=== PATIENT | female | born 1965 | race African-American/Black ===

== ENCOUNTER → 2017-09-29 | Outpatient (CLI) | payer MEDICARE, OTHER ==
[2017-09-29 14:35] LABS: ADD MAN DIFF? NO
[2017-09-29 14:38] LABS: BASO % 0 % (0-3); EOS # 0.1 x10^3/uL (0.0-0.7); EOS % 1 % (0-3); HEMATOCRIT 39.7 % (36.0-47.0); HEMOGLOBIN 13.1 g/dL (12.0-15.5); LYMPH % 30 % (24-48); MEAN CORPUSCULAR HEMOGLOBIN 30 pg (25-35); MEAN CORPUSCULAR HGB CONC 33 g/dL (31-37); MEAN CORPUSCULAR VOLUME 90 fL (79-100); MONO # 0.9 x10^3/uL (0.0-1.1); MONO % 8 % (0-9); NEUT # 6.1 x10^3uL (1.8-7.7); NEUT % 60 % (31-73); PLATELET COUNT 298 x10^3/uL (140-400); RED BLOOD COUNT 4.42 x10^6/uL (3.50-5.40); RED CELL DISTRIBUTION WIDTH 13.9 % (11.5-14.5); WHITE BLOOD COUNT 10.1 x10^3/uL (4.0-11.0)
[2017-09-29 14:56] LABS: ALBUMIN 3.2 g/dL (3.4-5.0); ALBUMIN/GLOBULIN RATIO 0.8 (1.0-1.7); ALK PHOS 70 U/L (46-116); ALT (SGPT) 23 U/L (14-59); ANION GAP 6 (6-14); AST (SGOT) 17 U/L (15-37); BLOOD UREA NITROGEN 24 mg/dL (7-20); BUN/CREATININE RATIO 34 (6-20); CARBON DIOXIDE 33 mmol/L (21-32); CHLORIDE 107 mmol/L (98-107); CREATININE 0.7 mg/dL (0.6-1.0); GFR 105.5; GLUCOSE 89 mg/dL (70-99); POTASSIUM 4.1 mmol/L (3.5-5.1); SODIUM 146 mmol/L (136-145); TOTAL BILIRUBIN 0.3 mg/dL (0.2-1.0); TOTAL PROTEIN 7.2 g/dL (6.4-8.2)
[2017-09-29 15:10] LABS: VAL ACID 117 mcg/mL (50-100)
[2017-09-29 16:48] LABS: BILIRUBIN,URINE NEGATIVE (NEG); CLARITY,URINE CLEAR; COLOR,URINE YELLOW; GLUCOSE,URINE NEGATIVE (NEG); NITRITE,URINE NEGATIVE (NEG); PH,URINE 6.5; PROTEIN,URINE NEGATIVE (NEG-TRACE)
[2017-09-29 16:59] LABS: BACTERIA,URINE FEW /HPF (0-FEW); RBC,URINE 0 /HPF (0-2); SQUAMOUS EPITHELIAL CELL,UR FEW /LPF; WBC,URINE >40 /HPF (0-4)
== END | disposition home or self-care (01) ==
LOC: LAB 14:00
DX: G40.909 Epilepsy, unspecified, not intractable, without status epilepticus (principal)
CPT/HCPCS: 36415; 80053; 80164; 81001; 85025; 87086

== ENCOUNTER → 2017-10-01 | Outpatient (CLI) | payer MEDICARE, OTHER ==
[2017-10-05 16:15] LABS: LAMOTRIGINE LEVEL 16.8 ug/mL (2.0-20.0)
== END | disposition home or self-care (01) ==
LOC: LAB 13:16
DX: G40.909 Epilepsy, unspecified, not intractable, without status epilepticus (principal)
CPT/HCPCS: 36415; 80175

== ENCOUNTER → 2017-10-04 | Outpatient (CLI) | payer MEDICARE, OTHER | END | disposition home or self-care (01) | LOC: RT 10:03 | DX: G40.909 Epilepsy, unspecified, not intractable, without status epilepticus (principal) | CPT/HCPCS: 95816 ==

== ENCOUNTER 2017-12-09 16:05 | Emergency (ER) | payer MEDICARE, OTHER ==
[2017-12-09] MEDS: IV NORMAL SALINE 500ML BAG 500 ML IV (16:51)
[2017-12-09 16:55] LABS: POC GLUCOSE 144 mg/dL (70-99)
[2017-12-09 16:58] LABS: ADD MAN DIFF? NO
[2017-12-09 17:01] LABS: BASO # 0.1 x10^3/uL (0.0-0.2); BASO % 1 % (0-3); EOS % 1 % (0-3); HEMATOCRIT 39.8 % (36.0-47.0); HEMOGLOBIN 13.2 g/dL (12.0-15.5); LYMPH # 2.1 x10^3/uL (1.0-4.8); LYMPH % 23 % (24-48); MEAN CORPUSCULAR HEMOGLOBIN 30 pg (25-35); MEAN CORPUSCULAR HGB CONC 33 g/dL (31-37); MEAN CORPUSCULAR VOLUME 90 fL (79-100); MONO # 0.7 x10^3/uL (0.0-1.1); MONO % 8 % (0-9); NEUT # 6.5 x10^3uL (1.8-7.7); NEUT % 69 % (31-73); PLATELET COUNT 283 x10^3/uL (140-400); RED BLOOD COUNT 4.45 x10^6/uL (3.50-5.40); RED CELL DISTRIBUTION WIDTH 13.7 % (11.5-14.5); WHITE BLOOD COUNT 9.4 x10^3/uL (4.0-11.0)
[2017-12-09 17:10] LABS: ANION GAP 12 (6-14); BLOOD UREA NITROGEN 25 mg/dL (7-20); BUN/CREATININE RATIO 31 (6-20); CALCIUM 9.2 mg/dL (8.5-10.1); CARBON DIOXIDE 23 mmol/L (21-32); CHLORIDE 110 mmol/L (98-107); CREATININE 0.8 mg/dL (0.6-1.0); GFR 90.4; GLUCOSE 158 mg/dL (70-99); POTASSIUM 3.9 mmol/L (3.5-5.1); SODIUM 145 mmol/L (136-145)
[2017-12-09 17:16] LABS: ALBUMIN 3.2 g/dL (3.4-5.0); ALBUMIN/GLOBULIN RATIO 0.8 (1.0-1.7); ALK PHOS 85 U/L (46-116); ALT (SGPT) 24 U/L (14-59); AST (SGOT) 24 U/L (15-37); TOTAL BILIRUBIN 0.1 mg/dL (0.2-1.0); TOTAL PROTEIN 7.2 g/dL (6.4-8.2)
[2017-12-09 18:05] LABS: VAL ACID 64 mcg/mL (50-100)
[2017-12-09 18:59] LABS: BILIRUBIN,URINE NEGATIVE (NEG); CLARITY,URINE CLEAR; COLOR,URINE YELLOW; GLUCOSE,URINE NEGATIVE (NEG); NITRITE,URINE NEGATIVE (NEG); PH,URINE 6.5; PROTEIN,URINE NEGATIVE (NEG-TRACE); UROBILINOGEN,URINE 0.2 mg/dL (0.2 mg/dL)
[2017-12-09 19:03] LABS: BACTERIA,URINE FEW /HPF (0-FEW); RBC,URINE 0 /HPF (0-2); SQUAMOUS EPITHELIAL CELL,UR OCC /LPF
== END 2017-12-09 19:22 | disposition home or self-care (01) ==
LOC: ER 16:05
DX: G40.909 Epilepsy, unspecified, not intractable, without status epilepticus (principal); N39.0 Urinary tract infection, site not specified; Z90.710 Acquired absence of both cervix and uterus
CPT/HCPCS: 36415; 70450; 72125; 80053; 80164; 81001; 82962; 85025; 87086; 93005; 99285-25; J7040

== ENCOUNTER → 2018-05-03 | Outpatient (CLI) | payer MEDICARE, OTHER ==
[2018-01-12 15:00] VITALS: BP 104/62
[~2018-05-03] MED LIST: CEPH-264 PO; CETI10TA22 PO; CHOL5000 PO; CLOB10TA PO; DIVA-53 PO; LAMO100T PO; TOPI100T42 PO; TOPI25TA7 PO
[2018-05-03 09:39] LABS: BASO % 1 % (0-3); EOS # 0.1 x10^3/uL (0.0-0.7); EOS % 1 % (0-3); HEMATOCRIT 40.9 % (36.0-47.0); HEMOGLOBIN 13.4 g/dL (12.0-15.5); LYMPH # 2.6 x10^3/uL (1.0-4.8); LYMPH % 38 % (24-48); MEAN CORPUSCULAR HEMOGLOBIN 30 pg (25-35); MEAN CORPUSCULAR HGB CONC 33 g/dL (31-37); MEAN CORPUSCULAR VOLUME 91 fL (79-100); MONO # 0.8 x10^3/uL (0.0-1.1); MONO % 11 % (0-9); NEUT # 3.4 x10^3uL (1.8-7.7); NEUT % 50 % (31-73); PLATELET COUNT 254 x10^3/uL (140-400); RED CELL DISTRIBUTION WIDTH 13.6 % (11.5-14.5); WHITE BLOOD COUNT 6.9 x10^3/uL (4.0-11.0)
[2018-05-03 10:06] LABS: ALBUMIN 3.2 g/dL (3.4-5.0); ALBUMIN/GLOBULIN RATIO 0.8 (1.0-1.7); ALK PHOS 68 U/L (46-116); ALT (SGPT) 28 U/L (14-59); ANION GAP 9 (6-14); AST (SGOT) 16 U/L (15-37); BLOOD UREA NITROGEN 19 mg/dL (7-20); BUN/CREATININE RATIO 21 (6-20); CALCIUM 9.3 mg/dL (8.5-10.1); CARBON DIOXIDE 21 mmol/L (21-32); CHLORIDE 112 mmol/L (98-107); CREATININE 0.9 mg/dL (0.6-1.0); GFR 78.7; GLUCOSE 93 mg/dL (70-99); POTASSIUM 3.9 mmol/L (3.5-5.1); SODIUM 142 mmol/L (136-145); TOTAL BILIRUBIN 0.4 mg/dL (0.2-1.0); TOTAL PROTEIN 7.1 g/dL (6.4-8.2); VAL ACID 64 mcg/mL (50-100)
[2018-05-03 16:01] LABS: BILIRUBIN,URINE NEGATIVE (NEG); CLARITY,URINE CLOUDY; COLOR,URINE YELLOW; NITRITE,URINE NEGATIVE (NEG); PH,URINE 7.5; PROTEIN,URINE NEGATIVE (NEG-TRACE)
[2018-05-03 16:06] LABS: SQUAMOUS EPITHELIAL CELL,UR FEW /LPF
[2018-05-03 16:14] LABS: BACTERIA,URINE FEW /HPF (0-FEW); RBC,URINE 0 /HPF (0-2)
== END | disposition home or self-care (01) ==
LOC: LAB 09:02
PROVIDERS: ATTEND Psychiatry & Neurology Neurology
DX: G40.909 Epilepsy, unspecified, not intractable, without status epilepticus (principal)
CPT/HCPCS: 80053; 80164; 81001; 82140; 85025

== ENCOUNTER 2018-06-20 19:21 | Emergency (ER) | payer MEDICARE, OTHER ==
[~2018-06-20] VITALS: Ht 162.6 cm; Wt 45.4 kg
[2018-06-20 20:20] VITALS: BP 100/63
--- NOTE | 2018-06-20 22:18 | PHYS DOC ---
Past Medical History Past Medical History: Seizure, Other Additional Past Medical Histor: intellectual deficits Past Surgical History: Hysterectomy Alcohol Use: None Drug Use: None Adult General Chief Complaint Chief Complaint: MECHANICAL FALL HPI HPI Patient is a 53 year old -[place] female with history of mental retardation, seizure disorder who presents with left shoulder injury after witnessed fall yesterday while at home. Patient lives with her parents and has her sister as a nighttime caregiver. Patient reportedly fell in the kitchen, landing on her shoulder. This was not associated with the seizure. Patient has bruising redness and swelling to the anterior superior shoulder pain range of motion. No obvious deformity. No chest wall crepitus, subcutaneous emphysema, flail chest or bony tenderness. No midline pain, neck tenderness. No obvious head injury. No reported nausea vomiting today. Patient is not on anticoagulation therapy. History obtained from the patient's sister[] Review of Systems Review of Systems Review symptoms as per history of present illness. All other systems were reviewed and found to be within normal limits, except as documented in this note. Allergies Allergies Allergies Coded Allergies Type Severity Reaction Last Updated Verified No Known Drug Allergies 05/24/14 No Physical Exam Physical Exam Constitutional: Well developed, well nourished, no acute distress, non-toxic appearance. [] HENT: Normocephalic, atraumatic, bilateral external ears normal, oropharynx moist, no oral exudates, nose normal. [] Eyes: PERRLA, EOMI, conjunctiva normal, no discharge. [] Neck: Normal range of motion, no line tenderness.. [] Cardiovascular:Heart rate regular rhythm, no murmur, tears superior shoulder, bruising swelling, no gross deformity, pain on range of motion, no chest wall pain, bony tenderness, subcutaneous emphysema. No splinting. [] Lungs & Thorax: Bilateral breath sounds clear to auscultation [] Abdomen: Bowel sounds normal, soft, no tenderness, no masses, no pulsatile masses. [] Skin: Warm, dry, no erythema, no rash. [] Back: No tenderness. [] Extremities: No tenderness, [] Neurologic: Alert and oriented to surroundings, normal motor function, normal sensory function, no focal deficits noted. [] Psychologic: Affect normal, judgement normal, mood normal. [] Current Patient Data Vital Signs Vital Signs Date Time Temp Pulse Resp B/P (MAP) Pulse Ox O2 Delivery O2 Flow Rate FiO2 10/1/18 20:20 97.6 81 18 100/63 (75) 97 Room Air 97.6 EKG EKG [] Radiology/Procedures Radiology/Procedures [Chest x-ray/left shoulder series: Suspected left clavicle fracture per radiology report] Course & Med Decision Making Course & Med Decision Making Pertinent Labs and Imaging studies reviewed. (See chart for details) [Patient with left shoulder injury and suspected left clavicle fracture and small left lower lobe pleural effusion. Vital signs stable. No obvious displaced rib fracture. Recommend supportive care with PCP follow-up for view of official radiology report.] Dragon Disclaimer Dragon Disclaimer This electronic medical record was generated, in whole or in part, using a voice recognition dictation system. Departure Departure Impression: Primary Impression: Injury of left shoulder Additional Impression: Chest wall injury Disposition: HOME, SELF-CARE Condition: GOOD Referrals: KARMEN FERRO (PCP) Patient Instructions: Pleural Effusion-Brief, Shoulder Fracture Additional Instructions: Emmy was evaluated in the emergency department for chest wall. Xrays of the shoulder and chest wall were performed with suspected collar bone fracture and fluid collection in lung. Please take Tylenol for pain, and follow-up with your primary care physician tomorrow for the official radiology report to confirm these findings. Return to the ED if new or worsening symptoms. . Problem Qualifiers ARTURO MORGAN DO Jun 20, 2018 22:18
--- NOTE | 2018-06-21 00:06 | RAD ---
Three-view left shoulder radiographs 06/20/2018 CLINICAL HISTORY: Fall with injury to the left shoulder. AP, lateral and oblique digital radiographs of the left shoulder were obtained. A vagal nerve stimulator overlies the left chest. No fracture or dislocation left shoulder is seen. Mild degenerative changes are seen on left shoulder. IMPRESSION: No fracture or dislocation of the left shoulder is seen. Electronically signed by: Candido Hanks MD (06/21/2018 12:02 AM) [facility]
--- NOTE | 2018-06-21 00:07 | RAD ---
PA and lateral chest radiographs 06/20/2018 CLINICAL HISTORY: Fall with chest pain. PA and lateral digital radiographs of the chest were obtained. Comparison study is dated 01/09/2018. A stimulator is seen within the left anterior chest, unchanged. The cardiac silhouette is normal in size. The thoracic aorta is minimally tortuous. No acute pulmonary infiltrate is seen. No pleural effusion or pneumothorax is noted. Degenerative changes are seen involving the thoracic spine. The osseous structures are grossly intact. IMPRESSION: No acute abnormality is seen. Electronically signed by: Candido Hanks MD (06/21/2018 12:03 AM) [facility]
== END 2018-06-21 00:09 | disposition home or self-care (01) ==
LOC: ER 19:21
DX: S49.92XA Unspecified injury of left shoulder and upper arm, initial encounter (principal); S29.9XXA Unspecified injury of thorax, initial encounter; G40.909 Epilepsy, unspecified, not intractable, without status epilepticus; F79 Unspecified intellectual disabilities; W19.XXXA Unspecified fall, initial encounter; Y93.89 Activity, other specified; Y92.098 Other place in other non-institutional residence as the place of occurrence of the external cause; Y99.8 Other external cause status
CPT/HCPCS: 71046; 73030; 99284

== ENCOUNTER → 2018-08-01 | Outpatient (CLI) | payer MEDICARE, OTHER ==
[2018-08-01 10:56] LABS: BILIRUBIN,URINE NEGATIVE (NEG); CLARITY,URINE CLEAR; COLOR,URINE YELLOW; NITRITE,URINE NEGATIVE (NEG); PH,URINE 5.5; PROTEIN,URINE NEGATIVE (NEG-TRACE); UROBILINOGEN,URINE 0.2 mg/dL (0.2 mg/dL)
[2018-08-01 11:19] LABS: SQUAMOUS EPITHELIAL CELL,UR FEW /LPF
[2018-08-01 11:20] LABS: BACTERIA,URINE FEW /HPF (0-FEW); RBC,URINE OCC /HPF (0-2)
== END | disposition home or self-care (01) ==
LOC: LAB 10:21
PROVIDERS: ATTEND Psychiatry & Neurology Neurology
DX: Z87.440 Personal history of urinary (tract) infections (principal)
CPT/HCPCS: 81001

== ENCOUNTER → 2018-11-07 | Outpatient (CLI) | payer MEDICARE, OTHER ==
[2018-11-07 10:20] LABS: BILIRUBIN,URINE NEGATIVE (NEG); CLARITY,URINE CLEAR; COLOR,URINE YELLOW; NITRITE,URINE NEGATIVE (NEG); PH,URINE 5.5; PROTEIN,URINE NEGATIVE (NEG-TRACE); UROBILINOGEN,URINE 0.2 mg/dL (0.2 mg/dL)
[2018-11-07 10:26] LABS: BACTERIA,URINE FEW /HPF (0-FEW); RBC,URINE OCC /HPF (0-2); SQUAMOUS EPITHELIAL CELL,UR FEW /LPF
[2018-11-07 10:38] LABS: VAL ACID 53 mcg/mL (50-100)
== END | disposition home or self-care (01) ==
LOC: LAB 09:42
PROVIDERS: ATTEND Psychiatry & Neurology Neurology
DX: G40.909 Epilepsy, unspecified, not intractable, without status epilepticus (principal); Z87.440 Personal history of urinary (tract) infections
CPT/HCPCS: 36415; 80164; 81001; 87086

== ENCOUNTER → 2019-01-31 | Outpatient (CLI) | payer MEDICARE, OTHER ==
[~2019-01-31] MED LIST changes: +ASPI-612 PO; +LACO200T PO; +TOPI200T25 PO
--- NOTE | 2019-01-31 16:46 | RAD ---
Dimension: Ultrasound kidneys HISTORY: History of chronic cystitis. COMPARISON: None available. FINDINGS: The right kidney measures 9.6 x 4.4 x 4.5 cm. The left kidney measures 9.4 x 5.0 x 5.1 cm. Limited examination as patient was uncooperative. Urinary bladder is mildly distended. There is mild increased echogenicity identified in the bilateral kidneys. IMPRESSION: 1. Mild increased echogenicity identified in the bilateral kidneys could be due to mild medical renal disease. Examination is limited as patient was uncooperative. No obvious hydronephrosis. Electronically signed by: Jamil Garcia MD (01/31/2019 4:43 PM) [place] [id number]
== END | disposition home or self-care (01) ==
LOC: US 16:03
PROVIDERS: ATTEND Urology
DX: N30.20 Other chronic cystitis without hematuria (principal); N32.89 Other specified disorders of bladder
CPT/HCPCS: 76770

== ENCOUNTER 2019-02-08 14:25 | Inpatient (IN) | payer MEDICARE, OTHER ==
[~2019-02-08] VITALS: Ht 149.9 cm; Wt 47.2 kg
[2019-02-08] MEDS: DIVALPROEX DELAYED RELEASE 250 MG TABLET.DR. PO SCH (09:00)
[~2019-02-08 14:25] MED LIST changes: -ASPI-612 PO
[2019-02-08] MEDS ORDERED: IV NORMAL SALINE 1000ML BAG 1,000 ML IV ONE (15:00)
--- NOTE | 2019-02-08 15:37 | RAD ---
EXAM: Chest, single view. HISTORY: Weakness. COMPARISON: 02/03/2019 FINDINGS: A frontal view of the chest is obtained. There is no infiltrate, pleural effusion or pneumothorax. The heart is normal in size. There is a left vagal neurostimulator overlying the left thorax. IMPRESSION: No acute pulmonary finding. Electronically signed by: Dhara Owens MD (02/08/2019 3:35 PM) [facility]
--- NOTE | 2019-02-08 15:37 | RAD ---
EXAM: Head CT without contrast. HISTORY: Weakness. TECHNIQUE: Computed tomographic images of the head were obtained without contrast. *One or more of the following individualized dose reduction techniques were utilized for this examination: 1. Automated exposure control. 2. Adjustment of the mA and/or kV according to patient size. 3. Use of iterative reconstruction technique. COMPARISON: 02/03/2019. FINDINGS: There is no acute or subacute extra-axial or intraparenchymal hemorrhage. There is no mass effect or midline shift. There is no hydrocephalus. There is cerebral and cerebellar volume loss, greater than expected for patient age. There is a stable chronic lacunar infarct within the left thalamus. There are also areas of hypodensity within the bilateral frontoparietal junction which may be due to encephalomalacia from chronic infarction. There are scattered areas of hypodensity within the cerebral white matter, likely due to chronic small vessel disease. There is diffuse calvarial thickening. The orbits, paranasal sinuses mastoid air cells are unremarkable. There is ossification along the falx. IMPRESSION: 1. No acute intracranial finding. Note is made that MRI is more sensitive for acute infarction. 2. Cerebral and cerebellar atrophy. This is greater than expected for patient age. 3. Decreased attenuation within the cerebral white, a nonspecific finding which can be seen with chronic small vessel disease. 4. 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 Electronically signed by: Dhara Owens MD (02/08/2019 3:34 PM) [facility]
[2019-02-08 15:49] LABS: BASO % 0 % (0-3); EOS # 0.1 x10^3/uL (0.0-0.7); EOS % 1 % (0-3); HEMATOCRIT 40.2 % (36.0-47.0); HEMOGLOBIN 13.1 g/dL (12.0-15.5); LYMPH % 23 % (24-48); MEAN CORPUSCULAR HEMOGLOBIN 29 pg (25-35); MEAN CORPUSCULAR HGB CONC 33 g/dL (31-37); MEAN CORPUSCULAR VOLUME 90 fL (79-100); MONO # 1.1 x10^3/uL (0.0-1.1); MONO % 13 % (0-9); NEUT # 5.3 x10^3uL (1.8-7.7); NEUT % 62 % (31-73); PLATELET COUNT 202 x10^3/uL (140-400); RED BLOOD COUNT 4.46 x10^6/uL (3.50-5.40); RED CELL DISTRIBUTION WIDTH 13.7 % (11.5-14.5); WHITE BLOOD COUNT 8.5 x10^3/uL (4.0-11.0)
[2019-02-08 15:55] LABS: PROTHROMBIN TIME PATIENT 13.4 SEC (11.7-14.0)
[2019-02-08 15:58] LABS: CREATININE 0.8 mg/dL (0.6-1.0); GFR 90.1; POTASSIUM 3.8 mmol/L (3.5-5.1)
[2019-02-08 16:13] LABS: ALBUMIN 2.7 g/dL (3.4-5.0); ALBUMIN/GLOBULIN RATIO 0.7 (1.0-1.7); TOTAL BILIRUBIN 0.3 mg/dL (0.2-1.0); TOTAL PROTEIN 6.5 g/dL (6.4-8.2)
--- NOTE | 2019-02-08 16:22 | EKG ---
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
[2019-02-08 16:24] LABS: BILIRUBIN,URINE NEGATIVE (NEG); CLARITY,URINE CLEAR; COLOR,URINE YELLOW; NITRITE,URINE NEGATIVE (NEG); PROTEIN,URINE NEGATIVE (NEG-TRACE)
--- NOTE | 2019-02-08 16:24 | PHYS DOC ---
Past Medical History Past Medical History: Seizure, Other Additional Past Medical Histor: intellectual deficits Past Surgical History: Hysterectomy Alcohol Use: None Drug Use: None Adult General Chief Complaint Chief Complaint: WEAKNESS/GENERALIZED HPI HPI Patient is a 53 year old nonverbal female with history of mentally challenged and seizure who brought in because of not able to walk. Patient was admitted on February 03 because of not able to walk unlike her usual condition and was discharged last night with providing home health care. Patient's sister states she was not able to walk and feeding herself and brought her back. Patient is not verbal and unable to give history. Review of Systems Review of Systems Unable to obtain, nonverbal patient Current Medications Current Medications Current Medications Medications (Trade) Dose Ordered Sig/Ruthie Start Time Stop Time Status Last Admin Dose Admin Sodium Chloride 1,000 ml @ 150 mls/hr [id number] 02/08/19 16:24 02/09/19 16:23 Allergies Allergies Allergies Coded Allergies Type Severity Reaction Last Updated Verified No Known Drug Allergies 05/24/14 No Physical Exam Physical Exam Constitutional: Mild distress, non-toxic appearance. [] HENT: Normocephalic, atraumatic, oropharynx dry. Eyes: PERRLA, EOMI, conjunctiva normal, no discharge. [] Neck: Normal range of motion, no tenderness, supple, no stridor. [] Cardiovascular:Heart rate regular rhythm, no murmur [] Lungs & Thorax: Bilateral breath sounds clear to auscultation [] Abdomen: Bowel sounds normal, soft, no tenderness, no masses, no pulsatile masses. [] Skin: Warm, dry, no erythema, no rash. [] Back: No tenderness, no CVA tenderness. [] Extremities: No tenderness, no cyanosis, no clubbing, ROM intact, no edema. [] Neurologic: Alert, nonverbal, moves all extremities Psychologic: Unable to evaluate Current Patient Data Vital Signs Vital Signs Date Time Temp Pulse Resp B/P (MAP) Pulse Ox O2 Delivery O2 Flow Rate FiO2 02/08/19 14:59 99.1 92 18 130/72 (91) 98 Room Air 99.1 Lab Values Laboratory Tests Test 02/08/19 15:39 02/08/19 16:16 White Blood Count 8.5 x10^3/uL (4.0-11.0) Red Blood Count 4.46 x10^6/uL (3.50-5.40) Hemoglobin 13.1 g/dL (12.0-15.5) Hematocrit 40.2 % (36.0-47.0) Mean Corpuscular Volume 90 fL (79-100) Mean Corpuscular Hemoglobin 29 pg (25-35) Mean Corpuscular Hemoglobin Concent 33 g/dL (31-37) Red Cell Distribution Width 13.7 % (11.5-14.5) Platelet Count 202 x10^3/uL (140-400) Neutrophils (%) (Auto) 62 % (31-73) Lymphocytes (%) (Auto) 23 % (24-48) L Monocytes (%) (Auto) 13 % (0-9) H Eosinophils (%) (Auto) 1 % (0-3) Basophils (%) (Auto) 0 % (0-3) Neutrophils # (Auto) 5.3 x10^3uL (1.8-7.7) Lymphocytes # (Auto) 2.0 x10^3/uL (1.0-4.8) Monocytes # (Auto) 1.1 x10^3/uL (0.0-1.1) Eosinophils # (Auto) 0.1 x10^3/uL (0.0-0.7) Basophils # (Auto) 0.0 x10^3/uL (0.0-0.2) Prothrombin Time 13.4 SEC (11.7-14.0) Prothrombin Time INR 1.1 (0.8-1.1) Sodium Level 146 mmol/L (136-145) H Potassium Level 3.8 mmol/L (3.5-5.1) Chloride Level 111 mmol/L (98-107) H Carbon Dioxide Level 25 mmol/L (21-32) Anion Gap 10 (6-14) Blood Urea Nitrogen 24 mg/dL (7-20) H Creatinine 0.8 mg/dL (0.6-1.0) Estimated GFR (Cockcroft-Gault) 90.1 BUN/Creatinine Ratio 30 (6-20) H Glucose Level 106 mg/dL (70-99) H Calcium Level 9.0 mg/dL (8.5-10.1) Magnesium Level 2.0 mg/dL (1.8-2.4) Total Bilirubin 0.3 mg/dL (0.2-1.0) Aspartate Amino Transferase (AST) 49 U/L (15-37) H Alanine Aminotransferase (ALT) 25 U/L (14-59) Alkaline Phosphatase 61 U/L (46-116) Creatine Kinase 1536 U/L (26-192) H Troponin I Quantitative 0.084 ng/mL (0.000-0.055) SH-Itc-E-Type Natriuretic Peptide 422 pg/mL (0-124) H Total Protein 6.5 g/dL (6.4-8.2) Albumin 2.7 g/dL (3.4-5.0) L Albumin/Globulin Ratio 0.7 (1.0-1.7) L Urine Collection Type U cath Urine Color Yellow Urine Clarity Clear Urine pH 7.0 Urine Specific [place] 1.025 Urine Protein Negative mg/dL (NEG-TRACE) Urine Glucose (UA) Negative mg/dL (NEG) Urine Ketones (Stick) Trace mg/dL (NEG) Urine Blood Negative (NEG) Urine Nitrite Negative (NEG) Urine Bilirubin Negative (NEG) Urine Urobilinogen Dipstick 2.0 mg/dL (0.2 mg/dL) Urine Leukocyte Esterase Negative (NEG) Urine RBC 0 /HPF (0-2) Urine WBC 0 /HPF (0-4) Urine Bacteria 0 /HPF (0-FEW) Urine Mucus Mod /LPF Laboratory Tests 02/08/19 15:39 Laboratory Tests 02/08/19 15:39 EKG EKG EKG interpreted by me. EKG at 1542 showed normal sinus rhythm at rate of 90, left atrial abnormalities, poor R-wave progress in anteroseptal leads, no acute ST and T-wave abnormalities. Radiology/Procedures Radiology/Procedures [facility] [address] [place] [address] IMAGING REPORT Signed PATIENT: MARIUSZ LIANG ACCOUNT: [id number] : 1965 LOCATION: ER AGE: 53 SEX: F EXAM STATUS: REG ER ORD. PHYSICIAN: YOBANY LOZA MD REASON: generalized weakness PROCEDURE: PORTABLE CHEST 1V EXAM: Chest, single view. HISTORY: Weakness. COMPARISON: 02/03/2019 FINDINGS: A frontal view of the chest is obtained. There is no infiltrate, pleural effusion or pneumothorax. The heart is normal in size. There is a left vagal neurostimulator overlying the left thorax. IMPRESSION: No acute pulmonary finding. Electronically signed by: Dhara Espinoza MD (02/08/2019 3:35 PM) [facility] DICTATED and SIGNED BY: DHARA ESPINOZA MD DATE: 02/08/19 1535 [facility] [address] [place] [address] IMAGING REPORT Signed PATIENT: MARIUSZ LIANG ACCOUNT: [id number] : 1965 LOCATION: ER AGE: 53 SEX: F EXAM STATUS: REG ER ORD. PHYSICIAN: YOBANY LOZA MD REASON: generalized weakness PROCEDURE: CT HEAD WO CONTRAST EXAM: Head CT without contrast. HISTORY: Weakness. TECHNIQUE: Computed tomographic images of the head were obtained without contrast. *One or more of the following individualized dose reduction techniques were utilized for this examination: 1. Automated exposure control. 2. Adjustment of the mA and/or kV according to patient size. 3. Use of iterative reconstruction technique. COMPARISON: 02/03/2019. FINDINGS: There is no acute or subacute extra-axial or intraparenchymal hemorrhage. There is no mass effect or midline shift. There is no hydrocephalus. There is cerebral and cerebellar volume loss, greater than expected for patient age. There is a stable chronic lacunar infarct within the left thalamus. There are also areas of hypodensity within the bilateral frontoparietal junction which may be due to encephalomalacia from chronic infarction. There are scattered areas of hypodensity within the cerebral white matter, likely due to chronic small vessel disease. There is diffuse calvarial thickening. The orbits, paranasal sinuses mastoid air cells are unremarkable. There is ossification along the falx. IMPRESSION: 1. No acute intracranial finding. Note is made that MRI is more sensitive for acute infarction. 2. Cerebral and cerebellar atrophy. This is greater than expected for patient age. 3. Decreased attenuation within the cerebral white, a nonspecific finding which can be seen with chronic small vessel disease. 4. 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 Electronically signed by: Dhara Espinoza MD (02/08/2019 3:34 PM) [facility] DICTATED and SIGNED BY: DHARA ESPINOZA MD DATE: 02/08/19 1534 Course & Med Decision Making Course & Med Decision Making Pertinent Labs and Imaging studies reviewed. (See chart for details) Evaluation of patient in ER showed 53-year-old nonverbal patient brought in to the hospital again after recent hospitalization with not able to walk. Patient was nonverbal. She had mild elevation of troponin and CK and sodium of 146. Patient treated with IV fluid. Plan to admit patient for possible rehabilitation or prison placement.Patient requiring admission for further evaluation and treatment. Discussed with Dr. Ward who is in agreement with admission. Discussed findings and plan with patient and family, who acknowledge understanding and agreement. Dragon Disclaimer Dragon Disclaimer This electronic medical record was generated, in whole or in part, using a voice recognition dictation system. Departure Departure Impression: Primary Impression: Generalized weakness Additional Impressions: Elevated troponin Dehydration Hypernatremia Rhabdomyolysis Mentally challenged Seizure Disposition: ADMITTED INPATIENT (at 1557) Admitting Physician: Other (Dr. Ward accepted admission at 1557) Condition: IMPROVED Referrals: KARMEN FERRO (PCP) Problem Qualifiers Additional Impressions: Rhabdomyolysis Rhabdomyolysis type: non-traumatic Qualified Codes: M62.82 - Rhabdomyolysis YOBANY LOZA MD February 08, 2019 16:24
[2019-02-08 16:37] LABS: BACTERIA,URINE 0 /HPF (0-FEW); RBC,URINE 0 /HPF (0-2); WBC,URINE 0 /HPF (0-4)
[2019-02-08 18:00] VITALS: BP 136/67
--- NOTE | 2019-02-08 19:24 | RAD ---
Two-view right femur dated 02/08/2019. No comparison available. Clinical data indication: Pain. FINDINGS: 2 views right femur show normal bony alignment. No displaced fracture. No acute osseous or articular abnormality. No periostitis or bone destruction. Mild degenerative change at the knee joint. IMPRESSION: No acute radiographic abnormality. Electronically signed by: Cristino Lima MD (02/08/2019 7:22 PM) [facility]
[2019-02-08] MEDS: LACOSAMIDE 200 MG TABLET PO SCH (20:55)
[2019-02-08] MEDS: HYDROcodone/APAP 5/325MG 1 TAB TABLET PO PRN (20:55)
[2019-02-08] MEDS: DIVALPROEX DELAYED RELEASE 500 MG TABLET.DR. PO SCH (20:55)
[2019-02-08] MEDS: TOPIRAMATE 100 MG TABLET. PO SCH (20:55)
[2019-02-08 22:57] VITALS: BP 84/49
--- NOTE | 2019-02-09 00:53 | NUR ---
At start of shift, pt had her sister at bedside, and two attempts at using the bedpan were unsuccessful, but this patient expresses great pain in repositioning and during the attempt at BSC. MD called for pain control, orders received, pt incontinent of bladder and is in a brief.
[2019-02-09 03:00] VITALS: BP 90/48
[2019-02-09 07:37] VITALS: BP 91/52
--- NOTE | 2019-02-09 08:47 | EKG ---
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
[2019-02-09] MEDS: LACOSAMIDE 200 MG TABLET PO SCH ×2 (08:54→20:48)
[2019-02-09] MEDS: DIVALPROEX DELAYED RELEASE 250 MG TABLET.DR. PO SCH (08:54)
[2019-02-09] MEDS: TOPIRAMATE 100 MG TABLET. PO SCH ×2 (08:55→20:48)
[2019-02-09] MEDS: IV NORMAL SALINE 1000ML BAG 1,000 ML IV SCH ×3 (08:55→18:24)
[2019-02-09] MEDS: CHOLECALCIFEROL (VITAMIN D3) 5,000 UNIT CAPSULE PO SCH (09:00)
[2019-02-09] MEDS: CETIRIZINE HCL 10 MG TABLET. PO SCH (09:00)
[2019-02-09] MEDS: CLOBAZAM 5 MG PO SCH ×2 (09:00→14:00)
[2019-02-09 09:14] LABS: CREATININE 0.6 mg/dL (0.6-1.0); GFR 125.6; MAGNESIUM 1.8 mg/dL (1.8-2.4); POTASSIUM 3.7 mmol/L (3.5-5.1)
[2019-02-09 09:16] LABS: CHOLESTEROL/HDL RATIO 4.6
[2019-02-09 10:39] LABS: VAL ACID 100 mcg/mL (50-100)
[2019-02-09 11:07] VITALS: BP 138/77
--- NOTE | 2019-02-09 11:17 | PDOC2 ---
[address]RA MATA [address]IVE THRU ORDER TAKER 02/09/19 1117: CARDIAC CONSULT DATE OF CONSULT Date of Consult DATE: 02/09/19 TIME: 11:13 REASON FOR CONSULT Reason for Consult: Increase trop REFERRING PHYSICIAN Referring Physician: Ed SOURCE Source: Chart review HISTORY OF PRESENT ILLNESS HISTORY OF PRESENT ILLNESS This is a 53 yo female admitted for increasing weakness. Pt is disable, mentally challenged and was recently discharged on 02/06/2019 noted at that time with intractable seizures and multiple falls. apparently she was noted with weakness and inability to walk. She is currently curled up in bed and nodding yes to every questions I asked. She does not seem to appear to be in pain when not being disturbed but moans when I touch or move her. I was unable to obtain details of any symptoms and currently she is not in distress. Speculation with her family that she may have fallen again per staff. PAST MEDICAL HISTORY CENTRAL NERVOUS SYSTEM: Seizure, Other (tremor) Psych: Other (mental disability) Musculoskeletal: Other (rib fractures from falls) Renal/: UTI PAST SURGICAL HISTORY Past Surgical History: Tubal Ligation, Other (vagus nerve stimulator) FAMILY HISTORY Family History: Diabetes (mother), Heart Disease (brother, father, sister) SOCIAL HISTORY Smoke: No ALCOHOL: none Drugs: None Lives: with Family CURRENT MEDICATIONS CURRENT MEDICATIONS Current Medications Medications (Trade) Dose Ordered Sig/Ruthie Route PRN Reason Start Time Stop Time Status Last Admin Dose Admin Sodium Chloride 1,000 ml @ 1,000 mls/hr 1X ONCE IV 02/08/19 15:00 02/08/19 15:59 DC 02/08/19 15:40 Sodium Chloride 1,000 ml @ 150 mls/hr Q6H40M IV 02/08/19 16:24 02/09/19 16:23 02/09/19 08:55 Lacosamide (Vimpat) 200 mg BID PO 02/08/19 21:00 02/09/19 08:54 Divalproex Sodium (Depakote) 500 mg QHS PO 02/08/19 21:00 02/08/19 20:55 Topiramate (Topamax) 200 mg BID PO 02/08/19 21:00 02/09/19 08:55 Acetaminophen/ Hydrocodone Bitart (Lortab 5/325) 1 tab PRN Q6HRS PRN PO PAIN 02/08/19 20:30 02/08/19 20:55 ALLERGIES ALLERGIES: Coded Allergies: No Known Drug Allergies (Unverified , 05/24/14) ROS Review of System limited PHYSICAL EXAM General: Alert, No acute distress HEENT: Atraumatic, Mucous membr. moist/pink Lungs: Clear to auscultation Heart: Regular rate (SR) Abdomen: Soft Extremities: No cyanosis, No edema Skin: No breakdown, No significant lesion Neuro: Other (moans intermittently, tremors) MUSCULOSKELETAL: Osteoarthritic changes both hands VITALS VITALS Vital Signs Date Time Temp Pulse Resp B/P (MAP) Pulse Ox O2 Delivery O2 Flow Rate FiO2 02/09/19 11:07 97.9 96 14 138/77 (97) 96 Room Air 97.9 LABS Lab: Laboratory Tests Test 02/08/19 15:39 02/08/19 16:16 02/08/19 19:30 02/09/19 01:20 White Blood Count 8.5 x10^3/uL (4.0-11.0) Red Blood Count 4.46 x10^6/uL (3.50-5.40) Hemoglobin 13.1 g/dL (12.0-15.5) Hematocrit 40.2 % (36.0-47.0) Mean Corpuscular Volume 90 fL (79-100) Mean Corpuscular Hemoglobin 29 pg (25-35) Mean Corpuscular Hemoglobin Concent 33 g/dL (31-37) Red Cell Distribution Width 13.7 % (11.5-14.5) Platelet Count 202 x10^3/uL (140-400) Neutrophils (%) (Auto) 62 % (31-73) Lymphocytes (%) (Auto) 23 % (24-48) Monocytes (%) (Auto) 13 % (0-9) Eosinophils (%) (Auto) 1 % (0-3) Basophils (%) (Auto) 0 % (0-3) Neutrophils # (Auto) 5.3 x10^3uL (1.8-7.7) Lymphocytes # (Auto) 2.0 x10^3/uL (1.0-4.8) Monocytes # (Auto) 1.1 x10^3/uL (0.0-1.1) Eosinophils # (Auto) 0.1 x10^3/uL (0.0-0.7) Basophils # (Auto) 0.0 x10^3/uL (0.0-0.2) Prothrombin Time 13.4 SEC (11.7-14.0) Prothromb Time International Ratio 1.1 (0.8-1.1) Sodium Level 146 mmol/L (136-145) 146 mmol/L (136-145) Potassium Level 3.8 mmol/L (3.5-5.1) 3.7 mmol/L (3.5-5.1) Chloride Level 111 mmol/L (98-107) 114 mmol/L (98-107) Carbon Dioxide Level 25 mmol/L (21-32) 19 mmol/L (21-32) Anion Gap 10 (6-14) 13 (6-14) Blood Urea Nitrogen 24 mg/dL (7-20) 23 mg/dL (7-20) Creatinine 0.8 mg/dL (0.6-1.0) 0.6 mg/dL (0.6-1.0) Estimated GFR (Cockcroft-Gault) 90.1 125.6 BUN/Creatinine Ratio 30 (6-20) Glucose Level 106 mg/dL (70-99) 121 mg/dL (70-99) Calcium Level 9.0 mg/dL (8.5-10.1) 8.0 mg/dL (8.5-10.1) Magnesium Level 2.0 mg/dL (1.8-2.4) 1.8 mg/dL (1.8-2.4) Total Bilirubin 0.3 mg/dL (0.2-1.0) Aspartate Amino Transf (AST/SGOT) 49 U/L (15-37) Alanine Aminotransferase (ALT/SGPT) 25 U/L (14-59) Alkaline Phosphatase 61 U/L (46-116) Creatine Kinase 1536 U/L (26-192) 933 U/L (26-192) Troponin I Quantitative 0.084 ng/mL (0.000-0.055) 0.084 ng/mL (0.000-0.055) 0.072 ng/mL (0.000-0.055) IY-Mkl-G-Type Natriuretic Peptide 422 pg/mL (0-124) Total Protein 6.5 g/dL (6.4-8.2) Albumin 2.7 g/dL (3.4-5.0) Albumin/Globulin Ratio 0.7 (1.0-1.7) Urine Collection Type U cath Urine Color Yellow Urine Clarity Clear Urine pH 7.0 Urine Specific [place] 1.025 Urine Protein Negative mg/dL (NEG-TRACE) Urine Glucose (UA) Negative mg/dL (NEG) Urine Ketones (Stick) Trace mg/dL (NEG) Urine Blood Negative (NEG) Urine Nitrite Negative (NEG) Urine Bilirubin Negative (NEG) Urine Urobilinogen Dipstick 2.0 mg/dL (0.2 mg/dL) Urine Leukocyte Esterase Negative (NEG) Urine RBC 0 /HPF (0-2) Urine WBC 0 /HPF (0-4) Urine Bacteria 0 /HPF (0-FEW) Urine Mucus Mod /LPF Triglycerides Level 114 mg/dL (0-150) Cholesterol Level 166 mg/dL (0-200) LDL Cholesterol, Calculated 107 mg/dL (0-100) VLDL Cholesterol, Calculated 23 mg/dL (0-40) Non-HDL Cholesterol Calculated 130 mg/dL (0-129) HDL Cholesterol 36 mg/dL (40-60) Cholesterol/HDL Ratio 4.6 Valproic Acid (Depakene) Level 100 mcg/mL (50-100) Valproic Acid Last Dose Date 02/08/19 Valproic Acid Last Dose Time 2054 ASSESSMENT/PLAN ASSESSMENT/PLAN 1. Rhabdomyolysis: trending down, potentially from seizure/fall but seizure meds such as depakote and topamax could contribute as well. 2. Mild elevation in troponin: likely from seizures/rhabdo and recent falls. No cardiac symptoms 3. Hx of seizures/falls 4. Mental disability/cachexia/malnutrition/tremors 5. Weakness: contributing myopathy. Recommendations 1. Mild changes to ST-T wave lateral region but otherwise unchanged by comparison 2. TTE, TSH, depakote level, lipids 3. Maintain conservative measures given above factors, unless significant changes to her TTE and symptomatic changes then will consider for ischemic workup. 4. IVF. ASA. KENYA ESTRADA MD 02/09/19 4768: CARDIAC CONSULT ASSESSMENT/PLAN ASSESSMENT/PLAN Pt. seen and examined. Agree with above HISTOLOGIC AIDE note. Severely debilitated woman with no clear symptoms that I am able to elicit. She does not communicate well. EKG w/o acute findings. Supportive care. SIDRA MATA APRN February 09, 2019 11:17 KENYA ESTRADA MD February 09, 2019 14:58
[2019-02-09] MEDS: ASPIRIN ENTERIC COATED 81 MG TABLET.DR. PO SCH (12:00)
--- NOTE | 2019-02-09 13:19 | NUR ---
SS following for discharge planning. SS reviewed pt chart. Pt is from home and is currently on room air. No discharge needs noted at this time. SS will continue to follow for discharge planning.
[2019-02-09 14:54] VITALS: BP 108/54
--- NOTE | 2019-02-09 17:07 | PDOC1 ---
History and Physical Date of Admission Date of Admission DATE: 02/09/19 TIME: 16:56 Identification/Chief Complaint Chief Complaint weakness Source Source: Chart review History of Present Illness History of Present Illness 53 year old female who is mentally challenged who was discharged on 02/06. was admitted for seizures and falls. was able to work with PT and discharged home. per sister, the patient is unable to still walk and feed herself. she answers yes to all my questions so difficult to obtain history. family not at bedside for questioning. per floor nurse patient reported hip pain, xray done and negative for fracture. patient currently curled up in bed. in ED patient noted to have elevated trop. 0.07, 0.084, 0.084 no ekg changes. no chest pain. hospitalist called to admit due to weakness and falls. Past Medical History CENTRAL NERVOUS SYSTEM: Seizure, Other (tremor) Psych: Other (mental disability) Musculoskeletal: Other (rib fractures from falls) Renal/: UTI Past Surgical History Past Surgical History: Tubal Ligation, Other (vagus nerve stimulator) Family History Family History: Diabetes (mother), Heart Disease (brother, father, sister) Social History Smoke: No ALCOHOL: none Drugs: None Current Problem List Problem List Problems Medical Problems: (1) Dehydration Status: Acute (2) Elevated troponin Status: Acute (3) Generalized weakness Status: Acute (4) Hypernatremia Status: Acute (5) Mentally challenged Status: Acute (6) Rhabdomyolysis Status: Acute (7) Seizure Status: Acute Current Medications Current Medications Current Medications Sodium Chloride 1,000 ml @ 1,000 mls/hr 1X ONCE IV Last administered on 02/08/19at 15:40; Start 02/08/19 at 15:00; Stop 02/08/19 at 15:59; Status DC Sodium Chloride 1,000 ml @ 150 mls/hr Q6H40M IV Last administered on 02/09/19at 08:55; Start 02/08/19 at 16:24; Stop 02/09/19 at 11:58; Status DC Cetirizine HCl (ZyrTEC) 10 mg DAILY PO ; Start 02/09/19 at 09:00 Vitamin D (Vitamin D3) 5,000 unit DAILY PO ; Start 02/09/19 at 09:00 Lacosamide (Vimpat) 200 mg BID PO Last administered on 02/09/19 08:54; Start 02/08/19 at 21:00 Non-Formulary Medication (Clobazam (Onfi)) 5 mg BID92 PO ; Start 02/09/19 at 09:00; Status UNV Divalproex Sodium (Depakote) 500 mg QHS PO Last administered on 02/08/19 20:55; Start 02/08/19 at 21:00 Divalproex Sodium (Depakote) 750 mg DAILY PO Last administered on 02/09/19 08:54; Start 02/08/19 at 09:00 Topiramate (Topamax) 200 mg BID PO Last administered on 02/09/19 08:55; Start 02/08/19 at 21:00 Acetaminophen/ Hydrocodone Bitart (Lortab 5/325) 1 tab PRN Q6HRS PRN PO PAIN Last administered on 02/08/19 20:55; Start 02/08/19 at 20:30 Aspirin (Ecotrin) 81 mg DAILYWBKFT PO ; Start 02/09/19 at 12:00 Active Scripts Active Vitamin D3 (Cholecalciferol (Vitamin D3)) 5,000 Unit Capsule 5,000 Unit PO DAILY 30 Days Reported Divalproex Sodium 500 Mg Tablet.dr 750 Mg PO DAILY Divalproex Sodium 500 Mg Tablet.dr 500 Mg PO HS Topamax (Topiramate) 200 Mg Tablet 1 Tab PO BID Vimpat (Lacosamide) 200 Mg Tablet 200 Mg PO BID Zyrtec (Cetirizine Hcl) 10 Mg Tablet 1 Tab PO DAILY Onfi (Clobazam) 10 Mg Tablet 5 Mg PO [id number] Allergies Allergies: Coded Allergies: No Known Drug Allergies (Unverified , 05/24/14) ROS Review of System difficult to obtain due to patient's poor cognitive function Physical Exam Physical Exam GENERAL: curled up in bed HEENT: Head normocephalic, atraumatic. NECK: Supple LUNGS: Clear to auscultation. HEART: RRR, S1, S2 present, pulses intact ABDOMEN: Soft, positive bowel sounds. EXTREMITIES: No cyanosis or edema. NEUROLOGIC: Normal speech, normal tone PSYCHIATRIC: Normal affect, normal mood. SKIN: No ulceration. Vitals Vitals Vital Signs Date Time Temp Pulse Resp B/P (MAP) Pulse Ox O2 Delivery O2 Flow Rate FiO2 02/09/19 14:54 97.4 89 20 108/54 (72) 97 Room Air 97.4 Labs Labs Laboratory Tests Test 02/08/19 15:39 02/08/19 16:16 02/08/19 19:30 02/09/19 01:20 White Blood Count 8.5 x10^3/uL (4.0-11.0) Red Blood Count 4.46 x10^6/uL (3.50-5.40) Hemoglobin 13.1 g/dL (12.0-15.5) Hematocrit 40.2 % (36.0-47.0) Mean Corpuscular Volume 90 fL (79-100) Mean Corpuscular Hemoglobin 29 pg (25-35) Mean Corpuscular Hemoglobin Concent 33 g/dL (31-37) Red Cell Distribution Width 13.7 % (11.5-14.5) Platelet Count 202 x10^3/uL (140-400) Neutrophils (%) (Auto) 62 % (31-73) Lymphocytes (%) (Auto) 23 % (24-48) Monocytes (%) (Auto) 13 % (0-9) Eosinophils (%) (Auto) 1 % (0-3) Basophils (%) (Auto) 0 % (0-3) Neutrophils # (Auto) 5.3 x10^3uL (1.8-7.7) Lymphocytes # (Auto) 2.0 x10^3/uL (1.0-4.8) Monocytes # (Auto) 1.1 x10^3/uL (0.0-1.1) Eosinophils # (Auto) 0.1 x10^3/uL (0.0-0.7) Basophils # (Auto) 0.0 x10^3/uL (0.0-0.2) Prothrombin Time 13.4 SEC (11.7-14.0) Prothromb Time International Ratio 1.1 (0.8-1.1) Sodium Level 146 mmol/L (136-145) 146 mmol/L (136-145) Potassium Level 3.8 mmol/L (3.5-5.1) 3.7 mmol/L (3.5-5.1) Chloride Level 111 mmol/L (98-107) 114 mmol/L (98-107) Carbon Dioxide Level 25 mmol/L (21-32) 19 mmol/L (21-32) Anion Gap 10 (6-14) 13 (6-14) Blood Urea Nitrogen 24 mg/dL (7-20) 23 mg/dL (7-20) Creatinine 0.8 mg/dL (0.6-1.0) 0.6 mg/dL (0.6-1.0) Estimated GFR (Cockcroft-Gault) 90.1 125.6 BUN/Creatinine Ratio 30 (6-20) Glucose Level 106 mg/dL (70-99) 121 mg/dL (70-99) Calcium Level 9.0 mg/dL (8.5-10.1) 8.0 mg/dL (8.5-10.1) Magnesium Level 2.0 mg/dL (1.8-2.4) 1.8 mg/dL (1.8-2.4) Total Bilirubin 0.3 mg/dL (0.2-1.0) Aspartate Amino Transf (AST/SGOT) 49 U/L (15-37) Alanine Aminotransferase (ALT/SGPT) 25 U/L (14-59) Alkaline Phosphatase 61 U/L (46-116) Creatine Kinase 1536 U/L (26-192) 933 U/L (26-192) Troponin I Quantitative 0.084 ng/mL (0.000-0.055) 0.084 ng/mL (0.000-0.055) 0.072 ng/mL (0.000-0.055) JC-Ogf-X-Type Natriuretic Peptide 422 pg/mL (0-124) Total Protein 6.5 g/dL (6.4-8.2) Albumin 2.7 g/dL (3.4-5.0) Albumin/Globulin Ratio 0.7 (1.0-1.7) Urine Collection Type U cath Urine Color Yellow Urine Clarity Clear Urine pH 7.0 Urine Specific [place] 1.025 Urine Protein Negative mg/dL (NEG-TRACE) Urine Glucose (UA) Negative mg/dL (NEG) Urine Ketones (Stick) Trace mg/dL (NEG) Urine Blood Negative (NEG) Urine Nitrite Negative (NEG) Urine Bilirubin Negative (NEG) Urine Urobilinogen Dipstick 2.0 mg/dL (0.2 mg/dL) Urine Leukocyte Esterase Negative (NEG) Urine RBC 0 /HPF (0-2) Urine WBC 0 /HPF (0-4) Urine Bacteria 0 /HPF (0-FEW) Urine Mucus Mod /LPF Triglycerides Level 114 mg/dL (0-150) Cholesterol Level 166 mg/dL (0-200) LDL Cholesterol, Calculated 107 mg/dL (0-100) VLDL Cholesterol, Calculated 23 mg/dL (0-40) Non-HDL Cholesterol Calculated 130 mg/dL (0-129) HDL Cholesterol 36 mg/dL (40-60) Cholesterol/HDL Ratio 4.6 Valproic Acid (Depakene) Level 100 mcg/mL (50-100) Valproic Acid Last Dose Date 02/08/19 Valproic Acid Last Dose Time 2054 Laboratory Tests Test 02/08/19 19:30 02/09/19 01:20 Troponin I Quantitative 0.084 ng/mL (0.000-0.055) 0.072 ng/mL (0.000-0.055) Sodium Level 146 mmol/L (136-145) Potassium Level 3.7 mmol/L (3.5-5.1) Chloride Level 114 mmol/L (98-107) Carbon Dioxide Level 19 mmol/L (21-32) Anion Gap 13 (6-14) Blood Urea Nitrogen 23 mg/dL (7-20) Creatinine 0.6 mg/dL (0.6-1.0) Estimated GFR (Cockcroft-Gault) 125.6 Glucose Level 121 mg/dL (70-99) Calcium Level 8.0 mg/dL (8.5-10.1) Magnesium Level 1.8 mg/dL (1.8-2.4) Creatine Kinase 933 U/L (26-192) Triglycerides Level 114 mg/dL (0-150) Cholesterol Level 166 mg/dL (0-200) LDL Cholesterol, Calculated 107 mg/dL (0-100) VLDL Cholesterol, Calculated 23 mg/dL (0-40) Non-HDL Cholesterol Calculated 130 mg/dL (0-129) HDL Cholesterol 36 mg/dL (40-60) Cholesterol/HDL Ratio 4.6 Valproic Acid (Depakene) Level 100 mcg/mL (50-100) Valproic Acid Last Dose Date 02/08/19 Valproic Acid Last Dose Time 2055 VTE Prophylaxis Ordered VTE Prophylaxis Devices: Yes VTE Pharmacological Prophylaxi: Yes Assessment/Plan Assessment/Plan ASSESSMENT Generalized Weakness and falls Rhabdo with elevated CPK of, suspect from falls Elevated Trop, related to falls, doubt ACS hx of seizure d/o, therapeutic Depakote level Mental Disability Moderate Protein Malnutrition PLAN - check TTE - appec cards - continue ASA - defer ischemic work up for now - continue home seizure meds - start IVF - dvt ppx: lovenox - full code - PT OT KRISTINE Roberts MD February 09, 2019 17:07
[2019-02-09] MEDS: ENOXAPARIN 40 MG/0.4 ML SYRINGE. SQ SCH (18:24)
[2019-02-09 19:43] VITALS: BP 102/52
[2019-02-09] MEDS: HYDROcodone/APAP 5/325MG 1 TAB TABLET PO PRN (20:48)
[2019-02-09] MEDS: DIVALPROEX DELAYED RELEASE 500 MG TABLET.DR. PO SCH (20:48)
[2019-02-09 23:33] VITALS: BP 88/37
[2019-02-10 03:27] VITALS: BP 101/58
[2019-02-10] MEDS: IV NORMAL SALINE 1000ML BAG 1,000 ML IV SCH ×2 (04:59→18:41)
[2019-02-10 07:15] VITALS: BP 120/57
[2019-02-10] MEDS: ASPIRIN ENTERIC COATED 81 MG TABLET.DR. PO SCH (09:03)
[2019-02-10] MEDS: DIVALPROEX DELAYED RELEASE 250 MG TABLET.DR. PO SCH (09:03)
[2019-02-10] MEDS: CHOLECALCIFEROL (VITAMIN D3) 5,000 UNIT CAPSULE PO SCH (09:03)
[2019-02-10] MEDS: TOPIRAMATE 100 MG TABLET. PO SCH ×2 (09:03→20:53)
[2019-02-10] MEDS: CETIRIZINE HCL 10 MG TABLET. PO SCH (09:03)
[2019-02-10] MEDS: LACOSAMIDE 200 MG TABLET PO SCH ×2 (09:03→20:53)
--- NOTE | 2019-02-10 09:58 | PDOC ---
PROGRESS NOTES History of Present Illness History of Present Illness Assessment/Plan Assessment/Plan ASSESSMENT Generalized Weakness and falls Rhabdo with elevated CPK of, suspect from falls Elevated Trop, related to falls, doubt ACS hx of seizure d/o, therapeutic Depakote level Mental Disability Moderate Protein Malnutrition Cerebral and cerebellar atrophy. This is greater than expected for patient age. Decreased attenuation within the cerebral white, a nonspecific finding // chronic small vessel disease. 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 PLAN - check TTE - appec cards - continue ASA - defer ischemic work up for now - continue home seizure meds - start IVF - dvt ppx: lovenox - full code - PT OT efraín mentally challenged and was recently discharged on 02/06/2019 noted at that time with intractable seizures and multiple falls. apparently she was noted with weakness and inability to walk. She is currently curled up in bed and nodding yes to every questions I asked. She does not seem to appear to be in pain when not being disturbed but moans when I touch or she is moved. 28 min pt exam, chart review , > 50% of time spent with exam, chart review, pt care coordination Vitals Vitals Vital Signs Date Time Temp Pulse Resp B/P (MAP) Pulse Ox O2 Delivery O2 Flow Rate FiO2 02/10/19 07:15 97.6 93 16 120/57 (78) 96 Room Air 97.6 Physical Exam General: Alert, No acute distress Heart: Regular rate (SR) Abdomen: Soft Extremities: No cyanosis, No edema Skin: No breakdown, No significant lesion Labs LABS EXAM: Head CT without contrast. HISTORY: Weakness. TECHNIQUE: Computed tomographic images of the head were obtained without contrast. *One or more of the following individualized dose reduction techniques were utilized for this examination: 1. Automated exposure control. 2. Adjustment of the mA and/or kV according to patient size. 3. Use of iterative reconstruction technique. COMPARISON: 02/03/2019. FINDINGS: There is no acute or subacute extra-axial or intraparenchymal hemorrhage. There is no mass effect or midline shift. There is no hydrocephalus. There is cerebral and cerebellar volume loss, greater than expected for patient age. There is a stable chronic lacunar infarct within the left thalamus. There are also areas of hypodensity within the bilateral frontoparietal junction which may be due to encephalomalacia from chronic infarction. There are scattered areas of hypodensity within the cerebral white matter, likely due to chronic small vessel disease. There is diffuse calvarial thickening. The orbits, paranasal sinuses mastoid air cells are unremarkable. There is ossification along the falx. IMPRESSION: 1. No acute intracranial finding. Note is made that MRI is more sensitive for acute infarction. 2. Cerebral and cerebellar atrophy. This is greater than expected for patient age. 3. Decreased attenuation within the cerebral white, a nonspecific finding which can be seen with chronic small vessel disease. 4. 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 Electronically signed by: Dhara Owens MD (02/08/2019 3:34 PM) [place] [id number] Laboratory Tests Test 02/10/19 04:25 Creatine Kinase 2170 U/L (26-192) Assessment and Plan Assessmemt and Plan Problems Medical Problems: (1) Dehydration Status: Acute (2) Elevated troponin Status: Acute (3) Generalized weakness Status: Acute (4) Hypernatremia Status: Acute (5) Mentally challenged Status: Acute (6) Rhabdomyolysis Status: Acute (7) Seizure Status: Acute Comment Review of Relevant I have reviewed the following items len (where applicable) has been applied. Labs Laboratory Tests Test 02/08/19 15:39 02/08/19 16:16 02/08/19 19:30 02/09/19 01:20 White Blood Count 8.5 x10^3/uL (4.0-11.0) Red Blood Count 4.46 x10^6/uL (3.50-5.40) Hemoglobin 13.1 g/dL (12.0-15.5) Hematocrit 40.2 % (36.0-47.0) Mean Corpuscular Volume 90 fL (79-100) Mean Corpuscular Hemoglobin 29 pg (25-35) Mean Corpuscular Hemoglobin Concent 33 g/dL (31-37) Red Cell Distribution Width 13.7 % (11.5-14.5) Platelet Count 202 x10^3/uL (140-400) Neutrophils (%) (Auto) 62 % (31-73) Lymphocytes (%) (Auto) 23 % (24-48) Monocytes (%) (Auto) 13 % (0-9) Eosinophils (%) (Auto) 1 % (0-3) Basophils (%) (Auto) 0 % (0-3) Neutrophils # (Auto) 5.3 x10^3uL (1.8-7.7) Lymphocytes # (Auto) 2.0 x10^3/uL (1.0-4.8) Monocytes # (Auto) 1.1 x10^3/uL (0.0-1.1) Eosinophils # (Auto) 0.1 x10^3/uL (0.0-0.7) Basophils # (Auto) 0.0 x10^3/uL (0.0-0.2) Prothrombin Time 13.4 SEC (11.7-14.0) Prothromb Time International Ratio 1.1 (0.8-1.1) Sodium Level 146 mmol/L (136-145) 146 mmol/L (136-145) Potassium Level 3.8 mmol/L (3.5-5.1) 3.7 mmol/L (3.5-5.1) Chloride Level 111 mmol/L (98-107) 114 mmol/L (98-107) Carbon Dioxide Level 25 mmol/L (21-32) 19 mmol/L (21-32) Anion Gap 10 (6-14) 13 (6-14) Blood Urea Nitrogen 24 mg/dL (7-20) 23 mg/dL (7-20) Creatinine 0.8 mg/dL (0.6-1.0) 0.6 mg/dL (0.6-1.0) Estimated GFR (Cockcroft-Gault) 90.1 125.6 BUN/Creatinine Ratio 30 (6-20) Glucose Level 106 mg/dL (70-99) 121 mg/dL (70-99) Calcium Level 9.0 mg/dL (8.5-10.1) 8.0 mg/dL (8.5-10.1) Magnesium Level 2.0 mg/dL (1.8-2.4) 1.8 mg/dL (1.8-2.4) Total Bilirubin 0.3 mg/dL (0.2-1.0) Aspartate Amino Transf (AST/SGOT) 49 U/L (15-37) Alanine Aminotransferase (ALT/SGPT) 25 U/L (14-59) Alkaline Phosphatase 61 U/L (46-116) Creatine Kinase 1536 U/L (26-192) 933 U/L (26-192) Troponin I Quantitative 0.084 ng/mL (0.000-0.055) 0.084 ng/mL (0.000-0.055) 0.072 ng/mL (0.000-0.055) EM-Bfn-O-Type Natriuretic Peptide 422 pg/mL (0-124) Total Protein 6.5 g/dL (6.4-8.2) Albumin 2.7 g/dL (3.4-5.0) Albumin/Globulin Ratio 0.7 (1.0-1.7) Urine Collection Type U cath Urine Color Yellow Urine Clarity Clear Urine pH 7.0 Urine Specific [place] 1.025 Urine Protein Negative mg/dL (NEG-TRACE) Urine Glucose (UA) Negative mg/dL (NEG) Urine Ketones (Stick) Trace mg/dL (NEG) Urine Blood Negative (NEG) Urine Nitrite Negative (NEG) Urine Bilirubin Negative (NEG) Urine Urobilinogen Dipstick 2.0 mg/dL (0.2 mg/dL) Urine Leukocyte Esterase Negative (NEG) Urine RBC 0 /HPF (0-2) Urine WBC 0 /HPF (0-4) Urine Bacteria 0 /HPF (0-FEW) Urine Mucus Mod /LPF Triglycerides Level 114 mg/dL (0-150) Cholesterol Level 166 mg/dL (0-200) LDL Cholesterol, Calculated 107 mg/dL (0-100) VLDL Cholesterol, Calculated 23 mg/dL (0-40) Non-HDL Cholesterol Calculated 130 mg/dL (0-129) HDL Cholesterol 36 mg/dL (40-60) Cholesterol/HDL Ratio 4.6 Valproic Acid (Depakene) Level 100 mcg/mL (50-100) Valproic Acid Last Dose Date 02/08/19 Valproic Acid Last Dose Time 2054 Test 02/10/19 04:25 Creatine Kinase 2170 U/L (26-192) Laboratory Tests Test 02/10/19 04:25 Creatine Kinase 2170 U/L (26-192) Medications Current Medications Sodium Chloride 1,000 ml @ 1,000 mls/hr 1X ONCE IV Last administered on 02/08/19at 15:40; Start 02/08/19 at 15:00; Stop 02/08/19 at 15:59; Status DC Sodium Chloride 1,000 ml @ 150 mls/hr [id number] IV Last administered on 02/09/19 08:55; Start 02/08/19 at 16:24; Stop 02/09/19 at 11:58; Status DC Cetirizine HCl (ZyrTEC) 10 mg DAILY PO Last administered on 02/10/19 09:03; Start 02/09/19 at 09:00 Vitamin D (Vitamin D3) 5,000 unit DAILY PO Last administered on 02/10/19 09:03; Start 02/09/19 at 09:00 Lacosamide (Vimpat) 200 mg BID PO Last administered on 02/10/19 09:03; Start 02/08/19 at 21:00 Non-Formulary Medication (Clobazam (Onfi)) 5 mg BID92 PO ; Start 02/09/19 at 09:00; Stop 02/09/19 at 17:43; Status DC Divalproex Sodium (Depakote) 500 mg QHS PO Last administered on 02/09/19 20:48; Start 02/08/19 at 21:00 Divalproex Sodium (Depakote) 750 mg DAILY PO Last administered on 02/10/19 09:03; Start 02/08/19 at 09:00 Topiramate (Topamax) 200 mg BID PO Last administered on 02/10/19 09:03; Start 02/08/19 at 21:00 Acetaminophen/ Hydrocodone Bitart (Lortab 5/325) 1 tab PRN Q6HRS PRN PO PAIN Last administered on 02/09/19 20:48; Start 02/08/19 at 20:30 Aspirin (Ecotrin) 81 mg [id number] PO Last administered on 02/10/19 09:03; Start 02/09/19 at 12:00 Enoxaparin Sodium (Lovenox Per Pharmacy Prophylaxis Dosing) 1 each PRN DAILY PRN [facility] SEE COMMENTS; Start 02/09/19 at 17:15 Sodium Chloride 1,000 ml @ 75 mls/hr [id number] IV Last administered on 02/10/19 04:59; Start 02/09/19 at 17:15 Enoxaparin Sodium (Lovenox 40mg Syringe) 40 mg Q24H SQ Last administered on 02/09/19at 18:24; Start 02/09/19 at 18:00 Active Scripts Active Vitamin D3 (Cholecalciferol (Vitamin D3)) 5,000 Unit Capsule 5,000 Unit PO DAILY 30 Days Reported Divalproex Sodium 500 Mg Tablet.dr 750 Mg PO DAILY Divalproex Sodium 500 Mg Tablet.dr 500 Mg PO HS Topamax (Topiramate) 200 Mg Tablet 1 Tab PO BID Vimpat (Lacosamide) 200 Mg Tablet 200 Mg PO BID Zyrtec (Cetirizine Hcl) 10 Mg Tablet 1 Tab PO DAILY Onfi (Clobazam) 10 Mg Tablet 5 Mg PO [id number] Vitals/I & O Vital Sign - Last 24 Hours 02/09/19 02/09/19 02/09/19 02/09/19 11:07 14:54 19:43 20:00 Temp 97.9 97.4 98.6 97.9 97.4 98.6 Pulse 96 89 97 Resp 14 20 17 B/P (MAP) 138/77 (97) 108/54 (72) 102/52 (69) Pulse Ox 96 97 97 O2 Delivery Room Air Room Air Room Air Room Air 02/09/19 02/09/19 02/09/19 02/10/19 20:48 21:48 23:33 03:27 Temp 97.5 97.9 97.5 97.9 Pulse 88 81 Resp 18 18 B/P (MAP) 88/37 (54) 101/58 (72) Pulse Ox 97 97 97 96 O2 Delivery Room Air Room Air Room Air Room Air 02/10/19 07:15 Temp 97.6 97.6 Pulse 93 Resp 16 B/P (MAP) 120/57 (78) Pulse Ox 96 O2 Delivery Room Air Intake and Output 02/09/19 02/09/19 02/10/19 14:59 22:59 06:59 Intake Total 0 ml 600 ml 1065 ml Balance 0 ml 600 ml 1065 ml Nutrition Consultation Dietary Evaluation: Recommendations by RD: Increase Calorie Intake, Protein supplementation Comments: adv to regular diet when able offer supplements, snacks from unit prn Expected Outcomes/Goals: to meet > 75% est nutr needs Malnutrition Findings: Food and Nutrition Intake (Mod: <75% est energy req 7days Weight Status: Underweight FULBRIGHT,BENIGNO W MD February 10, 2019 09:58
[2019-02-10 10:58] VITALS: BP 98/54
[2019-02-10] MEDS: HYDROcodone/APAP 5/325MG 1 TAB TABLET PO PRN (14:04)
[2019-02-10 15:10] VITALS: BP 80/53
[2019-02-10] MEDS: ENOXAPARIN 40 MG/0.4 ML SYRINGE. SQ SCH (18:41)
[2019-02-10 19:00] VITALS: BP 87/49
[2019-02-10] MEDS: DIVALPROEX DELAYED RELEASE 500 MG TABLET.DR. PO SCH (20:53)
[2019-02-10 23:00] VITALS: BP 85/58
[2019-02-11 03:00] VITALS: BP 106/64
[2019-02-11 05:11] LABS: BASO % 1 % (0-3); EOS # 0.1 x10^3/uL (0.0-0.7); EOS % 2 % (0-3); HEMOGLOBIN 10.9 g/dL (12.0-15.5); LYMPH # 2.7 x10^3/uL (1.0-4.8); LYMPH % 37 % (24-48); MEAN CORPUSCULAR HEMOGLOBIN 30 pg (25-35); MEAN CORPUSCULAR HGB CONC 33 g/dL (31-37); MEAN CORPUSCULAR VOLUME 90 fL (79-100); MONO # 1.1 x10^3/uL (0.0-1.1); MONO % 15 % (0-9); NEUT # 3.3 x10^3uL (1.8-7.7); NEUT % 46 % (31-73); PLATELET COUNT 179 x10^3/uL (140-400); RED BLOOD COUNT 3.67 x10^6/uL (3.50-5.40); RED CELL DISTRIBUTION WIDTH 13.6 % (11.5-14.5); WHITE BLOOD COUNT 7.3 x10^3/uL (4.0-11.0)
[2019-02-11 05:57] LABS: ALBUMIN 2.1 g/dL (3.4-5.0); ALBUMIN/GLOBULIN RATIO 0.6 (1.0-1.7); CALCIUM 8.5 mg/dL (8.5-10.1); CREATININE 0.5 mg/dL (0.6-1.0); POTASSIUM 3.5 mmol/L (3.5-5.1); TOTAL BILIRUBIN 0.3 mg/dL (0.2-1.0); TOTAL PROTEIN 5.5 g/dL (6.4-8.2)
[2019-02-11 07:15] VITALS: BP 85/47
[2019-02-11] MEDS: CHOLECALCIFEROL (VITAMIN D3) 5,000 UNIT CAPSULE PO SCH (08:04)
[2019-02-11] MEDS: IV NORMAL SALINE 1000ML BAG 1,000 ML IV SCH (08:04)
[2019-02-11] MEDS: ASPIRIN ENTERIC COATED 81 MG TABLET.DR. PO SCH (08:05)
[2019-02-11] MEDS: CETIRIZINE HCL 10 MG TABLET. PO SCH (08:07)
[2019-02-11] MEDS: DIVALPROEX DELAYED RELEASE 500 MG TABLET.DR. PO SCH (08:07)
[2019-02-11] MEDS: TOPIRAMATE 100 MG TABLET. PO SCH ×2 (08:07→21:18)
[2019-02-11] MEDS: LACOSAMIDE 200 MG TABLET PO SCH ×2 (08:07→21:18)
[2019-02-11] MEDS: DIVALPROEX DELAYED RELEASE 250 MG TABLET.DR. PO SCH (09:00)
--- NOTE | 2019-02-11 10:05 | PDOC ---
PROGRESS NOTES History of Present Illness History of Present Illness Assessment/Plan Assessment/Plan ASSESSMENT Generalized Weakness and falls Rhabdo with elevated CPK of, suspect from falls Elevated Trop, related to falls, doubt ACS hx of seizure d/o, therapeutic Depakote level Mental Disability Moderate Protein Malnutrition Cerebral and cerebellar atrophy. This is greater than expected for patient age. Decreased attenuation within the cerebral white, a nonspecific finding // chronic small vessel disease. 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 PLAN - check TTE - appec cards - continue ASA - defer ischemic work up for now - continue home seizure meds - start IVF - dvt ppx: lovenox - full code - PT OT efraín mentally challenged and was recently discharged on 02/06/2019 noted at that time with intractable seizures and multiple falls. apparently she was noted with weakness and inability to walk . She is currently curled up in bed nad She does not seem to appear to be in pain when not being disturbed but moans when I touch or she is moved. 28 min pt exam, chart review , > 50% of time spent with exam, chart review, pt care coordination Vitals Vitals Vital Signs Date Time Temp Pulse Resp B/P (MAP) Pulse Ox O2 Delivery O2 Flow Rate FiO2 02/11/19 07:15 98.6 72 14 85/47 (60) 96 Room Air 98.6 Physical Exam General: Alert, Cooperative, No acute distress Heart: Regular rate (SR) Lungs: Clear Abdomen: Soft Extremities: No clubbing, No cyanosis, No edema Skin: No breakdown, No significant lesion Labs LABS Laboratory Tests Test 02/11/19 04:30 02/11/19 04:40 Sodium Level 147 mmol/L (136-145) Potassium Level 3.5 mmol/L (3.5-5.1) Chloride Level 114 mmol/L (98-107) Carbon Dioxide Level 19 mmol/L (21-32) Anion Gap 14 (6-14) Blood Urea Nitrogen 18 mg/dL (7-20) Creatinine 0.5 mg/dL (0.6-1.0) Estimated GFR (Cockcroft-Gault) 155.0 BUN/Creatinine Ratio 36 (6-20) Glucose Level 83 mg/dL (70-99) Calcium Level 8.5 mg/dL (8.5-10.1) Total Bilirubin 0.3 mg/dL (0.2-1.0) Aspartate Amino Transf (AST/SGOT) 41 U/L (15-37) Alanine Aminotransferase (ALT/SGPT) 26 U/L (14-59) Alkaline Phosphatase 46 U/L (46-116) Total Protein 5.5 g/dL (6.4-8.2) Albumin 2.1 g/dL (3.4-5.0) Albumin/Globulin Ratio 0.6 (1.0-1.7) White Blood Count 7.3 x10^3/uL (4.0-11.0) Red Blood Count 3.67 x10^6/uL (3.50-5.40) Hemoglobin 10.9 g/dL (12.0-15.5) Hematocrit 33.0 % (36.0-47.0) Mean Corpuscular Volume 90 fL (79-100) Mean Corpuscular Hemoglobin 30 pg (25-35) Mean Corpuscular Hemoglobin Concent 33 g/dL (31-37) Red Cell Distribution Width 13.6 % (11.5-14.5) Platelet Count 179 x10^3/uL (140-400) Neutrophils (%) (Auto) 46 % (31-73) Lymphocytes (%) (Auto) 37 % (24-48) Monocytes (%) (Auto) 15 % (0-9) Eosinophils (%) (Auto) 2 % (0-3) Basophils (%) (Auto) 1 % (0-3) Neutrophils # (Auto) 3.3 x10^3uL (1.8-7.7) Lymphocytes # (Auto) 2.7 x10^3/uL (1.0-4.8) Monocytes # (Auto) 1.1 x10^3/uL (0.0-1.1) Eosinophils # (Auto) 0.1 x10^3/uL (0.0-0.7) Basophils # (Auto) 0.0 x10^3/uL (0.0-0.2) Assessment and Plan Assessmemt and Plan Problems Medical Problems: (1) Dehydration Status: Acute (2) Elevated troponin Status: Acute (3) Generalized weakness Status: Acute (4) Hypernatremia Status: Acute (5) Mentally challenged Status: Acute (6) Rhabdomyolysis Status: Acute (7) Seizure Status: Acute Comment Review of Relevant I have reviewed the following items len (where applicable) has been applied. Labs Laboratory Tests Test 02/10/19 04:25 02/11/19 04:30 02/11/19 04:40 Creatine Kinase 2170 U/L (26-192) Sodium Level 147 mmol/L (136-145) Potassium Level 3.5 mmol/L (3.5-5.1) Chloride Level 114 mmol/L (98-107) Carbon Dioxide Level 19 mmol/L (21-32) Anion Gap 14 (6-14) Blood Urea Nitrogen 18 mg/dL (7-20) Creatinine 0.5 mg/dL (0.6-1.0) Estimated GFR (Cockcroft-Gault) 155.0 BUN/Creatinine Ratio 36 (6-20) Glucose Level 83 mg/dL (70-99) Calcium Level 8.5 mg/dL (8.5-10.1) Total Bilirubin 0.3 mg/dL (0.2-1.0) Aspartate Amino Transf (AST/SGOT) 41 U/L (15-37) Alanine Aminotransferase (ALT/SGPT) 26 U/L (14-59) Alkaline Phosphatase 46 U/L (46-116) Total Protein 5.5 g/dL (6.4-8.2) Albumin 2.1 g/dL (3.4-5.0) Albumin/Globulin Ratio 0.6 (1.0-1.7) White Blood Count 7.3 x10^3/uL (4.0-11.0) Red Blood Count 3.67 x10^6/uL (3.50-5.40) Hemoglobin 10.9 g/dL (12.0-15.5) Hematocrit 33.0 % (36.0-47.0) Mean Corpuscular Volume 90 fL (79-100) Mean Corpuscular Hemoglobin 30 pg (25-35) Mean Corpuscular Hemoglobin Concent 33 g/dL (31-37) Red Cell Distribution Width 13.6 % (11.5-14.5) Platelet Count 179 x10^3/uL (140-400) Neutrophils (%) (Auto) 46 % (31-73) Lymphocytes (%) (Auto) 37 % (24-48) Monocytes (%) (Auto) 15 % (0-9) Eosinophils (%) (Auto) 2 % (0-3) Basophils (%) (Auto) 1 % (0-3) Neutrophils # (Auto) 3.3 x10^3uL (1.8-7.7) Lymphocytes # (Auto) 2.7 x10^3/uL (1.0-4.8) Monocytes # (Auto) 1.1 x10^3/uL (0.0-1.1) Eosinophils # (Auto) 0.1 x10^3/uL (0.0-0.7) Basophils # (Auto) 0.0 x10^3/uL (0.0-0.2) Laboratory Tests Test 02/11/19 04:30 02/11/19 04:40 Sodium Level 147 mmol/L (136-145) Potassium Level 3.5 mmol/L (3.5-5.1) Chloride Level 114 mmol/L (98-107) Carbon Dioxide Level 19 mmol/L (21-32) Anion Gap 14 (6-14) Blood Urea Nitrogen 18 mg/dL (7-20) Creatinine 0.5 mg/dL (0.6-1.0) Estimated GFR (Cockcroft-Gault) 155.0 BUN/Creatinine Ratio 36 (6-20) Glucose Level 83 mg/dL (70-99) Calcium Level 8.5 mg/dL (8.5-10.1) Total Bilirubin 0.3 mg/dL (0.2-1.0) Aspartate Amino Transf (AST/SGOT) 41 U/L (15-37) Alanine Aminotransferase (ALT/SGPT) 26 U/L (14-59) Alkaline Phosphatase 46 U/L (46-116) Total Protein 5.5 g/dL (6.4-8.2) Albumin 2.1 g/dL (3.4-5.0) Albumin/Globulin Ratio 0.6 (1.0-1.7) White Blood Count 7.3 x10^3/uL (4.0-11.0) Red Blood Count 3.67 x10^6/uL (3.50-5.40) Hemoglobin 10.9 g/dL (12.0-15.5) Hematocrit 33.0 % (36.0-47.0) Mean Corpuscular Volume 90 fL (79-100) Mean Corpuscular Hemoglobin 30 pg (25-35) Mean Corpuscular Hemoglobin Concent 33 g/dL (31-37) Red Cell Distribution Width 13.6 % (11.5-14.5) Platelet Count 179 x10^3/uL (140-400) Neutrophils (%) (Auto) 46 % (31-73) Lymphocytes (%) (Auto) 37 % (24-48) Monocytes (%) (Auto) 15 % (0-9) Eosinophils (%) (Auto) 2 % (0-3) Basophils (%) (Auto) 1 % (0-3) Neutrophils # (Auto) 3.3 x10^3uL (1.8-7.7) Lymphocytes # (Auto) 2.7 x10^3/uL (1.0-4.8) Monocytes # (Auto) 1.1 x10^3/uL (0.0-1.1) Eosinophils # (Auto) 0.1 x10^3/uL (0.0-0.7) Basophils # (Auto) 0.0 x10^3/uL (0.0-0.2) Medications Current Medications Sodium Chloride 1,000 ml @ 1,000 mls/hr 1X ONCE IV Last administered on 02/08/19at 15:40; Start 02/08/19 at 15:00; Stop 02/08/19 at 15:59; Status DC Sodium Chloride 1,000 ml @ 150 mls/hr Q6H40M IV Last administered on 02/09/19at 08:55; Start 02/08/19 at 16:24; Stop 02/09/19 at 11:58; Status DC Cetirizine HCl (ZyrTEC) 10 mg DAILY PO Last administered on 02/11/19 08:07; Start 02/09/19 at 09:00 Vitamin D (Vitamin D3) 5,000 unit DAILY PO Last administered on 02/11/19 08:04; Start 02/09/19 at 09:00 Lacosamide (Vimpat) 200 mg BID PO Last administered on 02/11/19at 08:07; Start 02/08/19 at 21:00 Non-Formulary Medication (Clobazam (Onfi)) 5 mg BID92 PO ; Start 02/09/19 at 09:00; Stop 02/09/19 at 17:43; Status DC Divalproex Sodium (Depakote) 500 mg QHS PO Last administered on 02/11/19 08:07; Start 02/08/19 at 21:00 Divalproex Sodium (Depakote) 750 mg DAILY PO Last administered on 02/10/19 09:03; Start 02/08/19 at 09:00 Topiramate (Topamax) 200 mg BID PO Last administered on 02/11/19 08:07; Start 02/08/19 at 21:00 Acetaminophen/ Hydrocodone Bitart (Lortab 5/325) 1 tab PRN Q6HRS PRN PO PAIN L ast administered on 02/10/19 14:04; Start 02/08/19 at 20:30 Aspirin (Ecotrin) 81 mg DAILYWBKFT PO Last administered on 02/11/19 08:05; Start 02/09/19 at 12:00 Enoxaparin Sodium (Lovenox Per Pharmacy Prophylaxis Dosing) 1 each PRN DAILY PRN [facility] SEE COMMENTS; Start 02/09/19 at 17:15 Sodium Chloride 1,000 ml @ 75 mls/hr [id number] IV Last administered on 02/11/19 08:04; Start 02/09/19 at 17:15 Enoxaparin Sodium (Lovenox 40mg Syringe) 40 mg Q24H SQ Last administered on 02/10/19 18:41; Start 02/09/19 at 18:00 Active Scripts Active Vitamin D3 (Cholecalciferol (Vitamin D3)) 5,000 Unit Capsule 5,000 Unit PO DAILY 30 Days Reported Divalproex Sodium 500 Mg Tablet.dr 750 Mg PO DAILY Divalproex Sodium 500 Mg Tablet.dr 500 Mg PO HS Topamax (Topiramate) 200 Mg Tablet 1 Tab PO BID Vimpat (Lacosamide) 200 Mg Tablet 200 Mg PO BID Zyrtec (Cetirizine Hcl) 10 Mg Tablet 1 Tab PO DAILY Onfi (Clobazam) 10 Mg Tablet 5 Mg PO [id number] Vitals/I & O Vital Sign - Last 24 Hours 02/10/19 02/10/19 02/10/19 02/10/19 10:58 14:04 15:10 15:15 Temp 99.1 98.6 99.1 98.6 Pulse 84 76 Resp 16 18 B/P (MAP) 98/54 (69) 80/53 (62) Pulse Ox 95 97 O2 Delivery Room Air Room Air Room Air Room Air 02/10/19 02/10/19 02/10/19 02/11/19 19:00 19:25 23:00 03:00 Temp 97.8 97.5 97.8 97.8 97.5 97.8 Pulse 84 78 74 Resp 18 18 18 B/P (MAP) 87/49 (62) 85/58 (67) 106/64 (78) Pulse Ox 98 99 99 O2 Delivery Room Air Room Air Room Air Room Air 02/11/19 07:15 Temp 98.6 98.6 Pulse 72 Resp 14 B/P (MAP) 85/47 (60) Pulse Ox 96 O2 Delivery Room Air Intake and Output 02/10/19 02/10/19 02/11/19 15:00 23:00 07:00 Intake Total 500 ml 450 ml 1200 ml Balance 500 ml 450 ml 1200 ml Nutrition Consultation Dietary Evaluation: Recommendations by RD: Increase Calorie Intake, Protein supplementation Comments: adv to regular diet when able offer supplements, snacks from unit prn Expected Outcomes/Goals: to meet > 75% est nutr needs Malnutrition Findings: Food and Nutrition Intake (Mod: <75% est energy req 7days Weight Status: Underweight BENIGNO ASCENCIO MD February 11, 2019 10:05
[2019-02-11 11:03] VITALS: BP 92/45
[2019-02-11] MEDS ORDERED: IV 1/2 NORMAL SALINE 1,000 ML IV ONE (13:00)
[2019-02-11 15:02] VITALS: BP 81/44
[2019-02-11] MEDS: ENOXAPARIN 40 MG/0.4 ML SYRINGE. SQ SCH (18:40)
[2019-02-11] MEDS: HYDROcodone/APAP 5/325MG 1 TAB TABLET PO PRN (19:57)
[2019-02-11 19:59] VITALS: BP 98/44
[2019-02-11 23:32] VITALS: BP 83/42
[2019-02-12 03:47] VITALS: BP 87/50
[2019-02-12 05:21] LABS: BASO % 0 % (0-3); EOS # 0.3 x10^3/uL (0.0-0.7); EOS % 4 % (0-3); HEMATOCRIT 32.9 % (36.0-47.0); HEMOGLOBIN 10.9 g/dL (12.0-15.5); LYMPH # 2.9 x10^3/uL (1.0-4.8); LYMPH % 41 % (24-48); MEAN CORPUSCULAR HEMOGLOBIN 30 pg (25-35); MEAN CORPUSCULAR HGB CONC 33 g/dL (31-37); MEAN CORPUSCULAR VOLUME 91 fL (79-100); MONO % 14 % (0-9); NEUT # 2.8 x10^3uL (1.8-7.7); NEUT % 40 % (31-73); PLATELET COUNT 179 x10^3/uL (140-400); RED CELL DISTRIBUTION WIDTH 13.9 % (11.5-14.5)
[2019-02-12 05:37] LABS: CALCIUM 8.8 mg/dL (8.5-10.1); CREATININE 0.5 mg/dL (0.6-1.0); POTASSIUM 3.4 mmol/L (3.5-5.1)
[2019-02-12 07:38] VITALS: BP 113/56
[2019-02-12] MEDS: ASPIRIN ENTERIC COATED 81 MG TABLET.DR. PO SCH (09:35)
[2019-02-12] MEDS: CETIRIZINE HCL 10 MG TABLET. PO SCH (09:35)
[2019-02-12] MEDS: CHOLECALCIFEROL (VITAMIN D3) 5,000 UNIT CAPSULE PO SCH (09:35)
[2019-02-12] MEDS: DIVALPROEX DELAYED RELEASE 250 MG TABLET.DR. PO SCH (09:35)
[2019-02-12] MEDS: LACOSAMIDE 200 MG TABLET PO SCH ×2 (09:35→20:59)
[2019-02-12] MEDS: TOPIRAMATE 100 MG TABLET. PO SCH ×2 (09:36→20:59)
[2019-02-12 10:36] VITALS: BP 117/63
--- NOTE | 2019-02-12 11:34 | PDOC ---
PROGRESS NOTES History of Present Illness History of Present Illness Assessment/Plan Assessment/Plan ASSESSMENT Generalized Weakness and falls Rhabdo with elevated CPK of, suspect from falls Elevated Trop, related to falls, doubt ACS hx of seizure d/o, therapeutic Depakote level Mental Disability Moderate Protein Malnutrition Cerebral and cerebellar atrophy. This is greater than expected for patient age. Decreased attenuation within the cerebral white, a nonspecific finding // chronic small vessel disease. 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 PLAN - check TTE - appec cards - continue ASA - defer ischemic work up for now - continue home seizure meds - start IVF - dvt ppx: lovenox - full code - PT OT eval cpk, bmp in am 02/13 mentally challenged and was recently discharged on 02/06/2019 noted at that time with intractable seizures and multiple falls. apparently she was noted with weakness and inability to walk . She is currently curled up in bed nad She does not seem to appear to be in pain when not being disturbed but moans when I touch or she is moved. 26 min pt exam, chart review , > 50% of time spent with exam, chart review, pt care coordination Vitals Vitals Vital Signs Date Time Temp Pulse Resp B/P (MAP) Pulse Ox O2 Delivery O2 Flow Rate FiO2 02/12/19 10:36 97.1 76 20 117/63 (81) 96 Room Air 97.1 Physical Exam General: Alert, Cooperative, No acute distress Heart: Regular rate (SR) Lungs: Clear Abdomen: Normal bowel sounds, Soft, No tenderness Extremities: No clubbing, No cyanosis, No edema Skin: No breakdown, No significant lesion Labs LABS Laboratory Tests Test 02/12/19 05:00 White Blood Count 7.0 x10^3/uL (4.0-11.0) Red Blood Count 3.60 x10^6/uL (3.50-5.40) Hemoglobin 10.9 g/dL (12.0-15.5) Hematocrit 32.9 % (36.0-47.0) Mean Corpuscular Volume 91 fL (79-100) Mean Corpuscular Hemoglobin 30 pg (25-35) Mean Corpuscular Hemoglobin Concent 33 g/dL (31-37) Red Cell Distribution Width 13.9 % (11.5-14.5) Platelet Count 179 x10^3/uL (140-400) Neutrophils (%) (Auto) 40 % (31-73) Lymphocytes (%) (Auto) 41 % (24-48) Monocytes (%) (Auto) 14 % (0-9) Eosinophils (%) (Auto) 4 % (0-3) Basophils (%) (Auto) 0 % (0-3) Neutrophils # (Auto) 2.8 x10^3uL (1.8-7.7) Lymphocytes # (Auto) 2.9 x10^3/uL (1.0-4.8) Monocytes # (Auto) 1.0 x10^3/uL (0.0-1.1) Eosinophils # (Auto) 0.3 x10^3/uL (0.0-0.7) Basophils # (Auto) 0.0 x10^3/uL (0.0-0.2) Sodium Level 148 mmol/L (136-145) Potassium Level 3.4 mmol/L (3.5-5.1) Chloride Level 116 mmol/L (98-107) Carbon Dioxide Level 20 mmol/L (21-32) Anion Gap 12 (6-14) Blood Urea Nitrogen 16 mg/dL (7-20) Creatinine 0.5 mg/dL (0.6-1.0) Estimated GFR (Cockcroft-Gault) 155.0 Glucose Level 87 mg/dL (70-99) Calcium Level 8.8 mg/dL (8.5-10.1) Assessment and Plan Assessmemt and Plan Problems Medical Problems: (1) Dehydration Status: Acute (2) Elevated troponin Status: Acute (3) Generalized weakness Status: Acute (4) Hypernatremia Status: Acute (5) Mentally challenged Status: Acute (6) Rhabdomyolysis Status: Acute (7) Seizure Status: Acute Comment Review of Relevant I have reviewed the following items len (where applicable) has been applied. Labs Laboratory Tests Test 02/11/19 04:30 02/11/19 04:40 02/12/19 05:00 Sodium Level 147 mmol/L (136-145) 148 mmol/L (136-145) Potassium Level 3.5 mmol/L (3.5-5.1) 3.4 mmol/L (3.5-5.1) Chloride Level 114 mmol/L (98-107) 116 mmol/L (98-107) Carbon Dioxide Level 19 mmol/L (21-32) 20 mmol/L (21-32) Anion Gap 14 (6-14) 12 (6-14) Blood Urea Nitrogen 18 mg/dL (7-20) 16 mg/dL (7-20) Creatinine 0.5 mg/dL (0.6-1.0) 0.5 mg/dL (0.6-1.0) Estimated GFR (Cockcroft-Gault) 155.0 155.0 BUN/Creatinine Ratio 36 (6-20) Glucose Level 83 mg/dL (70-99) 87 mg/dL (70-99) Calcium Level 8.5 mg/dL (8.5-10.1) 8.8 mg/dL (8.5-10.1) Total Bilirubin 0.3 mg/dL (0.2-1.0) Aspartate Amino Transf (AST/SGOT) 41 U/L (15-37) Alanine Aminotransferase (ALT/SGPT) 26 U/L (14-59) Alkaline Phosphatase 46 U/L (46-116) Creatine Kinase 1111 U/L (26-192) Total Protein 5.5 g/dL (6.4-8.2) Albumin 2.1 g/dL (3.4-5.0) Albumin/Globulin Ratio 0.6 (1.0-1.7) White Blood Count 7.3 x10^3/uL (4.0-11.0) 7.0 x10^3/uL (4.0-11.0) Red Blood Count 3.67 x10^6/uL (3.50-5.40) 3.60 x10^6/uL (3.50-5.40) Hemoglobin 10.9 g/dL (12.0-15.5) 10.9 g/dL (12.0-15.5) Hematocrit 33.0 % (36.0-47.0) 32.9 % (36.0-47.0) Mean Corpuscular Volume 90 fL (79-100) 91 fL (79-100) Mean Corpuscular Hemoglobin 30 pg (25-35) 30 pg (25-35) Mean Corpuscular Hemoglobin Concent 33 g/dL (31-37) 33 g/dL (31-37) Red Cell Distribution Width 13.6 % (11.5-14.5) 13.9 % (11.5-14.5) Platelet Count 179 x10^3/uL (140-400) 179 x10^3/uL (140-400) Neutrophils (%) (Auto) 46 % (31-73) 40 % (31-73) Lymphocytes (%) (Auto) 37 % (24-48) 41 % (24-48) Monocytes (%) (Auto) 15 % (0-9) 14 % (0-9) Eosinophils (%) (Auto) 2 % (0-3) 4 % (0-3) Basophils (%) (Auto) 1 % (0-3) 0 % (0-3) Neutrophils # (Auto) 3.3 x10^3uL (1.8-7.7) 2.8 x10^3uL (1.8-7.7) Lymphocytes # (Auto) 2.7 x10^3/uL (1.0-4.8) 2.9 x10^3/uL (1.0-4.8) Monocytes # (Auto) 1.1 x10^3/uL (0.0-1.1) 1.0 x10^3/uL (0.0-1.1) Eosinophils # (Auto) 0.1 x10^3/uL (0.0-0.7) 0.3 x10^3/uL (0.0-0.7) Basophils # (Auto) 0.0 x10^3/uL (0.0-0.2) 0.0 x10^3/uL (0.0-0.2) Laboratory Tests Test 02/12/19 05:00 White Blood Count 7.0 x10^3/uL (4.0-11.0) Red Blood Count 3.60 x10^6/uL (3.50-5.40) Hemoglobin 10.9 g/dL (12.0-15.5) Hematocrit 32.9 % (36.0-47.0) Mean Corpuscular Volume 91 fL (79-100) Mean Corpuscular Hemoglobin 30 pg (25-35) Mean Corpuscular Hemoglobin Concent 33 g/dL (31-37) Red Cell Distribution Width 13.9 % (11.5-14.5) Platelet Count 179 x10^3/uL (140-400) Neutrophils (%) (Auto) 40 % (31-73) Lymphocytes (%) (Auto) 41 % (24-48) Monocytes (%) (Auto) 14 % (0-9) Eosinophils (%) (Auto) 4 % (0-3) Basophils (%) (Auto) 0 % (0-3) Neutrophils # (Auto) 2.8 x10^3uL (1.8-7.7) Lymphocytes # (Auto) 2.9 x10^3/uL (1.0-4.8) Monocytes # (Auto) 1.0 x10^3/uL (0.0-1.1) Eosinophils # (Auto) 0.3 x10^3/uL (0.0-0.7) Basophils # (Auto) 0.0 x10^3/uL (0.0-0.2) Sodium Level 148 mmol/L (136-145) Potassium Level 3.4 mmol/L (3.5-5.1) Chloride Level 116 mmol/L (98-107) Carbon Dioxide Level 20 mmol/L (21-32) Anion Gap 12 (6-14) Blood Urea Nitrogen 16 mg/dL (7-20) Creatinine 0.5 mg/dL (0.6-1.0) Estimated GFR (Cockcroft-Gault) 155.0 Glucose Level 87 mg/dL (70-99) Calcium Level 8.8 mg/dL (8.5-10.1) Medications Current Medications Sodium Chloride 1,000 ml @ 1,000 mls/hr 1X ONCE IV Last administered on 02/08/19at 15:40; Start 02/08/19 at 15:00; Stop 02/08/19 at 15:59; Status DC Sodium Chloride 1,000 ml @ 150 mls/hr Q6H40M IV Last administered on 02/09/19at 08:55; Start 02/08/19 at 16:24; Stop 02/09/19 at 11:58; Status DC Cetirizine HCl (ZyrTEC) 10 mg DAILY PO Last administered on 02/12/19 09:35; Start 02/09/19 at 09:00 Vitamin D (Vitamin D3) 5,000 unit DAILY PO Last administered on 02/12/19 09:35; Start 02/09/19 at 09:00 Lacosamide (Vimpat) 200 mg BID PO Last administered on 02/12/19 09:35; Start 02/08/19 at 21:00 Non-Formulary Medication (Clobazam (Onfi)) 5 mg BID92 PO ; Start 02/09/19 at 09:00; Stop 02/09/19 at 17:43; Status DC Divalproex Sodium (Depakote) 500 mg QHS PO Last administered on 02/11/19 08:07; Start 02/08/19 at 21:00 Divalproex Sodium (Depakote) 750 mg DAILY PO Last administered on 02/12/19 09:35; Start 02/08/19 at 09:00 Topiramate (Topamax) 200 mg BID PO Last administered on 02/12/19 09:36; Start 02/08/19 at 21:00 Acetaminophen/ Hydrocodone Bitart (Lortab 5/325) 1 tab PRN Q6HRS PRN PO PAIN Last administered on 02/11/19 19:57; Start 02/08/19 at 20:30 Aspirin (Ecotrin) 81 mg DAILYWBKFT PO Last administered on 02/12/19 09:35; Start 02/09/19 at 12:00 Enoxaparin Sodium (Lovenox Per Pharmacy Prophylaxis Dosing) 1 each PRN DAILY PRN MC SEE COMMENTS; Start 02/09/19 at 17:15 Sodium Chloride 1,000 ml @ 75 mls/hr [id number] IV Last administered on 02/11/19 08:04; Start 02/09/19 at 17:15; Stop 02/11/19 at 12:25; Status DC Enoxaparin Sodium (Lovenox 40mg Syringe) 40 mg Q24H SQ Last administered on 02/11/19 18:40; Start 02/09/19 at 18:00 Sodium Chloride 1,000 ml @ 75 mls/hr 1X ONCE IV Last administered on 02/11/19 15:45; Start 02/11/19 at 13:00; Stop 02/12/19 at 02:19; Status DC Active Scripts Active Vitamin D3 (Cholecalciferol (Vitamin D3)) 5,000 Unit Capsule 5,000 Unit PO DAILY 30 Days Reported Divalproex Sodium 500 Mg Tablet.dr 750 Mg PO DAILY Divalproex Sodium 500 Mg Tablet.dr 500 Mg PO HS Topamax (Topiramate) 200 Mg Tablet 1 Tab PO BID Vimpat (Lacosamide) 200 Mg Tablet 200 Mg PO BID Zyrtec (Cetirizine Hcl) 10 Mg Tablet 1 Tab PO DAILY Onfi (Clobazam) 10 Mg Tablet 5 Mg PO BID92 Vitals/I & O Vital Sign - Last 24 Hours 02/11/19 02/11/19 02/11/19 02/11/19 15:02 19:57 19:59 20:43 Temp 97.8 98.3 97.8 98.3 Pulse 78 80 Resp 16 18 17 B/P (MAP) 81/44 (56) 98/44 (62) Pulse Ox 98 98 O2 Delivery Room Air Room Air Room Air Room Air 02/11/19 02/11/19 02/12/19 02/12/19 21:18 23:32 03:47 07:38 Temp 97.5 97.5 97.4 97.5 97.5 97.4 Pulse 66 57 65 Resp 18 17 18 22 B/P (MAP) 83/42 (56) 87/50 (62) 113/56 (75) Pulse Ox 97 98 97 O2 Delivery Room Air Room Air Room Air Room Air 02/12/19 10:36 Temp 97.1 97.1 Pulse 76 Resp 20 B/P (MAP) 117/63 (81) Pulse Ox 96 O2 Delivery Room Air Intake and Output 02/11/19 02/11/19 02/12/19 15:00 23:00 07:00 Intake Total 400 ml 800 ml Balance 400 ml 800 ml Nutrition Consultation Dietary Evaluation: Recommendations by RD: Increase Calorie Intake, Protein supplementation Comments: adv to regular diet when able offer supplements, snacks from unit prn Expected Outcomes/Goals: to meet > 75% est nutr needs Malnutrition Findings: Food and Nutrition Intake (Mod: <75% est energy req 7days Weight Status: Underweight BENIGNO ASCENCIO MD February 12, 2019 11:34
[2019-02-12 14:06] VITALS: BP 107/56
[2019-02-12] MEDS: ENOXAPARIN 40 MG/0.4 ML SYRINGE. SQ SCH (18:53)
[2019-02-12 19:15] VITALS: BP 105/60
[2019-02-12] MEDS: DIVALPROEX DELAYED RELEASE 500 MG TABLET.DR. PO SCH (20:59)
[2019-02-12] MEDS: HYDROcodone/APAP 5/325MG 1 TAB TABLET PO PRN (21:00)
[2019-02-12 22:30] VITALS: BP 96/53
[2019-02-13 03:10] VITALS: BP 90/55
[2019-02-13 03:32] LABS: BASO % 0 % (0-3); EOS # 0.2 x10^3/uL (0.0-0.7); EOS % 2 % (0-3); HEMATOCRIT 34.1 % (36.0-47.0); HEMOGLOBIN 10.9 g/dL (12.0-15.5); LYMPH # 2.5 x10^3/uL (1.0-4.8); LYMPH % 38 % (24-48); MEAN CORPUSCULAR HEMOGLOBIN 29 pg (25-35); MEAN CORPUSCULAR HGB CONC 32 g/dL (31-37); MEAN CORPUSCULAR VOLUME 91 fL (79-100); MONO # 0.9 x10^3/uL (0.0-1.1); MONO % 14 % (0-9); NEUT # 2.9 x10^3uL (1.8-7.7); NEUT % 45 % (31-73); PLATELET COUNT 230 x10^3/uL (140-400); RED BLOOD COUNT 3.75 x10^6/uL (3.50-5.40); RED CELL DISTRIBUTION WIDTH 13.4 % (11.5-14.5); WHITE BLOOD COUNT 6.5 x10^3/uL (4.0-11.0)
[2019-02-13 03:55] LABS: CALCIUM 8.6 mg/dL (8.5-10.1); CREATININE 0.7 mg/dL (0.6-1.0); GFR 105.1; POTASSIUM 3.6 mmol/L (3.5-5.1)
[2019-02-13 07:06] VITALS: BP 92/53
--- NOTE | 2019-02-13 07:50 | PDOC ---
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 PLAN - check TTE - appec cards - continue ASA - defer ischemic work up for now - continue home seizure meds - start IVF - dvt ppx: lovenox - full code - PT OT eval History of Present Illness History of Present Illness Ms Casas is a 53yo F w/ PMHx Seizures, learning disability, falls, and weakness, recently discharged on 02/06/2019 noted at that time with intractable seizures and multiple falls. apparently she was noted with weakness and inability to walk, found in rhabdo with hypernatremia She is currently curled up in bed asking for more food. She does not seem to appear to be in pain when not being disturbed but moans when I touch or she is moved. CXR and right leg Xray negative 26 min pt exam, chart review , > 50% of time spent with exam, chart review, pt care coordination Vitals Vitals Vital Signs Date Time Temp Pulse Resp B/P (MAP) Pulse Ox O2 Delivery O2 Flow Rate FiO2 02/13/19 07:06 98.4 75 18 92/53 (66) 94 Room Air 98.4 Physical Exam General: Alert, Cooperative, No acute distress Heart: Regular rate (SR) Lungs: Clear Abdomen: Normal bowel sounds, Soft, No tenderness Extremities: No clubbing, No cyanosis, No edema Skin: No breakdown, No significant lesion Labs LABS Laboratory Tests Test 02/13/19 03:10 White Blood Count 6.5 x10^3/uL (4.0-11.0) Red Blood Count 3.75 x10^6/uL (3.50-5.40) Hemoglobin 10.9 g/dL (12.0-15.5) Hematocrit 34.1 % (36.0-47.0) Mean Corpuscular Volume 91 fL (79-100) Mean Corpuscular Hemoglobin 29 pg (25-35) Mean Corpuscular Hemoglobin Concent 32 g/dL (31-37) Red Cell Distribution Width 13.4 % (11.5-14.5) Platelet Count 230 x10^3/uL (140-400) Neutrophils (%) (Auto) 45 % (31-73) Lymphocytes (%) (Auto) 38 % (24-48) Monocytes (%) (Auto) 14 % (0-9) Eosinophils (%) (Auto) 2 % (0-3) Basophils (%) (Auto) 0 % (0-3) Neutrophils # (Auto) 2.9 x10^3uL (1.8-7.7) Lymphocytes # (Auto) 2.5 x10^3/uL (1.0-4.8) Monocytes # (Auto) 0.9 x10^3/uL (0.0-1.1) Eosinophils # (Auto) 0.2 x10^3/uL (0.0-0.7) Basophils # (Auto) 0.0 x10^3/uL (0.0-0.2) Sodium Level 148 mmol/L (136-145) Potassium Level 3.6 mmol/L (3.5-5.1) Chloride Level 114 mmol/L (98-107) Carbon Dioxide Level 21 mmol/L (21-32) Anion Gap 13 (6-14) Blood Urea Nitrogen 18 mg/dL (7-20) Creatinine 0.7 mg/dL (0.6-1.0) Estimated GFR (Cockcroft-Gault) 105.1 Glucose Level 112 mg/dL (70-99) Calcium Level 8.6 mg/dL (8.5-10.1) Creatine Kinase 239 U/L (26-192) Assessment and Plan Assessmemt and Plan Problems Medical Problems: (1) Dehydration Status: Acute (2) Elevated troponin Status: Acute (3) Generalized weakness Status: Acute (4) Hypernatremia Status: Acute (5) Mentally challenged Status: Acute (6) Rhabdomyolysis Status: Acute (7) Seizure Status: Acute Comment Review of Relevant I have reviewed the following items len (where applicable) has been applied. Labs Laboratory Tests Test 02/12/19 05:00 02/13/19 03:10 White Blood Count 7.0 x10^3/uL (4.0-11.0) 6.5 x10^3/uL (4.0-11.0) Red Blood Count 3.60 x10^6/uL (3.50-5.40) 3.75 x10^6/uL (3.50-5.40) Hemoglobin 10.9 g/dL (12.0-15.5) 10.9 g/dL (12.0-15.5) Hematocrit 32.9 % (36.0-47.0) 34.1 % (36.0-47.0) Mean Corpuscular Volume 91 fL (79-100) 91 fL (79-100) Mean Corpuscular Hemoglobin 30 pg (25-35) 29 pg (25-35) Mean Corpuscular Hemoglobin Concent 33 g/dL (31-37) 32 g/dL (31-37) Red Cell Distribution Width 13.9 % (11.5-14.5) 13.4 % (11.5-14.5) Platelet Count 179 x10^3/uL (140-400) 230 x10^3/uL (140-400) Neutrophils (%) (Auto) 40 % (31-73) 45 % (31-73) Lymphocytes (%) (Auto) 41 % (24-48) 38 % (24-48) Monocytes (%) (Auto) 14 % (0-9) 14 % (0-9) Eosinophils (%) (Auto) 4 % (0-3) 2 % (0-3) Basophils (%) (Auto) 0 % (0-3) 0 % (0-3) Neutrophils # (Auto) 2.8 x10^3uL (1.8-7.7) 2.9 x10^3uL (1.8-7.7) Lymphocytes # (Auto) 2.9 x10^3/uL (1.0-4.8) 2.5 x10^3/uL (1.0-4.8) Monocytes # (Auto) 1.0 x10^3/uL (0.0-1.1) 0.9 x10^3/uL (0.0-1.1) Eosinophils # (Auto) 0.3 x10^3/uL (0.0-0.7) 0.2 x10^3/uL (0.0-0.7) Basophils # (Auto) 0.0 x10^3/uL (0.0-0.2) 0.0 x10^3/uL (0.0-0.2) Sodium Level 148 mmol/L (136-145) 148 mmol/L (136-145) Potassium Level 3.4 mmol/L (3.5-5.1) 3.6 mmol/L (3.5-5.1) Chloride Level 116 mmol/L (98-107) 114 mmol/L (98-107) Carbon Dioxide Level 20 mmol/L (21-32) 21 mmol/L (21-32) Anion Gap 12 (6-14) 13 (6-14) Blood Urea Nitrogen 16 mg/dL (7-20) 18 mg/dL (7-20) Creatinine 0.5 mg/dL (0.6-1.0) 0.7 mg/dL (0.6-1.0) Estimated GFR (Cockcroft-Gault) 155.0 105.1 Glucose Level 87 mg/dL (70-99) 112 mg/dL (70-99) Calcium Level 8.8 mg/dL (8.5-10.1) 8.6 mg/dL (8.5-10.1) Creatine Kinase 239 U/L (26-192) Laboratory Tests Test 02/13/19 03:10 White Blood Count 6.5 x10^3/uL (4.0-11.0) Red Blood Count 3.75 x10^6/uL (3.50-5.40) Hemoglobin 10.9 g/dL (12.0-15.5) Hematocrit 34.1 % (36.0-47.0) Mean Corpuscular Volume 91 fL (79-100) Mean Corpuscular Hemoglobin 29 pg (25-35) Mean Corpuscular Hemoglobin Concent 32 g/dL (31-37) Red Cell Distribution Width 13.4 % (11.5-14.5) Platelet Count 230 x10^3/uL (140-400) Neutrophils (%) (Auto) 45 % (31-73) Lymphocytes (%) (Auto) 38 % (24-48) Monocytes (%) (Auto) 14 % (0-9) Eosinophils (%) (Auto) 2 % (0-3) Basophils (%) (Auto) 0 % (0-3) Neutrophils # (Auto) 2.9 x10^3uL (1.8-7.7) Lymphocytes # (Auto) 2.5 x10^3/uL (1.0-4.8) Monocytes # (Auto) 0.9 x10^3/uL (0.0-1.1) Eosinophils # (Auto) 0.2 x10^3/uL (0.0-0.7) Basophils # (Auto) 0.0 x10^3/uL (0.0-0.2) Sodium Level 148 mmol/L (136-145) Potassium Level 3.6 mmol/L (3.5-5.1) Chloride Level 114 mmol/L (98-107) Carbon Dioxide Level 21 mmol/L (21-32) Anion Gap 13 (6-14) Blood Urea Nitrogen 18 mg/dL (7-20) Creatinine 0.7 mg/dL (0.6-1.0) Estimated GFR (Cockcroft-Gault) 105.1 Glucose Level 112 mg/dL (70-99) Calcium Level 8.6 mg/dL (8.5-10.1) Creatine Kinase 239 U/L (26-192) Medications Current Medications Sodium Chloride 1,000 ml @ 1,000 mls/hr 1X ONCE IV Last administered on 02/08/19at 15:40; Start 02/08/19 at 15:00; Stop 02/08/19 at 15:59; Status DC Sodium Chloride 1,000 ml @ 150 mls/hr Q6H40M IV Last administered on 02/09/19at 08:55; Start 02/08/19 at 16:24; Stop 02/09/19 at 11:58; Status DC Cetirizine HCl (ZyrTEC) 10 mg DAILY PO Last administered on 02/12/19at 09:35; Start 02/09/19 at 09:00 Vitamin D (Vitamin D3) 5,000 unit DAILY PO Last administered on 02/12/19at 09:35; Start 02/09/19 at 09:00 Lacosamide (Vimpat) 200 mg BID PO Last administered on 02/12/19at 20:59; Start 02/08/19 at 21:00 Non-Formulary Medication (Clobazam (Onfi)) 5 mg BID92 PO ; Start 02/09/19 at 09:00; Stop 02/09/19 at 17:43; Status DC Divalproex Sodium (Depakote) 500 mg QHS PO Last administered on 02/12/19 20:59; Start 02/08/19 at 21:00 Divalproex Sodium (Depakote) 750 mg DAILY PO Last administered on 02/12/19at 0 9:35; Start 02/08/19 at 09:00 Topiramate (Topamax) 200 mg BID PO Last administered on 02/12/19 20:59; Start 02/08/19 at 21:00 Acetaminophen/ Hydrocodone Bitart (Lortab 5/325) 1 tab PRN Q6HRS PRN PO PAIN Last administered on 02/12/19 21:00; Start 02/08/19 at 20:30 Aspirin (Ecotrin) 81 mg DAILYWBKFT PO Last administered on 02/12/19 09:35; Start 02/09/19 at 12:00 Enoxaparin Sodium (Lovenox Per Pharmacy Prophylaxis Dosing) 1 each PRN DAILY PRN MC SEE COMMENTS; Start 02/09/19 at 17:15 Sodium Chloride 1,000 ml @ 75 mls/hr [id number] IV Last administered on 02/11/19 08:04; Start 02/09/19 at 17:15; Stop 02/11/19 at 12:25; Status DC Enoxaparin Sodium (Lovenox 40mg Syringe) 40 mg Q24H SQ Last administered on 02/12/19 18:53; Start 02/09/19 at 18:00 Sodium Chloride 1,000 ml @ 75 mls/hr 1X ONCE IV Last administered on 02/11/19at 15:45; Start 02/11/19 at 13:00; Stop 02/12/19 at 02:19; Status DC Active Scripts Active Vitamin D3 (Cholecalciferol (Vitamin D3)) 5,000 Unit Capsule 5,000 Unit PO DAILY 30 Days Reported Divalproex Sodium 500 Mg Tablet.dr 750 Mg PO DAILY Divalproex Sodium 500 Mg Tablet.dr 500 Mg PO HS Topamax (Topiramate) 200 Mg Tablet 1 Tab PO BID Vimpat (Lacosamide) 200 Mg Tablet 200 Mg PO BID Zyrtec (Cetirizine Hcl) 10 Mg Tablet 1 Tab PO DAILY Onfi (Clobazam) 10 Mg Tablet 5 Mg PO BID92 Vitals/I & O Vital Sign - Last 24 Hours 02/12/19 02/12/19 02/12/19 02/12/19 08:00 10:36 14:06 19:15 Temp 97.1 98.3 97.8 97.1 98.3 97.8 Pulse 76 77 92 Resp 20 18 20 B/P (MAP) 117/63 (81) 107/56 (73) 105/60 (75) Pulse Ox 96 97 97 O2 Delivery Room Air Room Air Room Air Room Air 02/12/19 02/12/19 02/12/19 02/12/19 19:35 21:00 22:00 22:30 Temp 97.7 97.7 Pulse 95 Resp 20 20 18 B/P (MAP) 96/53 (67) Pulse Ox 96 O2 Delivery Room Air Room Air Room Air Room Air 02/13/19 02/13/19 03:10 07:06 Temp 98.0 98.4 98.0 98.4 Pulse 76 75 Resp 18 18 B/P (MAP) 90/55 (67) 92/53 (66) Pulse Ox 97 94 O2 Delivery Room Air Room Air Intake and Output 02/12/19 02/12/19 02/13/19 15:00 23:00 07:00 Intake Total 1620 ml 700 ml 0 ml Balance 1620 ml 700 ml [address] head - 1. No acute intracranial finding. Note is made that MRI is more sensitive for acute infarction. 2. Cerebral and cerebellar atrophy. This is greater than expected for patient age. 3. Decreased attenuation within the cerebral white, a nonspecific finding which can be seen with chronic small vessel disease. 4. 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 Nutrition Consultation Dietary Evaluation: Recommendations by RD: Increase Calorie Intake, Protein supplementation Comments: adv to regular diet when able offer supplements, snacks from unit prn Expected Outcomes/Goals: to meet > 75% est nutr needs Malnutrition Findings: Food and Nutrition Intake (Mod: <75% est energy req 7days Weight Status: Underweight MIRNA CABRERA MD February 13, 2019 07:50
--- NOTE | 2019-02-13 09:00 | NUR ---
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
[2019-02-13 10:42] VITALS: BP 80/53
[2019-02-13] MEDS: IV RINGERS,LACTATED 1000ML 1,000 ML IV SCH ×2 (10:42→20:27)
[2019-02-13] MEDS: TOPIRAMATE 100 MG TABLET. PO SCH ×2 (10:42→20:28)
[2019-02-13] MEDS: DIVALPROEX DELAYED RELEASE 250 MG TABLET.DR. PO SCH (10:43)
[2019-02-13] MEDS: ASPIRIN ENTERIC COATED 81 MG TABLET.DR. PO SCH (10:43)
[2019-02-13] MEDS: LACOSAMIDE 200 MG TABLET PO SCH ×2 (10:44→20:28)
[2019-02-13] MEDS: CETIRIZINE HCL 10 MG TABLET. PO SCH (10:44)
[2019-02-13] MEDS: CHOLECALCIFEROL (VITAMIN D3) 5,000 UNIT CAPSULE PO SCH (10:44)
[2019-02-13 14:47] VITALS: BP 101/54
[2019-02-13] MEDS: ENOXAPARIN 40 MG/0.4 ML SYRINGE. SQ SCH (18:14)
[2019-02-13 19:30] VITALS: BP 88/55
[2019-02-13] MEDS: HYDROcodone/APAP 5/325MG 1 TAB TABLET PO PRN (20:28)
[2019-02-13] MEDS: DIVALPROEX DELAYED RELEASE 500 MG TABLET.DR. PO SCH (20:28)
[2019-02-13 23:00] VITALS: BP 104/59
[2019-02-14 03:10] VITALS: BP 90/54
[2019-02-14] MEDS: IV RINGERS,LACTATED 1000ML 1,000 ML IV SCH (06:22)
[2019-02-14 07:00] VITALS: BP 92/51
[2019-02-14] MEDS: CETIRIZINE HCL 10 MG TABLET. PO SCH (08:23)
[2019-02-14] MEDS: LACOSAMIDE 200 MG TABLET PO SCH (08:23)
[2019-02-14] MEDS: TOPIRAMATE 100 MG TABLET. PO SCH (08:23)
[2019-02-14] MEDS: ASPIRIN ENTERIC COATED 81 MG TABLET.DR. PO SCH (08:23)
[2019-02-14] MEDS: CHOLECALCIFEROL (VITAMIN D3) 5,000 UNIT CAPSULE PO SCH (08:23)
[2019-02-14] MEDS: DIVALPROEX DELAYED RELEASE 250 MG TABLET.DR. PO SCH (08:27)
[2019-02-14] MEDS ORDERED: ASPI-612 PO (10:02)
--- NOTE | 2019-02-14 10:04 | SNU/HH DC ---
DISCHARGE WITH HOME HEALTH DISCHARGE INFORMATION: Discharge Date: February 14, 2019 Final Diagnosis: Problems Medical Problems: (1) Dehydration Status: Acute (2) Elevated troponin Status: Acute (3) Generalized weakness Status: Acute (4) Hypernatremia Status: Acute (5) Mentally challenged Status: Acute (6) Rhabdomyolysis Status: Acute (7) Seizure Status: Acute Condition on Discharge: Stable CODE STATUS: Code Status: Full HOME HEALTH: Face to Face: I certify this patient is under my care and that I, had a face to face encounter that meets the physician face to face encounter requirements with this patient on 02/14 Group Home For: Medication Management RN For Eval/Treatment: Yes Physical Therapy For: Evalulation/Treatment Occupational Therapy For: Evaluation/Treatment Pt Meets Homebound Status: Extreme weakness w/ amb., Frequent falls w/ injury POST DISCHARGE ORDERS: Activity Instructions for Disc: Activity as tolerated Weight Bearing Status after Di: As tolerated DIET AFTER DISCHARGE: same as before Wound/Incision Care: No wound care needed FOLLOW-UP: Follow up with: neuro or primary care, next avail TREATMENT/EQUIPMENT ORDERS: Adaptive Equipment Issued: None CERTIFICATION STATEMENT: Certification Statement: Certification Statement: Based on the above finding, I certify that this patient is confined to the home and needs intermittent usp care, physical therapy and/or speech therapy, or continues to need occupational therapy.~ This patient is under my care, and I have initiated the establishment of the plan of care.~ This patient will be followed by myself or a community physician who will periodically review the plan of care. Home Meds Active Scripts Aspirin (ASPIRIN EC) 81 Mg Tablet., 81 MG PO DAILYWBKFT for heart, #30 TAB.SR Prov:PHUC SPARKS MD 02/14/19 Cholecalciferol (Vitamin D3) (VITAMIN D3) 5,000 Unit Capsule, 5000 UNIT PO DAILY for 30 Days, #3 CAP Prov:ALIDA ALVARADO MD 01/11/18 Reported Medications Divalproex Sodium (DIVALPROEX SODIUM) 500 Mg Tablet., 750 MG PO DAILY for seizures, TAB 02/04/19 Divalproex Sodium (DIVALPROEX SODIUM) 500 Mg Tablet., 500 MG PO HS for seizures, TAB 02/04/19 Topiramate (TOPAMAX) 200 Mg Tablet, 1 TAB PO BID for seizures, #60 TAB 1 Refill 02/04/19 Lacosamide (VIMPAT) 200 Mg Tablet, 200 MG PO BID for seizures, TAB 02/04/19 Cetirizine Hcl (ZYRTEC) 10 Mg Tablet, 1 TAB PO DAILY, #30 TAB 2 Refills 01/09/18 Clobazam (ONFI) 10 Mg Tablet, 5 MG PO BID92, TAB 01/09/18 Discontinued Reported Medications Topiramate (TOPIRAMATE) 25 Mg Tablet, 4 TAB PO HS, #90 TAB 1 Refill 01/09/18 Topiramate (TOPIRAMATE) 25 Mg Tablet, 3 TAB PO DAILY08, #90 TAB 1 Refill 01/09/18 Lamotrigine (LAMOTRIGINE) 100 Mg Tablet, 1 TAB PO BID, #60 TAB 01/09/18 Divalproex Sodium (DIVALPROEX SODIUM) 500 Mg Tablet.dr, 250 MG PO DAILY08, TAB 01/09/18 Divalproex Sodium (DIVALPROEX SODIUM) 500 Mg Tablet.dr, 1 TAB PO BID, #60 TAB 1 Refill 01/09/18 Discontinued Scripts Topiramate (TOPAMAX) 100 Mg Tablet, 100 MG PO BID for 30 Days, #60 TAB Prov:ALIDA ALVARADO MD 01/11/18 PHUC SPARKS MD February 14, 2019 10:04
--- NOTE | 2019-02-14 10:24 | PDOC3 ---
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 PLAN - check TTE - appec cards - continue ASA - defer ischemic work up for now - continue home seizure meds - start IVF - dvt ppx: lovenox - full code - PT OT eval Problems Medical Problems: (1) Dehydration Status: Acute (2) Elevated troponin Status: Acute (3) Generalized weakness Status: Acute (4) Hypernatremia Status: Acute (5) Mentally challenged Status: Acute (6) Rhabdomyolysis Status: Acute (7) Seizure Status: Acute Brief Hospital Course Allergies Allergies Coded Allergies Type Severity Reaction Last Updated Verified No Known Drug Allergies 05/24/14 No Vital Signs Vital Signs Date Time Temp Pulse Resp B/P (MAP) Pulse Ox O2 Delivery O2 Flow Rate FiO2 02/14/19 08:00 Room Air 02/14/19 07:00 98.2 76 18 92/51 (65) 97 98.2 Lab Results Laboratory Tests Test 02/13/19 03:10 White Blood Count 6.5 x10^3/uL (4.0-11.0) Red Blood Count 3.75 x10^6/uL (3.50-5.40) Hemoglobin 10.9 g/dL (12.0-15.5) Hematocrit 34.1 % (36.0-47.0) Mean Corpuscular Volume 91 fL (79-100) Mean Corpuscular Hemoglobin 29 pg (25-35) Mean Corpuscular Hemoglobin Concent 32 g/dL (31-37) Red Cell Distribution Width 13.4 % (11.5-14.5) Platelet Count 230 x10^3/uL (140-400) Neutrophils (%) (Auto) 45 % (31-73) Lymphocytes (%) (Auto) 38 % (24-48) Monocytes (%) (Auto) 14 % (0-9) Eosinophils (%) (Auto) 2 % (0-3) Basophils (%) (Auto) 0 % (0-3) Neutrophils # (Auto) 2.9 x10^3uL (1.8-7.7) Lymphocytes # (Auto) 2.5 x10^3/uL (1.0-4.8) Monocytes # (Auto) 0.9 x10^3/uL (0.0-1.1) Eosinophils # (Auto) 0.2 x10^3/uL (0.0-0.7) Basophils # (Auto) 0.0 x10^3/uL (0.0-0.2) Sodium Level 148 mmol/L (136-145) Potassium Level 3.6 mmol/L (3.5-5.1) Chloride Level 114 mmol/L (98-107) Carbon Dioxide Level 21 mmol/L (21-32) Anion Gap 13 (6-14) Blood Urea Nitrogen 18 mg/dL (7-20) Creatinine 0.7 mg/dL (0.6-1.0) Estimated GFR (Cockcroft-Gault) 105.1 Glucose Level 112 mg/dL (70-99) Calcium Level 8.6 mg/dL (8.5-10.1) Creatine Kinase 239 U/L (26-192) Brief Hospital Course Ms. Casas is a 53 old PMHx Seizures, learning disability, falls, and weakness, recently discharged on 02/06/2019 noted at that time with intractable seizures and multiple falls. apparently she was noted with weakness and inability to walk, found in rhabdo with hypernatremia she is very weak, poor ability to care for herself, may be at baseline, may need usp care, Discharge Information Condition at Discharge: Improved Follow Up: Weeks Disposition/Orders: D/C to Home w/ HH Scheduled Aspirin (Aspirin Ec) 81 Mg Tablet., 81 MG PO DAILYWBKFT for heart, #30 Prescribed by: PHUC SPARKS on 02/14/19 1002 Cetirizine Hcl (Zyrtec) 10 Mg Tablet, 1 TAB PO DAILY, #30 Ref 2 (Reported) Entered as Reported by: Barbara Salas on 01/09/18311 Last Action: Continued on 02/08/191739 by KRISTINE MANN MD Cholecalciferol (Vitamin D3) (Vitamin D3) 5,000 Unit Capsule, 5,000 UNIT PO DAILY for 30 Days, #3 Prescribed by: ALIDA ALVARADO on 01/11/18 1002 Last Action: Continued on 02/08/191739 by KRISTINE MANN MD Clobazam (Onfi) 10 Mg Tablet, 5 MG PO BID92, (Reported) Entered as Reported by: Barbara Salas on 01/09/18311 Last Action: Converted on 02/08/191739 by KRISTINE MANN MD Divalproex Sodium (Divalproex Sodium) 500 Mg Tablet.dr, 500 MG PO HS for seizures, (Reported) Entered as Reported by: CHASITY TONG on 02/04/19151 Last Action: Converted on 02/08/191739 by KRISTINE MANN MD Divalproex Sodium (Divalproex Sodium) 500 Mg Tablet.dr, 750 MG PO DAILY for seizures, (Reported) Entered as Reported by: CHASITY TONG on 02/04/19151 Last Action: Converted on 02/08/191739 by KRISTINE MANN MD Lacosamide (Vimpat) 200 Mg Tablet, 200 MG PO BID for seizures, (Reported) Entered as Reported by: CHASITY TONG on 02/04/19151 Last Action: Continued on 02/08/191739 by KRISTINE MANN MD Topiramate (Topamax) 200 Mg Tablet, 1 TAB PO BID for seizures, #60 Ref 1 (Reported) Entered as Reported by: CHASITY TONG on 02/04/19151 Last Action: Converted on 02/08/191739 by KRISTINE MANN MD Discontinued Medications Divalproex Sodium (Divalproex Sodium) 500 Mg Tablet.dr, 1 TAB PO BID, #60 Ref 1 (Reported) Entered as Reported by: Barbara Salas on 01/09/18311 Divalproex Sodium (Divalproex Sodium) 500 Mg Tablet.dr, 250 MG PO DAILY08, (Reported) Entered as Reported by: Barbara Salas on 01/09/18311 Lamotrigine (Lamotrigine) 100 Mg Tablet, 1 TAB PO BID, #60 (Reported) Entered as Reported by: Barbara Salas on 01/09/18311 Topiramate (Topiramate) 25 Mg Tablet, 3 TAB PO DAILY08, #90 Ref 1 (Reported) Entered as Reported by: Barbara Salas on 01/09/18 0312 Topiramate (Topiramate) 25 Mg Tablet, 4 TAB PO HS, #90 Ref 1 (Reported) Entered as Reported by: Barbara Salas on 01/09/182 Topiramate (Topamax) 100 Mg Tablet, 100 MG PO BID for 30 Days, #60 Prescribed by: ALIDA ALVARADO on 01/11/18 1002 Patient Instructions Patient Instructions face to face PHUC Mei MD February 14, 2019 10:24
--- NOTE | 2019-02-14 10:43 | SNU/HH DC ---
DISCHARGE ORDERS DISCHARGE INFORMATION: DISCHARGE DATE: February 14, 2019 FINAL DIAGNOSIS Problems Medical Problems: (1) Dehydration Status: Acute (2) Elevated troponin Status: Acute (3) Generalized weakness Status: Acute (4) Hypernatremia Status: Acute (5) Mentally challenged Status: Acute (6) Rhabdomyolysis Status: Acute (7) Seizure Status: Acute CONDITION ON DISCHARGE: Stable CODE STATUS: Code Status: Full NURSING HOME: SNF STAY <30 DAYS: Yes POST DISCHARGE ORDERS: ACTIVITY ORDERS: Activity as tolerated WEIGHT BEARING STATUS: As tolerated DIET AFTER DISCHARGE: Regular WOUND/INCISION CARE: No wound care needed OTHER ORDERS: fall risk FOLLOW-UP: PHYSICIAN FOLLOW-UP: neuro or primary care, next avail TREATMENT/EQUIPMENT ORDERS: ADAPTIVE EQUIPMENT NEEDED: Front wheeled walker, Wheelchair Physical Therapy For: Evalulation/Treatment Occupational Therapy For: Evaluation/Treatment Speech Language Pathology For: Evaluation/Treatment DISCHARGE MEDICATIONS: Home Meds Active Scripts Aspirin (ASPIRIN EC) 81 Mg Tablet.dr, 81 MG PO DAILYWBKFT for heart, #30 TAB.SR Prov:PHUC SPARKS MD 02/14/19 Cholecalciferol (Vitamin D3) (VITAMIN D3) 5,000 Unit Capsule, 5000 UNIT PO DAILY for 30 Days, #3 CAP Prov:ALIDA ALVARADO MD 01/11/18 Reported Medications Divalproex Sodium (DIVALPROEX SODIUM) 500 Mg Tablet.dr, 750 MG PO DAILY for seizures, TAB 02/04/19 Divalproex Sodium (DIVALPROEX SODIUM) 500 Mg Tablet.dr, 500 MG PO HS for seizures, TAB 02/04/19 Topiramate (TOPAMAX) 200 Mg Tablet, 1 TAB PO BID for seizures, #60 TAB 1 Refill 02/04/19 Lacosamide (VIMPAT) 200 Mg Tablet, 200 MG PO BID for seizures, TAB 02/04/19 Cetirizine Hcl (ZYRTEC) 10 Mg Tablet, 1 TAB PO DAILY, #30 TAB 2 Refills 01/09/18 Clobazam (ONFI) 10 Mg Tablet, 5 MG PO BID92, TAB 01/09/18 Discontinued Reported Medications Topiramate (TOPIRAMATE) 25 Mg Tablet, 4 TAB PO HS, #90 TAB 1 Refill 01/09/18 Topiramate (TOPIRAMATE) 25 Mg Tablet, 3 TAB PO DAILY08, #90 TAB 1 Refill 01/09/18 Lamotrigine (LAMOTRIGINE) 100 Mg Tablet, 1 TAB PO BID, #60 TAB 01/09/18 Divalproex Sodium (DIVALPROEX SODIUM) 500 Mg Tablet.dr, 250 MG PO DAILY08, TAB 01/09/18 Divalproex Sodium (DIVALPROEX SODIUM) 500 Mg Tablet.dr, 1 TAB PO BID, #60 TAB 1 Refill 01/09/18 Discontinued Scripts Topiramate (TOPAMAX) 100 Mg Tablet, 100 MG PO BID for 30 Days, #60 TAB Prov:ALIDA ALVARADO MD 01/11/18 PHUC SPARKS MD February 14, 2019 10:43
--- NOTE | 2019-02-14 10:56 | CARD ---
MR#: [id number] Date of Study: 02/09/2019 Ordering Physician: KRISTINE MANN, Referring Physician: Joe SAHU: Anat Sultana APPROVED REPORT EXAM: Two-dimensional and M-mode echocardiogram with Doppler and color Doppler. Other Information Quality : AverageHR: 96bpm Technically limited study due to patient compliance. INDICATION Elevated Troponin LEFT VENTRICLE The left ventricle is normal size. There is mild to moderate concentric left ventricular hypertrophy. The left ventricular systolic function is normal and the ejection fraction is within normal range. T he Ejection Fraction is >55%. There is normal LV segmental wall motion. Color and Doppler was not per formed. RIGHT VENTRICLE The right ventricle is normal size. There is normal right ventricular wall thickness. The right ventr icular systolic function is normal. ATRIA The left atrium size is normal. The right atrium size is normal. The interatrial septum is intact wit h no evidence for an atrial septal defect or patent foramen ovale as noted on 2-D or Doppler imaging. AORTIC VALVE The aortic valve is normal in structure and function. Color and Doppler not performed. There is no si gnificant aortic valvular stenosis. MITRAL VALVE The mitral valve is normal in structure and function. There is no evidence of mitral valve prolapse. There is no mitral valve stenosis. Doppler and color-flow analysis was not performed. TRICUSPID VALVE The tricuspid valve is normal in structure and function. Doppler and color-flow analysis was not perf ormed. There is no tricuspid valve stenosis. PULMONIC VALVE The pulmonic valve is not well visualized. Color and Doppler not performed. GREAT VESSELS The aortic root is normal in size. The IVC was not visualized. PERICARDIAL EFFUSION There is no evidence of significant pericardial effusion. Critical Notification Critical Value: No <Conclusion> The left ventricular systolic function is normal and the ejection fraction is within normal range. Th e Ejection Fraction is >55%. There is normal LV segmental wall motion. Technically difficult as patient refused study half way through the scan Signed by : Tj Miller, Electronically Approved : 02/09/2019 16:12:52
[2019-02-14 11:00] VITALS: BP 86/51
--- NOTE | 2019-02-14 13:00 | NUR ---
SS following up with discharge planning. PT/OT evaluated pt and recommended shelter unit. SS spoke with pt's family via phone and was asked to phone and fax referral to [facility], ; fax [phone]. SS phoned and faxed discharge orders and referral to [facility]. SS will await acceptance decision and will proceed accordingly. Pt's RN notified.
--- NOTE | 2019-02-14 14:20 | NUR ---
SS following up with discharge planning. Pt accepted at [facility] pending if family could bring Vimpat seizure medication from home due to cost of medications, $600. Pt's RN reached out to family and made request. Pt's family reported that they ran out of it and need a new script called in to pharmacy. Pt's RN contacting Dr. Snyder to see if she could call in script to pharmacy so that family can pick up man and bring to [facility]. SS will continue to follow.
--- NOTE | 2019-02-14 14:46 | NUR ---
SS following up with discharge planning. Script for medication called into [facility] at [address] [facility] in [place], [place]. Pt's sister reported that she gets off of work at 1700 and will citrus picker script and take it to [facility]. SS notified [facility]. Pt will discharge today and go to [facility] between 1700 and 1730 via [facility] [employer] transportation. Pt, pt's sister, and pt's RN notified.
[2019-02-14 15:00] VITALS: BP 84/48
--- NOTE | 2019-02-14 16:23 | NUR ---
Discharge Note: PT DISCHARGED TO [facility], PT LEFT FACILITY VIA [facility] AT 1615, REPORT CALLED TO [facility] AT 1615, TO KALEY BARR. PT STABLE AND ALERT UPON DISCHARGE. DISCHARGE INSTRUCTIONS, FOLLOW-UP INSTRUCTIONS, AND DISCHARGE MEDICATIONS GIVEN TO OTHER FACILITY. NO CONCERNS VOICED. PT BRIEF AND CLOTHES APPLIED AT 1600. MARIUSZ LIANG Discharge instructions and discharge home medications reviewed with Other facility and a copy given. All questions have been answered and understanding verbalized.
== END 2019-02-14 16:28 | DRG 564 ==
LOC: ER 14:25 → 2 SOUTH 15:49
PROVIDERS: ADMIT Internal Medicine; ATTEND Internal Medicine
DX: T79.6XXA Traumatic ischemia of muscle, initial encounter (principal); R53.2 Functional quadriplegia; E44.0 Moderate protein-calorie malnutrition; R64 Cachexia; E87.0 Hyperosmolality and hypernatremia; G40.909 Epilepsy, unspecified, not intractable, without status epilepticus; E86.0 Dehydration; F81.9 Developmental disorder of scholastic skills, unspecified; I73.9 Peripheral vascular disease, unspecified; W18.39XA Other fall on same level, initial encounter; Z82.49 Family history of ischemic heart disease and other diseases of the circulatory system; Z86.73 Personal history of transient ischemic attack (TIA), and cerebral infarction without residual deficits; Z90.710 Acquired absence of both cervix and uterus; Z83.3 Family history of diabetes mellitus; Z87.440 Personal history of urinary (tract) infections; Z68.21 Body mass index [BMI] 21.0-21.9, adult; Y93.89 Activity, other specified; Y92.89 Other specified places as the place of occurrence of the external cause; Y99.8 Other external cause status
CPT/HCPCS: 36415; 51701; 70450; 71045; 73552; 80048; 80053; 80061; 80164; 81001; 82550; 83735; 83880; 84484; 85025; 85610; 93005; 93308; 93325; 96360; J1650; J7030; J7120; 99285-25

== ENCOUNTER → 2019-04-11 | Outpatient (CLI) | payer MEDICARE, OTHER ==
[~2019-04-11] MED LIST changes: +ASPI-612 PO
[2019-04-11 11:46] LABS: ALBUMIN 2.2 g/dL (3.4-5.0); ALBUMIN/GLOBULIN RATIO 0.5 (1.0-1.7); CALCIUM 9.7 mg/dL (8.5-10.1); CREATININE 0.6 mg/dL (0.6-1.0); GFR 125.1; POTASSIUM 3.7 mmol/L (3.5-5.1); TOTAL BILIRUBIN 0.1 mg/dL (0.2-1.0); TOTAL PROTEIN 6.6 g/dL (6.4-8.2)
== END | disposition home or self-care (01) ==
LOC: LAB 10:20
PROVIDERS: ATTEND Psychiatry & Neurology Neurology
DX: G40.909 Epilepsy, unspecified, not intractable, without status epilepticus (principal)
CPT/HCPCS: 36415; 80053

== ENCOUNTER 2020-05-16 16:00 | Inpatient (IN) | payer MEDICARE, OTHER ==
[~2020-05-16] VITALS: Ht 160 cm; Wt 67.3 kg
[2020-05-16] VITALS (19 sets, daily range): BP systolic 94–141; BP diastolic 53–76
[~2020-05-16 16:00] MED LIST changes: +ACET650S11 PR; +APIX5TAB PO; -ASPI-612 PO; +ASPI-886 PO; +BISA10SU4 RC; -CETI10TA22 PO; +CETI10TA74 PO; +DIVA500T17 PO; +DOCU100C28 PO; +ERGO500027 PO; +FAMO20TA5 PO; +FOLI1TAB16 PO; +IBUP400T18 PO; -LAMO100T PO; +LAMO100T8 PO; +LEVO500T59 PO; +MELA3TAB4 PO; +NA P133E2 RC; +OXYC5CAP PO; +POLY17PO28 PO
[2020-05-16] MEDS ORDERED: IV NORMAL SALINE 1000ML BAG 1,000 ML IV ONE ×3 (16:30→18:30)
--- NOTE | 2020-05-16 16:37 | EKG ---
[facility] [address] [place] [address] Test Date: 2020-05-16 Test Time: 16:10:46 Pat Name: MARIUSZ LIANG Department: Room: Gender: F National Account Manager: : 1965 Requested By: JOSHUA GARCIA Order Number: [id number] Reading MD: Measurements Intervals [place] Rate: 108 P: 62 [place]: 114 QRS: 28 QRSD: 78 T: 34 QT: 296 QTc: 400 Interpretive Statements SINUS TACHYCARDIA LEFT ATRIAL ABNORMALITY ST & T ABNORMALITY, CONSIDER LATERAL ISCHEMIA OR LEFT VENTRICULAR STRAIN INFERIOR ISCHEMIA OR LEFT VENTRICULAR STRAIN ABNORMAL ECG RI6.02 No previous ECG available for comparison
[2020-05-16] MEDS ORDERED: ERYTHROMYCIN 0.5% OPHTH OINTMENT 1GM TUBE. OU ONE (16:45)
[2020-05-16 16:57] LABS: BASO # 0.1 x10^3/uL (0.0-0.2); BASO % 1 % (0-3); EOS # 0.1 x10^3/uL (0.0-0.7); EOS % 1 % (0-3); HEMATOCRIT 21.1 % (36.0-47.0); LYMPH # 2.8 x10^3/uL (1.0-4.8); LYMPH % 21 % (24-48); MEAN CORPUSCULAR HEMOGLOBIN 15 pg (25-35); MEAN CORPUSCULAR HGB CONC 26 g/dL (31-37); MEAN CORPUSCULAR VOLUME 59 fL (79-100); MONO # 2.1 x10^3/uL (0.0-1.1); MONO % 16 % (0-9); NEUT % 61 % (31-73); PLATELET COUNT 745 x10^3/uL (140-400); RED BLOOD COUNT 3.61 x10^6/uL (3.50-5.40); RED CELL DISTRIBUTION WIDTH 20.8 % (11.5-14.5)
[2020-05-16 17:00] LABS: HEMOGLOBIN 5.6 g/dL (12.0-15.5)
[2020-05-16 17:05] LABS: ANION GAP 10 (6-14); BLOOD UREA NITROGEN 28 mg/dL (7-20); BUN/CREATININE RATIO 56 (6-20); CALCIUM 8.4 mg/dL (8.5-10.1); CARBON DIOXIDE 22 mmol/L (21-32); CHLORIDE 121 mmol/L (98-107); CREATININE 0.5 mg/dL (0.6-1.0); GFR 153.9; GLUCOSE 124 mg/dL (70-99); POTASSIUM 3.8 mmol/L (3.5-5.1); SODIUM 153 mmol/L (136-145)
[2020-05-16 17:08] LABS: PROTHROMBIN TIME PATIENT 14.4 SEC (11.7-14.0)
[2020-05-16 17:12] LABS: ALBUMIN/GLOBULIN RATIO 0.5 (1.0-1.7); ALK PHOS 62 U/L (46-116); ALT (SGPT) 15 U/L (14-59); AST (SGOT) 12 U/L (15-37); MAGNESIUM 2.2 mg/dL (1.8-2.4); TOTAL BILIRUBIN 0.2 mg/dL (0.2-1.0); TOTAL PROTEIN 5.9 g/dL (6.4-8.2); VAL ACID 33 mcg/mL (50-100)
--- NOTE | 2020-05-16 17:18 | PHYS DOC ---
Past Medical History Past Medical History: Seizure, Other Additional Past Medical Histor: intellectual deficits,sepsis,Vit D Deficient,DYSPHAGIA,SIRS Past Surgical History: Hysterectomy Smoking Status: Never Smoker Alcohol Use: None Drug Use: None General Adult EDM: Chief Complaint: ANEMIA HPI: HPI: Patient is a 55-year-old female who was brought to the clinic by EMS due to anemia found by retirement faculty. Patient resides at [facility] at [address] [place] [address]. Patient is nonverbal and history of present illness obtained through pre-EMS patient records. 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 Review of Systems: Review of Systems: Review of systems is limited by patient's nonverbal status. Current Medications: Current Medications Medications (Trade) Dose Ordered Sig/Ruthie Start Time Stop Time Status Last Admin Dose Admin Erythromycin (Romycin) 0.25 inch 1X ONCE 05/16/20 16:45 05/16/20 16:46 Sodium Chloride 1,000 ml @ 1,000 mls/hr 1X ONCE 05/16/20 16:30 05/16/20 17:29 Allergies: Allergies: Allergies Coded Allergies Type Severity Reaction Last Updated Verified No Known Drug Allergies 05/24/14 No Physical Exam: PE: Constitutional: Nonverbal, unkept, does not respond appropriately to stimuli, mildly distressed HENT: Normocephalic, atraumatic Eyes: PERRL, EOMI, bilateral eyelid crusting, conjunctive a mildly erythematous Neck: Normal range of motion, no tenderness, supple Lungs & Thorax: Equal chest rise and fall bilaterally, no respiratory distress Abdomen: Soft, diffuse tenderness to palpation of in all 4 quadrants, no hepatosplenomegaly Skin: Warm, dry, no erythema, no rash Back: No tenderness, no CVA tenderness Extremities: No tenderness, ROM intact, no edema Neurologic: Patient is not alert or oriented x3, motor and sensory function testing limited by patient's capacity, no focal deficits appreciated Psychologic: Affect is flat Current Patient Data: Vital Signs: Vital Signs Date Time Temp Pulse Resp B/P (MAP) Pulse Ox O2 Delivery O2 Flow Rate FiO2 05/16/20 16:00 98.9 107 20 148/104 (119) 98 Room Air 98.9 EKG: EK05/16/2020 @ 16:10 heart rate 108 beats per minutes, sinus rhythm, QRS 78 ms, QT 296 ms, QTC 400 ms, patient movement is apparent on ECG. Course & Med Decision Making: Course & Med Decision Making Pertinent Labs and Imaging studies reviewed. (See chart for details) [] Dragon Disclaimer: Dragon Disclaimer: This electronic medical record was generated, in whole or in part, using a voice recognition dictation system. Departure Departure Impression: Primary Impression: Severe sepsis Additional Impressions: UTI (urinary tract infection) Qualified Codes: N30.00 - Acute cystitis without hematuria Severe anemia Hypernatremia Disposition: ADMITTED INPATIENT Admitting Physician: NICOLE (Dante) Condition: GUARDED Referrals: SHERRI MICHAEL MD (PCP) Justicifation of Admission Dx: Justifications for Admission: Justification of Admission Dx: Yes Comments: Severe anemia, hyponatremia, lactic acidosis, UTI Date and Time of Reassessment Date: May 16, 2020 Time: 17:55 Fluid Challenge Is the fluid challenge complet: No IBW Target Volume Used: No BMI > 30: No Vital Signs Vital Signs: Vital Signs Date Time Temp Pulse Resp B/P (MAP) Pulse Ox O2 Delivery O2 Flow Rate FiO2 05/16/20 16:00 98.9 107 20 148/104 (119) 98 Room Air 98.9 Temperature Source: Axillary Respirations Respiratory Effort: Normal, Non-Labored Respiratory Pattern: Normal Cardiovascular Pulse Rhythm: Irregular (Tachycardia) Heart: No rubs, clicks or gallop Lung Sounds Breath Sounds: Clear Capillary Refil Capillary Refill: Rt Hand < 3 seconds Peripheral Pulse Pulse Location: Radial Pulse Strength: Normal (2+) Pulse Assessment Method: Palpation Integumentary Skin: Warm, Dry, No Rashes Skin Moisture: Dry Skin Turgor: Normal Skin Color: warm, dry, edema Fingernail Color: WNL Critical Care Time Critical care time was 30 minutes which includes time at bedside, spent in discussion of patient's care with specialists and/or family members, with interpretation of laboratory and/or radiological studies and is exclusive of procedures. JOSHUA GARCIA DO May 16, 2020 17:18
[2020-05-16 17:28] LABS: % BANDS 1 % (0-9); % BASOS 1 % (0-3); % LYMPHS 20 % (24-48); % MONOS 18 % (0-10); % SEGS 60 % (35-66); ANISOCYTOSIS MOD; HYPOCHROMIA MARKED; MICROCYTOSIS MARKED; PLT ESTIMATE INCREASED (ADEQUATE); POIKILOCYTOSIS SLIGHT; POLYCHROMASIA PRESENT
[2020-05-16 17:29] LABS: OVALOCYTES FEW
[2020-05-16 17:37] LABS: CREATINE KINASE 72 U/L (26-192)
[2020-05-16 17:39] LABS: BILIRUBIN,URINE NEGATIVE (NEG); CLARITY,URINE CLEAR; COLOR,URINE YELLOW; NITRITE,URINE POSITIVE (NEG); PROTEIN,URINE NEGATIVE (NEG-TRACE)
[2020-05-16 17:44] LABS: BACTERIA,URINE MANY /HPF (0-FEW); SQUAMOUS EPITHELIAL CELL,UR FEW /LPF
[2020-05-16 17:45] LABS: RBC,URINE 0 /HPF (0-2)
[2020-05-16] MEDS ORDERED: IOHEXOL 300 MG/ML 100ML VIAL. IV ONE (18:00)
--- NOTE | 2020-05-16 18:15 | RAD ---
Exam: CT of abdomen and pelvis with contrast INDICATION: Abdominal pain, anemia TECHNIQUE: Sequential axial images through the abdomen and pelvis obtained following the administration of 75 mL of Omni 300 IV contrast. Sagittal and coronal reformatted images were reconstructed from the axial data and reviewed. Comparisons: 06/11/2019 FINDINGS: Heart size is normal. No pericardial effusion. Strandy opacities at dependent portion lungs likely representing atelectasis. No effusion. Evaluation of the solid organs is limited secondary to noncontrast technique. Liver, spleen, pancreas, gallbladder and adrenals are unremarkable. No perinephric inflammation or hydronephrosis. No renal or ureteral calculi are identified. There several hypoattenuating lesions within the kidneys bilaterally incompletely characterized on this study likely representing simple cysts. Bladder is partially distended and not well evaluated. Uterus is not enlarged. Exophytic enhancing mass arising off of the uterus similar to prior study likely representing exophytic fibroid. No abnormal adnexal mass. Large and small bowel are unremarkable. Appendix is nonidentified. No obstruction. No free intra-abdominal air or fluid. Abdominal aorta has a normal course and caliber. Abdominal vasculature is patent. There are several enlarged right lower quadrant mesenteric lymph nodes. These are new/increased when compared to prior exams. No suspicious osseous lesions or acute fractures. IMPRESSION: 1. Several prominent and enlarged right lower quadrant mesenteric lymph nodes. These are nonspecific correlate with malignancy history and colonoscopy history. 2. Exophytic mass at the uterus which appears similar when compared to prior exams likely representing an exophytic fibroid. Exposure: One or more of the following in the visualized dose reduction techniques were utilized for this examination: 1. Automated exposure control 2. Adjustment of the MA and/or KV according to patient size 3. Use of iterative of reconstructive technique Electronically signed by: Jack Pepe MD (05/16/2020 6:12 PM) [id number]
[2020-05-16] MEDS ORDERED: ONDANSETRON PF 4 MG/2 ML VIAL. IV PRN (18:30)
[2020-05-16 18:47] LABS: FECAL OB PT POSITIVE (NEG)
[2020-05-16] MEDS ORDERED: PIPERACILLIN/TAZOBACTAM 3.375 GM in IV NORMAL SALINE 50ML 50 ML IV ONE (19:00)
--- NOTE | 2020-05-16 21:43 | PDOC1 ---
History and Physical Date of Service: DOS: DATE: 05/16/20 TIME: 21:35 Chief Complaint: Chief Complain: Low hemoglobin Past Medical/Surgical History: PMH/PSH: Past Medical History: Seizure, intellectual deficits,Vit D Deficient,DYSPHAGIA, Past Surgical History: Hysterectomy Allergies: Allergies: Coded Allergies: No Known Drug Allergies (Unverified , 05/24/14) Family History: Family History: Reviewed and none reported. No history of sickle cell disease or thalassemia is in the family Social History: Social History: Smoking Status: Never Smoker Alcohol Use: None Drug Use: None Current Medications: Current Medications Current Medications Sodium Chloride 1,000 ml @ 1,000 mls/hr 1X ONCE IV Last administered on 05/16/20at 16:38; Start 05/16/20 at 16:30; Stop 05/16/20 at 17:29; Status DC Erythromycin (Romycin) 0.25 inch 1X ONCE OU Last administered on 05/16/20at 16:44; Start 05/16/20 at 16:45; Stop 05/16/20 at 16:46; Status DC Iohexol (Omnipaque 300 Mg/ml) 75 ml 1X ONCE IV Last administered on 05/16/20at 17:47; Start 05/16/20 at 18:00; Stop 05/16/20 at 18:01; Status DC Sodium Chloride 1,000 ml @ 1,000 mls/hr 1X ONCE IV Last administered on 05/16/20at 19:12; Start 05/16/20 at 18:30; Stop 05/16/20 at 19:29; Status DC Piperacillin Sod/ Tazobactam Sod 3.375 gm/Sodium Chloride 50 ml @ 100 mls/hr 1X ONCE IV Last administered on 05/16/20at 19:25; Start 05/16/20 at 19:00; Stop 05/16/20 at 19:29; Status DC Levofloxacin/ Dextrose 150 ml @ 100 mls/hr 1X ONCE IV Last administered on 05/16/20at 19:57; Start 05/16/20 at 19:30; Stop 05/16/20 at 20:59; Status DC Ondansetron HCl (Zofran) 4 mg PRN Q8HRS PRN IV NAUSEA/VOMITING; Start 05/16/20 at 18:30; Stop 05/17/20 at 18:29 Sodium Chloride 1,000 ml @ 75 mls/hr 1X ONCE IV ; Start 05/16/20 at 18:30; Stop 05/17/20 at 07:49 Active Scripts Active Acetaminophen Supp (Acetaminophen) 650 Mg Supp.rect 650 Mg IA PRN Q6HRS PRN 10 Days Levaquin (Levofloxacin) 500 Mg Tablet 500 Mg PO DAILY06 10 Days Reported Topamax (Topiramate) 200 Mg Tablet 200 Mg PO BID Polyethylene Glycol 3350 17 Gm Powd.pack 17 Gm PO PRN DAILY PRN Oxycodone Hcl 5 Mg Capsule 5 Mg PO PRN Q4HRS PRN Melatonin 3 Mg Tablet 3 Mg PO PRN QHS PRN Fleet Enema (Na Phos,M-B/Na Phos,Di-Ba) 133 Ml Enema 133 Ml RC PRN Q8HRS PRN Famotidine 20 Mg Tablet 20 Mg PO HS Bisacodyl 10 Mg Supp.rect 10 Mg RC PRN DAILY PRN Docusate Sodium 100 Mg Capsule 100 Mg PO BID Divalproex Sodium Er (Divalproex Sodium) 500 Mg Tab.er.24h 500 Mg PO DAILY Eliquis (Apixaban) 5 Mg Tablet 5 Mg PO BID Divalproex Sodium Er (Divalproex Sodium) 500 Mg Tab.er.24h 250 Mg PO DAILY Vimpat (Lacosamide) 200 Mg Tablet 200 Mg PO BID Zyrtec (Cetirizine Hcl) 10 Mg Tablet 1 Tab PO DAILY Onfi (Clobazam) 10 Mg Tablet 5 Mg PO [id number] ROS: Review of Systems Review of System REVIEW OF SYSTEMS: GENERAL: Denies weakness SKIN: No bruising, hair changes or rashes. EYES: No blurred, double or loss of vision. NOSE AND THROAT: No history of nosebleeds, hoarseness or sore throat. HEART: No history of palpitations, chest pain or shortness of breath on exertion. LUNGS: Denies cough, hemoptysis, wheezing or shortness of breath. GASTROINTESTINAL: Denies changes in appetite, nausea, vomiting, diarrhea or constipation. GENITOURINARY: No history of frequency, urgency, hesitancy or nocturia. NEUROLOGIC: Denies history of numbness, tingling, or tremor. PSYCHIATRIC: No history of panic, anxiety or depression. ENDOCRINE: No history of heat or cold intolerance, polyuria or polydipsia. EXTREMITIES: Denies joint pain, pain on walking or stiffness. Physical Exam: Vital Signs: Vital Signs Date Time Temp Pulse Resp B/P (MAP) Pulse Ox O2 Delivery O2 Flow Rate FiO2 05/16/20 21:32 97.8 94 28 111/56 97.8 05/16/20 21:30 97 Nasal Cannula 05/16/20 20:14 2.0 Physcial Exam: GEN: No apparent distress. Alert and oriented HEENT: Normal cephalic, atraumatic, external auditory canals are patent EYES: Extraocular muscles are intact, pupil are equally round and reactive to light and accommodation MUSCULOSKELETAL: Well developed , well nourished, good range of motion ENDOCRINE: No thyromegaly was palpated LYMPHATICS: No cervical chain or axillary nodes were noted HEMATOPOIETIC: No bruising NECK: Supple, no JVD, no thyromegaly was noted LUNGS: Clear to auscultation in all lung pizano without rhonchi or wheezing HEART: RRR, S!, S2 present. Peripheral pulses intact, no obvious murmurs noted ABDOMEN: Soft, nontender. Positive bowel sounds, no organomegaly, normal bowel sounds EXTREMITIES: Without clubbing, cyanosis, or edema. Pedal pulses intact. Negative Homans sign NEUROLOGIC: Normal speech and tone. A&O x 3, moves all extremities, no obvious focal deficits PSYCHIATRIC: Normal affect, normal mood. Stable SKIN: No ulcerations or rashes, good skin turgor, no jaundice VASCULAR: Good capillary refill, neurovascular bundle appears to be intact Labs: Labs: Laboratory Tests Test 05/16/20 16:17 05/16/20 16:55 05/16/20 17:30 05/16/20 18:10 White Blood Count 13.0 x10^3/uL (4.0-11.0) Red Blood Count 3.61 x10^6/uL (3.50-5.40) Hemoglobin 5.6 g/dL (12.0-15.5) Hematocrit 21.1 % (36.0-47.0) Mean Corpuscular Volume 59 fL (79-100) Mean Corpuscular Hemoglobin 15 pg (25-35) Mean Corpuscular Hemoglobin Concent 26 g/dL (31-37) Red Cell Distribution Width 20.8 % (11.5-14.5) Platelet Count 745 x10^3/uL (140-400) Neutrophils (%) (Auto) 61 % (31-73) Lymphocytes (%) (Auto) 21 % (24-48) Monocytes (%) (Auto) 16 % (0-9) Eosinophils (%) (Auto) 1 % (0-3) Basophils (%) (Auto) 1 % (0-3) Neutrophils # (Auto) 8.0 x10^3/uL (1.8-7.7) Lymphocytes # (Auto) 2.8 x10^3/uL (1.0-4.8) Monocytes # (Auto) 2.1 x10^3/uL (0.0-1.1) Eosinophils # (Auto) 0.1 x10^3/uL (0.0-0.7) Basophils # (Auto) 0.1 x10^3/uL (0.0-0.2) Segmented Neutrophils % 60 % (35-66) Band Neutrophils % 1 % (0-9) Lymphocytes % 20 % (24-48) Monocytes % 18 % (0-10) Basophils % 1 % (0-3) Platelet Estimate Increased (ADEQUATE) Polychromasia Present Hypochromasia Marked Poikilocytosis Slight Anisocytosis Mod Microcytosis Marked Ovalocytes Few Prothrombin Time 14.4 SEC (11.7-14.0) Prothromb Time International Ratio 1.2 (0.8-1.1) Activated Partial Thromboplast Time 29 SEC (24-38) Sodium Level 153 mmol/L (136-145) Potassium Level 3.8 mmol/L (3.5-5.1) Chloride Level 121 mmol/L (98-107) Carbon Dioxide Level 22 mmol/L (21-32) Anion Gap 10 (6-14) Blood Urea Nitrogen 28 mg/dL (7-20) Creatinine 0.5 mg/dL (0.6-1.0) Estimated GFR (Cockcroft-Gault) 153.9 BUN/Creatinine Ratio 56 (6-20) Glucose Level 124 mg/dL (70-99) Calcium Level 8.4 mg/dL (8.5-10.1) Magnesium Level 2.2 mg/dL (1.8-2.4) Total Bilirubin 0.2 mg/dL (0.2-1.0) Aspartate Amino Transf (AST/SGOT) 12 U/L (15-37) Alanine Aminotransferase (ALT/SGPT) 15 U/L (14-59) Alkaline Phosphatase 62 U/L (46-116) Creatine Kinase 72 U/L (26-192) Creatine Kinase MB (Mass) < 0.5 ng/mL (0.0-3.6) Creatine Kinase MB Relative Index % (0-4) Troponin I Quantitative 0.038 ng/mL (0.000-0.055) Total Protein 5.9 g/dL (6.4-8.2) Albumin 2.0 g/dL (3.4-5.0) Albumin/Globulin Ratio 0.5 (1.0-1.7) Valproic Acid (Depakene) Level 33 mcg/mL (50-100) Valproic Acid Last Dose Date Unk Valproic Acid Last Dose Time Unk Lactic Acid Level 2.3 mmol/L (0.4-2.0) Urine Collection Type U cath Urine Color Yellow Urine Clarity Clear Urine pH 8.0 (<5.0-8.0) Urine Specific [place] 1.020 (1.000-1.030) Urine Protein Negative mg/dL (NEG-TRACE) Urine Glucose (UA) Negative mg/dL (NEG) Urine Ketones (Stick) Negative mg/dL (NEG) Urine Blood Negative (NEG) Urine Nitrite Positive (NEG) Urine Bilirubin Negative (NEG) Urine Urobilinogen Dipstick 1.0 mg/dL (0.2 mg/dL) Urine Leukocyte Esterase Moderate (NEG) Urine RBC 0 /HPF (0-2) Urine WBC 11-20 /HPF (0-4) Urine Squamous Epithelial Cells Few /LPF Urine Bacteria Many /HPF (0-FEW) Urine Mucus Mod /LPF Stool Occult Blood Positive (NEG) Laboratory Tests Test 05/16/20 16:17 05/16/20 16:55 05/16/20 17:30 05/16/20 18:10 White Blood Count 13.0 x10^3/uL (4.0-11.0) Red Blood Count 3.61 x10^6/uL (3.50-5.40) Hemoglobin 5.6 g/dL (12.0-15.5) Hematocrit 21.1 % (36.0-47.0) Mean Corpuscular Volume 59 fL (79-100) Mean Corpuscular Hemoglobin 15 pg (25-35) Mean Corpuscular Hemoglobin Concent 26 g/dL (31-37) Red Cell Distribution Width 20.8 % (11.5-14.5) Platelet Count 745 x10^3/uL (140-400) Neutrophils (%) (Auto) 61 % (31-73) Lymphocytes (%) (Auto) 21 % (24-48) Monocytes (%) (Auto) 16 % (0-9) Eosinophils (%) (Auto) 1 % (0-3) Basophils (%) (Auto) 1 % (0-3) Neutrophils # (Auto) 8.0 x10^3/uL (1.8-7.7) Lymphocytes # (Auto) 2.8 x10^3/uL (1.0-4.8) Monocytes # (Auto) 2.1 x10^3/uL (0.0-1.1) Eosinophils # (Auto) 0.1 x10^3/uL (0.0-0.7) Basophils # (Auto) 0.1 x10^3/uL (0.0-0.2) Segmented Neutrophils % 60 % (35-66) Band Neutrophils % 1 % (0-9) Lymphocytes % 20 % (24-48) Monocytes % 18 % (0-10) Basophils % 1 % (0-3) Platelet Estimate Increased (ADEQUATE) Polychromasia Present Hypochromasia Marked Poikilocytosis Slight Anisocytosis Mod Microcytosis Marked Ovalocytes Few Prothrombin Time 14.4 SEC (11.7-14.0) Prothromb Time International Ratio 1.2 (0.8-1.1) Activated Partial Thromboplast Time 29 SEC (24-38) Sodium Level 153 mmol/L (136-145) Potassium Level 3.8 mmol/L (3.5-5.1) Chloride Level 121 mmol/L (98-107) Carbon Dioxide Level 22 mmol/L (21-32) Anion Gap 10 (6-14) Blood Urea Nitrogen 28 mg/dL (7-20) Creatinine 0.5 mg/dL (0.6-1.0) Estimated GFR (Cockcroft-Gault) 153.9 BUN/Creatinine Ratio 56 (6-20) Glucose Level 124 mg/dL (70-99) Calcium Level 8.4 mg/dL (8.5-10.1) Magnesium Level 2.2 mg/dL (1.8-2.4) Total Bilirubin 0.2 mg/dL (0.2-1.0) Aspartate Amino Transf (AST/SGOT) 12 U/L (15-37) Alanine Aminotransferase (ALT/SGPT) 15 U/L (14-59) Alkaline Phosphatase 62 U/L (46-116) Creatine Kinase 72 U/L (26-192) Creatine Kinase MB (Mass) < 0.5 ng/mL (0.0-3.6) Creatine Kinase MB Relative Index % (0-4) Troponin I Quantitative 0.038 ng/mL (0.000-0.055) Total Protein 5.9 g/dL (6.4-8.2) Albumin 2.0 g/dL (3.4-5.0) Albumin/Globulin Ratio 0.5 (1.0-1.7) Valproic Acid (Depakene) Level 33 mcg/mL (50-100) Valproic Acid Last Dose Date Unk Valproic Acid Last Dose Time Unk Lactic Acid Level 2.3 mmol/L (0.4-2.0) Urine Collection Type U cath Urine Color Yellow Urine Clarity Clear Urine pH 8.0 (<5.0-8.0) Urine Specific [place] 1.020 (1.000-1.030) Urine Protein Negative mg/dL (NEG-TRACE) Urine Glucose (UA) Negative mg/dL (NEG) Urine Ketones (Stick) Negative mg/dL (NEG) Urine Blood Negative (NEG) Urine Nitrite Positive (NEG) Urine Bilirubin Negative (NEG) Urine Urobilinogen Dipstick 1.0 mg/dL (0.2 mg/dL) Urine Leukocyte Esterase Moderate (NEG) Urine RBC 0 /HPF (0-2) Urine WBC 11-20 /HPF (0-4) Urine Squamous Epithelial Cells Few /LPF Urine Bacteria Many /HPF (0-FEW) Urine Mucus Mod /LPF Stool Occult Blood Positive (NEG) Images: Images CT abdomen pelvis IMPRESSION: 1. Several prominent and enlarged right lower quadrant mesenteric lymph nodes. These are nonspecific correlate with malignancy history and colonoscopy history. 2. Exophytic mass at the uterus which appears similar when compared to prior exams likely representing an exophytic fibroid. Assessment/Plan Assessment/Plan Acute anemia Acute electrolyte derangements Positive fecal occult blood of the stool Lactic acidemia Right first toe ecchymosis Severe malnutrition Bedridden status Frailty Debilitation Admit to medicine Appreciate GI recommendations Pending 2 units PRBC transfusion Repeat a.m. labs Wound care consult Contraindicated for DVT prophylaxis Protonix GI prophylaxis ADA diet Full code Discussed with RN and SW Disposition inpatient pending GI evaluation Surrogate decision maker is sister Justifications for Admission Other Justification VICTORIANO TINAJERO MD May 16, 2020 21:43
[2020-05-16] MEDS ORDERED: POTASSIUM CHLORIDE 10MEQ 100 ML IV PRN ×2 (21:45)
[2020-05-16] MEDS ORDERED: POTASSIUM CHLORIDE 20 MEQ TABLET.ER. PO PRN (21:45)
[2020-05-16] MEDS ORDERED: POTASSIUM BICARB 20 MEQ EFFERVESCENT TABLET. PO PRN (21:45)
[2020-05-16] MEDS ORDERED: CHLO118L3 PO (22:21)
[2020-05-16] MEDS ORDERED: LOPE-101 PO (22:21)
[2020-05-16] MEDS ORDERED: GLYC2TAB4 PO (22:21)
[2020-05-16] MEDS ORDERED: GABA-585 PO (22:21)
--- NOTE | 2020-05-16 23:45 | NUR ---
Pt was transferred to ER from [facility] r/t low hgb. Initial hgb in ER was 5.6, 2 units of PRBC's were infused, pt tolerated well and hgb was 10.2 on redraw. Pt is developmentally disabled and is unable to assist with H/P and medication reconciliation. Pt appears bedrest, with heel protectors on both feet, appears partially contracted in bilateral UE, but pt could just be apprehensive at time of admission. Sister Naomy is her DPOA, admitted to Dr Howell, consult to Dr. Silva for possible GI bleed, occult stool was positive. Med reconciliation was completed from [place]'s medication record. Pt was admitted NPO diet, will readdress in a.m. VSS, pt is SR with occasional PAC's, bed in low/locked position, bed alarm activated, call light within reach. Will continue to monitor for status changes.
[2020-05-17] VITALS (7 sets, daily range): BP systolic 110–141; BP diastolic 56–72
[2020-05-17 03:11] LABS: BASO # 0.1 x10^3/uL (0.0-0.2); BASO % 1 % (0-3); EOS # 0.1 x10^3/uL (0.0-0.7); EOS % 1 % (0-3); HEMATOCRIT 35.5 % (36.0-47.0); HEMOGLOBIN 10.2 g/dL (12.0-15.5); LYMPH # 2.2 x10^3/uL (1.0-4.8); LYMPH % 17 % (24-48); MEAN CORPUSCULAR HEMOGLOBIN 20 pg (25-35); MEAN CORPUSCULAR HGB CONC 29 g/dL (31-37); MEAN CORPUSCULAR VOLUME 69 fL (79-100); MONO # 1.1 x10^3/uL (0.0-1.1); MONO % 8 % (0-9); NEUT % 74 % (31-73); PLATELET COUNT 699 x10^3/uL (140-400); RED BLOOD COUNT 5.17 x10^6/uL (3.50-5.40); RED CELL DISTRIBUTION WIDTH 28.3 % (11.5-14.5); WHITE BLOOD COUNT 13.5 x10^3/uL (4.0-11.0)
[2020-05-17 05:09] LABS: CALCIUM 7.6 mg/dL (8.5-10.1); CREATININE 0.6 mg/dL (0.6-1.0); GFR 124.7; PHOSPHORUS 3.8 mg/dL (2.6-4.7); POTASSIUM 3.8 mmol/L (3.5-5.1)
[2020-05-17] MEDS: PANTOPRAZOLE IV PUSH 40 MG VIAL. IVP SCH (08:53)
--- NOTE | 2020-05-17 08:57 | PDOC ---
PROGRESS NOTES Date of Service: DATE: 05/17/20 TIME: 08:54 Chief Complaint Chief Complaint Images: Images CT abdomen pelvis IMPRESSION: 1. Several prominent and enlarged right lower quadrant mesenteric lymph nodes. These are nonspecific correlate with malignancy history and colonoscopy history. 2. Exophytic mass at the uterus which appears similar when compared to prior exams likely representing an exophytic fibroid. 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 Acute electrolyte derangements Positive fecal occult blood of the stool Lactic acidemia Right first toe ecchymosis Severe malnutrition Bedridden status Frailty Debilitation Admit to medicine cvc bed GI recommendations 2 units PRBC transfusion Repeat a.m. labs Wound care consult Contraindicated for DVT prophylaxis, no eliquis Protonix GI prophylaxis ADA diet Full code Discussed with RN and SW / ns Disposition inpatient pending GI evaluation Surrogate decision maker is sister Justifications for Admission Justifications for Admission Other Justification Vitals Vitals Vital Signs Date Time Temp Pulse Resp B/P (MAP) Pulse Ox O2 Delivery O2 Flow Rate FiO2 05/17/20 07:00 97.6 77 20 111/66 (81) 99 Nasal Cannula 2.0 97.6 Physical Exam Physical Exam MUSCULOSKELETAL: Well developed , well nourished, good range of motion ENDOCRINE: No thyromegaly was palpated LYMPHATICS: No cervical chain or axillary nodes were noted HEMATOPOIETIC: No bruising NECK: Supple, no JVD, no thyromegaly was noted LUNGS: Clear to auscultation in all lung pizano without rhonchi or wheezing HEART: RRR, S!, S2 present. Peripheral pulses intact, no obvious murmurs noted ABDOMEN: Soft, nontender. Positive bowel sounds, no organomegaly, normal bowel sounds EXTREMITIES: Without clubbing, cyanosis, or edema. Pedal pulses intact. Negative Homans sign NEUROLOGIC: Normal speech and tone. A&O x 3, moves all extremities, no obvious focal deficits PSYCHIATRIC: Normal affect, normal mood. Stable SKIN: No ulcerations or rashes, good skin turgor, no jaundice VASCULAR: Good capillary refill, neurovascular bundle appears to be intact General: Cooperative, No acute distress Lungs: Clear Extremities: No cyanosis Labs LABS Comparisons: 06/11/2019 FINDINGS: Heart size is normal. No pericardial effusion. Strandy opacities at dependent portion lungs likely representing atelectasis. No effusion. Evaluation of the solid organs is limited secondary to noncontrast technique. Liver, spleen, pancreas, gallbladder and adrenals are unremarkable. No perinephric inflammation or hydronephrosis. No renal or ureteral calculi are identified. There several hypoattenuating lesions within the kidneys bilaterally incompletely characterized on this study likely representing simple cysts. Bladder is partially distended and not well evaluated. Uterus is not enlarged. Exophytic enhancing mass arising off of the uterus similar to prior study likely representing exophytic fibroid. No abnormal adnexal mass. Large and small bowel are unremarkable. Appendix is nonidentified. No obstruction. No free intra-abdominal air or fluid. Abdominal aorta has a normal course and caliber. Abdominal vasculature is patent. There are several enlarged right lower quadrant mesenteric lymph nodes. These are new/increased when compared to prior exams. No suspicious osseous lesions or acute fractures. IMPRESSION: 1. Several prominent and enlarged right lower quadrant mesenteric lymph nodes. These are nonspecific correlate with malignancy history and colonoscopy history. 2. Exophytic mass at the uterus which appears similar when compared to prior exams likely representing an exophytic fibroid. Exposure: One or more of the following in the visualized dose reduction techniques were utilized for this examination: 1. Automated exposure control 2. Adjustment of the MA and/or KV according to patient size 3. Use of iterative of reconstructive technique Electronically signed by: Jack Oleary MD (05/16/2020 6:12 PM) [id number] DICTATED and SIGNED BY: JACK OLEARY MD Laboratory Tests Test 05/16/20 16:17 05/16/20 16:55 05/16/20 17:30 05/16/20 18:10 White Blood Count 13.0 x10^3/uL (4.0-11.0) Red Blood Count 3.61 x10^6/uL (3.50-5.40) Hemoglobin 5.6 g/dL (12.0-15.5) Hematocrit 21.1 % (36.0-47.0) Mean Corpuscular Volume 59 fL (79-100) Mean Corpuscular Hemoglobin 15 pg (25-35) Mean Corpuscular Hemoglobin Concent 26 g/dL (31-37) Red Cell Distribution Width 20.8 % (11.5-14.5) Platelet Count 745 x10^3/uL (140-400) Neutrophils (%) (Auto) 61 % (31-73) Lymphocytes (%) (Auto) 21 % (24-48) Monocytes (%) (Auto) 16 % (0-9) Eosinophils (%) (Auto) 1 % (0-3) Basophils (%) (Auto) 1 % (0-3) Neutrophils # (Auto) 8.0 x10^3/uL (1.8-7.7) Lymphocytes # (Auto) 2.8 x10^3/uL (1.0-4.8) Monocytes # (Auto) 2.1 x10^3/uL (0.0-1.1) Eosinophils # (Auto) 0.1 x10^3/uL (0.0-0.7) Basophils # (Auto) 0.1 x10^3/uL (0.0-0.2) Segmented Neutrophils % 60 % (35-66) Band Neutrophils % 1 % (0-9) Lymphocytes % 20 % (24-48) Monocytes % 18 % (0-10) Basophils % 1 % (0-3) Platelet Estimate Increased (ADEQUATE) Polychromasia Present Hypochromasia Marked Poikilocytosis Slight Anisocytosis Mod Microcytosis Marked Ovalocytes Few Prothrombin Time 14.4 SEC (11.7-14.0) Prothromb Time International Ratio 1.2 (0.8-1.1) Activated Partial Thromboplast Time 29 SEC (24-38) Sodium Level 153 mmol/L (136-145) Potassium Level 3.8 mmol/L (3.5-5.1) Chloride Level 121 mmol/L (98-107) Carbon Dioxide Level 22 mmol/L (21-32) Anion Gap 10 (6-14) Blood Urea Nitrogen 28 mg/dL (7-20) Creatinine 0.5 mg/dL (0.6-1.0) Estimated GFR (Cockcroft-Gault) 153.9 BUN/Creatinine Ratio 56 (6-20) Glucose Level 124 mg/dL (70-99) Calcium Level 8.4 mg/dL (8.5-10.1) Magnesium Level 2.2 mg/dL (1.8-2.4) Total Bilirubin 0.2 mg/dL (0.2-1.0) Aspartate Amino Transf (AST/SGOT) 12 U/L (15-37) Alanine Aminotransferase (ALT/SGPT) 15 U/L (14-59) Alkaline Phosphatase 62 U/L (46-116) Creatine Kinase 72 U/L (26-192) Creatine Kinase MB (Mass) < 0.5 ng/mL (0.0-3.6) Creatine Kinase MB Relative Index % (0-4) Troponin I Quantitative 0.038 ng/mL (0.000-0.055) Total Protein 5.9 g/dL (6.4-8.2) Albumin 2.0 g/dL (3.4-5.0) Albumin/Globulin Ratio 0.5 (1.0-1.7) Valproic Acid (Depakene) Level 33 mcg/mL (50-100) Valproic Acid Last Dose Date Unk Valproic Acid Last Dose Time Unk Lactic Acid Level 2.3 mmol/L (0.4-2.0) Urine Collection Type U cath Urine Color Yellow Urine Clarity Clear Urine pH 8.0 (<5.0-8.0) Urine Specific Draper 1.020 (1.000-1.030) Urine Protein Negative mg/dL (NEG-TRACE) Urine Glucose (UA) Negative mg/dL (NEG) Urine Ketones (Stick) Negative mg/dL (NEG) Urine Blood Negative (NEG) Urine Nitrite Positive (NEG) Urine Bilirubin Negative (NEG) Urine Urobilinogen Dipstick 1.0 mg/dL (0.2 mg/dL) Urine Leukocyte Esterase Moderate (NEG) Urine RBC 0 /HPF (0-2) Urine WBC 11-20 /HPF (0-4) Urine Squamous Epithelial Cells Few /LPF Urine Bacteria Many /HPF (0-FEW) Urine Mucus Mod /LPF Stool Occult Blood Positive (NEG) Test 05/16/20 21:40 05/17/20 00:30 05/17/20 00:43 Lactic Acid Level 1.2 mmol/L (0.4-2.0) Troponin I Quantitative 0.047 ng/mL (0.000-0.055) 0.053 ng/mL (0.000-0.055) White Blood Count 13.5 x10^3/uL (4.0-11.0) Red Blood Count 5.17 x10^6/uL (3.50-5.40) Hemoglobin 10.2 g/dL (12.0-15.5) Hematocrit 35.5 % (36.0-47.0) Mean Corpuscular Volume 69 fL (79-100) Mean Corpuscular Hemoglobin 20 pg (25-35) Mean Corpuscular Hemoglobin Concent 29 g/dL (31-37) Red Cell Distribution Width 28.3 % (11.5-14.5) Platelet Count 699 x10^3/uL (140-400) Neutrophils (%) (Auto) 74 % (31-73) Lymphocytes (%) (Auto) 17 % (24-48) Monocytes (%) (Auto) 8 % (0-9) Eosinophils (%) (Auto) 1 % (0-3) Basophils (%) (Auto) 1 % (0-3) Neutrophils # (Auto) 10.0 x10^3/uL (1.8-7.7) Lymphocytes # (Auto) 2.2 x10^3/uL (1.0-4.8) Monocytes # (Auto) 1.1 x10^3/uL (0.0-1.1) Eosinophils # (Auto) 0.1 x10^3/uL (0.0-0.7) Basophils # (Auto) 0.1 x10^3/uL (0.0-0.2) Sodium Level 153 mmol/L (136-145) Potassium Level 3.8 mmol/L (3.5-5.1) Chloride Level 119 mmol/L (98-107) Carbon Dioxide Level 22 mmol/L (21-32) Anion Gap 12 (6-14) Blood Urea Nitrogen 20 mg/dL (7-20) Creatinine 0.6 mg/dL (0.6-1.0) Estimated GFR (Cockcroft-Gault) 124.7 Glucose Level 100 mg/dL (70-99) Calcium Level 7.6 mg/dL (8.5-10.1) Phosphorus Level 3.8 mg/dL (2.6-4.7) Magnesium Level 2.0 mg/dL (1.8-2.4) Assessment and Plan Assessmemt and Plan Problems Medical Problems: (1) Hypernatremia Status: Acute (2) Severe anemia Status: Acute (3) Severe sepsis Status: Acute (4) UTI (urinary tract infection) Status: Acute CPR (cardiopulmonary resuscitation) Ventilator use Artificial nutrition (tube feeding) and artificial hydration (IV, or intravenous, fluids) Comfort care What is CPR? Cardiopulmonary resuscitation might restore your heartbeat if your heart stops or is in a life-threatening abnormal rhythm. It involves repeatedly pushing on the chest with force, while putting air into the lungs. This force has to be quite strong, and sometimes ribs are broken or a lung collapses. Juany ctric shocks, known as defibrillation, and medicines might also be used as part of the process. The heart of a young, otherwise healthy person might resume beating normally after CPR. Often, CPR does not succeed in older adults who have multiple chronic illnesses or who are already frail. Using a ventilator as emergency treatment. Ventilators are machines that help you breathe. A tube connected to the ventilator is put through the throat into the trachea (windpipe) so the machine can force air into the lungs. Putting the tube down the throat is called intubation. Because the tube is uncomfortable, medicines are often used to keep you sedated while on a ventilator. If you are expected to remain on a ventilator for a long time, a doctor may perform a tracheotomy or "trach" (rhymes with "make"). During this bedside surgery, the tube is inserted directly into the trachea through a hole in the neck. For long- term help with breathing, a trach is more comfortable, and sedation is not needed. People using such a breathing tube are not able to speak without special help because exhaled air does not go past their vocal cords. Using artificial nutrition and hydration near the end of life. If you are not able to eat, you may be fed through a feeding tube that is threaded through the nose down to your stomach. If tube feeding is still needed for an extended period, a feeding tube may be surgically inserted directly into your stomach. Hand feeding (sometimes called assisted oral feeding) is an alternative to tube feeding. This approach may have fewer risks, especially for people with dementia. If you are not able to drink, you may be provided with IV fluids. These are delivered through a thin plastic tube inserted into a vein. Artificial nutrition and hydration can be helpful if you are recovering from an illness. However, studies have shown that artificial nutrition toward the end of life does not meaningfully prolong life. Artificial nutrition and hydration may also be harmful if the dying body cannot use the nutrition properly. What is comfort care at the end of life? Comfort care is anything that can be done to soothe you and relieve suffering while staying in line with your wishes. Comfort care includes managing shortness of breath; limiting medical testing; providing spiritual and emotional counseling; and giving medication for pain, anxiety, nausea, or constipation. AD DISCUSSION 14 MIN Comment Review of Relevant I have reviewed the following items len (where applicable) has been applied. Labs Laboratory Tests Test 05/16/20 16:17 05/16/20 16:55 05/16/20 17:30 05/16/20 18:10 White Blood Count 13.0 x10^3/uL (4.0-11.0) Red Blood Count 3.61 x10^6/uL (3.50-5.40) Hemoglobin 5.6 g/dL (12.0-15.5) Hematocrit 21.1 % (36.0-47.0) Mean Corpuscular Volume 59 fL (79-100) Mean Corpuscular Hemoglobin 15 pg (25-35) Mean Corpuscular Hemoglobin Concent 26 g/dL (31-37) Red Cell Distribution Width 20.8 % (11.5-14.5) Platelet Count 745 x10^3/uL (140-400) Neutrophils (%) (Auto) 61 % (31-73) Lymphocytes (%) (Auto) 21 % (24-48) Monocytes (%) (Auto) 16 % (0-9) Eosinophils (%) (Auto) 1 % (0-3) Basophils (%) (Auto) 1 % (0-3) Neutrophils # (Auto) 8.0 x10^3/uL (1.8-7.7) Lymphocytes # (Auto) 2.8 x10^3/uL (1.0-4.8) Monocytes # (Auto) 2.1 x10^3/uL (0.0-1.1) Eosinophils # (Auto) 0.1 x10^3/uL (0.0-0.7) Basophils # (Auto) 0.1 x10^3/uL (0.0-0.2) Segmented Neutrophils % 60 % (35-66) Band Neutrophils % 1 % (0-9) Lymphocytes % 20 % (24-48) Monocytes % 18 % (0-10) Basophils % 1 % (0-3) Platelet Estimate Increased (ADEQUATE) Polychromasia Present Hypochromasia Marked Poikilocytosis Slight Anisocytosis Mod Microcytosis Marked Ovalocytes Few Prothrombin Time 14.4 SEC (11.7-14.0) Prothromb Time International Ratio 1.2 (0.8-1.1) Activated Partial Thromboplast Time 29 SEC (24-38) Sodium Level 153 mmol/L (136-145) Potassium Level 3.8 mmol/L (3.5-5.1) Chloride Level 121 mmol/L (98-107) Carbon Dioxide Level 22 mmol/L (21-32) Anion Gap 10 (6-14) Blood Urea Nitrogen 28 mg/dL (7-20) Creatinine 0.5 mg/dL (0.6-1.0) Estimated GFR (Cockcroft-Gault) 153.9 BUN/Creatinine Ratio 56 (6-20) Glucose Level 124 mg/dL (70-99) Calcium Level 8.4 mg/dL (8.5-10.1) Magnesium Level 2.2 mg/dL (1.8-2.4) Total Bilirubin 0.2 mg/dL (0.2-1.0) Aspartate Amino Transf (AST/SGOT) 12 U/L (15-37) Alanine Aminotransferase (ALT/SGPT) 15 U/L (14-59) Alkaline Phosphatase 62 U/L (46-116) Creatine Kinase 72 U/L (26-192) Creatine Kinase MB (Mass) < 0.5 ng/mL (0.0-3.6) Creatine Kinase MB Relative Index % (0-4) Troponin I Quantitative 0.038 ng/mL (0.000-0.055) Total Protein 5.9 g/dL (6.4-8.2) Albumin 2.0 g/dL (3.4-5.0) Albumin/Globulin Ratio 0.5 (1.0-1.7) Valproic Acid (Depakene) Level 33 mcg/mL (50-100) Valproic Acid Last Dose Date Unk Valproic Acid Last Dose Time Unk Lactic Acid Level 2.3 mmol/L (0.4-2.0) Urine Collection Type U cath Urine Color Yellow Urine Clarity Clear Urine pH 8.0 (<5.0-8.0) Urine Specific Draper 1.020 (1.000-1.030) Urine Protein Negative mg/dL (NEG-TRACE) Urine Glucose (UA) Negative mg/dL (NEG) Urine Ketones (Stick) Negative mg/dL (NEG) Urine Blood Negative (NEG) Urine Nitrite Positive (NEG) Urine Bilirubin Negative (NEG) Urine Urobilinogen Dipstick 1.0 mg/dL (0.2 mg/dL) Urine Leukocyte Esterase Moderate (NEG) Urine RBC 0 /HPF (0-2) Urine WBC 11-20 /HPF (0-4) Urine Squamous Epithelial Cells Few /LPF Urine Bacteria Many /HPF (0-FEW) Urine Mucus Mod /LPF Stool Occult Blood Positive (NEG) Test 05/16/20 21:40 05/17/20 00:30 05/17/20 00:43 Lactic Acid Level 1.2 mmol/L (0.4-2.0) Troponin I Quantitative 0.047 ng/mL (0.000-0.055) 0.053 ng/mL (0.000-0.055) White Blood Count 13.5 x10^3/uL (4.0-11.0) Red Blood Count 5.17 x10^6/uL (3.50-5.40) Hemoglobin 10.2 g/dL (12.0-15.5) Hematocrit 35.5 % (36.0-47.0) Mean Corpuscular Volume 69 fL (79-100) Mean Corpuscular Hemoglobin 20 pg (25-35) Mean Corpuscular Hemoglobin Concent 29 g/dL (31-37) Red Cell Distribution Width 28.3 % (11.5-14.5) Platelet Count 699 x10^3/uL (140-400) Neutrophils (%) (Auto) 74 % (31-73) Lymphocytes (%) (Auto) 17 % (24-48) Monocytes (%) (Auto) 8 % (0-9) Eosinophils (%) (Auto) 1 % (0-3) Basophils (%) (Auto) 1 % (0-3) Neutrophils # (Auto) 10.0 x10^3/uL (1.8-7.7) Lymphocytes # (Auto) 2.2 x10^3/uL (1.0-4.8) Monocytes # (Auto) 1.1 x10^3/uL (0.0-1.1) Eosinophils # (Auto) 0.1 x10^3/uL (0.0-0.7) Basophils # (Auto) 0.1 x10^3/uL (0.0-0.2) Sodium Level 153 mmol/L (136-145) Potassium Level 3.8 mmol/L (3.5-5.1) Chloride Level 119 mmol/L (98-107) Carbon Dioxide Level 22 mmol/L (21-32) Anion Gap 12 (6-14) Blood Urea Nitrogen 20 mg/dL (7-20) Creatinine 0.6 mg/dL (0.6-1.0) Estimated GFR (Cockcroft-Gault) 124.7 Glucose Level 100 mg/dL (70-99) Calcium Level 7.6 mg/dL (8.5-10.1) Phosphorus Level 3.8 mg/dL (2.6-4.7) Magnesium Level 2.0 mg/dL (1.8-2.4) Laboratory Tests Test 05/16/20 16:17 05/16/20 16:55 05/16/20 17:30 05/16/20 18:10 White Blood Count 13.0 x10^3/uL (4.0-11.0) Red Blood Count 3.61 x10^6/uL (3.50-5.40) Hemoglobin 5.6 g/dL (12.0-15.5) Hematocrit 21.1 % (36.0-47.0) Mean Corpuscular Volume 59 fL (79-100) Mean Corpuscular Hemoglobin 15 pg (25-35) Mean Corpuscular Hemoglobin Concent 26 g/dL (31-37) Red Cell Distribution Width 20.8 % (11.5-14.5) Platelet Count 745 x10^3/uL (140-400) Neutrophils (%) (Auto) 61 % (31-73) Lymphocytes (%) (Auto) 21 % (24-48) Monocytes (%) (Auto) 16 % (0-9) Eosinophils (%) (Auto) 1 % (0-3) Basophils (%) (Auto) 1 % (0-3) Neutrophils # (Auto) 8.0 x10^3/uL (1.8-7.7) Lymphocytes # (Auto) 2.8 x10^3/uL (1.0-4.8) Monocytes # (Auto) 2.1 x10^3/uL (0.0-1.1) Eosinophils # (Auto) 0.1 x10^3/uL (0.0-0.7) Basophils # (Auto) 0.1 x10^3/uL (0.0-0.2) Segmented Neutrophils % 60 % (35-66) Band Neutrophils % 1 % (0-9) Lymphocytes % 20 % (24-48) Monocytes % 18 % (0-10) Basophils % 1 % (0-3) Platelet Estimate Increased (ADEQUATE) Polychromasia Present Hypochromasia Marked Poikilocytosis Slight Anisocytosis Mod Microcytosis Marked Ovalocytes Few Prothrombin Time 14.4 SEC (11.7-14.0) Prothromb Time International Ratio 1.2 (0.8-1.1) Activated Partial Thromboplast Time 29 SEC (24-38) Sodium Level 153 mmol/L (136-145) Potassium Level 3.8 mmol/L (3.5-5.1) Chloride Level 121 mmol/L (98-107) Carbon Dioxide Level 22 mmol/L (21-32) Anion Gap 10 (6-14) Blood Urea Nitrogen 28 mg/dL (7-20) Creatinine 0.5 mg/dL (0.6-1.0) Estimated GFR (Cockcroft-Gault) 153.9 BUN/Creatinine Ratio 56 (6-20) Glucose Level 124 mg/dL (70-99) Calcium Level 8.4 mg/dL (8.5-10.1) Magnesium Level 2.2 mg/dL (1.8-2.4) Total Bilirubin 0.2 mg/dL (0.2-1.0) Aspartate Amino Transf (AST/SGOT) 12 U/L (15-37) Alanine Aminotransferase (ALT/SGPT) 15 U/L (14-59) Alkaline Phosphatase 62 U/L (46-116) Creatine Kinase 72 U/L (26-192) Creatine Kinase MB (Mass) < 0.5 ng/mL (0.0-3.6) Creatine Kinase MB Relative Index % (0-4) Troponin I Quantitative 0.038 ng/mL (0.000-0.055) Total Protein 5.9 g/dL (6.4-8.2) Albumin 2.0 g/dL (3.4-5.0) Albumin/Globulin Ratio 0.5 (1.0-1.7) Valproic Acid (Depakene) Level 33 mcg/mL (50-100) Valproic Acid Last Dose Date Unk Valproic Acid Last Dose Time Unk Lactic Acid Level 2.3 mmol/L (0.4-2.0) Urine Collection Type U cath Urine Color Yellow Urine Clarity Clear Urine pH 8.0 (<5.0-8.0) Urine Specific Draper 1.020 (1.000-1.030) Urine Protein Negative mg/dL (NEG-TRACE) Urine Glucose (UA) Negative mg/dL (NEG) Urine Ketones (Stick) Negative mg/dL (NEG) Urine Blood Negative (NEG) Urine Nitrite Positive (NEG) Urine Bilirubin Negative (NEG) Urine Urobilinogen Dipstick 1.0 mg/dL (0.2 mg/dL) Urine Leukocyte Esterase Moderate (NEG) Urine RBC 0 /HPF (0-2) Urine WBC 11-20 /HPF (0-4) Urine Squamous Epithelial Cells Few /LPF Urine Bacteria Many /HPF (0-FEW) Urine Mucus Mod /LPF Stool Occult Blood Positive (NEG) Test 05/16/20 21:40 05/17/20 00:30 05/17/20 00:43 Lactic Acid Level 1.2 mmol/L (0.4-2.0) Troponin I Quantitative 0.047 ng/mL (0.000-0.055) 0.053 ng/mL (0.000-0.055) White Blood Count 13.5 x10^3/uL (4.0-11.0) Red Blood Count 5.17 x10^6/uL (3.50-5.40) Hemoglobin 10.2 g/dL (12.0-15.5) Hematocrit 35.5 % (36.0-47.0) Mean Corpuscular Volume 69 fL (79-100) Mean Corpuscular Hemoglobin 20 pg (25-35) Mean Corpuscular Hemoglobin Concent 29 g/dL (31-37) Red Cell Distribution Width 28.3 % (11.5-14.5) Platelet Count 699 x10^3/uL (140-400) Neutrophils (%) (Auto) 74 % (31-73) Lymphocytes (%) (Auto) 17 % (24-48) Monocytes (%) (Auto) 8 % (0-9) Eosinophils (%) (Auto) 1 % (0-3) Basophils (%) (Auto) 1 % (0-3) Neutrophils # (Auto) 10.0 x10^3/uL (1.8-7.7) Lymphocytes # (Auto) 2.2 x10^3/uL (1.0-4.8) Monocytes # (Auto) 1.1 x10^3/uL (0.0-1.1) Eosinophils # (Auto) 0.1 x10^3/uL (0.0-0.7) Basophils # (Auto) 0.1 x10^3/uL (0.0-0.2) Sodium Level 153 mmol/L (136-145) Potassium Level 3.8 mmol/L (3.5-5.1) Chloride Level 119 mmol/L (98-107) Carbon Dioxide Level 22 mmol/L (21-32) Anion Gap 12 (6-14) Blood Urea Nitrogen 20 mg/dL (7-20) Creatinine 0.6 mg/dL (0.6-1.0) Estimated GFR (Cockcroft-Gault) 124.7 Glucose Level 100 mg/dL (70-99) Calcium Level 7.6 mg/dL (8.5-10.1) Phosphorus Level 3.8 mg/dL (2.6-4.7) Magnesium Level 2.0 mg/dL (1.8-2.4) Medications Current Medications Sodium Chloride 1,000 ml @ 1,000 mls/hr 1X ONCE IV Last administered on 05/16/20at 16:38; Start 05/16/20 at 16:30; Stop 05/16/20 at 17:29; Status DC Erythromycin (Romycin) 0.25 inch 1X ONCE OU Last administered on 05/16/20at 16:44; Start 05/16/20 at 16:45; Stop 05/16/20 at 16:46; Status DC Iohexol (Omnipaque 300 Mg/ml) 75 ml 1X ONCE IV Last administered on 05/16/20at 17:47; Start 05/16/20 at 18:00; Stop 05/16/20 at 18:01; Status DC Sodium Chloride 1,000 ml @ 1,000 mls/hr 1X ONCE IV Last administered on 05/16/20at 19:12; Start 05/16/20 at 18:30; Stop 05/16/20 at 19:29; Status DC Piperacillin Sod/ Tazobactam Sod 3.375 gm/Sodium Chloride 50 ml @ 100 mls/hr 1X ONCE IV Last administered on 05/16/20at 19:25; Start 05/16/20 at 19:00; Stop 05/16/20 at 19:29; Status DC Levofloxacin/ Dextrose 150 ml @ 100 mls/hr 1X ONCE IV Last administered on 05/16/20at 19:57; Start 05/16/20 at 19:30; Stop 05/16/20 at 20:59; Status DC Ondansetron HCl (Zofran) 4 mg PRN Q8HRS PRN IV NAUSEA/VOMITING; Start 05/16/20 at 18:30; Stop 05/17/20 at 18:29 Sodium Chloride 1,000 ml @ 75 mls/hr 1X ONCE IV ; Start 05/16/20 at 18:30; Stop 05/17/20 at 07:49; Status DC Pantoprazole Sodium (PROTONIX VIAL for IV PUSH) 40 mg DAILYAC IVP Last administered on 05/17/20at 08:53; Start 05/17/20 at 07:30 Potassium Chloride (Klor-Con) 40 meq 1X PRN PRN PO PER PROTOCOL; Start 05/16/20 at 21:45 Potassium Chloride/Water 100 ml @ 100 mls/hr PRN Q1HR PRN IV HYPOKALEMIA; Start 05/16/20 at 21:45 Potassium Phos/ Sodium Phos (Phos-Nak) 1 pkt PRN BID PRN PO PHOSPHOROUS 2-2.4; Start 05/17/20 at 09:00 Potassium Bicarbonate (Potassium Effervescent Tablet) 40 meq PRN Q4HRS PRN PO PER PROTOCOL; Start 05/16/20 at 21:45 Potassium Chloride/Water 100 ml @ 100 mls/hr PRN Q1HR PRN IV PER PROTOCOL; Start 05/16/20 at 21:45 Active Scripts Active Acetaminophen Supp (Acetaminophen) 650 Mg Supp.rect 650 Mg OH PRN Q6HRS PRN 10 Days Reported Imodium A-D (Loperamide HCl) 2 Mg Capsule 2 Mg PO PRN Q8HRS PRN Glycopyrrolate 2 Mg Tablet 1 Mg PO PRN Q8HRS PRN Gabapentin (Gabapentin) 100 Mg Capsule 200 Mg PO TID Chlorhexidine Gluconate 118 Ml Liquid 1 Gerald PO BID Topamax (Topiramate) 200 Mg Tablet 200 Mg PO BID Polyethylene Glycol 3350 17 Gm Powd.pack 17 Gm PO PRN DAILY PRN Oxycodone Hcl 5 Mg Capsule 5 Mg PO PRN Q4HRS PRN Melatonin 3 Mg Tablet 3 Mg PO PRN QHS PRN Fleet Enema (Na Phos,M-B/Na Phos,Di-Ba) 133 Ml Enema 133 Ml RC PRN Q8HRS PRN Famotidine 20 Mg Tablet 20 Mg PO HS Bisacodyl 10 Mg Supp.rect 10 Mg RC PRN DAILY PRN Docusate Sodium 100 Mg Capsule 200 Mg PO HS Divalproex Sodium Er (Divalproex Sodium) 500 Mg Tab.er.24h 500 Mg PO DAILY Eliquis (Apixaban) 5 Mg Tablet 5 Mg PO BID Divalproex Sodium Er (Divalproex Sodium) 500 Mg Tab.er.24h 250 Mg PO DAILY Zyrtec (Cetirizine Hcl) 10 Mg Tablet 1 Tab PO DAILY Onfi (Clobazam) 10 Mg Tablet 5 Mg PO [id number] Vitals/I & O Vital Sign - Last 24 Hours 05/16/20 05/16/20 05/16/20 05/16/20 16:00 16:39 17:09 18:19 Temp 98.9 98.9 Pulse 107 104 102 102 Resp B/P (MAP) 148/104 (119) 128/59 (82) 117/59 (78) 113/59 (77) Pulse Ox 98 97 98 86 O2 Delivery Room Air Room Air Room Air Room Air 05/16/20 05/16/20 05/16/20 05/16/20 18:30 18:34 18:37 18:39 Temp 98.0 99.3 98.0 99.3 Pulse 103 102 102 102 Resp B/P (MAP) 113/59 130/58 (82) 137/61 (86) 115/56 Pulse Ox 99 92 O2 Delivery Nasal Cannula Nasal Cannula 05/16/20 05/16/20 05/16/20 05/16/20 18:46 18:51 18:57 18:59 Temp 98.3 98.8 98.5 98.3 98.3 98.8 98.5 98.3 Pulse 100 100 99 101 Resp B/P (MAP) 113/55 107/53 109/54 111/66 05/16/20 05/16/20 05/16/20 05/16/20 19:13 19:14 19:27 19:29 Temp 98.6 98.9 98.6 98.9 Pulse 100 104 102 100 Resp B/P (MAP) 120/63 141/59 (86) 141/58 130/81 (97) Pulse Ox 100 100 O2 Delivery Nasal Cannula Nasal Cannula O2 Flow Rate 2.0 2.0 05/16/20 05/16/20 05/16/20 05/16/20 19:42 19:44 19:55 19:59 Temp 98.9 99.1 98.9 99.1 Pulse 102 100 101 102 Resp B/P (MAP) 128/76 129/65 (86) 127/75 129/60 (83) Pulse Ox 100 100 O2 Delivery Nasal Cannula Nasal Cannula O2 Flow Rate 2.0 2.0 05/16/20 05/16/20 05/16/20 05/16/20 20:14 20:25 21:00 21:30 Temp 98.5 97.8 98.5 97.8 Pulse 100 99 95 Resp B/P (MAP) 129/63 (85) 119/56 111/56 (74) Pulse Ox 100 97 O2 Delivery Nasal Cannula Nasal Cannula Nasal Cannula O2 Flow Rate 2.0 2.0 05/16/20 05/16/20 05/16/20 05/16/20 21:32 22:00 22:05 22:15 Temp 97.8 97.8 97.6 97.6 97.8 97.8 97.6 97.6 Pulse 94 90 93 90 Resp B/P (MAP) 111/56 112/64 107/64 111/57 05/16/20 05/16/20 05/16/20 05/17/20 22:45 23:00 23:45 00:30 Temp 97.6 97.8 98.0 97.6 97.6 97.8 98.0 97.6 Pulse 90 85 84 86 Resp 26 23 22 18 B/P (MAP) 94/59 101/63 (76) 94/63 122/69 Pulse Ox 98 O2 Delivery Nasal Cannula 05/17/20 05/17/20 03:00 07:00 Temp 97.9 97.6 97.9 97.6 Pulse 86 77 Resp 25 20 B/P (MAP) 110/63 (79) 111/66 (81) Pulse Ox 100 99 O2 Delivery Nasal Cannula Nasal Cannula O2 Flow Rate 2.0 Intake and Output 05/16/20 05/16/20 05/17/20 15:00 23:00 07:00 Intake Total 2061 ml 318 ml Balance 2061 ml 318 ml Justicifation of Admission Dx: Justifications for Admission: Justification of Admission Dx: Yes BENIGNO ASCENCIO MD May 17, 2020 08:57
[2020-05-17] MEDS ORDERED: POTASSIUM & SODIUM PHOSPHATES PACKET. PO PRN (09:00)
--- NOTE | 2020-05-17 09:26 | PDOC2 ---
GI CONSULT Date of Service: DATE: 05/17/20 TIME: 09:26 Reason For Consult: anemia HPI: HPI: 55 y/o female sent to ER from [place] for low Hgb and FTT. WBC 13, lactic 2.3 (now normal), Hgb 5.6, MCV 59, BUN 28, Cr 0.5, Na 153, Hemoccult positive, +UTI. No obvious bleeding. CT w/ stable mass at uterus, possible fibroid. Also noted RLQ lymphadenopathy. Iron deficient in 2019, B12 normal in 2018. ?on Eliquis and famotidine. On dysphagia diet at [place]. Can say "no" and shake head yes/no. Denies pain, denies vomiting, denies bleeding. PMH: PMH: per chart - seizure w/ vagus nerve stimulator, dysphagia, UTI, rib fx, pneumonia, falls, mental disability, vit D deficiency, tubal ligation ROS: Difficult to obtain. Vitals: Vitals: Vital Signs Date Time Temp Pulse Resp B/P (MAP) Pulse Ox O2 Delivery O2 Flow Rate FiO2 05/17/20 07:00 97.6 77 20 111/66 (81) 99 Nasal Cannula 2.0 97.6 Labs: Labs: Laboratory Tests Test 05/16/20 16:17 05/16/20 16:55 05/16/20 17:30 05/16/20 18:10 White Blood Count 13.0 x10^3/uL (4.0-11.0) Red Blood Count 3.61 x10^6/uL (3.50-5.40) Hemoglobin 5.6 g/dL (12.0-15.5) Hematocrit 21.1 % (36.0-47.0) Mean Corpuscular Volume 59 fL (79-100) Mean Corpuscular Hemoglobin 15 pg (25-35) Mean Corpuscular Hemoglobin Concent 26 g/dL (31-37) Red Cell Distribution Width 20.8 % (11.5-14.5) Platelet Count 745 x10^3/uL (140-400) Neutrophils (%) (Auto) 61 % (31-73) Lymphocytes (%) (Auto) 21 % (24-48) Monocytes (%) (Auto) 16 % (0-9) Eosinophils (%) (Auto) 1 % (0-3) Basophils (%) (Auto) 1 % (0-3) Neutrophils # (Auto) 8.0 x10^3/uL (1.8-7.7) Lymphocytes # (Auto) 2.8 x10^3/uL (1.0-4.8) Monocytes # (Auto) 2.1 x10^3/uL (0.0-1.1) Eosinophils # (Auto) 0.1 x10^3/uL (0.0-0.7) Basophils # (Auto) 0.1 x10^3/uL (0.0-0.2) Segmented Neutrophils % 60 % (35-66) Band Neutrophils % 1 % (0-9) Lymphocytes % 20 % (24-48) Monocytes % 18 % (0-10) Basophils % 1 % (0-3) Platelet Estimate Increased (ADEQUATE) Polychromasia Present Hypochromasia Marked Poikilocytosis Slight Anisocytosis Mod Microcytosis Marked Ovalocytes Few Prothrombin Time 14.4 SEC (11.7-14.0) Prothromb Time International Ratio 1.2 (0.8-1.1) Activated Partial Thromboplast Time 29 SEC (24-38) Sodium Level 153 mmol/L (136-145) Potassium Level 3.8 mmol/L (3.5-5.1) Chloride Level 121 mmol/L (98-107) Carbon Dioxide Level 22 mmol/L (21-32) Anion Gap 10 (6-14) Blood Urea Nitrogen 28 mg/dL (7-20) Creatinine 0.5 mg/dL (0.6-1.0) Estimated GFR (Cockcroft-Gault) 153.9 BUN/Creatinine Ratio 56 (6-20) Glucose Level 124 mg/dL (70-99) Calcium Level 8.4 mg/dL (8.5-10.1) Magnesium Level 2.2 mg/dL (1.8-2.4) Total Bilirubin 0.2 mg/dL (0.2-1.0) Aspartate Amino Transf (AST/SGOT) 12 U/L (15-37) Alanine Aminotransferase (ALT/SGPT) 15 U/L (14-59) Alkaline Phosphatase 62 U/L (46-116) Creatine Kinase 72 U/L (26-192) Creatine Kinase MB (Mass) < 0.5 ng/mL (0.0-3.6) Creatine Kinase MB Relative Index % (0-4) Troponin I Quantitative 0.038 ng/mL (0.000-0.055) Total Protein 5.9 g/dL (6.4-8.2) Albumin 2.0 g/dL (3.4-5.0) Albumin/Globulin Ratio 0.5 (1.0-1.7) Valproic Acid (Depakene) Level 33 mcg/mL (50-100) Valproic Acid Last Dose Date Unk Valproic Acid Last Dose Time Unk Lactic Acid Level 2.3 mmol/L (0.4-2.0) Urine Collection Type U cath Urine Color Yellow Urine Clarity Clear Urine pH 8.0 (<5.0-8.0) Urine Specific [place] 1.020 (1.000-1.030) Urine Protein Negative mg/dL (NEG-TRACE) Urine Glucose (UA) Negative mg/dL (NEG) Urine Ketones (Stick) Negative mg/dL (NEG) Urine Blood Negative (NEG) Urine Nitrite Positive (NEG) Urine Bilirubin Negative (NEG) Urine Urobilinogen Dipstick 1.0 mg/dL (0.2 mg/dL) Urine Leukocyte Esterase Moderate (NEG) Urine RBC 0 /HPF (0-2) Urine WBC 11-20 /HPF (0-4) Urine Squamous Epithelial Cells Few /LPF Urine Bacteria Many /HPF (0-FEW) Urine Mucus Mod /LPF Stool Occult Blood Positive (NEG) Test 05/16/20 21:40 05/17/20 00:30 05/17/20 00:43 Lactic Acid Level 1.2 mmol/L (0.4-2.0) Troponin I Quantitative 0.047 ng/mL (0.000-0.055) 0.053 ng/mL (0.000-0.055) White Blood Count 13.5 x10^3/uL (4.0-11.0) Red Blood Count 5.17 x10^6/uL (3.50-5.40) Hemoglobin 10.2 g/dL (12.0-15.5) Hematocrit 35.5 % (36.0-47.0) Mean Corpuscular Volume 69 fL (79-100) Mean Corpuscular Hemoglobin 20 pg (25-35) Mean Corpuscular Hemoglobin Concent 29 g/dL (31-37) Red Cell Distribution Width 28.3 % (11.5-14.5) Platelet Count 699 x10^3/uL (140-400) Neutrophils (%) (Auto) 74 % (31-73) Lymphocytes (%) (Auto) 17 % (24-48) Monocytes (%) (Auto) 8 % (0-9) Eosinophils (%) (Auto) 1 % (0-3) Basophils (%) (Auto) 1 % (0-3) Neutrophils # (Auto) 10.0 x10^3/uL (1.8-7.7) Lymphocytes # (Auto) 2.2 x10^3/uL (1.0-4.8) Monocytes # (Auto) 1.1 x10^3/uL (0.0-1.1) Eosinophils # (Auto) 0.1 x10^3/uL (0.0-0.7) Basophils # (Auto) 0.1 x10^3/uL (0.0-0.2) Sodium Level 153 mmol/L (136-145) Potassium Level 3.8 mmol/L (3.5-5.1) Chloride Level 119 mmol/L (98-107) Carbon Dioxide Level 22 mmol/L (21-32) Anion Gap 12 (6-14) Blood Urea Nitrogen 20 mg/dL (7-20) Creatinine 0.6 mg/dL (0.6-1.0) Estimated GFR (Cockcroft-Gault) 124.7 Glucose Level 100 mg/dL (70-99) Calcium Level 7.6 mg/dL (8.5-10.1) Phosphorus Level 3.8 mg/dL (2.6-4.7) Magnesium Level 2.0 mg/dL (1.8-2.4) Allergies: Coded Allergies: No Known Drug Allergies (Unverified , 05/24/14) Medications: Current Medications Medications (Trade) Dose Ordered Sig/Ruthie Route PRN Reason Start Time Stop Time Status Last Admin Dose Admin Sodium Chloride 1,000 ml @ 1,000 mls/hr 1X ONCE IV 05/16/20 16:30 05/16/20 17:29 DC 05/16/20 16:38 Erythromycin (Romycin) 0.25 inch 1X ONCE OU 05/16/20 16:45 05/16/20 16:46 DC 05/16/20 16:44 Iohexol (Omnipaque 300 Mg/ml) 75 ml 1X ONCE IV 05/16/20 18:00 05/16/20 18:01 DC 05/16/20 17:47 Sodium Chloride 1,000 ml @ 1,000 mls/hr 1X ONCE IV 05/16/20 18:30 05/16/20 19:29 DC 05/16/20 19:12 Piperacillin Sod/ Tazobactam Sod 3.375 gm/Sodium Chloride 50 ml @ 100 mls/hr 1X ONCE IV 05/16/20 19:00 05/16/20 19:29 DC 05/16/20 19:25 Levofloxacin/ Dextrose 150 ml @ 100 mls/hr 1X ONCE IV 05/16/20 19:30 05/16/20 20:59 DC 05/16/20 19:57 Pantoprazole Sodium (PROTONIX VIAL for IV PUSH) 40 mg DAILYAC IVP 05/17/20 07:30 05/17/20 08:53 Imaging: Imaging: CT A/P IMPRESSION: 1. Several prominent and enlarged right lower quadrant mesenteric lymph nodes. These are nonspecific correlate with malignancy history and colonoscopy history. 2. Exophytic mass at the uterus which appears similar when compared to prior exams likely representing an exophytic fibroid. PE: GEN: NAD HEENT: Atraumatic, PERRL LUNGS: CTAB HEART: RRR ABD: NABS, S/ND/NT EXTREMITY: No edema SKIN: No rashes, no jaundice NEURO/PSYCH: awake and alert, communication limited to yes/no A/P: A/P: Microcytic anemia, leuckocytosis, thrombocytosis, lactic acidosis, hypernatremia, UTI H/o TRISTAN H/o dysphagia Abnormal CT - stable mass at uterus, RLQ lymphadenopathy ?anti-coagulated w/ Eliquis Mental disability -- H/o TRISTAN w/ abnormal TRAVEL ADMINISTRATOR imaging, +Hemoccult, mildly elevated BUN, questionable h/o anticoagulation, and no obvious bleeding. Agree w/ PPI, consider addition of iron in some form - can start PO if plans to eat. Treat UTI. Probably needs TRAVEL ADMINISTRATOR eval. Will review any need for intpt GI procedures w/ Dr. Arriaza. SARA RAZO May 17, 2020 09:26
--- NOTE | 2020-05-17 11:58 | NUR ---
SS following for discharge planning. SS reviewed pt chart and discussed with pt RN. Pt is LTC resident from [facility], ; fax [phone]. Pt is currently requiring oxygen. COVID19 test requested for facility. SS will continue to follow for discharge planning.
[2020-05-17] MEDS ORDERED: SODIUM PHOSPHATES 19/7GM 133 ML ENEMA. RC PRN (12:30)
[2020-05-17] MEDS ORDERED: ACETAMINOPHEN 650 MG SUPP.RECT. PR PRN (12:30)
[2020-05-17] MEDS ORDERED: NON FORMULARY ITEM (Melatonin 3 MG) PO PRN (12:30)
[2020-05-17] MEDS ORDERED: LOPERAMIDE 2 MG CAPSULE PO PRN (12:30)
[2020-05-17] MEDS ORDERED: POLYETHYLENE GLYCOL 3350 17 GM PACKET. PO PRN (12:30)
[2020-05-17] MEDS: PIPERACILLIN/TAZOBACTAM 3.375 GM in IV NORMAL SALINE 50ML 50 ML IV SCH ×3 (13:37→23:56)
[2020-05-17] MEDS: TOPIRAMATE 100 MG TABLET. PO SCH ×2 (15:02→21:33)
[2020-05-17] MEDS: DIVALPROEX DELAYED RELEASE 250 MG TABLET.DR. PO SCH (15:02)
[2020-05-17] MEDS: GABAPENTIN 100 MG CAPSULE. PO SCH ×2 (15:02→21:33)
[2020-05-17] MEDS: CETIRIZINE HCL 10 MG TABLET. PO SCH (15:02)
[2020-05-17] MEDS: IV DEXTROSE 5 %-0.2 % NACL 1,000 ML IV SCH (16:57)
[2020-05-17] MEDS: DIVALPROEX DELAYED RELEASE 500 MG TABLET.DR. PO SCH (21:33)
[2020-05-17] MEDS: DOCUSATE SODIUM 100 MG CAPSULE. PO SCH (21:33)
[2020-05-17] MEDS: FAMOTIDINE 20 MG TABLET. PO SCH (21:33)
[2020-05-17] MEDS: CHLORHEXIDINE 0.12% 15 ML MOUTHWASH. SWSP SCH (21:34)
[2020-05-18 03:05] VITALS: BP 114/61
[2020-05-18] MEDS: PIPERACILLIN/TAZOBACTAM 3.375 GM in IV NORMAL SALINE 50ML 50 ML IV SCH ×4 (05:59→23:11)
[2020-05-18 07:00] VITALS: BP 110/63
[2020-05-18] MEDS: TOPIRAMATE 100 MG TABLET. PO SCH ×2 (08:33→22:29)
[2020-05-18] MEDS: CHLORHEXIDINE 0.12% 15 ML MOUTHWASH. SWSP SCH ×2 (08:33→22:29)
[2020-05-18] MEDS: GABAPENTIN 100 MG CAPSULE. PO SCH ×3 (08:33→22:29)
[2020-05-18] MEDS: BISACODYL 10 MG SUPP.RECT. RC PRN (08:34)
[2020-05-18] MEDS: DIVALPROEX DELAYED RELEASE 500 MG TABLET.DR. PO SCH ×2 (08:34→22:29)
[2020-05-18] MEDS: CETIRIZINE HCL 10 MG TABLET. PO SCH (08:34)
[2020-05-18] MEDS: PANTOPRAZOLE IV PUSH 40 MG VIAL. IVP SCH (08:34)
[2020-05-18] MEDS ORDERED: GLYCOPYRROLATE 1 MG TABLET PO PRN (09:00)
[2020-05-18] MEDS: IV DEXTROSE 5 %-0.2 % NACL 1,000 ML IV SCH (09:06)
--- NOTE | 2020-05-18 10:26 | PDOC ---
PROGRESS NOTES Date of Service: DATE: 05/18/20 TIME: 10:25 Chief Complaint Chief Complaint Images: Images CT abdomen pelvis IMPRESSION: 1. Several prominent and enlarged right lower quadrant mesenteric lymph nodes. These are nonspecific correlate with malignancy history and colonoscopy history. 2. Exophytic mass at the uterus which appears similar when compared to prior exams likely representing an exophytic fibroid. 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 Acute electrolyte derangements Positive fecal occult blood of the stool Lactic acidemia Right first toe ecchymosis Severe malnutrition Bedridden status Frailty Debilitation Admit to medicine cvc bed GI recommendations 2 units PRBC transfusion Repeat a.m. labs Wound care consult Contraindicated for DVT prophylaxis, no eliquis Protonix GI prophylaxis ADA diet Full code Discussed with RN and SW / ns Disposition inpatient pending GI evaluation Surrogate decision maker is sister D/W RN Justifications for Admission Justifications for Admission Other Justification Vitals Vitals Vital Signs Date Time Temp Pulse Resp B/P (MAP) Pulse Ox O2 Delivery O2 Flow Rate FiO2 05/18/20 07:00 98.7 70 18 110/63 (79) 99 Nasal Cannula 2.0 98.7 Physical Exam Physical Exam MUSCULOSKELETAL: Well developed , well nourished, good range of motion ENDOCRINE: No thyromegaly was palpated LYMPHATICS: No cervical chain or axillary nodes were noted HEMATOPOIETIC: No bruising NECK: Supple, no JVD, no thyromegaly was noted LUNGS: Clear to auscultation in all lung pizano without rhonchi or wheezing HEART: RRR, S!, S2 present. Peripheral pulses intact, no obvious murmurs noted ABDOMEN: Soft, nontender. Positive bowel sounds, no organomegaly, normal bowel sounds EXTREMITIES: Without clubbing, cyanosis, or edema. Pedal pulses intact. Negative Homans sign NEUROLOGIC: no obvious focal deficit SKIN: No ulcerations or rashes, good skin turgor, no jaundice VASCULAR: Good capillary refill, neurovascular bundle appears to be intact General: Cooperative, No acute distress Lungs: Clear Extremities: No cyanosis Labs LABS Procedure Result URINE CULTURE Preliminary Preliminary GREATER THAN 100,000 CFU/ML GRAM NEGATIVE RODS on 05/18/20 at 1000 FINAL ID= [ESCHERICHIA COLI] Testing Performed by: [address] [address] For Inquires, the Physician may contact the Microbiology department at [phone] ESCHERICHIA COLI Unless otherwise specified, Testing Performed by: [address] [address] For Inquires, the Physician may contact the Microbiology department at [phone] Assessment and Plan Assessmemt and Plan Problems Medical Problems: (1) Hypernatremia Status: Acute (2) Severe anemia Status: Acute (3) Severe sepsis Status: Acute (4) UTI (urinary tract infection) Status: Acute Comment Review of Relevant I have reviewed the following items len (where applicable) has been applied. Labs Laboratory Tests Test 05/16/20 16:17 05/16/20 16:55 05/16/20 17:30 05/16/20 18:10 White Blood Count 13.0 x10^3/uL (4.0-11.0) Red Blood Count 3.61 x10^6/uL (3.50-5.40) Hemoglobin 5.6 g/dL (12.0-15.5) Hematocrit 21.1 % (36.0-47.0) Mean Corpuscular Volume 59 fL (79-100) Mean Corpuscular Hemoglobin 15 pg (25-35) Mean Corpuscular Hemoglobin Concent 26 g/dL (31-37) Red Cell Distribution Width 20.8 % (11.5-14.5) Platelet Count 745 x10^3/uL (140-400) Neutrophils (%) (Auto) 61 % (31-73) Lymphocytes (%) (Auto) 21 % (24-48) Monocytes (%) (Auto) 16 % (0-9) Eosinophils (%) (Auto) 1 % (0-3) Basophils (%) (Auto) 1 % (0-3) Neutrophils # (Auto) 8.0 x10^3/uL (1.8-7.7) Lymphocytes # (Auto) 2.8 x10^3/uL (1.0-4.8) Monocytes # (Auto) 2.1 x10^3/uL (0.0-1.1) Eosinophils # (Auto) 0.1 x10^3/uL (0.0-0.7) Basophils # (Auto) 0.1 x10^3/uL (0.0-0.2) Segmented Neutrophils % 60 % (35-66) Band Neutrophils % 1 % (0-9) Lymphocytes % 20 % (24-48) Monocytes % 18 % (0-10) Basophils % 1 % (0-3) Platelet Estimate Increased (ADEQUATE) Polychromasia Present Hypochromasia Marked Poikilocytosis Slight Anisocytosis Mod Microcytosis Marked Ovalocytes Few Prothrombin Time 14.4 SEC (11.7-14.0) Prothromb Time International Ratio 1.2 (0.8-1.1) Activated Partial Thromboplast Time 29 SEC (24-38) Sodium Level 153 mmol/L (136-145) Potassium Level 3.8 mmol/L (3.5-5.1) Chloride Level 121 mmol/L (98-107) Carbon Dioxide Level 22 mmol/L (21-32) Anion Gap 10 (6-14) Blood Urea Nitrogen 28 mg/dL (7-20) Creatinine 0.5 mg/dL (0.6-1.0) Estimated GFR (Cockcroft-Gault) 153.9 BUN/Creatinine Ratio 56 (6-20) Glucose Level 124 mg/dL (70-99) Calcium Level 8.4 mg/dL (8.5-10.1) Magnesium Level 2.2 mg/dL (1.8-2.4) Total Bilirubin 0.2 mg/dL (0.2-1.0) Aspartate Amino Transf (AST/SGOT) 12 U/L (15-37) Alanine Aminotransferase (ALT/SGPT) 15 U/L (14-59) Alkaline Phosphatase 62 U/L (46-116) Creatine Kinase 72 U/L (26-192) Creatine Kinase MB (Mass) < 0.5 ng/mL (0.0-3.6) Creatine Kinase MB Relative Index % (0-4) Troponin I Quantitative 0.038 ng/mL (0.000-0.055) Total Protein 5.9 g/dL (6.4-8.2) Albumin 2.0 g/dL (3.4-5.0) Albumin/Globulin Ratio 0.5 (1.0-1.7) Valproic Acid (Depakene) Level 33 mcg/mL (50-100) Valproic Acid Last Dose Date Unk Valproic Acid Last Dose Time Unk Lactic Acid Level 2.3 mmol/L (0.4-2.0) Urine Collection Type U cath Urine Color Yellow Urine Clarity Clear Urine pH 8.0 (<5.0-8.0) Urine Specific [place] 1.020 (1.000-1.030) Urine Protein Negative mg/dL (NEG-TRACE) Urine Glucose (UA) Negative mg/dL (NEG) Urine Ketones (Stick) Negative mg/dL (NEG) Urine Blood Negative (NEG) Urine Nitrite Positive (NEG) Urine Bilirubin Negative (NEG) Urine Urobilinogen Dipstick 1.0 mg/dL (0.2 mg/dL) Urine Leukocyte Esterase Moderate (NEG) Urine RBC 0 /HPF (0-2) Urine WBC 11-20 /HPF (0-4) Urine Squamous Epithelial Cells Few /LPF Urine Bacteria Many /HPF (0-FEW) Urine Mucus Mod /LPF Stool Occult Blood Positive (NEG) Test 05/16/20 21:40 05/17/20 00:30 05/17/20 00:43 Lactic Acid Level 1.2 mmol/L (0.4-2.0) Troponin I Quantitative 0.047 ng/mL (0.000-0.055) 0.053 ng/mL (0.000-0.055) White Blood Count 13.5 x10^3/uL (4.0-11.0) Red Blood Count 5.17 x10^6/uL (3.50-5.40) Hemoglobin 10.2 g/dL (12.0-15.5) Hematocrit 35.5 % (36.0-47.0) Mean Corpuscular Volume 69 fL (79-100) Mean Corpuscular Hemoglobin 20 pg (25-35) Mean Corpuscular Hemoglobin Concent 29 g/dL (31-37) Red Cell Distribution Width 28.3 % (11.5-14.5) Platelet Count 699 x10^3/uL (140-400) Neutrophils (%) (Auto) 74 % (31-73) Lymphocytes (%) (Auto) 17 % (24-48) Monocytes (%) (Auto) 8 % (0-9) Eosinophils (%) (Auto) 1 % (0-3) Basophils (%) (Auto) 1 % (0-3) Neutrophils # (Auto) 10.0 x10^3/uL (1.8-7.7) Lymphocytes # (Auto) 2.2 x10^3/uL (1.0-4.8) Monocytes # (Auto) 1.1 x10^3/uL (0.0-1.1) Eosinophils # (Auto) 0.1 x10^3/uL (0.0-0.7) Basophils # (Auto) 0.1 x10^3/uL (0.0-0.2) Sodium Level 153 mmol/L (136-145) Potassium Level 3.8 mmol/L (3.5-5.1) Chloride Level 119 mmol/L (98-107) Carbon Dioxide Level 22 mmol/L (21-32) Anion Gap 12 (6-14) Blood Urea Nitrogen 20 mg/dL (7-20) Creatinine 0.6 mg/dL (0.6-1.0) Estimated GFR (Cockcroft-Gault) 124.7 Glucose Level 100 mg/dL (70-99) Calcium Level 7.6 mg/dL (8.5-10.1) Phosphorus Level 3.8 mg/dL (2.6-4.7) Magnesium Level 2.0 mg/dL (1.8-2.4) Microbiology 05/16/20 Urine Culture - Preliminary, Resulted Medications Current Medications Sodium Chloride 1,000 ml @ 1,000 mls/hr 1X ONCE IV Last administered on 05/16/20at 16:38; Start 05/16/20 at 16:30; Stop 05/16/20 at 17:29; Status DC Erythromycin (Romycin) 0.25 inch 1X ONCE OU Last administered on 05/16/20at 16:44; Start 05/16/20 at 16:45; Stop 05/16/20 at 16:46; Status DC Iohexol (Omnipaque 300 Mg/ml) 75 ml 1X ONCE IV Last administered on 05/16/20at 17:47; Start 05/16/20 at 18:00; Stop 05/16/20 at 18:01; Status DC Sodium Chloride 1,000 ml @ 1,000 mls/hr 1X ONCE IV Last administered on 05/16/20at 19:12; Start 05/16/20 at 18:30; Stop 05/16/20 at 19:29; Status DC Piperacillin Sod/ Tazobactam Sod 3.375 gm/Sodium Chloride 50 ml @ 100 mls/hr 1X ONCE IV Last administered on 05/16/20at 19:25; Start 05/16/20 at 19:00; Stop 05/16/20 at 19:29; Status DC Levofloxacin/ Dextrose 150 ml @ 100 mls/hr 1X ONCE IV Last administered on 05/16/20at 19:57; Start 05/16/20 at 19:30; Stop 05/16/20 at 20:59; Status DC Ondansetron HCl (Zofran) 4 mg PRN Q8HRS PRN IV NAUSEA/VOMITING; Start 05/16/20 at 18:30; Stop 05/17/20 at 18:29; Status DC Sodium Chloride 1,000 ml @ 75 mls/hr 1X ONCE IV ; Start 05/16/20 at 18:30; Stop 05/17/20 at 07:49; Status DC Pantoprazole Sodium (PROTONIX VIAL for IV PUSH) 40 mg DAILYAC IVP Last administered on 05/18/20at 08:34; Start 05/17/20 at 07:30 Potassium Chloride (Klor-Con) 40 meq 1X PRN PRN PO PER PROTOCOL; Start 05/16/20 at 21:45 Potassium Chloride/Water 100 ml @ 100 mls/hr PRN Q1HR PRN IV HYPOKALEMIA; Start 05/16/20 at 21:45 Potassium Phos/ Sodium Phos (Phos-Nak) 1 pkt PRN BID PRN PO PHOSPHOROUS 2-2.4; Start 05/17/20 at 09:00 Potassium Bicarbonate (Potassium Effervescent Tablet) 40 meq PRN Q4HRS PRN PO PER PROTOCOL; Start 05/16/20 at 21:45 Potassium Chloride/Water 100 ml @ 100 mls/hr PRN Q1HR PRN IV PER PROTOCOL; Start 05/16/20 at 21:45 Acetaminophen (Tylenol Supp) 650 mg PRN Q6HRS PRN MO FEVER > 100.3'F; Start at 12:30 Bisacodyl (Dulcolax Supp) 10 mg PRN DAILY PRN RC CONSTIPATION Last administered on 05/18/20at 08:34; Start 05/17/20 at 12:30 Cetirizine HCl (ZyrTEC) 10 mg DAILY PO Last administered on 05/18/20at 08:34; Start 05/17/20 at 13:30 Divalproex Sodium (Depakote) 250 mg DAILY@1400 PO Last administered on 05/17/20at 15:02; Start 05/17/20 at 14:00 Divalproex Sodium (Depakote) 500 mg BID PO Last administered on 05/18/20at 08:34; Start 05/17/20 at 21:00 Docusate Sodium (Colace) 200 mg HS PO Last administered on 05/17/20at 21:33; Start 05/17/20 at 21:00 Famotidine (Pepcid) 20 mg HS PO Last administered on 05/17/20at 21:33; Start 05/17/20 at 21:00 Gabapentin (Neurontin) 200 mg TID PO Last administered on 05/18/20 08:33; Start 05/17/20 at 14:00 Loperamide HCl (Imodium) 2 mg PRN Q8HRS PRN PO DIARRHEA; Start 05/17/20 at 12:30 Sodium Monofluorophosphate (Fleet Adult) 133 ml PRN Q8HRS PRN RC CONSTIPATION; Start 05/17/20 at 12:30 Polyethylene Glycol (miraLAX PACKET) 17 gm PRN DAILY PRN PO CONSTIPATION Last administered on 05/18/20 08:33; Start 05/17/20 at 12:30 Chlorhexidine Gluconate (Peridex) 15 ml BID SWSP Last administered on 05/18/20at 08:33; Start 05/17/20 at 21:00 Non-Formulary Medication (Clobazam (Onfi)) 5 mg [id number] PO Last administered on 05/18/20at 09:03; Start 05/17/20 at 14:00 Glycopyrrolate (Robinul) 1 mg PRN Q8HRS PRN PO SECRETIONS; Start 05/18/20 at 09:00 Non-Formulary Medication (Melatonin ) 3 mg PRN QHS PRN PO INSOMNIA; Start 05/17/20 at 12:30; Status UNV Oxycodone HCl (Roxicodone) 5 mg PRN Q4HRS PRN PO PAIN; Start 05/17/20 at 13:00 Topiramate (Topamax) 200 mg BID PO Last administered on 05/18/20at 08:33; Start 05/17/20 at 13:30 Piperacillin Sod/ Tazobactam Sod 3.375 gm/Sodium Chloride 50 ml @ 100 mls/hr Q6HRS IV Last administered on 05/18/20at 05:59; Start 05/17/20 at 13:30 Dextrose/Sodium Chloride 1,000 ml @ 75 mls/hr [id number] IV Last administered on 05/18/20at 09:06; Start 05/17/20 at 15:30 Active Scripts Active Acetaminophen Supp (Acetaminophen) 650 Mg Supp.rect 650 Mg MO PRN Q6HRS PRN 10 Days Reported Imodium A-D (Loperamide HCl) 2 Mg Capsule 2 Mg PO PRN Q8HRS PRN Glycopyrrolate 2 Mg Tablet 1 Mg PO PRN Q8HRS PRN Gabapentin (Gabapentin) 100 Mg Capsule 200 Mg PO TID Chlorhexidine Gluconate 118 Ml Liquid 1 Gerald PO BID Topamax (Topiramate) 200 Mg Tablet 200 Mg PO BID Polyethylene Glycol 3350 17 Gm Powd.pack 17 Gm PO PRN DAILY PRN Oxycodone Hcl 5 Mg Capsule 5 Mg PO PRN Q4HRS PRN Melatonin 3 Mg Tablet 3 Mg PO PRN QHS PRN Fleet Enema (Na Phos,M-B/Na Phos,Di-Ba) 133 Ml Enema 133 Ml RC PRN Q8HRS PRN Famotidine 20 Mg Tablet 20 Mg PO HS Bisacodyl 10 Mg Supp.rect 10 Mg RC PRN DAILY PRN Docusate Sodium 100 Mg Capsule 200 Mg PO HS Divalproex Sodium Er (Divalproex Sodium) 500 Mg Tab.er.24h 500 Mg PO BID Eliquis (Apixaban) 5 Mg Tablet 5 Mg PO BID Divalproex Sodium Er (Divalproex Sodium) 500 Mg Tab.er.24h 250 Mg PO DAILY Zyrtec (Cetirizine Hcl) 10 Mg Tablet 1 Tab PO DAILY Onfi (Clobazam) 10 Mg Tablet 5 Mg PO [id number] Vitals/I & O Vital Sign - Last 24 Hours 05/17/20 05/17/20 05/17/20 05/17/20 11:03 15:00 19:25 20:12 Temp 98.2 98.6 97.6 98.2 98.6 97.6 Pulse 81 68 85 Resp 20 22 18 B/P (MAP) 115/72 (86) 115/56 (75) 136/68 (90) Pulse Ox 100 99 96 O2 Delivery Nasal Cannula Nasal Cannula Nasal Cannula Nasal Cannula O2 Flow Rate 2.0 2.0 2.0 2.0 05/17/20 05/18/20 05/18/20 22:55 03:05 07:00 Temp 97.5 98.3 98.7 97.5 98.3 98.7 Pulse 75 70 70 Resp 18 18 18 B/P (MAP) 114/58 (76) 114/61 (78) 110/63 (79) Pulse Ox 99 96 99 O2 Delivery Nasal Cannula Nasal Cannula Nasal Cannula O2 Flow Rate 2.0 2.0 2.0 Intake and Output 05/17/20 05/17/20 05/18/20 15:00 23:00 07:00 Intake Total 120 ml 0 ml Balance 120 ml 0 ml Justicifation of Admission Dx: Justifications for Admission: Justification of Admission Dx: Yes BENIGNO ASCENCIO MD May 18, 2020 10:26
[2020-05-18 11:00] VITALS: BP 109/50
[2020-05-18 11:14] LABS: BASO % 0 % (0-3); EOS # 0.5 x10^3/uL (0.0-0.7); EOS % 5 % (0-3); HEMATOCRIT 32.4 % (36.0-47.0); HEMOGLOBIN 9.6 g/dL (12.0-15.5); LYMPH # 1.5 x10^3/uL (1.0-4.8); LYMPH % 16 % (24-48); MEAN CORPUSCULAR HEMOGLOBIN 20 pg (25-35); MEAN CORPUSCULAR HGB CONC 30 g/dL (31-37); MEAN CORPUSCULAR VOLUME 67 fL (79-100); MONO # 0.9 x10^3/uL (0.0-1.1); MONO % 10 % (0-9); NEUT # 6.2 x10^3/uL (1.8-7.7); NEUT % 68 % (31-73); PLATELET COUNT 694 x10^3/uL (140-400); RED BLOOD COUNT 4.87 x10^6/uL (3.50-5.40); RED CELL DISTRIBUTION WIDTH 29.9 % (11.5-14.5); WHITE BLOOD COUNT 9.2 x10^3/uL (4.0-11.0)
[2020-05-18 11:18] LABS: ALBUMIN 1.9 g/dL (3.4-5.0); ALBUMIN/GLOBULIN RATIO 0.5 (1.0-1.7); CALCIUM 8.4 mg/dL (8.5-10.1); CREATININE 0.5 mg/dL (0.6-1.0); GFR 153.9; TOTAL BILIRUBIN 0.3 mg/dL (0.2-1.0); TOTAL PROTEIN 5.9 g/dL (6.4-8.2)
[2020-05-18] MEDS: DIVALPROEX DELAYED RELEASE 250 MG TABLET.DR. PO SCH (14:28)
[2020-05-18 15:00] VITALS: BP 118/59
[2020-05-18 19:30] VITALS: BP 114/56
[2020-05-18] MEDS: LACTOBACILLUS RHAMNOSUS GG 1 CAPSULE. PO SCH (22:30)
[2020-05-18] MEDS: FAMOTIDINE 20 MG TABLET. PO SCH (22:30)
[2020-05-18] MEDS: DOCUSATE SODIUM 100 MG CAPSULE. PO SCH (22:31)
[2020-05-18 23:00] VITALS: BP 109/52
[2020-05-19] MEDS: IV DEXTROSE 5 %-0.2 % NACL 1,000 ML IV SCH ×2 (00:07→15:27)
[2020-05-19 03:50] VITALS: BP 90/49
[2020-05-19] MEDS: PIPERACILLIN/TAZOBACTAM 3.375 GM in IV NORMAL SALINE 50ML 50 ML IV SCH ×4 (06:03→23:12)
[2020-05-19 07:00] VITALS: BP 110/56
[2020-05-19] MEDS: PANTOPRAZOLE IV PUSH 40 MG VIAL. IVP SCH (08:31)
[2020-05-19] MEDS: LACTOBACILLUS RHAMNOSUS GG 1 CAPSULE. PO SCH ×2 (08:31→22:52)
[2020-05-19] MEDS: CHLORHEXIDINE 0.12% 15 ML MOUTHWASH. SWSP SCH ×2 (08:31→22:52)
[2020-05-19] MEDS: CETIRIZINE HCL 10 MG TABLET. PO SCH (08:31)
[2020-05-19] MEDS: GABAPENTIN 100 MG CAPSULE. PO SCH ×3 (08:31→22:53)
[2020-05-19] MEDS: DIVALPROEX DELAYED RELEASE 500 MG TABLET.DR. PO SCH ×2 (08:31→22:53)
[2020-05-19] MEDS: TOPIRAMATE 100 MG TABLET. PO SCH ×2 (08:31→22:53)
[2020-05-19 11:00] VITALS: BP 96/54
[2020-05-19 11:18] LABS: BASO % 1 % (0-3); EOS # 0.3 x10^3/uL (0.0-0.7); EOS % 5 % (0-3); HEMATOCRIT 34.3 % (36.0-47.0); HEMOGLOBIN 9.9 g/dL (12.0-15.5); LYMPH % 15 % (24-48); MEAN CORPUSCULAR HEMOGLOBIN 20 pg (25-35); MEAN CORPUSCULAR HGB CONC 29 g/dL (31-37); MEAN CORPUSCULAR VOLUME 69 fL (79-100); MONO # 1.5 x10^3/uL (0.0-1.1); MONO % 24 % (0-9); NEUT # 3.5 x10^3/uL (1.8-7.7); NEUT % 56 % (31-73); PLATELET COUNT 509 x10^3/uL (140-400); RED BLOOD COUNT 4.99 x10^6/uL (3.50-5.40); RED CELL DISTRIBUTION WIDTH 29.7 % (11.5-14.5); WHITE BLOOD COUNT 6.3 x10^3/uL (4.0-11.0)
--- NOTE | 2020-05-19 11:33 | PDOC ---
PROGRESS NOTES Date of Service: DATE: 05/19/20 TIME: 11:32 Chief Complaint Chief Complaint Images: Images CT abdomen pelvis IMPRESSION: 1. Several prominent and enlarged right lower quadrant mesenteric lymph nodes. These are nonspecific correlate with malignancy history and colonoscopy history. 2. Exophytic mass at the uterus which appears similar when compared to prior exams likely representing an exophytic fibroid. TRISTAN-with abnl CT scan. 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 Acute electrolyte derangements Positive fecal occult blood of the stool Lactic acidemia Right first toe ecchymosis Severe malnutrition Bedridden status Frailty Debilitation Admit to medicine cvc bed GI recommendations 2 units PRBC transfusion Repeat a.m. labs Wound care consult Contraindicated for DVT prophylaxis, no eliquis Protonix GI prophylaxis ADA diet Full code Discussed with RN and SW 09/23 ns Disposition inpatient pending GI evaluation Surrogate decision maker is sister WILL NEED TO DISCUSS DNR STATUS WILTH SISTER D/W RN from [place] for low Hgb and FTT. WBC 13, lactic 2.3 (now normal), Hgb 5.6, MCV 59, BUN 28, Cr 0.5, Na 153, Hemoccult positive, +UTI. No obvious bleeding. CT w/ stable mass at uterus, possible fibroid. Also noted RLQ lymphadenopathy. Iron deficient in 2019, B12 normal in 2018. ?on Eliquis and famotidine. On dysphagia diet at [place]. Justifications for Admission Justifications for Admission Other Justification History of Present Illness History of Present Illness Chief Complaint: Chief Complain: Low hemoglobin Past Medical/Surgical History: PMH/PSH: Past Medical History: Seizure, intellectual deficits,Vit D Deficient,DYSPHAGIA, Past Surgical History: Hysterectomy Allergies: Allergies: Coded Allergies: No Known Drug Allergies (Unverified , 05/24/14) Family History: Family History: Reviewed and none reported. No history of sickle cell disease or thalassemia is in the family Social History: Social History: Smoking Status: Never Smoker Alcohol Use: None Drug Use: None Vitals Vitals Vital Signs Date Time Temp Pulse Resp B/P (MAP) Pulse Ox O2 Delivery O2 Flow Rate FiO2 05/19/20 08:00 Nasal Cannula 2.0 05/19/20 07:00 98.4 80 18 110/56 (65) 100 98.4 Physical Exam Physical Exam MUSCULOSKELETAL: Well developed , well nourished, good range of motion ENDOCRINE: No thyromegaly was palpated LYMPHATICS: No cervical chain or axillary nodes were noted HEMATOPOIETIC: No bruising NECK: Supple, no JVD, no thyromegaly was noted LUNGS: Clear to auscultation in all lung pizano without rhonchi or wheezing HEART: RRR, S!, S2 present. Peripheral pulses intact, no obvious murmurs noted ABDOMEN: Soft, nontender. Positive bowel sounds, no organomegaly, normal bowel sounds EXTREMITIES: Without clubbing, cyanosis, or edema. Pedal pulses intact. Negative Homans sign NEUROLOGIC: no obvious focal deficit SKIN: No ulcerations or rashes, good skin turgor, no jaundice VASCULAR: Good capillary refill, neurovascular bundle appears to be intact General: Cooperative, No acute distress Lungs: Clear Abdomen: Soft Extremities: No cyanosis, No edema Labs LABS Procedure Result URINE CULTURE Final Final GREATER THAN 100,000 CFU/ML GRAM NEGATIVE RODS on 05/18/20 at 1000 FINAL ID= [ESCHERICHIA COLI] Testing Performed by: [address] [address] For Inquires, the Physician may contact the Microbiology department at [phone] ESCHERICHIA COLI ANTIMICROBIAL SUSCEPTIBILITY Final Comment NEG SIENA 54 ESCHERICHIA COLI ANTIBIOTIC RESULT INTERPRETATION AMPICILLIN/SULBACTAM <=4/2 S AMIKACIN <=16 S AMPICILLIN <=8 S AMOXICILLIN/K CLAVULANATE <=8/4 S AZTREONAM <=4 S CEFTRIAXONE <=1 S CEFTAZIDIME <=1 S CEFOTAXIME <=2 S CEFOXITIN <=8 S CIPROFLOXACIN >2 R CEFEPIME <=2 S CEFUROXIME <=4 S CEFTAZIDIME/AVIBACTAM <=4 S ERTAPENEM <=0.5 S NITROFURANTOIN <=32 S GENTAMICIN <=2 S LEVOFLOXACIN >4 R MEROPENEM <=1 S PIPERACILLIN/TAZOBACTAM <=8 S TRIMETHOPRIM/SULFAMETHOXAZOLE >2/38 R TETRACYCLINE >8 R TOBRAMYCIN <=2 S Unless otherwise specified, Testing Performed by: Laboratory Tests Test 05/19/20 10:40 White Blood Count 6.3 x10^3/uL (4.0-11.0) Red Blood Count 4.99 x10^6/uL (3.50-5.40) Hemoglobin 9.9 g/dL (12.0-15.5) Hematocrit 34.3 % (36.0-47.0) Mean Corpuscular Volume 69 fL (79-100) Mean Corpuscular Hemoglobin 20 pg (25-35) Mean Corpuscular Hemoglobin Concent 29 g/dL (31-37) Red Cell Distribution Width 29.7 % (11.5-14.5) Platelet Count 509 x10^3/uL (140-400) Neutrophils (%) (Auto) 56 % (31-73) Lymphocytes (%) (Auto) 15 % (24-48) Monocytes (%) (Auto) 24 % (0-9) Eosinophils (%) (Auto) 5 % (0-3) Basophils (%) (Auto) 1 % (0-3) Neutrophils # (Auto) 3.5 x10^3/uL (1.8-7.7) Lymphocytes # (Auto) 1.0 x10^3/uL (1.0-4.8) Monocytes # (Auto) 1.5 x10^3/uL (0.0-1.1) Eosinophils # (Auto) 0.3 x10^3/uL (0.0-0.7) Basophils # (Auto) 0.0 x10^3/uL (0.0-0.2) Assessment and Plan Assessmemt and Plan Problems Medical Problems: (1) Hypernatremia Status: Acute (2) Severe anemia Status: Acute (3) Severe sepsis Status: Acute (4) UTI (urinary tract infection) Status: Acute Comment Review of Relevant I have reviewed the following items len (where applicable) has been applied. Labs Laboratory Tests Test 05/17/20 16:45 05/18/20 10:30 05/19/20 10:40 Coronavirus (PCR) Not detected (Not Detected) White Blood Count 9.2 x10^3/uL (4.0-11.0) 6.3 x10^3/uL (4.0-11.0) Red Blood Count 4.87 x10^6/uL (3.50-5.40) 4.99 x10^6/uL (3.50-5.40) Hemoglobin 9.6 g/dL (12.0-15.5) 9.9 g/dL (12.0-15.5) Hematocrit 32.4 % (36.0-47.0) 34.3 % (36.0-47.0) Mean Corpuscular Volume 67 fL (79-100) 69 fL (79-100) Mean Corpuscular Hemoglobin 20 pg (25-35) 20 pg (25-35) Mean Corpuscular Hemoglobin Concent 30 g/dL (31-37) 29 g/dL (31-37) Red Cell Distribution Width 29.9 % (11.5-14.5) 29.7 % (11.5-14.5) Platelet Count 694 x10^3/uL (140-400) 509 x10^3/uL (140-400) Neutrophils (%) (Auto) 68 % (31-73) 56 % (31-73) Lymphocytes (%) (Auto) 16 % (24-48) 15 % (24-48) Monocytes (%) (Auto) 10 % (0-9) 24 % (0-9) Eosinophils (%) (Auto) 5 % (0-3) 5 % (0-3) Basophils (%) (Auto) 0 % (0-3) 1 % (0-3) Neutrophils # (Auto) 6.2 x10^3/uL (1.8-7.7) 3.5 x10^3/uL (1.8-7.7) Lymphocytes # (Auto) 1.5 x10^3/uL (1.0-4.8) 1.0 x10^3/uL (1.0-4.8) Monocytes # (Auto) 0.9 x10^3/uL (0.0-1.1) 1.5 x10^3/uL (0.0-1.1) Eosinophils # (Auto) 0.5 x10^3/uL (0.0-0.7) 0.3 x10^3/uL (0.0-0.7) Basophils # (Auto) 0.0 x10^3/uL (0.0-0.2) 0.0 x10^3/uL (0.0-0.2) Sodium Level 147 mmol/L (136-145) Potassium Level 3.0 mmol/L (3.5-5.1) Chloride Level 114 mmol/L (98-107) Carbon Dioxide Level 23 mmol/L (21-32) Anion Gap 10 (6-14) Blood Urea Nitrogen 11 mg/dL (7-20) Creatinine 0.5 mg/dL (0.6-1.0) Estimated GFR (Cockcroft-Gault) 153.9 BUN/Creatinine Ratio 22 (6-20) Glucose Level 136 mg/dL (70-99) Calcium Level 8.4 mg/dL (8.5-10.1) Total Bilirubin 0.3 mg/dL (0.2-1.0) Aspartate Amino Transf (AST/SGOT) 16 U/L (15-37) Alanine Aminotransferase (ALT/SGPT) 18 U/L (14-59) Alkaline Phosphatase 62 U/L (46-116) Total Protein 5.9 g/dL (6.4-8.2) Albumin 1.9 g/dL (3.4-5.0) Albumin/Globulin Ratio 0.5 (1.0-1.7) Laboratory Tests Test 05/19/20 10:40 White Blood Count 6.3 x10^3/uL (4.0-11.0) Red Blood Count 4.99 x10^6/uL (3.50-5.40) Hemoglobin 9.9 g/dL (12.0-15.5) Hematocrit 34.3 % (36.0-47.0) Mean Corpuscular Volume 69 fL (79-100) Mean Corpuscular Hemoglobin 20 pg (25-35) Mean Corpuscular Hemoglobin Concent 29 g/dL (31-37) Red Cell Distribution Width 29.7 % (11.5-14.5) Platelet Count 509 x10^3/uL (140-400) Neutrophils (%) (Auto) 56 % (31-73) Lymphocytes (%) (Auto) 15 % (24-48) Monocytes (%) (Auto) 24 % (0-9) Eosinophils (%) (Auto) 5 % (0-3) Basophils (%) (Auto) 1 % (0-3) Neutrophils # (Auto) 3.5 x10^3/uL (1.8-7.7) Lymphocytes # (Auto) 1.0 x10^3/uL (1.0-4.8) Monocytes # (Auto) 1.5 x10^3/uL (0.0-1.1) Eosinophils # (Auto) 0.3 x10^3/uL (0.0-0.7) Basophils # (Auto) 0.0 x10^3/uL (0.0-0.2) Microbiology 05/16/20 Urine Culture - Final, Complete 05/16/20 Antimicrobic Susceptibility - Final, Complete Medications Current Medications Sodium Chloride 1,000 ml @ 1,000 mls/hr 1X ONCE IV Last administered on 05/16/20at 16:38; Start 05/16/20 at 16:30; Stop 05/16/20 at 17:29; Status DC Erythromycin (Romycin) 0.25 inch 1X ONCE OU Last administered on 05/16/20at 16:44; Start 05/16/20 at 16:45; Stop 05/16/20 at 16:46; Status DC Iohexol (Omnipaque 300 Mg/ml) 75 ml 1X ONCE IV Last administered on 05/16/20at 17:47; Start 05/16/20 at 18:00; Stop 05/16/20 at 18:01; Status DC Sodium Chloride 1,000 ml @ 1,000 mls/hr 1X ONCE IV Last administered on 05/16/20at 19:12; Start 05/16/20 at 18:30; Stop 05/16/20 at 19:29; Status DC Piperacillin Sod/ Tazobactam Sod 3.375 gm/Sodium Chloride 50 ml @ 100 mls/hr 1X ONCE IV Last administered on 05/16/20at 19:25; Start 05/16/20 at 19:00; Stop 05/16/20 at 19:29; Status DC Levofloxacin/ Dextrose 150 ml @ 100 mls/hr 1X ONCE IV Last administered on 05/16/20at 19:57; Start 05/16/20 at 19:30; Stop 05/16/20 at 20:59; Status DC Ondansetron HCl (Zofran) 4 mg PRN Q8HRS PRN IV NAUSEA/VOMITING; Start 05/16/20 at 18:30; Stop 05/17/20 at 18:29; Status DC Sodium Chloride 1,000 ml @ 75 mls/hr 1X ONCE IV ; Start 05/16/20 at 18:30; Stop 05/17/20 at 07:49; Status DC Pantoprazole Sodium (PROTONIX VIAL for IV PUSH) 40 mg DAILYAC IVP Last administered on 05/19/20at 08:31; Start 05/17/20 at 07:30 Potassium Chloride (Klor-Con) 40 meq 1X PRN PRN PO PER PROTOCOL; Start 05/16/20 at 21:45 Potassium Chloride/Water 100 ml @ 100 mls/hr PRN Q1HR PRN IV HYPOKALEMIA; Start 05/16/20 at 21:45 Potassium Phos/ Sodium Phos (Phos-Nak) 1 pkt PRN BID PRN PO PHOSPHOROUS 2-2.4; Start 05/17/20 at 09:00 Potassium Bicarbonate (Potassium Effervescent Tablet) 40 meq PRN Q4HRS PRN PO PER PROTOCOL; Start 05/16/20 at 21:45 Potassium Chloride/Water 100 ml @ 100 mls/hr PRN Q1HR PRN IV PER PROTOCOL; Start 05/16/20 at 21:45 Acetaminophen (Tylenol Supp) 650 mg PRN Q6HRS PRN CO FEVER > 100.3'F; Start 05/17/20 at 12:30 Bisacodyl (Dulcolax Supp) 10 mg PRN DAILY PRN RC CONSTIPATION Last administered on 05/18/20at 08:34; Start 05/17/20 at 12:30 Cetirizine HCl (ZyrTEC) 10 mg DAILY PO Last administered on 05/19/20at 08:31; Start 05/17/20 at 13:30 Divalproex Sodium (Depakote) 250 mg DAILY@1400 PO Last administered on 05/18/20at 14:28; Start 05/17/20 at 14:00 Divalproex Sodium (Depakote) 500 mg BID PO Last administered on 05/19/20 08:31; Start 05/17/20 at 21:00 Docusate Sodium (Colace) 200 mg HS PO Last administered on 05/18/20 22:31; Start 05/17/20 at 21:00 Famotidine (Pepcid) 20 mg HS PO Last administered on 05/18/20at 22:30; Start 05/17/20 at 21:00 Gabapentin (Neurontin) 200 mg TID PO Last administered on 05/19/20 08:31; Start 05/17/20 at 14:00 Loperamide HCl (Imodium) 2 mg PRN Q8HRS PRN PO DIARRHEA; Start 05/17/20 at 12:30 Sodium Monofluorophosphate (Fleet Adult) 133 ml PRN Q8HRS PRN RC CONSTIPATION; Start 05/17/20 at 12:30 Polyethylene Glycol (miraLAX PACKET) 17 gm PRN DAILY PRN PO CONSTIPATION Last administered on 05/18/20 08:33; Start 05/17/20 at 12:30 Chlorhexidine Gluconate (Peridex) 15 ml BID SWSP Last administered on 05/19/20 08:31; Start 05/17/20 at 21:00 Non-Formulary Medication (Clobazam (Onfi)) 5 mg [id number] PO Last administered on 05/19/20at 08:34; Start 05/17/20 at 14:00 Glycopyrrolate (Robinul) 1 mg PRN Q8HRS PRN PO SECRETIONS; Start 05/18/20 at 09:00 Non-Formulary Medication (Melatonin ) 3 mg PRN QHS PRN PO INSOMNIA; Start 05/17/20 at 12:30; Status UNV Oxycodone HCl (Roxicodone) 5 mg PRN Q4HRS PRN PO PAIN; Start 05/17/20 at 13:00 Topiramate (Topamax) 200 mg BID PO Last administered on 05/19/20 08:31; Start 05/17/20 at 13:30 Piperacillin Sod/ Tazobactam Sod 3.375 gm/Sodium Chloride 50 ml @ 100 mls/hr Q6HRS IV Last administered on 8/30/20at 06:03; Start 05/17/20 at 13:30 Dextrose/Sodium Chloride 1,000 ml @ 75 mls/hr [id number] IV Last administered on 05/19/20at 00:07; Start 05/17/20 at 15:30 Lactobacillus Rhamnosus (Culturelle) 1 cap BID PO Last administered on 05/19/20at 08:31; Start 05/18/20 at 21:00 Active Scripts Active Acetaminophen Supp (Acetaminophen) 650 Mg Supp.rect 650 Mg CO PRN Q6HRS PRN 10 Days Reported Imodium A-D (Loperamide HCl) 2 Mg Capsule 2 Mg PO PRN Q8HRS PRN Glycopyrrolate 2 Mg Tablet 1 Mg PO PRN Q8HRS PRN Gabapentin (Gabapentin) 100 Mg Capsule 200 Mg PO TID Chlorhexidine Gluconate 118 Ml Liquid 1 Gerald PO BID Topamax (Topiramate) 200 Mg Tablet 200 Mg PO BID Polyethylene Glycol 3350 17 Gm Powd.pack 17 Gm PO PRN DAILY PRN Oxycodone Hcl 5 Mg Capsule 5 Mg PO PRN Q4HRS PRN Melatonin 3 Mg Tablet 3 Mg PO PRN QHS PRN Fleet Enema (Na Phos,M-B/Na Phos,Di-Ba) 133 Ml Enema 133 Ml RC PRN Q8HRS PRN Famotidine 20 Mg Tablet 20 Mg PO HS Bisacodyl 10 Mg Supp.rect 10 Mg RC PRN DAILY PRN Docusate Sodium 100 Mg Capsule 200 Mg PO HS Divalproex Sodium Er (Divalproex Sodium) 500 Mg Tab.er.24h 500 Mg PO BID Eliquis (Apixaban) 5 Mg Tablet 5 Mg PO BID Divalproex Sodium Er (Divalproex Sodium) 500 Mg Tab.er.24h 250 Mg PO DAILY Zyrtec (Cetirizine Hcl) 10 Mg Tablet 1 Tab PO DAILY Onfi (Clobazam) 10 Mg Tablet 5 Mg PO [id number] Vitals/I & O Vital Sign - Last 24 Hours 05/18/20 05/18/20 05/18/20 05/18/20 15:00 19:30 20:10 23:00 Temp 98.7 98.3 99.2 98.7 98.3 99.2 Pulse 87 85 94 Resp 18 20 18 B/P (MAP) 118/59 (78) 114/56 (75) 109/52 (71) Pulse Ox 97 97 100 O2 Delivery Nasal Cannula Nasal Cannula Nasal Cannula Nasal Cannula O2 Flow Rate 2.0 2.0 2.0 2.0 05/19/20 05/19/20 05/19/20 03:50 07:00 08:00 Temp 97.9 98.4 97.9 98.4 Pulse 74 80 Resp 18 18 B/P (MAP) 90/49 (63) 110/56 (74) Pulse Ox 98 100 O2 Delivery BiPAP/CPAP Nasal Cannula O2 Flow Rate 2.0 2.0 2.0 Intake and Output 05/18/20 05/18/20 05/19/20 15:00 23:00 07:00 Intake Total 420 ml 1100 ml Balance 420 ml 1100 ml Justicifation of Admission Dx: Justifications for Admission: Justification of Admission Dx: Yes BENIGNO ASCENCIO MD May 19, 2020 11:33
--- NOTE | 2020-05-19 11:37 | CONS ---
DATE OF CONSULTATION: 05/19/2020 REQUESTING PHYSICIAN: Alex Irby MD REASON FOR CONSULTATION: UTI and mesenteric lymph node. HISTORY OF PRESENT ILLNESS: This is a 55-year-old -[place] female, who is a [place] [facility] resident with [facility], who was brought in because of anemia. The patient is not able to provide any information. The patient is a [facility], has not had any fever, did have leukocytosis up to 13,000 and hemoglobin 5.6. After transfusion, it has improved. The patient's Hemoccult is positive and urine culture is showing E. coli. The patient is on Zosyn. The patient also had CT scan of the abdomen and pelvis, which showed enlarged right lower quadrant mesenteric lymph nodes and there is exophytic mass into the uterus. The patient again looks comfortable and mumbles few words, but unable to understand. PAST MEDICAL HISTORY: Positive for history of developmental disability. The patient had seizures with vagus nerve stimulator, dysphagia. SOCIAL HISTORY: The patient is a [place] [facility] resident with [facility]. ALLERGIES: No known drug allergies. CURRENT MEDICATIONS: Reviewed. REVIEW OF SYSTEMS: As per HPI, all other systems reviewed are negative. PHYSICAL EXAMINATION: GENERAL: Awake female, who mumbles few words, unable to understand, not in distress. VITAL SIGNS: Stable, afebrile. HEENT: NAD. NECK: Supple. LUNGS: Clear. HEART: S1, S2 regular. ABDOMEN: Is soft and nontender. No organomegaly. No rebound or guarding. EXTREMITIES: No edema, no cyanosis. SKIN: Unremarkable. NEUROLOGIC: Awake and mumbles few words, but unable to understand. She does not have any upper or lower extremity function. LABORATORY DATA: White count is down to 9.2. BUN and creatinine is normal. Urinalysis showed 11-20 wbc's. COVID negative. Urine is showing E. coli and the CT as I mentioned in the HPI. IMPRESSION: 1. Anemia. 2. Mesenteric lymphadenopathy. 3. Uterine mass. 4. Urine culture positive with E. coli. It is a contamination probably as it is unclear how the urine was obtained. The patient is not able to provide any symptomatology. 5. Developmental delay. RECOMMENDATIONS: Antibiotics can be discontinued. The patient should be DNR/DNI and can be discharged back to the nursing facility. Thank you very much, Dr. Irby, for giving me the opportunity to participate in this patient's care. JOSE SALINAS MD DR: JOHN/prince JOB#: [id number] / [id number]
[2020-05-19 11:38] LABS: ALBUMIN 1.8 g/dL (3.4-5.0); ALBUMIN/GLOBULIN RATIO 0.5 (1.0-1.7); CALCIUM 8.2 mg/dL (8.5-10.1); CREATININE 0.6 mg/dL (0.6-1.0); GFR 124.7; TOTAL BILIRUBIN 0.3 mg/dL (0.2-1.0); TOTAL PROTEIN 5.3 g/dL (6.4-8.2)
[2020-05-19 15:00] VITALS: BP 121/60
[2020-05-19] MEDS: DIVALPROEX DELAYED RELEASE 250 MG TABLET.DR. PO SCH (15:27)
[2020-05-19 19:20] VITALS: BP 117/69
[2020-05-19] MEDS: FAMOTIDINE 20 MG TABLET. PO SCH (22:52)
[2020-05-19] MEDS: DOCUSATE SODIUM 100 MG CAPSULE. PO SCH (22:52)
[2020-05-19 23:59] VITALS: BP 95/56
[2020-05-20 03:50] VITALS: BP 79/43
[2020-05-20] MEDS: IV DEXTROSE 5 %-0.2 % NACL 1,000 ML IV SCH ×3 (04:39→19:02)
[2020-05-20] MEDS: PIPERACILLIN/TAZOBACTAM 3.375 GM in IV NORMAL SALINE 50ML 50 ML IV SCH (05:01)
[2020-05-20 07:00] VITALS: BP 109/56
[2020-05-20] MEDS: CHLORHEXIDINE 0.12% 15 ML MOUTHWASH. SWSP SCH ×2 (08:40→20:12)
[2020-05-20] MEDS: CETIRIZINE HCL 10 MG TABLET. PO SCH (08:42)
[2020-05-20] MEDS: PANTOPRAZOLE 40 MG TABLET.DR. PO SCH (08:42)
[2020-05-20] MEDS: LACTOBACILLUS RHAMNOSUS GG 1 CAPSULE. PO SCH ×2 (08:42→20:11)
[2020-05-20] MEDS: DIVALPROEX DELAYED RELEASE 500 MG TABLET.DR. PO SCH ×2 (08:43→20:12)
[2020-05-20] MEDS: GABAPENTIN 100 MG CAPSULE. PO SCH ×3 (08:43→20:12)
[2020-05-20] MEDS: TOPIRAMATE 100 MG TABLET. PO SCH ×2 (08:43→20:11)
--- NOTE | 2020-05-20 08:53 | PDOC ---
Infectious Disease Note Subjective: Subjective Patient alert today per staff Does not verbalize Mumbles Appears comfortable Denies fever, nausea, vomiting, shortness of breath, diarrhea, abdominal pain, rash Otherwise as above Vital Signs: Vital Signs Vital Signs Date Time Temp Pulse Resp B/P (MAP) Pulse Ox O2 Delivery O2 Flow Rate FiO2 05/20/20 07:00 97.7 71 18 109/56 (73) 100 Nasal Cannula 2.0 97.7 Physical Exam: PHYSICAL EXAM GENERAL: Awake female, who mumbles few words, unable to understand, not in distress. HEENT: Anicteric no thrush NECK: Supple. LUNGS: Clear. HEART: S1, S2 regular. ABDOMEN: Is soft and nontender. No organomegaly. No rebound or guarding. EXTREMITIES: No edema, no cyanosis. SKIN: Unremarkable. NEUROLOGIC: Awake and mumbles few words, but unable to understand. She does not have any upper or lower extremity function. Medications: Inpatient Meds: Current Medications Medications (Trade) Dose Ordered Sig/Ruthie Start Time Stop Time Status Last Admin Dose Admin Acetaminophen (Tylenol Supp) 650 mg PRN Q6HRS PRN 05/17/20 12:30 Bisacodyl (Dulcolax Supp) 10 mg PRN DAILY PRN 05/17/20 12:30 05/18/20 08:34 10 MG Cetirizine HCl (ZyrTEC) 10 mg DAILY 05/17/20 13:30 05/20/20 08:42 10 MG Chlorhexidine Gluconate (Peridex) 15 ml BID 05/17/20 21:00 05/19/20 22:52 15 ML Dextrose/Sodium Chloride 1,000 ml @ 75 mls/hr [id number] 05/17/20 15:30 05/20/20 04:39 75 MLS/HR Divalproex Sodium (Depakote) 500 mg BID 05/17/20 21:00 05/20/20 08:43 500 MG Docusate Sodium (Colace) 200 mg HS 05/17/20 21:00 05/19/20 22:52 200 MG Erythromycin (Romycin) 0.25 inch 1X ONCE 05/16/20 16:45 05/16/20 16:46 DC 05/16/20 16:44 0.25 INCH Famotidine (Pepcid) 20 mg HS 05/17/20 21:00 05/19/20 22:52 20 MG Gabapentin (Neurontin) 200 mg TID 05/17/20 14:00 05/20/20 08:43 200 MG Glycopyrrolate (Robinul) 1 mg PRN Q8HRS PRN 05/18/20 09:00 Iohexol (Omnipaque 300 Mg/ml) 75 ml 1X ONCE 05/16/20 18:00 05/16/20 18:01 DC 05/16/20 17:47 75 ML Lactobacillus Rhamnosus (Culturelle) 1 cap BID 05/18/20 21:00 05/20/20 08:42 1 CAP Levofloxacin/ Dextrose 150 ml @ 100 mls/hr 1X ONCE 05/16/20 19:30 05/16/20 20:59 DC 05/16/20 19:57 100 MLS/HR Loperamide HCl (Imodium) 2 mg PRN Q8HRS PRN 05/17/20 12:30 Non-Formulary Medication (Clobazam (Onfi)) 5 mg [id number] 05/17/20 14:00 05/20/20 08:43 5 MG Non-Formulary Medication (Melatonin ) 3 mg PRN QHS PRN 05/17/20 12:30 UNV Ondansetron HCl (Zofran) 4 mg PRN Q8HRS PRN 05/16/20 18:30 05/17/20 18:29 DC Oxycodone HCl (Roxicodone) 5 mg PRN Q4HRS PRN 05/17/20 13:00 Pantoprazole Sodium (PROTONIX VIAL for IV PUSH) 40 mg DAILYAC 05/17/20 07:30 05/19/20 16:30 DC 05/19/20 08:31 40 MG Pantoprazole Sodium (Protonix) 40 mg DAILYAC 05/20/20 07:30 05/20/20 08:42 40 MG Piperacillin Sod/ Tazobactam Sod 3.375 gm/Sodium Chloride 50 ml @ 100 mls/hr Q6HRS 05/17/20 13:30 05/20/20 05:01 100 MLS/HR Polyethylene Glycol (miraLAX PACKET) 17 gm PRN DAILY PRN 05/17/20 12:30 05/18/20 08:33 17 GM Potassium Bicarbonate (Potassium Effervescent Tablet) 40 meq PRN Q4HRS PRN 05/16/20 21:45 05/19/20 11:35 40 MEQ Potassium Chloride/Water 100 ml @ 100 mls/hr PRN Q1HR PRN 05/16/20 21:45 Potassium Chloride (Klor-Con) 40 meq 1X PRN PRN 05/16/20 21:45 Potassium Phos/ Sodium Phos (Phos-Nak) 1 pkt PRN BID PRN 05/17/20 09:00 Sodium Monofluorophosphate (Fleet Adult) 133 ml PRN Q8HRS PRN 05/17/20 12:30 Sodium Chloride 1,000 ml @ 75 mls/hr 1X ONCE 05/16/20 18:30 05/17/20 07:49 DC Topiramate (Topamax) 200 mg BID 05/17/20 13:30 05/20/20 08:43 200 MG Labs: Lab Laboratory Tests Test 05/19/20 10:40 White Blood Count 6.3 x10^3/uL (4.0-11.0) Red Blood Count 4.99 x10^6/uL (3.50-5.40) Hemoglobin 9.9 g/dL (12.0-15.5) Hematocrit 34.3 % (36.0-47.0) Mean Corpuscular Volume 69 fL (79-100) Mean Corpuscular Hemoglobin 20 pg (25-35) Mean Corpuscular Hemoglobin Concent 29 g/dL (31-37) Red Cell Distribution Width 29.7 % (11.5-14.5) Platelet Count 509 x10^3/uL (140-400) Neutrophils (%) (Auto) 56 % (31-73) Lymphocytes (%) (Auto) 15 % (24-48) Monocytes (%) (Auto) 24 % (0-9) Eosinophils (%) (Auto) 5 % (0-3) Basophils (%) (Auto) 1 % (0-3) Neutrophils # (Auto) 3.5 x10^3/uL (1.8-7.7) Lymphocytes # (Auto) 1.0 x10^3/uL (1.0-4.8) Monocytes # (Auto) 1.5 x10^3/uL (0.0-1.1) Eosinophils # (Auto) 0.3 x10^3/uL (0.0-0.7) Basophils # (Auto) 0.0 x10^3/uL (0.0-0.2) Sodium Level 149 mmol/L (136-145) Potassium Level 4.0 mmol/L (3.5-5.1) Chloride Level 116 mmol/L (98-107) Carbon Dioxide Level 24 mmol/L (21-32) Anion Gap 9 (6-14) Blood Urea Nitrogen 7 mg/dL (7-20) Creatinine 0.6 mg/dL (0.6-1.0) Estimated GFR (Cockcroft-Gault) 124.7 BUN/Creatinine Ratio 12 (6-20) Glucose Level 88 mg/dL (70-99) Calcium Level 8.2 mg/dL (8.5-10.1) Total Bilirubin 0.3 mg/dL (0.2-1.0) Aspartate Amino Transf (AST/SGOT) 14 U/L (15-37) Alanine Aminotransferase (ALT/SGPT) 12 U/L (14-59) Alkaline Phosphatase 56 U/L (46-116) Total Protein 5.3 g/dL (6.4-8.2) Albumin 1.8 g/dL (3.4-5.0) Albumin/Globulin Ratio 0.5 (1.0-1.7) Objective: Assessment: 1. Anemia. 2. Mesenteric lymphadenopathy. 3. Uterine mass. 4. Urine culture positive with E. coli. It is a contamination probably as it is unclear how the urine was obtained. The patient is not able to provide any symptomatology. 5. Developmental delay. Plan: Plan of Care Per discussion with team family wants to pursue colonoscopy Continue Zosyn for now Continue supportive care Discussed with nursing staff JAKE SALINAS MD May 20, 2020 08:53
--- NOTE | 2020-05-20 09:41 | PDOC ---
PROGRESS NOTES Date of Service: DATE: 05/20/20 TIME: 09:37 Chief Complaint Chief Complaint Low Hemoglobin History of Present Illness History of Present Illness History unable to obtain due to clinical condition. Hemoglobin stable. Patient is now DNR. Will likely discharge back to shelter. Vitals Vitals Vital Signs Date Time Temp Pulse Resp B/P (MAP) Pulse Ox O2 Delivery O2 Flow Rate FiO2 05/20/20 07:00 97.7 71 18 109/56 (73) 100 Nasal Cannula 2.0 97.7 Physical Exam Physical Exam GENERAL: Awake female, who mumbles few words, unable to understand, not in distress. HEENT: NAD. NECK: Supple. LUNGS: Clear. HEART: S1, S2 regular. ABDOMEN: Is soft and nontender. No organomegaly. No rebound or guarding. EXTREMITIES: No edema, no cyanosis. SKIN: Unremarkable. NEUROLOGIC: Awake and mumbles few words, but unable to understand. She does not have any upper or lower extremity function. General: Cooperative, No acute distress Heart: Regular rate, Normal S1, Normal S2 Lungs: Clear Abdomen: Soft Extremities: No cyanosis, No edema Skin: No rashes Labs LABS Laboratory Tests Test 05/19/20 10:40 White Blood Count 6.3 x10^3/uL (4.0-11.0) Red Blood Count 4.99 x10^6/uL (3.50-5.40) Hemoglobin 9.9 g/dL (12.0-15.5) Hematocrit 34.3 % (36.0-47.0) Mean Corpuscular Volume 69 fL (79-100) Mean Corpuscular Hemoglobin 20 pg (25-35) Mean Corpuscular Hemoglobin Concent 29 g/dL (31-37) Red Cell Distribution Width 29.7 % (11.5-14.5) Platelet Count 509 x10^3/uL (140-400) Neutrophils (%) (Auto) 56 % (31-73) Lymphocytes (%) (Auto) 15 % (24-48) Monocytes (%) (Auto) 24 % (0-9) Eosinophils (%) (Auto) 5 % (0-3) Basophils (%) (Auto) 1 % (0-3) Neutrophils # (Auto) 3.5 x10^3/uL (1.8-7.7) Lymphocytes # (Auto) 1.0 x10^3/uL (1.0-4.8) Monocytes # (Auto) 1.5 x10^3/uL (0.0-1.1) Eosinophils # (Auto) 0.3 x10^3/uL (0.0-0.7) Basophils # (Auto) 0.0 x10^3/uL (0.0-0.2) Sodium Level 149 mmol/L (136-145) Potassium Level 4.0 mmol/L (3.5-5.1) Chloride Level 116 mmol/L (98-107) Carbon Dioxide Level 24 mmol/L (21-32) Anion Gap 9 (6-14) Blood Urea Nitrogen 7 mg/dL (7-20) Creatinine 0.6 mg/dL (0.6-1.0) Estimated GFR (Cockcroft-Gault) 124.7 BUN/Creatinine Ratio 12 (6-20) Glucose Level 88 mg/dL (70-99) Calcium Level 8.2 mg/dL (8.5-10.1) Total Bilirubin 0.3 mg/dL (0.2-1.0) Aspartate Amino Transf (AST/SGOT) 14 U/L (15-37) Alanine Aminotransferase (ALT/SGPT) 12 U/L (14-59) Alkaline Phosphatase 56 U/L (46-116) Total Protein 5.3 g/dL (6.4-8.2) Albumin 1.8 g/dL (3.4-5.0) Albumin/Globulin Ratio 0.5 (1.0-1.7) Review of Systems Review of Systems Unable to obtain Assessment and Plan Assessmemt and Plan Problems Medical Problems: (1) Hypernatremia Status: Acute (2) Severe anemia Status: Acute (3) Severe sepsis Status: Acute (4) UTI (urinary tract infection) Status: Acute Plan: Discontinue antibiotics, per ID. Patient is DNR. Will discharge back to shelter. Would recommend family they discuss hospice. Comment Review of Relevant I have reviewed the following items len (where applicable) has been applied. Labs Laboratory Tests Test 05/18/20 10:30 05/19/20 10:40 White Blood Count 9.2 x10^3/uL (4.0-11.0) 6.3 x10^3/uL (4.0-11.0) Red Blood Count 4.87 x10^6/uL (3.50-5.40) 4.99 x10^6/uL (3.50-5.40) Hemoglobin 9.6 g/dL (12.0-15.5) 9.9 g/dL (12.0-15.5) Hematocrit 32.4 % (36.0-47.0) 34.3 % (36.0-47.0) Mean Corpuscular Volume 67 fL (79-100) 69 fL (79-100) Mean Corpuscular Hemoglobin 20 pg (25-35) 20 pg (25-35) Mean Corpuscular Hemoglobin Concent 30 g/dL (31-37) 29 g/dL (31-37) Red Cell Distribution Width 29.9 % (11.5-14.5) 29.7 % (11.5-14.5) Platelet Count 694 x10^3/uL (140-400) 509 x10^3/uL (140-400) Neutrophils (%) (Auto) 68 % (31-73) 56 % (31-73) Lymphocytes (%) (Auto) 16 % (24-48) 15 % (24-48) Monocytes (%) (Auto) 10 % (0-9) 24 % (0-9) Eosinophils (%) (Auto) 5 % (0-3) 5 % (0-3) Basophils (%) (Auto) 0 % (0-3) 1 % (0-3) Neutrophils # (Auto) 6.2 x10^3/uL (1.8-7.7) 3.5 x10^3/uL (1.8-7.7) Lymphocytes # (Auto) 1.5 x10^3/uL (1.0-4.8) 1.0 x10^3/uL (1.0-4.8) Monocytes # (Auto) 0.9 x10^3/uL (0.0-1.1) 1.5 x10^3/uL (0.0-1.1) Eosinophils # (Auto) 0.5 x10^3/uL (0.0-0.7) 0.3 x10^3/uL (0.0-0.7) Basophils # (Auto) 0.0 x10^3/uL (0.0-0.2) 0.0 x10^3/uL (0.0-0.2) Sodium Level 147 mmol/L (136-145) 149 mmol/L (136-145) Potassium Level 3.0 mmol/L (3.5-5.1) 4.0 mmol/L (3.5-5.1) Chloride Level 114 mmol/L (98-107) 116 mmol/L (98-107) Carbon Dioxide Level 23 mmol/L (21-32) 24 mmol/L (21-32) Anion Gap 10 (6-14) 9 (6-14) Blood Urea Nitrogen 11 mg/dL (7-20) 7 mg/dL (7-20) Creatinine 0.5 mg/dL (0.6-1.0) 0.6 mg/dL (0.6-1.0) Estimated GFR (Cockcroft-Gault) 153.9 124.7 BUN/Creatinine Ratio 22 (6-20) 12 (6-20) Glucose Level 136 mg/dL (70-99) 88 mg/dL (70-99) Calcium Level 8.4 mg/dL (8.5-10.1) 8.2 mg/dL (8.5-10.1) Total Bilirubin 0.3 mg/dL (0.2-1.0) 0.3 mg/dL (0.2-1.0) Aspartate Amino Transf (AST/SGOT) 16 U/L (15-37) 14 U/L (15-37) Alanine Aminotransferase (ALT/SGPT) 18 U/L (14-59) 12 U/L (14-59) Alkaline Phosphatase 62 U/L (46-116) 56 U/L (46-116) Total Protein 5.9 g/dL (6.4-8.2) 5.3 g/dL (6.4-8.2) Albumin 1.9 g/dL (3.4-5.0) 1.8 g/dL (3.4-5.0) Albumin/Globulin Ratio 0.5 (1.0-1.7) 0.5 (1.0-1.7) Laboratory Tests Test 05/19/20 10:40 White Blood Count 6.3 x10^3/uL (4.0-11.0) Red Blood Count 4.99 x10^6/uL (3.50-5.40) Hemoglobin 9.9 g/dL (12.0-15.5) Hematocrit 34.3 % (36.0-47.0) Mean Corpuscular Volume 69 fL (79-100) Mean Corpuscular Hemoglobin 20 pg (25-35) Mean Corpuscular Hemoglobin Concent 29 g/dL (31-37) Red Cell Distribution Width 29.7 % (11.5-14.5) Platelet Count 509 x10^3/uL (140-400) Neutrophils (%) (Auto) 56 % (31-73) Lymphocytes (%) (Auto) 15 % (24-48) Monocytes (%) (Auto) 24 % (0-9) Eosinophils (%) (Auto) 5 % (0-3) Basophils (%) (Auto) 1 % (0-3) Neutrophils # (Auto) 3.5 x10^3/uL (1.8-7.7) Lymphocytes # (Auto) 1.0 x10^3/uL (1.0-4.8) Monocytes # (Auto) 1.5 x10^3/uL (0.0-1.1) Eosinophils # (Auto) 0.3 x10^3/uL (0.0-0.7) Basophils # (Auto) 0.0 x10^3/uL (0.0-0.2) Sodium Level 149 mmol/L (136-145) Potassium Level 4.0 mmol/L (3.5-5.1) Chloride Level 116 mmol/L (98-107) Carbon Dioxide Level 24 mmol/L (21-32) Anion Gap 9 (6-14) Blood Urea Nitrogen 7 mg/dL (7-20) Creatinine 0.6 mg/dL (0.6-1.0) Estimated GFR (Cockcroft-Gault) 124.7 BUN/Creatinine Ratio 12 (6-20) Glucose Level 88 mg/dL (70-99) Calcium Level 8.2 mg/dL (8.5-10.1) Total Bilirubin 0.3 mg/dL (0.2-1.0) Aspartate Amino Transf (AST/SGOT) 14 U/L (15-37) Alanine Aminotransferase (ALT/SGPT) 12 U/L (14-59) Alkaline Phosphatase 56 U/L (46-116) Total Protein 5.3 g/dL (6.4-8.2) Albumin 1.8 g/dL (3.4-5.0) Albumin/Globulin Ratio 0.5 (1.0-1.7) Microbiology 05/16/20 Urine Culture - Final, Complete 05/16/20 Antimicrobic Susceptibility - Final, Complete Medications Current Medications Sodium Chloride 1,000 ml @ 1,000 mls/hr 1X ONCE IV Last administered on 05/16/20at 16:38; Start 05/16/20 at 16:30; Stop 05/16/20 at 17:29; Status DC Erythromycin (Romycin) 0.25 inch 1X ONCE OU Last administered on 05/16/20at 16:44; Start 05/16/20 at 16:45; Stop 05/16/20 at 16:46; Status DC Iohexol (Omnipaque 300 Mg/ml) 75 ml 1X ONCE IV Last administered on 05/16/20at 17:47; Start 05/16/20 at 18:00; Stop 05/16/20 at 18:01; Status DC Sodium Chloride 1,000 ml @ 1,000 mls/hr 1X ONCE IV Last administered on 05/16/20at 19:12; Start 05/16/20 at 18:30; Stop 05/16/20 at 19:29; Status DC Piperacillin Sod/ Tazobactam Sod 3.375 gm/Sodium Chloride 50 ml @ 100 mls/hr 1X ONCE IV Last administered on 05/16/20at 19:25; Start 05/16/20 at 19:00; Stop 05/16/20 at 19:29; Status DC Levofloxacin/ Dextrose 150 ml @ 100 mls/hr 1X ONCE IV Last administered on 05/16/20at 19:57; Start 05/16/20 at 19:30; Stop 05/16/20 at 20:59; Status DC Ondansetron HCl (Zofran) 4 mg PRN Q8HRS PRN IV NAUSEA/VOMITING; Start 05/16/20 at 18:30; Stop 05/17/20 at 18:29; Status DC Sodium Chloride 1,000 ml @ 75 mls/hr 1X ONCE IV ; Start 05/16/20 at 18:30; Stop 05/17/20 at 07:49; Status DC Pantoprazole Sodium (PROTONIX VIAL for IV PUSH) 40 mg DAILYAC IVP Last administered on 05/19/20at 08:31; Start 05/17/20 at 07:30; Stop 05/19/20 at 16: 30; Status DC Potassium Chloride (Klor-Con) 40 meq 1X PRN PRN PO PER PROTOCOL; Start 05/16/20 at 21:45 Potassium Chloride/Water 100 ml @ 100 mls/hr PRN Q1HR PRN IV HYPOKALEMIA; Start 05/16/20 at 21:45 Potassium Phos/ Sodium Phos (Phos-Nak) 1 pkt PRN BID PRN PO PHOSPHOROUS 2-2.4; Start 05/17/20 at 09:00 Potassium Bicarbonate (Potassium Effervescent Tablet) 40 meq PRN Q4HRS PRN PO PER PROTOCOL Last administered on 05/19/20at 11:35; Start 05/16/20 at 21:45 Potassium Chloride/Water 100 ml @ 100 mls/hr PRN Q1HR PRN IV PER PROTOCOL; Start 05/16/20 at 21:45 Acetaminophen (Tylenol Supp) 650 mg PRN Q6HRS PRN WA FEVER > 100.3'F; Start 05/17/20 at 12:30 Bisacodyl (Dulcolax Supp) 10 mg PRN DAILY PRN RC CONSTIPATION Last administered on 05/18/20at 08:34; Start 05/17/20 at 12:30 Cetirizine HCl (ZyrTEC) 10 mg DAILY PO Last administered on 05/20/20at 08:42; Start 05/17/20 at 13:30 Divalproex Sodium (Depakote) 250 mg DAILY@1400 PO Last administered on 05/19/20at 15:27; Start 05/17/20 at 14:00 Divalproex Sodium (Depakote) 500 mg BID PO Last administered on 05/20/20at 08:43; Start 05/17/20 at 21:00 Docusate Sodium (Colace) 200 mg HS PO Last administered on 05/19/20at 22:52; Start 05/17/20 at 21:00 Famotidine (Pepcid) 20 mg HS PO Last administered on 05/19/20at 22:52; Start 05/17/20 at 21:00 Gabapentin (Neurontin) 200 mg TID PO Last administered on 05/20/20 08:43; Start 05/17/20 at 14:00 Loperamide HCl (Imodium) 2 mg PRN Q8HRS PRN PO DIARRHEA; Start 05/17/20 at 12:30 Sodium Monofluorophosphate (Fleet Adult) 133 ml PRN Q8HRS PRN RC CONSTIPATION; Start 05/17/20 at 12:30 Polyethylene Glycol (miraLAX PACKET) 17 gm PRN DAILY PRN PO CONSTIPATION Last administered on 05/18/20at 08:33; Start 05/17/20 at 12:30 Chlorhexidine Gluconate (Peridex) 15 ml BID SWSP Last administered on 05/19/20at 22:52; Start 05/17/20 at 21:00 Non-Formulary Medication (Clobazam (Onfi)) 5 mg [id number] PO Last administered on 05/20/20at 08:43; Start 05/17/20 at 14:00 Glycopyrrolate (Robinul) 1 mg PRN Q8HRS PRN PO SECRETIONS; Start 05/18/20 at 09:00 Non-Formulary Medication (Melatonin ) 3 mg PRN QHS PRN PO INSOMNIA; Start 05/17/20 at 12:30; Status UNV Oxycodone HCl (Roxicodone) 5 mg PRN Q4HRS PRN PO PAIN; Start 05/17/20 at 13:00 Topiramate (Topamax) 200 mg BID PO Last administered on 05/20/20at 08:43; Start 05/17/20 at 13:30 Piperacillin Sod/ Tazobactam Sod 3.375 gm/Sodium Chloride 50 ml @ 100 mls/hr Q6HRS IV Last administered on 05/20/20at 05:01; Start 05/17/20 at 13:30 Dextrose/Sodium Chloride 1,000 ml @ 75 mls/hr [id number] IV Last administered on 05/20/20at 04:39; Start 05/17/20 at 15:30 Lactobacillus Rhamnosus (Culturelle) 1 cap BID PO Last administered on 05/20/20at 08:42; Start 05/18/20 at 21:00 Pantoprazole Sodium (Protonix) 40 mg DAILYAC PO Last administered on 05/20/20at 08:42; Start 05/20/20 at 07:30 Active Scripts Active Acetaminophen Supp (Acetaminophen) 650 Mg Supp.rect 650 Mg WA PRN Q6HRS PRN 10 Days Reported Imodium A-D (Loperamide HCl) 2 Mg Capsule 2 Mg PO PRN Q8HRS PRN Glycopyrrolate 2 Mg Tablet 1 Mg PO PRN Q8HRS PRN Gabapentin (Gabapentin) 100 Mg Capsule 200 Mg PO TID Chlorhexidine Gluconate 118 Ml Liquid 1 Gerald PO BID Topamax (Topiramate) 200 Mg Tablet 200 Mg PO BID Polyethylene Glycol 3350 17 Gm Powd.pack 17 Gm PO PRN DAILY PRN Oxycodone Hcl 5 Mg Capsule 5 Mg PO PRN Q4HRS PRN Melatonin 3 Mg Tablet 3 Mg PO PRN QHS PRN Fleet Enema (Na Phos,M-B/Na Phos,Di-Ba) 133 Ml Enema 133 Ml RC PRN Q8HRS PRN Famotidine 20 Mg Tablet 20 Mg PO HS Bisacodyl 10 Mg Supp.rect 10 Mg RC PRN DAILY PRN Docusate Sodium 100 Mg Capsule 200 Mg PO HS Divalproex Sodium Er (Divalproex Sodium) 500 Mg Tab.er.24h 500 Mg PO BID Eliquis (Apixaban) 5 Mg Tablet 5 Mg PO BID Divalproex Sodium Er (Divalproex Sodium) 500 Mg Tab.er.24h 250 Mg PO DAILY Zyrtec (Cetirizine Hcl) 10 Mg Tablet 1 Tab PO DAILY Onfi (Clobazam) 10 Mg Tablet 5 Mg PO [id number] Vitals/I & O Vital Sign - Last 24 Hours 05/19/20 05/19/20 05/19/20 05/19/20 11:00 15:00 19:20 20:15 Temp 98.4 98.8 98.1 98.4 98.8 98.1 Pulse 75 96 91 Resp 18 20 18 B/P (MAP) 96/54 (68) 121/60 (80) 117/69 (85) Pulse Ox 99 9 100 O2 Delivery Nasal Cannula Nasal Cannula Nasal Cannula Nasal Cannula O2 Flow Rate 2.0 2.0 2.0 2.0 05/19/20 05/20/20 05/20/20 23:59 03:50 07:00 Temp 98.3 97.9 97.7 98.3 97.9 97.7 Pulse 76 64 71 Resp 20 18 18 B/P (MAP) 95/56 (69) 79/43 (55) 109/56 (73) Pulse Ox 99 100 100 O2 Delivery Nasal Cannula Nasal Cannula Nasal Cannula O2 Flow Rate 2.0 2.0 2.0 Intake and Output 05/19/20 05/19/20 05/20/20 15:00 23:00 07:00 Intake Total 600 ml 0 ml 1050 ml Balance 600 ml 0 ml 1050 ml Justicifation of Admission Dx: Justifications for Admission: Justification of Admission Dx: Yes ADA MCCULLOUGH MD May 20, 2020 09:41
--- NOTE | 2020-05-20 10:28 | PDOC ---
Date of Service: DATE: 05/20/20 TIME: 10:14 Objective: Objective: No bleeding per nurse. Thinks family wants to pursue colonoscopy. Vital Signs: Vital Signs Date Time Temp Pulse Resp B/P (MAP) Pulse Ox O2 Delivery O2 Flow Rate FiO2 05/20/20 07:00 97.7 71 18 109/56 (73) 100 Nasal Cannula 2.0 97.7 Labs: Laboratory Tests Test 05/19/20 10:40 White Blood Count 6.3 x10^3/uL Red Blood Count 4.99 x10^6/uL Hemoglobin 9.9 g/dL Hematocrit 34.3 % Mean Corpuscular Volume 69 fL Mean Corpuscular Hemoglobin 20 pg Mean Corpuscular Hemoglobin Concent 29 g/dL Red Cell Distribution Width 29.7 % Platelet Count 509 x10^3/uL Neutrophils (%) (Auto) 56 % Lymphocytes (%) (Auto) 15 % Monocytes (%) (Auto) 24 % Eosinophils (%) (Auto) 5 % Basophils (%) (Auto) 1 % Neutrophils # (Auto) 3.5 x10^3/uL Lymphocytes # (Auto) 1.0 x10^3/uL Monocytes # (Auto) 1.5 x10^3/uL Eosinophils # (Auto) 0.3 x10^3/uL Basophils # (Auto) 0.0 x10^3/uL Sodium Level 149 mmol/L Potassium Level 4.0 mmol/L Chloride Level 116 mmol/L Carbon Dioxide Level 24 mmol/L Anion Gap 9 Blood Urea Nitrogen 7 mg/dL Creatinine 0.6 mg/dL Estimated GFR (Cockcroft-Gault) 124.7 BUN/Creatinine Ratio 12 Glucose Level 88 mg/dL Calcium Level 8.2 mg/dL Total Bilirubin 0.3 mg/dL Aspartate Amino Transf (AST/SGOT) 14 U/L Alanine Aminotransferase (ALT/SGPT) 12 U/L Alkaline Phosphatase 56 U/L Total Protein 5.3 g/dL Albumin 1.8 g/dL Albumin/Globulin Ratio 0.5 PE: GEN: chronically ill LUNGS: diminished, NC 2L HEART: RRR ABD: BS+, non-tender NEURO/PSYCH: awake A/P: TRISTAN, UTI H/o dysphagia Abnormal CT - stable mass at uterus, RLQ lymphadenopathy Mental disability, h/o seizures -- Spoke w/ sister CHRISTIAN Johnson, who is interested in pursuing colonoscopy. Long discussion - questions were answered to her satisfaction. Will review timing w/ Dr. Arriaza. Justicifation of Admission Dx: Justifications for Admission: Justification of Admission Dx: Yes SARA RAZO May 20, 2020 10:28
[2020-05-20 10:29] VITALS: BP 119/74
[2020-05-20] MEDS ORDERED: BISACODYL 5 MG TABLET.DR. PO ONE (10:45)
--- NOTE | 2020-05-20 11:30 | NUR ---
Wound Care Wound Type/Assessment: see wound assessment. patient has a left heel stage 1 pressure ulcer, the area was cleaned, measured, pictured and redressed with an Aquacel foam dressing. patient has a DTI pressure ulcer to the right heel and right medial foot, these areas were cleaned, measured and redressed with an Aquacel foam dressing. Reapplied Off-loading boots. Treatment Recommendations/Plan: Recommendations of Aquacel foam dressings, change every 3 days to the left and right heel and right medial foot wounds. Offloading surface/device: Patient has off-loading boots. Patient needs to be turning every 2 hours, patient turned to the left side at this time. Discharge Recommendations for dressings: Recommendations of continuing with the recommended treatment. Notified RN about the POC and wound care will continue to f/u for changes.
--- NOTE | 2020-05-20 11:50 | NUR ---
SS following up with discharge planning. SS reviewed pt chart and discussed with pt RN. Pt is LTC resident from [facility]. Pt DNR. COVID19 negative. Per RN, pt having colonoscopy on Wednesday. SS was asked to discuss hospice with pt's sister, Naomy Conway, . SS contacted pt's sister and discussed. Pt's sister reported that pt had been on hospice for awhile at the nursing facility but they revoked because they were not satisfied with hospice. SS discussed hospice options with pt's sister and pt's sister stated that she would do some research and think about it for awhile. SS will continue to follow for discharge planning.
[2020-05-20] MEDS: DIVALPROEX DELAYED RELEASE 250 MG TABLET.DR. PO SCH (13:57)
[2020-05-20 14:37] VITALS: BP 140/68
[2020-05-20 19:52] VITALS: BP 112/59
[2020-05-20] MEDS: FAMOTIDINE 20 MG TABLET. PO SCH (20:11)
[2020-05-20] MEDS: DOCUSATE SODIUM 100 MG CAPSULE. PO SCH (20:12)
[2020-05-20] MEDS: oxyCODONE IR 5 MG TABLET PO PRN (21:58)
[2020-05-20 23:17] VITALS: BP 108/60
[2020-05-21 03:00] VITALS: BP 111/56
[2020-05-21 06:42] LABS: BASO % 0 % (0-3); EOS # 0.2 x10^3/uL (0.0-0.7); EOS % 4 % (0-3); HEMATOCRIT 30.2 % (36.0-47.0); HEMOGLOBIN 8.8 g/dL (12.0-15.5); LYMPH # 1.7 x10^3/uL (1.0-4.8); LYMPH % 28 % (24-48); MEAN CORPUSCULAR HEMOGLOBIN 20 pg (25-35); MEAN CORPUSCULAR HGB CONC 29 g/dL (31-37); MEAN CORPUSCULAR VOLUME 68 fL (79-100); MONO # 1.2 x10^3/uL (0.0-1.1); MONO % 19 % (0-9); NEUT # 2.9 x10^3/uL (1.8-7.7); NEUT % 49 % (31-73); PLATELET COUNT 458 x10^3/uL (140-400); RED BLOOD COUNT 4.45 x10^6/uL (3.50-5.40); RED CELL DISTRIBUTION WIDTH 30.8 % (11.5-14.5); WHITE BLOOD COUNT 6.1 x10^3/uL (4.0-11.0)
[2020-05-21 06:53] LABS: CALCIUM 8.5 mg/dL (8.5-10.1); CREATININE 0.4 mg/dL (0.6-1.0); GFR 199.1; POTASSIUM 3.5 mmol/L (3.5-5.1)
[2020-05-21 07:00] VITALS: BP 110/59
[2020-05-21 07:19] LABS: ANISOCYTOSIS MOD; HYPOCHROMIA MOD; MICROCYTOSIS MOD
[2020-05-21 07:20] LABS: OVALOCYTES MOD; PLT ESTIMATE INCREASED (ADEQUATE); POLYCHROMASIA SLIGHT; TEAR DROP CELLS FEW
--- NOTE | 2020-05-21 08:17 | PDOC ---
Infectious Disease Note Subjective: Subjective pt more alert today says feels " fine" does not answer other questions d/w RN Vital Signs: Vital Signs Vital Signs Date Time Temp Pulse Resp B/P (MAP) Pulse Ox O2 Delivery O2 Flow Rate FiO2 05/21/20 03:00 98.2 93 21 111/56 (74) 98 Nasal Cannula 2.0 98.2 Physical Exam: PHYSICAL EXAM GENERAL: Awake female, who mumbles few words, unable to understand, not in distress. HEENT: Anicteric no thrush NECK: Supple. LUNGS: Clear. HEART: S1, S2 regular. ABDOMEN: Is soft and nontender. No organomegaly. No rebound or guarding. EXTREMITIES: No edema, no cyanosis. SKIN: Unremarkable. NEUROLOGIC: Awake and mumbles few words, but unable to understand. She does not have any upper or lower extremity function. Medications: Inpatient Meds: Current Medications Medications (Trade) Dose Ordered Sig/Ruthie Start Time Stop Time Status Last Admin Dose Admin Acetaminophen (Tylenol Supp) 650 mg PRN Q6HRS PRN 05/17/20 12:30 Bisacodyl (Dulcolax Supp) 10 mg PRN DAILY PRN 05/17/20 12:30 05/18/20 08:34 10 MG Bisacodyl (Dulcolax Tab) 10 mg 1X ONCE 05/20/20 10:45 05/20/20 10:48 DC 05/20/20 10:45 10 MG Cetirizine HCl (ZyrTEC) 10 mg DAILY 05/17/20 13:30 05/20/20 08:42 10 MG Chlorhexidine Gluconate (Peridex) 15 ml BID 05/17/20 21:00 05/20/20 20:12 15 ML Dextrose/Sodium Chloride 1,000 ml @ 75 mls/hr [id number] 05/17/20 15:30 05/20/20 19:02 75 MLS/HR Divalproex Sodium (Depakote) 500 mg BID 05/17/20 21:00 05/20/20 20:12 500 MG Docusate Sodium (Colace) 200 mg HS 05/17/20 21:00 05/20/20 20:12 200 MG Erythromycin (Romycin) 0.25 inch 1X ONCE 05/16/20 16:45 05/16/20 16:46 DC 05/16/20 16:44 0.25 INCH Famotidine (Pepcid) 20 mg HS 05/17/20 21:00 05/20/20 20:11 20 MG Gabapentin (Neurontin) 200 mg TID 05/17/20 14:00 05/20/20 20:12 200 MG Glycopyrrolate (Robinul) 1 mg PRN Q8HRS PRN 05/18/20 09:00 Iohexol (Omnipaque 300 Mg/ml) 75 ml 1X ONCE 05/16/20 18:00 05/16/20 18:01 DC 05/16/20 17:47 75 ML Lactobacillus Rhamnosus (Culturelle) 1 cap BID 05/18/20 21:00 05/20/20 20:11 1 CAP Levofloxacin/ Dextrose 150 ml @ 100 mls/hr 1X ONCE 05/16/20 19:30 05/16/20 20:59 DC 05/16/20 19:57 100 MLS/HR Loperamide HCl (Imodium) 2 mg PRN Q8HRS PRN 05/17/20 12:30 Non-Formulary Medication (Clobazam (Onfi)) 5 mg [id number] 05/17/20 14:00 05/20/20 13:56 5 MG Non-Formulary Medication (Melatonin ) 3 mg PRN QHS PRN 05/17/20 12:30 UNV Ondansetron HCl (Zofran) 4 mg PRN Q8HRS PRN 05/16/20 18:30 05/17/20 18:29 DC Oxycodone HCl (Roxicodone) 5 mg PRN Q4HRS PRN 05/17/20 13:00 05/20/20 21:58 5 MG Pantoprazole Sodium (PROTONIX VIAL for IV PUSH) 40 mg DAILYAC 05/17/20 07:30 05/19/20 16:30 DC 05/19/20 08:31 40 MG Pantoprazole Sodium (Protonix) 40 mg DAILYAC 05/20/20 07:30 05/20/20 08:42 40 MG Piperacillin Sod/ Tazobactam Sod 3.375 gm/Sodium Chloride 50 ml @ 100 mls/hr Q6HRS 05/17/20 13:30 05/20/20 09:53 DC 05/20/20 05:01 100 MLS/HR Polyethylene Glycol (miraLAX PACKET) 17 gm PRN DAILY PRN 05/17/20 12:30 05/18/20 08:33 17 GM Polyethylene Glycol (miraLAX Powder BULK BOTTLE) 238 gm 1X ONCE 05/21/20 09:00 05/21/20 09:01 Potassium Bicarbonate (Potassium Effervescent Tablet) 40 meq PRN Q4HRS PRN 05/16/20 21:45 05/19/20 11:35 40 MEQ Potassium Chloride/Water 100 ml @ 100 mls/hr PRN Q1HR PRN 05/16/20 21:45 Potassium Chloride (Klor-Con) 40 meq 1X PRN PRN 05/16/20 21:45 Potassium Phos/ Sodium Phos (Phos-Nak) 1 pkt PRN BID PRN 05/17/20 09:00 Ringer's Solution 1,000 ml @ 50 mls/hr Q20H 05/22/20 07:00 05/22/20 18:59 Sodium Monofluorophosphate (Fleet Adult) 133 ml PRN Q8HRS PRN 05/17/20 12:30 Sodium Chloride 1,000 ml @ 75 mls/hr 1X ONCE 05/16/20 18:30 05/17/20 07:49 DC Topiramate (Topamax) 200 mg BID 05/17/20 13:30 05/20/20 20:11 200 MG Labs: Lab Laboratory Tests Test 05/21/20 05:55 White Blood Count 6.1 x10^3/uL (4.0-11.0) Red Blood Count 4.45 x10^6/uL (3.50-5.40) Hemoglobin 8.8 g/dL (12.0-15.5) Hematocrit 30.2 % (36.0-47.0) Mean Corpuscular Volume 68 fL (79-100) Mean Corpuscular Hemoglobin 20 pg (25-35) Mean Corpuscular Hemoglobin Concent 29 g/dL (31-37) Red Cell Distribution Width 30.8 % (11.5-14.5) Platelet Count 458 x10^3/uL (140-400) Neutrophils (%) (Auto) 49 % (31-73) Lymphocytes (%) (Auto) 28 % (24-48) Monocytes (%) (Auto) 19 % (0-9) Eosinophils (%) (Auto) 4 % (0-3) Basophils (%) (Auto) 0 % (0-3) Neutrophils # (Auto) 2.9 x10^3/uL (1.8-7.7) Lymphocytes # (Auto) 1.7 x10^3/uL (1.0-4.8) Monocytes # (Auto) 1.2 x10^3/uL (0.0-1.1) Eosinophils # (Auto) 0.2 x10^3/uL (0.0-0.7) Basophils # (Auto) 0.0 x10^3/uL (0.0-0.2) Platelet Estimate Increased (ADEQUATE) Polychromasia Slight Hypochromasia Mod Anisocytosis Mod Microcytosis Mod Tear Drop Cells Few Ovalocytes Mod Sodium Level 147 mmol/L (136-145) Potassium Level 3.5 mmol/L (3.5-5.1) Chloride Level 115 mmol/L (98-107) Carbon Dioxide Level 22 mmol/L (21-32) Anion Gap 10 (6-14) Blood Urea Nitrogen 7 mg/dL (7-20) Creatinine 0.4 mg/dL (0.6-1.0) Estimated GFR (Cockcroft-Gault) 199.1 Glucose Level 114 mg/dL (70-99) Calcium Level 8.5 mg/dL (8.5-10.1) Objective: Assessment: 1. Anemia. 2. Mesenteric lymphadenopathy. 3. Uterine mass. 4. Urine culture positive with E. coli. It is a contamination probably as it is unclear how the urine was obtained. The patient is not able to provide any symptomatology. 5. Developmental delay. Plan: Plan of Care Per discussion with team family wants to pursue colonoscopy awaiting colonoscopy tomorrow SIMONA Morgan Continue supportive care Discussed with nursing staff JAKE SALINAS MD May 21, 2020 08:17
[2020-05-21] MEDS ORDERED: POLYETHYLENE GLYCOL 3350 BTL 238 GM POWDER PO ONE (09:00)
[2020-05-21] MEDS: IV DEXTROSE 5 %-0.2 % NACL 1,000 ML IV SCH (09:09)
[2020-05-21] MEDS: GABAPENTIN 100 MG CAPSULE. PO SCH ×3 (09:24→21:31)
[2020-05-21] MEDS: LACTOBACILLUS RHAMNOSUS GG 1 CAPSULE. PO SCH ×2 (09:24→21:31)
[2020-05-21] MEDS: oxyCODONE IR 5 MG TABLET PO PRN (09:24)
[2020-05-21] MEDS: PANTOPRAZOLE 40 MG TABLET.DR. PO SCH (09:24)
[2020-05-21] MEDS: TOPIRAMATE 100 MG TABLET. PO SCH ×2 (09:24→21:31)
[2020-05-21] MEDS: CETIRIZINE HCL 10 MG TABLET. PO SCH (09:24)
[2020-05-21] MEDS: DIVALPROEX DELAYED RELEASE 500 MG TABLET.DR. PO SCH ×2 (09:25→21:31)
[2020-05-21] MEDS: CHLORHEXIDINE 0.12% 15 ML MOUTHWASH. SWSP SCH ×3 (09:25→21:36)
--- NOTE | 2020-05-21 09:29 | PDOC ---
PROGRESS NOTES Date of Service: DATE: 05/21/20 TIME: 09:27 Chief Complaint Chief Complaint Low Hemoglobin History of Present Illness History of Present Illness History unable to obtain due to clinical condition. Hemoglobin stable. Discussed with RN. GI to perform colonoscopy tomorrow after bowel prep to evaluate source of anemia. Vitals Vitals Vital Signs Date Time Temp Pulse Resp B/P (MAP) Pulse Ox O2 Delivery O2 Flow Rate FiO2 05/21/20 09:24 100 Nasal Cannula 2.0 05/21/20 07:00 98.6 101 20 110/59 (76) 98.6 Physical Exam Physical Exam GENERAL: Awake female, who mumbles few words, unable to understand, not in distress. HEENT: Anicteric no thrush NECK: Supple. LUNGS: Clear. HEART: S1, S2 regular. ABDOMEN: Is soft and nontender. No organomegaly. No rebound or guarding. EXTREMITIES: No edema, no cyanosis. SKIN: Unremarkable. NEUROLOGIC: Awake and mumbles few words, but unable to understand. She does not have any upper or lower extremity function. General: Cooperative, No acute distress Heart: Regular rate, Normal S1, Normal S2 Lungs: Clear Abdomen: Soft Extremities: No cyanosis, No edema Skin: No rashes Labs LABS Laboratory Tests Test 05/21/20 05:55 White Blood Count 6.1 x10^3/uL (4.0-11.0) Red Blood Count 4.45 x10^6/uL (3.50-5.40) Hemoglobin 8.8 g/dL (12.0-15.5) Hematocrit 30.2 % (36.0-47.0) Mean Corpuscular Volume 68 fL (79-100) Mean Corpuscular Hemoglobin 20 pg (25-35) Mean Corpuscular Hemoglobin Concent 29 g/dL (31-37) Red Cell Distribution Width 30.8 % (11.5-14.5) Platelet Count 458 x10^3/uL (140-400) Neutrophils (%) (Auto) 49 % (31-73) Lymphocytes (%) (Auto) 28 % (24-48) Monocytes (%) (Auto) 19 % (0-9) Eosinophils (%) (Auto) 4 % (0-3) Basophils (%) (Auto) 0 % (0-3) Neutrophils # (Auto) 2.9 x10^3/uL (1.8-7.7) Lymphocytes # (Auto) 1.7 x10^3/uL (1.0-4.8) Monocytes # (Auto) 1.2 x10^3/uL (0.0-1.1) Eosinophils # (Auto) 0.2 x10^3/uL (0.0-0.7) Basophils # (Auto) 0.0 x10^3/uL (0.0-0.2) Platelet Estimate Increased (ADEQUATE) Polychromasia Slight Hypochromasia Mod Anisocytosis Mod Microcytosis Mod Tear Drop Cells Few Ovalocytes Mod Sodium Level 147 mmol/L (136-145) Potassium Level 3.5 mmol/L (3.5-5.1) Chloride Level 115 mmol/L (98-107) Carbon Dioxide Level 22 mmol/L (21-32) Anion Gap 10 (6-14) Blood Urea Nitrogen 7 mg/dL (7-20) Creatinine 0.4 mg/dL (0.6-1.0) Estimated GFR (Cockcroft-Gault) 199.1 Glucose Level 114 mg/dL (70-99) Calcium Level 8.5 mg/dL (8.5-10.1) Review of Systems Review of Systems Unable to obtain due to dementia Assessment and Plan Assessmemt and Plan Problems Medical Problems: (1) Hypernatremia Status: Acute (2) Severe anemia Status: Acute (3) Severe sepsis Status: Acute (4) UTI (urinary tract infection) Status: Acute Plan: Continue to monitor hemoglobin, transfuse as needed. Bowel prep for colonoscopy tomorrow. Comment Review of Relevant I have reviewed the following items len (where applicable) has been applied. Labs Laboratory Tests Test 05/19/20 10:40 05/21/20 05:55 White Blood Count 6.3 x10^3/uL (4.0-11.0) 6.1 x10^3/uL (4.0-11.0) Red Blood Count 4.99 x10^6/uL (3.50-5.40) 4.45 x10^6/uL (3.50-5.40) Hemoglobin 9.9 g/dL (12.0-15.5) 8.8 g/dL (12.0-15.5) Hematocrit 34.3 % (36.0-47.0) 30.2 % (36.0-47.0) Mean Corpuscular Volume 69 fL (79-100) 68 fL (79-100) Mean Corpuscular Hemoglobin 20 pg (25-35) 20 pg (25-35) Mean Corpuscular Hemoglobin Concent 29 g/dL (31-37) 29 g/dL (31-37) Red Cell Distribution Width 29.7 % (11.5-14.5) 30.8 % (11.5-14.5) Platelet Count 509 x10^3/uL (140-400) 458 x10^3/uL (140-400) Neutrophils (%) (Auto) 56 % (31-73) 49 % (31-73) Lymphocytes (%) (Auto) 15 % (24-48) 28 % (24-48) Monocytes (%) (Auto) 24 % (0-9) 19 % (0-9) Eosinophils (%) (Auto) 5 % (0-3) 4 % (0-3) Basophils (%) (Auto) 1 % (0-3) 0 % (0-3) Neutrophils # (Auto) 3.5 x10^3/uL (1.8-7.7) 2.9 x10^3/uL (1.8-7.7) Lymphocytes # (Auto) 1.0 x10^3/uL (1.0-4.8) 1.7 x10^3/uL (1.0-4.8) Monocytes # (Auto) 1.5 x10^3/uL (0.0-1.1) 1.2 x10^3/uL (0.0-1.1) Eosinophils # (Auto) 0.3 x10^3/uL (0.0-0.7) 0.2 x10^3/uL (0.0-0.7) Basophils # (Auto) 0.0 x10^3/uL (0.0-0.2) 0.0 x10^3/uL (0.0-0.2) Sodium Level 149 mmol/L (136-145) 147 mmol/L (136-145) Potassium Level 4.0 mmol/L (3.5-5.1) 3.5 mmol/L (3.5-5.1) Chloride Level 116 mmol/L (98-107) 115 mmol/L (98-107) Carbon Dioxide Level 24 mmol/L (21-32) 22 mmol/L (21-32) Anion Gap 9 (6-14) 10 (6-14) Blood Urea Nitrogen 7 mg/dL (7-20) 7 mg/dL (7-20) Creatinine 0.6 mg/dL (0.6-1.0) 0.4 mg/dL (0.6-1.0) Estimated GFR (Cockcroft-Gault) 124.7 199.1 BUN/Creatinine Ratio 12 (6-20) Glucose Level 88 mg/dL (70-99) 114 mg/dL (70-99) Calcium Level 8.2 mg/dL (8.5-10.1) 8.5 mg/dL (8.5-10.1) Total Bilirubin 0.3 mg/dL (0.2-1.0) Aspartate Amino Transf (AST/SGOT) 14 U/L (15-37) Alanine Aminotransferase (ALT/SGPT) 12 U/L (14-59) Alkaline Phosphatase 56 U/L (46-116) Total Protein 5.3 g/dL (6.4-8.2) Albumin 1.8 g/dL (3.4-5.0) Albumin/Globulin Ratio 0.5 (1.0-1.7) Platelet Estimate Increased (ADEQUATE) Polychromasia Slight Hypochromasia Mod Anisocytosis Mod Microcytosis Mod Tear Drop Cells Few Ovalocytes Mod Laboratory Tests Test 05/21/20 05:55 White Blood Count 6.1 x10^3/uL (4.0-11.0) Red Blood Count 4.45 x10^6/uL (3.50-5.40) Hemoglobin 8.8 g/dL (12.0-15.5) Hematocrit 30.2 % (36.0-47.0) Mean Corpuscular Volume 68 fL (79-100) Mean Corpuscular Hemoglobin 20 pg (25-35) Mean Corpuscular Hemoglobin Concent 29 g/dL (31-37) Red Cell Distribution Width 30.8 % (11.5-14.5) Platelet Count 458 x10^3/uL (140-400) Neutrophils (%) (Auto) 49 % (31-73) Lymphocytes (%) (Auto) 28 % (24-48) Monocytes (%) (Auto) 19 % (0-9) Eosinophils (%) (Auto) 4 % (0-3) Basophils (%) (Auto) 0 % (0-3) Neutrophils # (Auto) 2.9 x10^3/uL (1.8-7.7) Lymphocytes # (Auto) 1.7 x10^3/uL (1.0-4.8) Monocytes # (Auto) 1.2 x10^3/uL (0.0-1.1) Eosinophils # (Auto) 0.2 x10^3/uL (0.0-0.7) Basophils # (Auto) 0.0 x10^3/uL (0.0-0.2) Platelet Estimate Increased (ADEQUATE) Polychromasia Slight Hypochromasia Mod Anisocytosis Mod Microcytosis Mod Tear Drop Cells Few Ovalocytes Mod Sodium Level 147 mmol/L (136-145) Potassium Level 3.5 mmol/L (3.5-5.1) Chloride Level 115 mmol/L (98-107) Carbon Dioxide Level 22 mmol/L (21-32) Anion Gap 10 (6-14) Blood Urea Nitrogen 7 mg/dL (7-20) Creatinine 0.4 mg/dL (0.6-1.0) Estimated GFR (Cockcroft-Gault) 199.1 Glucose Level 114 mg/dL (70-99) Calcium Level 8.5 mg/dL (8.5-10.1) Microbiology 05/16/20 Urine Culture - Final, Complete 05/16/20 Antimicrobic Susceptibility - Final, Complete Medications Current Medications Sodium Chloride 1,000 ml @ 1,000 mls/hr 1X ONCE IV Last administered on 05/16/20at 16:38; Start 05/16/20 at 16:30; Stop 05/16/20 at 17:29; Status DC Erythromycin (Romycin) 0.25 inch 1X ONCE OU Last administered on 05/16/20at 16:44; Start 05/16/20 at 16:45; Stop 05/16/20 at 16:46; Status DC Iohexol (Omnipaque 300 Mg/ml) 75 ml 1X ONCE IV Last administered on 05/16/20at 17:47; Start 05/16/20 at 18:00; Stop 05/16/20 at 18:01; Status DC Sodium Chloride 1,000 ml @ 1,000 mls/hr 1X ONCE IV Last administered on 05/16/20at 19:12; Start 05/16/20 at 18:30; Stop 05/16/20 at 19:29; Status DC Piperacillin Sod/ Tazobactam Sod 3.375 gm/Sodium Chloride 50 ml @ 100 mls/hr 1X ONCE IV Last administered on 05/16/20at 19:25; Start 05/16/20 at 19:00; Stop 05/16/20 at 19:29; Status DC Levofloxacin/ Dextrose 150 ml @ 100 mls/hr 1X ONCE IV Last administered on 05/16/20at 19:57; Start 05/16/20 at 19:30; Stop 05/16/20 at 20:59; Status DC Ondansetron HCl (Zofran) 4 mg PRN Q8HRS PRN IV NAUSEA/VOMITING; Start 05/16/20 at 18:30; Stop 05/17/20 at 18:29; Status DC Sodium Chloride 1,000 ml @ 75 mls/hr 1X ONCE IV ; Start 05/16/20 at 18:30; Stop 05/17/20 at 07:49; Status DC Pantoprazole Sodium (PROTONIX VIAL for IV PUSH) 40 mg DAILYAC IVP Last administered on 05/19/20at 08:31; Start 05/17/20 at 07:30; Stop 05/19/20 at 16:30; Status DC Potassium Chloride (Klor-Con) 40 meq 1X PRN PRN PO PER PROTOCOL; Start 05/16/20 at 21:45 Potassium Chloride/Water 100 ml @ 100 mls/hr PRN Q1HR PRN IV HYPOKALEMIA; Start 05/16/20 at 21:45 Potassium Phos/ Sodium Phos (Phos-Nak) 1 pkt PRN BID PRN PO PHOSPHOROUS 2-2.4; Start 05/17/20 at 09:00 Potassium Bicarbonate (Potassium Effervescent Tablet) 40 meq PRN Q4HRS PRN PO PER PROTOCOL Last administered on 05/19/20at 11:35; Start 05/16/20 at 21:45 Potassium Chloride/Water 100 ml @ 100 mls/hr PRN Q1HR PRN IV PER PROTOCOL; Start 05/16/20 at 21:45 Acetaminophen (Tylenol Supp) 650 mg PRN Q6HRS PRN [place] FEVER > 100.3'F; Start 05/17/20 at 12:30 Bisacodyl (Dulcolax Supp) 10 mg PRN DAILY PRN RC CONSTIPATION Last administered on 05/18/20 08:34; Start 05/17/20 at 12:30 Cetirizine HCl (ZyrTEC) 10 mg DAILY PO Last administered on 05/21/20 09:24; Start 05/17/20 at 13:30 Divalproex Sodium (Depakote) 250 mg DAILY@1400 PO Last administered on 05/20/20 13:57; Start 05/17/20 at 14:00 Divalproex Sodium (Depakote) 500 mg BID PO Last administered on 05/21/20 09:25; Start 05/17/20 at 21:00 Docusate Sodium (Colace) 200 mg HS PO Last administered on 05/20/20at 20:12; Start 05/17/20 at 21:00 Famotidine (Pepcid) 20 mg HS PO Last administered on 05/20/20 20:11; Start 05/17/20 at 21:00 Gabapentin (Neurontin) 200 mg TID PO Last administered on 05/21/20 09:24; Start 05/17/20 at 14:00 Loperamide HCl (Imodium) 2 mg PRN Q8HRS PRN PO DIARRHEA; Start 05/17/20 at 12:30 Sodium Monofluorophosphate (Fleet Adult) 133 ml PRN Q8HRS PRN RC CONSTIPATION; Start 05/17/20 at 12:30 Polyethylene Glycol (miraLAX PACKET) 17 gm PRN DAILY PRN PO CONSTIPATION Last administered on 05/18/20 08:33; Start 05/17/20 at 12:30 Chlorhexidine Gluconate (Peridex) 15 ml BID SWSP Last administered on 05/21/20 09:25; Start 05/17/20 at 21:00 Non-Formulary Medication (Clobazam (Onfi)) 5 mg [id number] PO Last administered on 05/20/20 13:56; Start 05/17/20 at 14:00 Glycopyrrolate (Robinul) 1 mg PRN Q8HRS PRN PO SECRETIONS; Start 05/18/20 at 09:00 Non-Formulary Medication (Melatonin ) 3 mg PRN QHS PRN PO INSOMNIA; Start 05/17/20 at 12:30; Status UNV Oxycodone HCl (Roxicodone) 5 mg PRN Q4HRS PRN PO PAIN Last administered on 05/21/20at 09:24; Start 05/17/20 at 13:00 Topiramate (Topamax) 200 mg BID PO Last administered on 05/21/20at 09:24; Start 05/17/20 at 13:30 Piperacillin Sod/ Tazobactam Sod 3.375 gm/Sodium Chloride 50 ml @ 100 mls/hr Q6HRS IV Last administered on 05/20/20at 05:01; Start 05/17/20 at 13:30; Stop 05/20/20 at 09:53; Status DC Dextrose/Sodium Chloride 1,000 ml @ 75 mls/hr [id number] IV Last administered on 05/21/20at 09:09; Start 05/17/20 at 15:30 Lactobacillus Rhamnosus (Culturelle) 1 cap BID PO Last administered on 05/21/20at 09:24; Start 05/18/20 at 21:00 Pantoprazole Sodium (Protonix) 40 mg DAILYAC PO Last administered on 05/21/20at 09:24; Start 05/20/20 at 07:30 Polyethylene Glycol (miraLAX Powder BULK BOTTLE) 238 gm 1X ONCE PO ; Start 05/21/20 at 09:00; Stop 05/21/20 at 09:01; Status DC Bisacodyl (Dulcolax Tab) 10 mg 1X ONCE PO Last administered on 05/20/20at 10:45; Start 05/20/20 at 10:45; Stop 05/20/20 at 10:48; Status DC Ringer's Solution 1,000 ml @ 50 mls/hr Q20H IV ; Start 05/22/20 at 07:00; Stop 05/22/20 at 18:59 Active Scripts Active Acetaminophen Supp (Acetaminophen) 650 Mg Supp.rect 650 Mg [place] PRN Q6HRS PRN 10 Days Reported Imodium A-D (Loperamide HCl) 2 Mg Capsule 2 Mg PO PRN Q8HRS PRN Glycopyrrolate 2 Mg Tablet 1 Mg PO PRN Q8HRS PRN Gabapentin (Gabapentin) 100 Mg Capsule 200 Mg PO TID Chlorhexidine Gluconate 118 Ml Liquid 1 Gerald PO BID Topamax (Topiramate) 200 Mg Tablet 200 Mg PO BID Polyethylene Glycol 3350 17 Gm Powd.pack 17 Gm PO PRN DAILY PRN Oxycodone Hcl 5 Mg Capsule 5 Mg PO PRN Q4HRS PRN Melatonin 3 Mg Tablet 3 Mg PO PRN QHS PRN Fleet Enema (Na Phos,M-B/Na Phos,Di-Ba) 133 Ml Enema 133 Ml RC PRN Q8HRS PRN Famotidine 20 Mg Tablet 20 Mg PO HS Bisacodyl 10 Mg Supp.rect 10 Mg RC PRN DAILY PRN Docusate Sodium 100 Mg Capsule 200 Mg PO HS Divalproex Sodium Er (Divalproex Sodium) 500 Mg Tab.er.24h 500 Mg PO BID Eliquis (Apixaban) 5 Mg Tablet 5 Mg PO BID Divalproex Sodium Er (Divalproex Sodium) 500 Mg Tab.er.24h 250 Mg PO DAILY Zyrtec (Cetirizine Hcl) 10 Mg Tablet 1 Tab PO DAILY Onfi (Clobazam) 10 Mg Tablet 5 Mg PO [id number] Vitals/I & O Vital Sign - Last 24 Hours 05/20/20 05/20/20 05/20/20 05/20/20 10:29 14:37 19:32 19:52 Temp 98.2 97.4 98.5 98.2 97.4 98.5 Pulse 84 76 89 Resp 18 18 22 B/P (MAP) 119/74 (89) 140/68 (92) 112/59 (76) Pulse Ox 100 95 100 O2 Delivery Nasal Cannula Nasal Cannula Nasal Cannula Nasal Cannula O2 Flow Rate 2.0 2.0 2.0 2.0 05/20/20 05/20/20 05/20/20 05/21/20 21:58 22:58 23:17 03:00 Temp 98.4 98.2 98.4 98.2 Pulse 85 93 Resp 20 20 25 21 B/P (MAP) 108/60 (76) 111/56 (74) Pulse Ox 100 98 O2 Delivery Nasal Cannula Nasal Cannula O2 Flow Rate 2.0 2.0 05/21/20 05/21/20 07:00 09:24 Temp 98.6 98.6 Pulse 101 Resp 20 B/P (MAP) 110/59 (76) Pulse Ox 100 100 O2 Delivery Nasal Cannula Nasal Cannula O2 Flow Rate 2.0 2.0 Intake and Output 05/20/20 05/20/20 05/21/20 15:00 23:00 07:00 Intake Total 200 ml 120 ml 960 ml Output Total 1 ml 2 ml Balance 200 ml 119 ml 958 ml Justicifation of Admission Dx: Justifications for Admission: Justification of Admission Dx: Yes ADA MCCULLOUGH MD May 21, 2020 09:29
[2020-05-21 11:00] VITALS: BP 142/66
--- NOTE | 2020-05-21 11:06 | PDOC ---
Date of Service: DATE: 05/21/20 TIME: 11:04 Objective: Objective: D/w nurse - waiting for prep to be sent from pharmacy. Vital Signs: Vital Signs Date Time Temp Pulse Resp B/P (MAP) Pulse Ox O2 Delivery O2 Flow Rate FiO2 05/21/20 09:24 100 Nasal Cannula 2.0 05/21/20 07:00 98.6 101 20 110/59 (76) 98.6 Labs: Laboratory Tests Test 05/21/20 05:55 White Blood Count 6.1 x10^3/uL Red Blood Count 4.45 x10^6/uL Hemoglobin 8.8 g/dL Hematocrit 30.2 % Mean Corpuscular Volume 68 fL Mean Corpuscular Hemoglobin 20 pg Mean Corpuscular Hemoglobin Concent 29 g/dL Red Cell Distribution Width 30.8 % Platelet Count 458 x10^3/uL Neutrophils (%) (Auto) 49 % Lymphocytes (%) (Auto) 28 % Monocytes (%) (Auto) 19 % Eosinophils (%) (Auto) 4 % Basophils (%) (Auto) 0 % Neutrophils # (Auto) 2.9 x10^3/uL Lymphocytes # (Auto) 1.7 x10^3/uL Monocytes # (Auto) 1.2 x10^3/uL Eosinophils # (Auto) 0.2 x10^3/uL Basophils # (Auto) 0.0 x10^3/uL Platelet Estimate Increased Polychromasia Slight Hypochromasia Mod Anisocytosis Mod Microcytosis Mod Tear Drop Cells Few Ovalocytes Mod Sodium Level 147 mmol/L Potassium Level 3.5 mmol/L Chloride Level 115 mmol/L Carbon Dioxide Level 22 mmol/L Anion Gap 10 Blood Urea Nitrogen 7 mg/dL Creatinine 0.4 mg/dL Estimated GFR (Cockcroft-Gault) 199.1 Glucose Level 114 mg/dL Calcium Level 8.5 mg/dL PE: GEN: chronically ill, NAD - says "hi!" LUNGS: diminished, NC HEART: borderline tachycardic ABD: soft, non-tender NEURO/PSYCH: awake and alert, a bit tearful A/P: TRISTAN, UTI H/o dysphagia Abnormal CT - stable mass at uterus, RLQ lymphadenopathy Mental disability, h/o seizures -- Tentatively planning colonoscopy for tomorrow morning after prep per DPOA's request. Justicifation of Admission Dx: Justifications for Admission: Justification of Admission Dx: Yes SARA RAZO May 21, 2020 11:06
[2020-05-21] MEDS: DIVALPROEX DELAYED RELEASE 250 MG TABLET.DR. PO SCH (14:34)
[2020-05-21 15:00] VITALS: BP 124/63
[2020-05-21] MEDS: BISACODYL 10 MG SUPP.RECT. RC PRN (17:51)
[2020-05-21 19:00] VITALS: BP 159/111
[2020-05-21] MEDS: FAMOTIDINE 20 MG TABLET. PO SCH (21:31)
[2020-05-21] MEDS: DOCUSATE SODIUM 100 MG CAPSULE. PO SCH (21:32)
[2020-05-21 23:01] VITALS: BP 134/63
[2020-05-22] MEDS: IV DEXTROSE 5 %-0.2 % NACL 1,000 ML IV SCH ×2 (02:54→20:41)
[2020-05-22 02:58] VITALS: BP 105/60
[2020-05-22 06:24] LABS: CALCIUM 8.4 mg/dL (8.5-10.1); CREATININE 0.5 mg/dL (0.6-1.0); GFR 153.9; POTASSIUM 3.5 mmol/L (3.5-5.1)
[2020-05-22 07:00] VITALS: BP 119/64
[2020-05-22] MEDS ORDERED: IV RINGERS,LACTATED 1000ML 1,000 ML IV SCH (07:00)
[2020-05-22] MEDS ORDERED: IV RINGERS,LACTATED 1000ML 1,000 ML IV ONE (07:00)
[2020-05-22] MEDS ORDERED: PROPOFOL 10 MG/ML (20ML) VIAL. IV ONE (08:07)
--- NOTE | 2020-05-22 08:21 | PDOC ---
Infectious Disease Note Subjective: Subjective Patient off unit for procedure Vital Signs: Vital Signs Vital Signs Date Time Temp Pulse Resp B/P (MAP) Pulse Ox O2 Delivery O2 Flow Rate FiO2 05/22/20 07:53 Nasal Cannula 2.0 05/22/20 02:58 99.5 104 20 105/60 (75) 98 99.5 Physical Exam: PHYSICAL EXAM Medications: Inpatient Meds: Current Medications Medications (Trade) Dose Ordered Sig/Ruthie Start Time Stop Time Status Last Admin Dose Admin Acetaminophen (Tylenol Supp) 650 mg PRN Q6HRS PRN 05/17/20 12:30 Bisacodyl (Dulcolax Supp) 10 mg PRN DAILY PRN 05/17/20 12:30 05/21/20 17:51 10 MG Bisacodyl (Dulcolax Tab) 10 mg 1X ONCE 05/20/20 10:45 05/20/20 10:48 DC 05/20/20 10:45 10 MG Cetirizine HCl (ZyrTEC) 10 mg DAILY 05/17/20 13:30 05/21/20 09:24 10 MG Chlorhexidine Gluconate (Peridex) 15 ml BID 05/17/20 21:00 05/21/20 21:36 15 ML Dextrose/Sodium Chloride 1,000 ml @ 75 mls/hr [id number] 05/17/20 15:30 05/22/20 02:54 75 MLS/HR Divalproex Sodium (Depakote) 500 mg BID 05/17/20 21:00 05/21/20 21:31 500 MG Docusate Sodium (Colace) 200 mg HS 05/17/20 21:00 05/21/20 21:32 200 MG Erythromycin (Romycin) 0.25 inch 1X ONCE 05/16/20 16:45 05/16/20 16:46 DC 05/16/20 16:44 0.25 INCH Famotidine (Pepcid) 20 mg HS 05/17/20 21:00 05/21/20 21:31 20 MG Gabapentin (Neurontin) 200 mg TID 05/17/20 14:00 05/21/20 21:31 200 MG Glycopyrrolate (Robinul) 1 mg PRN Q8HRS PRN 05/18/20 09:00 Iohexol (Omnipaque 300 Mg/ml) 75 ml 1X ONCE 05/16/20 18:00 05/16/20 18:01 DC 05/16/20 17:47 75 ML Lactobacillus Rhamnosus (Culturelle) 1 cap BID 05/18/20 21:00 05/21/20 21:31 1 CAP Levofloxacin/ Dextrose 150 ml @ 100 mls/hr 1X ONCE 05/16/20 19:30 05/16/20 20:59 DC 05/16/20 19:57 100 MLS/HR Loperamide HCl (Imodium) 2 mg PRN Q8HRS PRN 05/17/20 12:30 Non-Formulary Medication (Clobazam (Onfi)) 5 mg [id number] 05/17/20 14:00 05/21/20 14:35 5 MG Non-Formulary Medication (Melatonin ) 3 mg PRN QHS PRN 05/17/20 12:30 UNV Ondansetron HCl (Zofran) 4 mg PRN Q8HRS PRN 05/16/20 18:30 05/17/20 18:29 DC Oxycodone HCl (Roxicodone) 5 mg PRN Q4HRS PRN 05/17/20 13:00 05/21/20 09:24 5 MG Pantoprazole Sodium (PROTONIX VIAL for IV PUSH) 40 mg DAILYAC 05/17/20 07:30 05/19/20 16:30 DC 05/19/20 08:31 40 MG Pantoprazole Sodium (Protonix) 40 mg DAILYAC 05/20/20 07:30 05/21/20 09:24 40 MG Piperacillin Sod/ Tazobactam Sod 3.375 gm/Sodium Chloride 50 ml @ 100 mls/hr Q6HRS 05/17/20 13:30 05/20/20 09:53 DC 05/20/20 05:01 100 MLS/HR Polyethylene Glycol (miraLAX PACKET) 17 gm PRN DAILY PRN 05/17/20 12:30 05/18/20 08:33 17 GM Polyethylene Glycol (miraLAX Powder BULK BOTTLE) 238 gm 1X ONCE 05/21/20 09:00 05/21/20 09:01 DC 05/21/20 09:00 238 GM Potassium Bicarbonate (Potassium Effervescent Tablet) 40 meq PRN Q4HRS PRN 05/16/20 21:45 05/19/20 11:35 40 MEQ Potassium Chloride/Water 100 ml @ 100 mls/hr PRN Q1HR PRN 05/16/20 21:45 Potassium Chloride (Klor-Con) 40 meq 1X PRN PRN 05/16/20 21:45 Potassium Phos/ Sodium Phos (Phos-Nak) 1 pkt PRN BID PRN 05/17/20 09:00 Propofol (Diprivan) 200 mg STK-MED ONCE 05/22/20 08:07 05/22/20 08:07 DC Ringer's Solution 1,000 ml @ 75 mls/hr 1X ONCE 05/22/20 07:00 05/22/20 20:19 Sodium Monofluorophosphate (Fleet Adult) 133 ml PRN Q8HRS PRN 05/17/20 12:30 Sodium Chloride 1,000 ml @ 75 mls/hr 1X ONCE 05/16/20 18:30 05/17/20 07:49 DC Topiramate (Topamax) 200 mg BID 05/17/20 13:30 05/21/20 21:31 200 MG Labs: Lab Laboratory Tests Test 05/22/20 05:05 Sodium Level 144 mmol/L (136-145) Potassium Level 3.5 mmol/L (3.5-5.1) Chloride Level 111 mmol/L (98-107) Carbon Dioxide Level 20 mmol/L (21-32) Anion Gap 13 (6-14) Blood Urea Nitrogen 3 mg/dL (7-20) Creatinine 0.5 mg/dL (0.6-1.0) Estimated GFR (Cockcroft-Gault) 153.9 Glucose Level 102 mg/dL (70-99) Calcium Level 8.4 mg/dL (8.5-10.1) Objective: Assessment: Urine culture positive for E. coli asymptomatic likely contamination Plan: Plan of Care Monitor off antibiotic Follow-up colonoscopy results JAKE SALINAS MD May 22, 2020 08:21
--- NOTE | 2020-05-22 08:47 | PDOC4 ---
Operative Note Operative Note Colonoscopy with biopsies Meds propofol per anesthesia Pre-op dx Chroniic blood loss anemia/abnl Ct scan Post-op dx internal hemorrhoids sigmoid diverticulosis ascending colon mass s/p bx/tattoo Plan surgical consult for resection pending biopsy results CEA level EMMA QUEEN MD May 22, 2020 08:47
[2020-05-22] MEDS: DIVALPROEX DELAYED RELEASE 500 MG TABLET.DR. PO SCH ×2 (09:00→20:40)
[2020-05-22] MEDS: GABAPENTIN 100 MG CAPSULE. PO SCH ×3 (09:00→20:40)
--- NOTE | 2020-05-22 09:54 | PDOC2 ---
OTTONIEL JOHNSON PRODUCTION CONSULTANT 05/22/20 0954: CONSULT Date of Consult Date of Consult DATE: 05/22/20 TIME: 09:51 Reason for Consult Reason for Consult: colon mass Referring Physician Referring Physician: Dr [email or web address] Identification/Chief Complaint Chief Complaint anemia Source Source: Chart review History of Present Illness Reason for Visit: Patient with communication deficit. Family currently not present. D.w Nurse here with anemia, underwent work up , colonoscopy today shows ascending colon mass. No obstructive symptoms on admission, underwent bowel prep yesterday Past Medical History CENTRAL NERVOUS SYSTEM: Dementia, Seizure GI: Constipation Psych: Other Musculoskeletal: Other Renal/: UTI Past Surgical History Past Surgical History: Hysterectomy, Other Family History Family History: Diabetes, Heart Disease Social History Lives: with Family Current Problem List Problem List Problems Medical Problems: (1) Hypernatremia Status: Acute (2) Severe anemia Status: Acute (3) Severe sepsis Status: Acute (4) UTI (urinary tract infection) Status: Acute Current Medications Current Medications Current Medications Sodium Chloride 1,000 ml @ 1,000 mls/hr 1X ONCE IV Last administered on 05/16/20at 16:38; Start 05/16/20 at 16:30; Stop 05/16/20 at 17:29; Status DC Erythromycin (Romycin) 0.25 inch 1X ONCE OU Last administered on 05/16/20at 16:44; Start 05/16/20 at 16:45; Stop 05/16/20 at 16:46; Status DC Iohexol (Omnipaque 300 Mg/ml) 75 ml 1X ONCE IV Last administered on 05/16/20at 17:47; Start 05/16/20 at 18:00; Stop 05/16/20 at 18:01; Status DC Sodium Chloride 1,000 ml @ 1,000 mls/hr 1X ONCE IV Last administered on 05/16/20at 19:12; Start 05/16/20 at 18:30; Stop 05/16/20 at 19:29; Status DC Piperacillin Sod/ Tazobactam Sod 3.375 gm/Sodium Chloride 50 ml @ 100 mls/hr 1X ONCE IV Last administered on 05/16/20at 19:25; Start 05/16/20 at 19:00; Stop 05/16/20 at 19:29; Status DC Levofloxacin/ Dextrose 150 ml @ 100 mls/hr 1X ONCE IV Last administered on 05/16/20at 19:57; Start 05/16/20 at 19:30; Stop 05/16/20 at 20:59; Status DC Ondansetron HCl (Zofran) 4 mg PRN Q8HRS PRN IV NAUSEA/VOMITING; Start 05/16/20 at 18:30; Stop 05/17/20 at 18:29; Status DC Sodium Chloride 1,000 ml @ 75 mls/hr 1X ONCE IV ; Start 05/16/20 at 18:30; Stop 05/17/20 at 07:49; Status DC Pantoprazole Sodium (PROTONIX VIAL for IV PUSH) 40 mg DAILYAC IVP Last administered on 05/19/20at 08:31; Start 05/17/20 at 07:30; Stop 05/19/20 at 16:30; Status DC Potassium Chloride (Klor-Con) 40 meq 1X PRN PRN PO PER PROTOCOL; Start 05/16/20 at 21:45 Potassium Chloride/Water 100 ml @ 100 mls/hr PRN Q1HR PRN IV HYPOKALEMIA; Start 05/16/20 at 21:45 Potassium Phos/ Sodium Phos (Phos-Nak) 1 pkt PRN BID PRN PO PHOSPHOROUS 2-2.4; Start 05/17/20 at 09:00 Potassium Bicarbonate (Potassium Effervescent Tablet) 40 meq PRN Q4HRS PRN PO PER PROTOCOL Last administered on 05/19/20at 11:35; Start 05/16/20 at 21:45 Potassium Chloride/Water 100 ml @ 100 mls/hr PRN Q1HR PRN IV PER PROTOCOL; Start 05/16/20 at 21:45 Acetaminophen (Tylenol Supp) 650 mg PRN Q6HRS PRN MT FEVER > 100.3'F; Start 05/17/20 at 12:30 Bisacodyl (Dulcolax Supp) 10 mg PRN DAILY PRN RC CONSTIPATION Last administered on 05/21/20at 17:51; Start 05/17/20 at 12:30 Cetirizine HCl (ZyrTEC) 10 mg DAILY PO Last administered on 05/21/20at 09:24; Start 05/17/20 at 13:30 Divalproex Sodium (Depakote) 250 mg DAILY@1400 PO Last administered on 9/1/20at 14:34; Start 05/17/20 at 14:00 Divalproex Sodium (Depakote) 500 mg BID PO Last administered on 05/21/20 21:31; Start 05/17/20 at 21:00 Docusate Sodium (Colace) 200 mg HS PO Last administered on 05/21/20 21:32; Start 05/17/20 at 21:00 Famotidine (Pepcid) 20 mg HS PO Last administered on 05/21/20 21:31; Start 05/17/20 at 21:00 Gabapentin (Neurontin) 200 mg TID PO Last administered on 05/21/20 21:31; Start 05/17/20 at 14:00 Loperamide HCl (Imodium) 2 mg PRN Q8HRS PRN PO DIARRHEA; Start 05/17/20 at 12:30 Sodium Monofluorophosphate (Fleet Adult) 133 ml PRN Q8HRS PRN RC CONSTIPATION; Start 05/17/20 at 12:30 Polyethylene Glycol (miraLAX PACKET) 17 gm PRN DAILY PRN PO CONSTIPATION Last administered on 05/18/20at 08:33; Start 05/17/20 at 12:30 Chlorhexidine Gluconate (Peridex) 15 ml BID SWSP Last administered on 05/21/20 21:36; Start 05/17/20 at 21:00 Non-Formulary Medication (Clobazam (Onfi)) 5 mg [id number] PO Last administered on 05/21/20 14:35; Start 05/17/20 at 14:00 Glycopyrrolate (Robinul) 1 mg PRN Q8HRS PRN PO SECRETIONS; Start 05/18/20 at 09:00 Non-Formulary Medication (Melatonin ) 3 mg PRN QHS PRN PO INSOMNIA; Start 05/17/20 at 12:30; Status UNV Oxycodone HCl (Roxicodone) 5 mg PRN Q4HRS PRN PO PAIN Last administered on 05/21/20 09:24; Start 05/17/20 at 13:00 Topiramate (Topamax) 200 mg BID PO Last administered on 05/21/20 21:31; Start 05/17/20 at 13:30 Piperacillin Sod/ Tazobactam Sod 3.375 gm/Sodium Chloride 50 ml @ 100 mls/hr Q6HRS IV Last administered on 05/20/20at 05:01; Start 05/17/20 at 13:30; Stop 05/20/20 at 09:53; Status DC Dextrose/Sodium Chloride 1,000 ml @ 75 mls/hr [id number] IV Last administered on 05/22/20at 02:54; Start 05/17/20 at 15:30 Lactobacillus Rhamnosus (Culturelle) 1 cap BID PO Last administered on 05/21/20at 21:31; Start 05/18/20 at 21:00 Pantoprazole Sodium (Protonix) 40 mg DAILYAC PO Last administered on 05/21/20at 09:24; Start 05/20/20 at 07:30 Polyethylene Glycol (miraLAX Powder BULK BOTTLE) 238 gm 1X ONCE PO Last administered on 05/21/20at 09:00; Start 05/21/20 at 09:00; Stop 05/21/20 at 09:01; Status DC Bisacodyl (Dulcolax Tab) 10 mg 1X ONCE PO Last administered on 05/20/20at 10:45; Start 05/20/20 at 10:45; Stop 05/20/20 at 10:48; Status DC Ringer's Solution 1,000 ml @ 50 mls/hr Q20H IV ; Start 05/22/20 at 07:00; Stop 05/22/20 at 18:59 Ringer's Solution 1,000 ml @ 75 mls/hr 1X ONCE IV ; Start 05/22/20 at 07:00; Stop 05/22/20 at 20:19 Propofol (Diprivan) 200 mg STK-MED ONCE IV ; Start 05/22/20 at 08:07; Stop 05/22/20 at 08:07; Status DC Active Scripts Active Acetaminophen Supp (Acetaminophen) 650 Mg Supp.rect 650 Mg MT PRN Q6HRS PRN 10 Days Reported Imodium A-D (Loperamide HCl) 2 Mg Capsule 2 Mg PO PRN Q8HRS PRN Glycopyrrolate 2 Mg Tablet 1 Mg PO PRN Q8HRS PRN Gabapentin (Gabapentin) 100 Mg Capsule 200 Mg PO TID Chlorhexidine Gluconate 118 Ml Liquid 1 Gerald PO BID Topamax (Topiramate) 200 Mg Tablet 200 Mg PO BID Polyethylene Glycol 3350 17 Gm Powd.pack 17 Gm PO PRN DAILY PRN Oxycodone Hcl 5 Mg Capsule 5 Mg PO PRN Q4HRS PRN Melatonin 3 Mg Tablet 3 Mg PO PRN QHS PRN Fleet Enema (Na Phos,M-B/Na Phos,Di-Ba) 133 Ml Enema 133 Ml RC PRN Q8HRS PRN Famotidine 20 Mg Tablet 20 Mg PO HS Bisacodyl 10 Mg Supp.rect 10 Mg RC PRN DAILY PRN Docusate Sodium 100 Mg Capsule 200 Mg PO HS Divalproex Sodium Er (Divalproex Sodium) 500 Mg Tab.er.24h 500 Mg PO BID Eliquis (Apixaban) 5 Mg Tablet 5 Mg PO BID Divalproex Sodium Er (Divalproex Sodium) 500 Mg Tab.er.24h 250 Mg PO DAILY Zyrtec (Cetirizine Hcl) 10 Mg Tablet 1 Tab PO DAILY Onfi (Clobazam) 10 Mg Tablet 5 Mg PO [id number] Allergies Allergies: Coded Allergies: No Known Drug Allergies (Unverified , 05/22/20) ROS Review of System unable to obtain Physical Exam General: Cooperative, No acute distress HEENT: Atraumatic, Mucous membr. moist/pink Lungs: Clear to auscultation, Normal air movement Heart: Regular rate, Normal S1, Normal S2 Abdomen: Soft, Other (unable to determine if pain on exam ) Extremities: No clubbing, No cyanosis Skin: No rashes, No breakdown Vitals VITALS Vital Signs Date Time Temp Pulse Resp B/P (MAP) Pulse Ox O2 Delivery O2 Flow Rate FiO2 05/22/20 09:25 97.1 89 20 100/55 96 Nasal Cannula 3 97.1 Labs Labs Laboratory Tests Test 05/21/20 05:55 05/22/20 05:05 White Blood Count 6.1 x10^3/uL (4.0-11.0) Red Blood Count 4.45 x10^6/uL (3.50-5.40) Hemoglobin 8.8 g/dL (12.0-15.5) Hematocrit 30.2 % (36.0-47.0) Mean Corpuscular Volume 68 fL (79-100) Mean Corpuscular Hemoglobin 20 pg (25-35) Mean Corpuscular Hemoglobin Concent 29 g/dL (31-37) Red Cell Distribution Width 30.8 % (11.5-14.5) Platelet Count 458 x10^3/uL (140-400) Neutrophils (%) (Auto) 49 % (31-73) Lymphocytes (%) (Auto) 28 % (24-48) Monocytes (%) (Auto) 19 % (0-9) Eosinophils (%) (Auto) 4 % (0-3) Basophils (%) (Auto) 0 % (0-3) Neutrophils # (Auto) 2.9 x10^3/uL (1.8-7.7) Lymphocytes # (Auto) 1.7 x10^3/uL (1.0-4.8) Monocytes # (Auto) 1.2 x10^3/uL (0.0-1.1) Eosinophils # (Auto) 0.2 x10^3/uL (0.0-0.7) Basophils # (Auto) 0.0 x10^3/uL (0.0-0.2) Platelet Estimate Increased (ADEQUATE) Polychromasia Slight Hypochromasia Mod Anisocytosis Mod Microcytosis Mod Tear Drop Cells Few Ovalocytes Mod Sodium Level 147 mmol/L (136-145) 144 mmol/L (136-145) Potassium Level 3.5 mmol/L (3.5-5.1) 3.5 mmol/L (3.5-5.1) Chloride Level 115 mmol/L (98-107) 111 mmol/L (98-107) Carbon Dioxide Level 22 mmol/L (21-32) 20 mmol/L (21-32) Anion Gap 10 (6-14) 13 (6-14) Blood Urea Nitrogen 7 mg/dL (7-20) 3 mg/dL (7-20) Creatinine 0.4 mg/dL (0.6-1.0) 0.5 mg/dL (0.6-1.0) Estimated GFR (Cockcroft-Gault) 199.1 153.9 Glucose Level 114 mg/dL (70-99) 102 mg/dL (70-99) Calcium Level 8.5 mg/dL (8.5-10.1) 8.4 mg/dL (8.5-10.1) Laboratory Tests Test 05/22/20 05:05 Sodium Level 144 mmol/L (136-145) Potassium Level 3.5 mmol/L (3.5-5.1) Chloride Level 111 mmol/L (98-107) Carbon Dioxide Level 20 mmol/L (21-32) Anion Gap 13 (6-14) Blood Urea Nitrogen 3 mg/dL (7-20) Creatinine 0.5 mg/dL (0.6-1.0) Estimated GFR (Cockcroft-Gault) 153.9 Glucose Level 102 mg/dL (70-99) Calcium Level 8.4 mg/dL (8.5-10.1) Assessment/Plan Assessment/Plan anemia, colon mass will have Dr Shah review for possible resection BENIGNO SHAH MD 05/22/20 1130: CONSULT Assessment/Plan Assessment/Plan Patient seen and examined by me she is currently resting comfortably in bed is noncommunicative her abdomen is soft nondistended nontender colonoscopy results show mass in the ascending colon which would explain her anemia biopsies taken most likely malignant. Patient's D POA sister was in the room had long discussion with her plan for right colon resection on 05/24/2020. Maintain clear liquid diet until surgery does not need repeat bowel prep OTTONIEL JOHNSON APRN May 22, 2020 09:54 BENIGNO SHAH MD May 22, 2020 11:30
[2020-05-22 11:00] VITALS: BP 107/57
[2020-05-22] MEDS: CETIRIZINE HCL 10 MG TABLET. PO SCH (11:57)
[2020-05-22] MEDS: LACTOBACILLUS RHAMNOSUS GG 1 CAPSULE. PO SCH ×2 (11:57→20:41)
[2020-05-22] MEDS: PANTOPRAZOLE 40 MG TABLET.DR. PO SCH (11:58)
[2020-05-22] MEDS: TOPIRAMATE 100 MG TABLET. PO SCH ×2 (11:58→20:40)
[2020-05-22 15:00] VITALS: BP 102/59
[2020-05-22] MEDS: DIVALPROEX DELAYED RELEASE 250 MG TABLET.DR. PO SCH (15:09)
[2020-05-22] MEDS: oxyCODONE IR 5 MG TABLET PO PRN ×2 (16:17→20:40)
[2020-05-22] MEDS: MORPHINE SULFATE 2 MG/ML VIAL. IV PRN ×2 (16:54→23:14)
[2020-05-22 19:07] VITALS: BP 102/59
[2020-05-22] MEDS: CHLORHEXIDINE 0.12% 15 ML MOUTHWASH. SWSP SCH (20:39)
[2020-05-22] MEDS: DOCUSATE SODIUM 100 MG CAPSULE. PO SCH (20:40)
[2020-05-22] MEDS: FAMOTIDINE 20 MG TABLET. PO SCH (20:40)
[2020-05-22 22:17] VITALS: BP 134/66
[2020-05-23] VITALS (7 sets, daily range): BP systolic 86–146; BP diastolic 50–62
[2020-05-23 05:25] LABS: CALCIUM 8.9 mg/dL (8.5-10.1); CREATININE 0.4 mg/dL (0.6-1.0); GFR 199.1; POTASSIUM 3.4 mmol/L (3.5-5.1)
[2020-05-23] MEDS: oxyCODONE IR 5 MG TABLET PO PRN ×3 (09:02→20:59)
[2020-05-23] MEDS: LACTOBACILLUS RHAMNOSUS GG 1 CAPSULE. PO SCH ×2 (09:02→21:00)
[2020-05-23] MEDS: TOPIRAMATE 100 MG TABLET. PO SCH ×2 (09:02→21:00)
[2020-05-23] MEDS: PANTOPRAZOLE 40 MG TABLET.DR. PO SCH (09:03)
[2020-05-23] MEDS: GABAPENTIN 100 MG CAPSULE. PO SCH ×3 (09:03→21:00)
[2020-05-23] MEDS: CETIRIZINE HCL 10 MG TABLET. PO SCH (09:03)
[2020-05-23] MEDS: CHLORHEXIDINE 0.12% 15 ML MOUTHWASH. SWSP SCH ×2 (09:03→21:00)
[2020-05-23] MEDS: IV DEXTROSE 5 %-0.2 % NACL 1,000 ML IV SCH ×2 (09:08→21:03)
[2020-05-23] MEDS: DIVALPROEX DELAYED RELEASE 500 MG TABLET.DR. PO SCH ×2 (09:08→21:00)
--- NOTE | 2020-05-23 10:45 | PDOC ---
[employer] PROGRESS NOTE Date of Service DOS: DATE: 05/23/20 TIME: 10:43 Chief Complaint Chief Complaint Low Hemoglobin History of Present Illness History of Present Illness History unable to obtain due to clinical condition. Hemoglobin stable. Discussed with RN. She is to have surgery for right bowel resection tomorrow Vitals/I&O Vitals/I&O: Vital Signs Date Time Temp Pulse Resp B/P (MAP) Pulse Ox O2 Delivery O2 Flow Rate FiO2 05/23/20 09:02 96 Nasal Cannula 2.0 05/23/20 07:29 98.4 102 24 146/59 (88) 98.4 I & O 05/22/20 05/22/20 05/23/20 15:00 23:00 07:00 Intake Total 0 ml 80 ml 1060 ml Balance 0 ml 80 ml 1060 ml Physical Exam Physical Exam: General: Cooperative, No acute distress Heart: Regular rate, Normal S1, Normal S2 Lungs: Clear Abdomen: Soft, Other (unable to determine if pain on exam ) Extremities: No clubbing, No cyanosis Skin: No rashes, No breakdown Labs Labs: Laboratory Tests Test 05/23/20 04:20 Sodium Level 148 mmol/L (136-145) Potassium Level 3.4 mmol/L (3.5-5.1) Chloride Level 115 mmol/L (98-107) Carbon Dioxide Level 23 mmol/L (21-32) Anion Gap 10 (6-14) Blood Urea Nitrogen 3 mg/dL (7-20) Creatinine 0.4 mg/dL (0.6-1.0) Estimated GFR (Cockcroft-Gault) 199.1 Glucose Level 104 mg/dL (70-99) Calcium Level 8.9 mg/dL (8.5-10.1) Review of Systems Review of Systems: Unable to obtain due to clinical condition Assessment and Plan Assessmemt and Plan Problems Medical Problems: (1) Hypernatremia Status: Acute (2) Severe anemia Status: Acute (3) Severe sepsis Status: Acute (4) UTI (urinary tract infection) Status: Acute Comment Review of Relevant I have reviewed the following items len (where applicable) has been applied. Medications: Current Medications Medications (Trade) Dose Ordered Sig/Ruthie Route PRN Reason Start Time Stop Time Status Last Admin Dose Admin Morphine Sulfate (Morphine Sulfate) 2 mg PRN Q2HR PRN IV PAIN 05/22/20 16:45 05/22/20 23:14 Justifications for Admission Other Justification ADA MCCULLOUGH MD May 23, 2020 10:45
--- NOTE | 2020-05-23 11:45 | PDOC ---
Date of Service: DATE: 05/23/20 TIME: 11:42 Objective: Vital Signs: Vital Signs Date Time Temp Pulse Resp B/P (MAP) Pulse Ox O2 Delivery O2 Flow Rate FiO2 05/23/20 10:57 110 107/55 (72) 05/23/20 10:53 98.0 24 97 Nasal Cannula 2.0 98.0 Labs: Laboratory Tests Test 05/23/20 04:20 Sodium Level 148 mmol/L Potassium Level 3.4 mmol/L Chloride Level 115 mmol/L Carbon Dioxide Level 23 mmol/L Anion Gap 10 Blood Urea Nitrogen 3 mg/dL Creatinine 0.4 mg/dL Estimated GFR (Cockcroft-Gault) 199.1 Glucose Level 104 mg/dL Calcium Level 8.9 mg/dL Imaging: Colonoscopy 05/22 internal hemorrhoids sigmoid diverticulosis ascending colon mass s/p bx/tattoo PE: GEN: NAD LUNGS: NC HEART: mildly tachycardic ABD: non-distended NEURO/PSYCH: sleeping, not disturbed A/P: TRISTAN, ascending colon mass Dysphagia, mental disability, h/o seizures UTI -- Plans for OR tomorrow, colonoscopy path pending. Justicifation of Admission Dx: Justifications for Admission: Justification of Admission Dx: Yes SARA RAZO May 23, 2020 11:45
[2020-05-23] MEDS: DIVALPROEX DELAYED RELEASE 250 MG TABLET.DR. PO SCH (14:47)
--- NOTE | 2020-05-23 16:22 | NUR ---
Wound Care Wound Type/Assessment: see wound assessment. patient has a left heel stage 1 pressure ulcer, the area was cleaned, and redressed with an Aquacel foam dressing. patient has a DTI pressure ulcer to the right heel and right medial foot, these areas were cleaned and redressed with an Aquacel foam dressing. Reapplied Off-loading boots. Treatment Recommendations/Plan: Recommendations of Aquacel foam dressings, change every 3 days to the left and right heel and right medial foot wounds. Offloading surface/device: Patient has off-loading boots. Patient needs to be turning every 2 hours, patient turned to the left side at this time. Discharge Recommendations for dressings: Recommendations of continuing with the recommended treatment. Will follow patient regarding wound care.
[2020-05-23] MEDS: MORPHINE SULFATE 2 MG/ML VIAL. IV PRN (18:04)
[2020-05-23] MEDS: DOCUSATE SODIUM 100 MG CAPSULE. PO SCH (20:59)
[2020-05-23] MEDS: FAMOTIDINE 20 MG TABLET. PO SCH (21:00)
[2020-05-24] VITALS (12 sets, daily range): BP systolic 91–131; BP diastolic 51–70
[2020-05-24] MEDS: MORPHINE SULFATE 2 MG/ML VIAL. IV PRN (03:50)
[2020-05-24 05:33] LABS: BASO # 0.1 x10^3/uL (0.0-0.2); BASO % 1 % (0-3); EOS # 0.4 x10^3/uL (0.0-0.7); EOS % 6 % (0-3); HEMATOCRIT 33.1 % (36.0-47.0); HEMOGLOBIN 9.6 g/dL (12.0-15.5); LYMPH # 1.8 x10^3/uL (1.0-4.8); LYMPH % 24 % (24-48); MEAN CORPUSCULAR HEMOGLOBIN 20 pg (25-35); MEAN CORPUSCULAR HGB CONC 29 g/dL (31-37); MEAN CORPUSCULAR VOLUME 69 fL (79-100); MONO # 1.8 x10^3/uL (0.0-1.1); MONO % 24 % (0-9); NEUT # 3.2 x10^3/uL (1.8-7.7); NEUT % 45 % (31-73); PLATELET COUNT 245 x10^3/uL (140-400); RED BLOOD COUNT 4.79 x10^6/uL (3.50-5.40); WHITE BLOOD COUNT 7.2 x10^3/uL (4.0-11.0)
[2020-05-24 05:46] LABS: CALCIUM 8.7 mg/dL (8.5-10.1); CREATININE 0.4 mg/dL (0.6-1.0); GFR 199.1
[2020-05-24] MEDS ORDERED: IV RINGERS,LACTATED 1000ML 1,000 ML IV SCH (07:00)
[2020-05-24] MEDS ORDERED: fentaNYL PF VIAL 100 MCG/2 ML VIAL IV PRN ×2 (07:00)
[2020-05-24] MEDS ORDERED: PROCHLORPERAZINE 10 MG/2 ML VIAL. IV PRN (07:00)
[2020-05-24] MEDS ORDERED: HYDROmorphone 2 MG/ML VIAL IV PRN (07:00)
[2020-05-24] MEDS ORDERED: ONDANSETRON PF 4 MG/2 ML VIAL. IV PRN ×2 (07:00→11:15)
[2020-05-24] MEDS ORDERED: MORPHINE SULFATE 2 MG/ML VIAL. IV PRN ×2 (07:00→11:15)
[2020-05-24] MEDS: PANTOPRAZOLE 40 MG TABLET.DR. PO SCH (07:30)
[2020-05-24] MEDS: IV DEXTROSE 5 %-0.2 % NACL 1,000 ML IV SCH (07:30)
[2020-05-24] MEDS ORDERED: LIDOCAINE 2% PF 5 ML VIAL. ONE (08:02)
[2020-05-24] MEDS ORDERED: PROPOFOL 10 MG/ML (20ML) VIAL. IV ONE (08:02)
[2020-05-24] MEDS ORDERED: SUCCINYLCHOLINE 200 MG/10 ML VIAL. ONE (08:03)
[2020-05-24] MEDS ORDERED: ROCURONIUM 50 MG/5 ML VIAL. ONE (08:03)
[2020-05-24] MEDS ORDERED: fentaNYL PF VIAL 100 MCG/2 ML VIAL ONE ×2 (08:04→10:56)
[2020-05-24] MEDS: LACTOBACILLUS RHAMNOSUS GG 1 CAPSULE. PO SCH ×2 (09:00→21:00)
[2020-05-24] MEDS: DIVALPROEX DELAYED RELEASE 500 MG TABLET.DR. PO SCH ×2 (09:00→21:00)
[2020-05-24] MEDS: CETIRIZINE HCL 10 MG TABLET. PO SCH (09:00)
[2020-05-24] MEDS: TOPIRAMATE 100 MG TABLET. PO SCH ×2 (09:00→21:00)
[2020-05-24] MEDS: GABAPENTIN 100 MG CAPSULE. PO SCH ×3 (09:00→21:00)
[2020-05-24] MEDS: CHLORHEXIDINE 0.12% 15 ML MOUTHWASH. SWSP SCH ×2 (09:00→21:00)
[2020-05-24] MEDS ORDERED: ALBUMIN HUMAN 5% 500 ML IV ONE ×3 (09:38→12:00)
[2020-05-24] MEDS ORDERED: DEXAMETHASONE SOD PHOS 4 MG/ML VIAL ONE (09:38)
[2020-05-24] MEDS ORDERED: DESFLURANE 61 TO 120 MINUTES IH ONE (09:38)
[2020-05-24] MEDS ORDERED: PHENYLEPHRINE in 0.9% NACL PF 1 MG/10 ML SYRINGE. IV ONE (09:47)
--- NOTE | 2020-05-24 10:04 | PDOC ---
[employer] PROGRESS NOTE Date of Service DOS: DATE: 05/24/20 TIME: 10:03 Chief Complaint Chief Complaint Low Hemoglobin History of Present Illness History of Present Illness Discussed with RN. Surgery for right bowel resection today. No acute events overnight. Vitals/I&O Vitals/I&O: Vital Signs Date Time Temp Pulse Resp B/P (MAP) Pulse Ox O2 Delivery O2 Flow Rate FiO2 05/24/20 08:16 98.1 101 15 106/66 94 Nasal Cannula 1.0 98.1 I & O 05/23/20 05/23/20 05/24/20 15:00 23:00 07:00 Intake Total 240 ml 300 ml Balance 240 ml 300 ml Physical Exam Physical Exam: General: Cooperative, No acute distress Heart: Regular rate, Normal S1, Normal S2 Lungs: Clear Abdomen: Soft, Other (unable to determine if pain on exam ) Extremities: No clubbing, No cyanosis Skin: No rashes, No breakdown Labs Labs: Laboratory Tests Test 05/24/20 05:20 White Blood Count 7.2 x10^3/uL (4.0-11.0) Red Blood Count 4.79 x10^6/uL (3.50-5.40) Hemoglobin 9.6 g/dL (12.0-15.5) Hematocrit 33.1 % (36.0-47.0) Mean Corpuscular Volume 69 fL (79-100) Mean Corpuscular Hemoglobin 20 pg (25-35) Mean Corpuscular Hemoglobin Concent 29 g/dL (31-37) Red Cell Distribution Width 30.0 % (11.5-14.5) Platelet Count 245 x10^3/uL (140-400) Neutrophils (%) (Auto) 45 % (31-73) Lymphocytes (%) (Auto) 24 % (24-48) Monocytes (%) (Auto) 24 % (0-9) Eosinophils (%) (Auto) 6 % (0-3) Basophils (%) (Auto) 1 % (0-3) Neutrophils # (Auto) 3.2 x10^3/uL (1.8-7.7) Lymphocytes # (Auto) 1.8 x10^3/uL (1.0-4.8) Monocytes # (Auto) 1.8 x10^3/uL (0.0-1.1) Eosinophils # (Auto) 0.4 x10^3/uL (0.0-0.7) Basophils # (Auto) 0.1 x10^3/uL (0.0-0.2) Sodium Level 145 mmol/L (136-145) Potassium Level 3.0 mmol/L (3.5-5.1) Chloride Level 113 mmol/L (98-107) Carbon Dioxide Level 22 mmol/L (21-32) Anion Gap 10 (6-14) Blood Urea Nitrogen 2 mg/dL (7-20) Creatinine 0.4 mg/dL (0.6-1.0) Estimated GFR (Cockcroft-Gault) 199.1 Glucose Level 98 mg/dL (70-99) Calcium Level 8.7 mg/dL (8.5-10.1) Assessment and Plan Assessmemt and Plan Problems Medical Problems: (1) Hypernatremia Status: Acute (2) Severe anemia Status: Acute (3) Severe sepsis Status: Acute (4) UTI (urinary tract infection) Status: Acute Comment Review of Relevant I have reviewed the following items len (where applicable) has been applied. Medications: Current Medications Medications (Trade) Dose Ordered Sig/Ruthie Route PRN Reason Start Time Stop Time Status Last Admin Dose Admin Ringer's Solution 1,000 ml @ 30 mls/hr Q24H IV 05/24/20 07:00 05/24/20 18:59 05/24/20 08:20 Cefazolin Sodium/ Dextrose 50 ml @ 100 mls/hr 1X ONCE IV 05/24/20 07:30 05/24/20 07:59 DC 05/24/20 09:39 Justifications for Admission Other Justification ADA MCCULLOUGH MD May 24, 2020 10:04
[2020-05-24] MEDS ORDERED: ONDANSETRON PF 4 MG/2 ML VIAL. ONE (10:13)
[2020-05-24] MEDS ORDERED: GLYCOPYRROLATE 1 MG/5 ML VIAL. ONE (10:14)
[2020-05-24] MEDS ORDERED: NEOSTIGMINE METHYLSULFATE 5 MG/5 ML SYRINGE. ONE (10:14)
--- NOTE | 2020-05-24 11:02 | PDOC4 ---
Operative Note Operative Note Date: 05/24/2020 at 1057 Preoperative diagnosis: Right colon mass Postoperative diagnosis: Same Procedure: Exploratory laparotomy with right colon resection and primary anastomosis Surgeon: Darian Specimen: Right colon Dictation: Patient is a 55-year-old female was mated to the hospital with anemia on further work-up she had a colonoscopy was found to have a large mass in the mid a sending colon which was tattooed at the time biopsies were taken. The procedure of right colon resection was explained to the patient's sister who is her D POA all risk benefits were also discussed including bleeding infection nonhealing of anastomosis leading to further operations and possibly colostomy. Patient's sister seemed to understand and gave both verbal and written consent to have the procedure performed. Patient was taken to the operating room placed in the supine position general anesthesia was initiated once patient was sleeping intubated her abdomen was prepped and draped usual sterile fashion using ChloraPrep. A midline incision was made with a 10 blade scalpel this is carried down through the subcutaneous tissue using electrocautery right hemostasis down to the fascia fascia was further open electrocautery and the peritoneum was opened Metzenbaum scissors once entered the abdomen the full length of the incision was opened with electrocautery. Abdomen was inspected tattoo was noted to be mid a sending colon liver appeared to be normal there were some large nodes within the mesentery of the colon. The white line of Toldt along the right gutter was taken down electrocautery the colon was rolled to the midline very easily a window was made in the mesentery of the small bowel at the distal ileum a ZOFIA 75 stapler was used to staple and transect the small bowel the mesentery was then taken down with impact LigaSure to the proximal transverse colon the hepatic flexure was taken down electrocautery a ZOFIA 75 stapler was used to staple and transect the colon specimen was then removed from the operative field and sent for pathology. A [id number] anastomosis was completed with the small bowel to colon and a peristaltic fashion with a ZOFIA 75 stapler the enterotomy was then closed with a running interlocking 3-0 Vicryl and 3-0 Vicryl Lembert sutures over the top of the closed enterotomy. Mesentery was closed with 3-0 Vicryl abdominal contents returned to the abdomen the abdomen was irrigated and suctioned dry hemostasis deemed be appropriate and the fascia was then closed with a running oh looped PDS the deep subcutaneous layer was closed with a running 2-0 Vicryl and the skin was reapproximated for subcuticular Monocryl Mastisol Steri-Strips and island dressings were applied patient was awakened and extubated in the operating room taken to recovery in stable condition all sponge instrument needle counts listed as correct estimated blood loss 30 mL. BENIGNO SHAH MD May 24, 2020 11:02
--- NOTE | 2020-05-24 11:06 | PDOC ---
Date of Service: DATE: 05/24/20 TIME: 11:04 Objective: Vital Signs: Vital Signs Date Time Temp Pulse Resp B/P (MAP) Pulse Ox O2 Delivery O2 Flow Rate FiO2 05/24/20 08:16 98.1 101 15 106/66 94 Nasal Cannula 1.0 98.1 Labs: Laboratory Tests Test 05/24/20 05:20 White Blood Count 7.2 x10^3/uL Red Blood Count 4.79 x10^6/uL Hemoglobin 9.6 g/dL Hematocrit 33.1 % Mean Corpuscular Volume 69 fL Mean Corpuscular Hemoglobin 20 pg Mean Corpuscular Hemoglobin Concent 29 g/dL Red Cell Distribution Width 30.0 % Platelet Count 245 x10^3/uL Neutrophils (%) (Auto) 45 % Lymphocytes (%) (Auto) 24 % Monocytes (%) (Auto) 24 % Eosinophils (%) (Auto) 6 % Basophils (%) (Auto) 1 % Neutrophils # (Auto) 3.2 x10^3/uL Lymphocytes # (Auto) 1.8 x10^3/uL Monocytes # (Auto) 1.8 x10^3/uL Eosinophils # (Auto) 0.4 x10^3/uL Basophils # (Auto) 0.1 x10^3/uL Sodium Level 145 mmol/L Potassium Level 3.0 mmol/L Chloride Level 113 mmol/L Carbon Dioxide Level 22 mmol/L Anion Gap 10 Blood Urea Nitrogen 2 mg/dL Creatinine 0.4 mg/dL Estimated GFR (Cockcroft-Gault) 199.1 Glucose Level 98 mg/dL Calcium Level 8.7 mg/dL Imaging: Preoperative diagnosis: Right colon mass Postoperative diagnosis: Same Procedure: Exploratory laparotomy with right colon resection and primary anastomosis PE: out of room A/P: TRISTAN, ascending colon mass Dysphagia, mental disability, h/o seizures UTI -- OR note as above. Continue per surgery, await path. Justicifation of Admission Dx: Justifications for Admission: Justification of Admission Dx: Yes SARA RAZO May 24, 2020 11:06
[2020-05-24] MEDS ORDERED: oxyCODONE/APAP 5/325 1 TAB TABLET PO PRN ×2 (11:15)
[2020-05-24] MEDS ORDERED: 0.9 % SODIUM CHLORIDE 10 ML DISP.SYRIN. IV PRN (11:15)
[2020-05-24] MEDS: KETOROLAC 15 MG/ML VIAL. IV SCH ×3 (12:00→23:49)
[2020-05-24 12:19] LABS: BASE EXCESS ABG -6 mmol/L (-3-3); HCO3 ABG 20 mmol/L (21-28); PCO2 ABG 39 mmHg (35-46); PO2 ABG 68 mmHg (75-108); SAT O2 ABG 91 % (92-99)
--- NOTE | 2020-05-24 12:21 | RAD ---
CHEST AP ONLY History: Reason: ett tube placement / Spl. Instructions: / History: Comparison: June 11, 2019 Findings: Endotracheal tube 4.2 cm above the red. Low lung volumes. Left basilar consolidation. Patchy right basilar opacity, likely atelectasis. Small left and possible small right pleural effusions. No pneumothorax. Left-sided vagal nerve stimulator, unchanged. Osteopenia. Impression: 1. Interval intubation. 2. Left basilar consolidation, may represent pneumonia. Recommend follow-up to ensure resolution. 3. Small left and possible small right pleural effusions. Electronically signed by: Jose Calvillo DO (05/24/2020 12:19 PM) [id number]
[2020-05-24 12:22] LABS: FIO2 ABG 100%+5
--- NOTE | 2020-05-24 12:35 | CONS ---
DATE OF CONSULTATION: PULMONARY CONSULTATION ATTENDING PHYSICIAN: Dr. Irby. REASON FOR CONSULTATION: Respiratory failure. HISTORY OF PRESENT ILLNESS: The patient is a 55-year-old female who is a [facility] resident with total care. She has history of developmental delay. The patient is also failure to thrive. She has underlying dementia. She was recently hospitalized with leukocytosis and she was very anemic with hemoglobin of 5.6. She had a CT abdomen and pelvis that showed enlarged right lower quadrant mesenteric lymph nodes and exophytic mass in the uterus. Today, she underwent exploratory laparotomy with right colon resection and primary anastomosis. She was found to have a right colon mass and suggestive of colon cancer. Intraoperatively, she dropped her blood pressure while on propofol and her mental status did not improve for safe extubation. Now as a result, she was left on the ventilator and will be transferred to the ICU. I saw the patient in the recovery room. She is currently on assist control mode. Rate is 16, tidal volume 501 and 100% FiO2 and 5 of PEEP. Her systolic blood pressure is in the high 80s. Chest x-ray is pending. ABGs are pending as well. PAST MEDICAL HISTORY: Significant for history of seizures, history of developmental delay. History of dementia, dysphagia, vitamin D deficiency. PAST SURGICAL HISTORY: Hysterectomy. ALLERGIES: None. MEDICATIONS: Reviewed as listed in the MRAD. REVIEW OF SYSTEMS: Unable to obtain from the patient as she is on the ventilator. PHYSICAL EXAMINATION: VITAL SIGNS: She is not arousable. On assist control mode, 100% FiO2 and 5 of PEEP. NECK: Supple. LUNGS: With diminished breath sounds. CARDIOVASCULAR: With a regular rate. ABDOMEN: With midline incision. EXTREMITIES: With trace pitting edema. LABORATORY DATA: Reviewed. White cell count 7.2, hemoglobin 9.6 and platelets are 245. BUN 2 and a creatinine of 0.4. IMPRESSION: 1. Respiratory failure, post exploratory laparotomy. Likely effect of sedative resulting in encephalopathy 2. Hypotension likely due to propofol. 3. The patient with developmental delay and underlying dementia. She is a [facility] with total care. 4. Right colon mass, status post exploratory laparotomy with right colon resection and primary anastomosis. The preliminary pathology consistent with colon cancer. 5. History of seizure disorder. RECOMMENDATIONS: 1. We will continue with present assist control mode. Follow ABGs and make necessary adjustment. We will wean FiO2. 2. Obtain chest x-ray. 3. We will make further recommendations after review of chest x-ray and ABGs. 4. Prognosis overall gained from malignancy standpoint. Quality of life is poor prior to surgery. 5. Follow Oncology recommendations. 6. Follow surgery recommendations. 7. DVT prophylaxis and stress ulcer prophylaxis. 8. Discussed with RN and we will follow along with you. Critical care time 33 minutes. DEBORAH NORTON MD DR: DANELLE/prince JOB#: [id number] / [id number] KYLEE
[2020-05-24] MEDS: IV DEXTROSE 5%-LACT RINGERS 1,000 ML IV SCH (13:58)
[2020-05-24] MEDS: DIVALPROEX DELAYED RELEASE 250 MG TABLET.DR. PO SCH (14:00)
--- NOTE | 2020-05-24 14:39 | RAD ---
PROCEDURE: KUB CLINICAL INDICATION / HISTORY: Reason: NG tube placement / Spl. Instructions: / History: . TECHNIQUE: Single AP image of the abdomen was obtained. COMPARISON: Abdomen pelvis CT 05/16/2020 FINDINGS: The lung bases show airspace opacity at the left lung base. An enteric tube has been placed. The tip projects over the left upper quadrant abdomen the expected location of the distal stomach. Surgical sutures are present in the right upper quadrant abdomen compatible with previous bowel surgery.. A nonobstructive bowel gas pattern is present. No organomegaly or pathologic calcifications are identified. No acute osseous abnormality. IMPRESSION: NG tube likely in the distal stomach. Electronically signed by: Jorgito Ho MD (05/24/2020 2:36 PM) [id number]
[2020-05-24] MEDS: cefOXitin SODIUM IV Push 1 GM VIAL. IVP SCH ×2 (15:32→23:50)
[2020-05-24] MEDS: fentaNYL PF VIAL 100 MCG/2 ML VIAL IVP PRN ×2 (16:26→18:05)
[2020-05-24] MEDS ORDERED: PROPOFOL 100 ML IV ONE (18:01)
[2020-05-24] MEDS: PROPOFOL 100 ML IV PRN (18:11)
[2020-05-24] MEDS: FAMOTIDINE 20 MG TABLET. PO SCH (21:00)
[2020-05-24] MEDS: DOCUSATE SODIUM 100 MG CAPSULE. PO SCH (21:00)
[2020-05-25] VITALS (24 sets, daily range): BP systolic 81–119; BP diastolic 48–68
[2020-05-25] MEDS: IV DEXTROSE 5%-LACT RINGERS 1,000 ML IV SCH ×3 (03:02→22:09)
[2020-05-25] MEDS: PROPOFOL 100 ML IV PRN ×2 (03:02→14:01)
[2020-05-25 05:35] LABS: BASO % 0 % (0-3); EOS % 0 % (0-3); HEMATOCRIT 26.2 % (36.0-47.0); HEMOGLOBIN 7.8 g/dL (12.0-15.5); LYMPH # 1.1 x10^3/uL (1.0-4.8); LYMPH % 6 % (24-48); MEAN CORPUSCULAR HEMOGLOBIN 20 pg (25-35); MEAN CORPUSCULAR HGB CONC 30 g/dL (31-37); MEAN CORPUSCULAR VOLUME 67 fL (79-100); MONO # 2.2 x10^3/uL (0.0-1.1); MONO % 11 % (0-9); NEUT # 15.6 x10^3/uL (1.8-7.7); NEUT % 82 % (31-73); PLATELET COUNT 160 x10^3/uL (140-400); RED CELL DISTRIBUTION WIDTH 30.2 % (11.5-14.5); WHITE BLOOD COUNT 18.9 x10^3/uL (4.0-11.0)
[2020-05-25 05:49] LABS: CALCIUM 7.8 mg/dL (8.5-10.1); CREATININE 0.5 mg/dL (0.6-1.0); GFR 153.9
[2020-05-25] MEDS: KETOROLAC 15 MG/ML VIAL. IV SCH ×4 (05:52→23:47)
[2020-05-25] MEDS: PANTOPRAZOLE 40 MG TABLET.DR. PO SCH (07:30)
[2020-05-25 07:49] LABS: BASE EXCESS ABG -6 mmol/L (-3-3); HCO3 ABG 18 mmol/L (21-28); PCO2 ABG 27 mmHg (35-46); PO2 ABG 66 mmHg (75-108); SAT O2 ABG 93 % (92-99)
[2020-05-25] MEDS: DIVALPROEX DELAYED RELEASE 500 MG TABLET.DR. PO SCH (08:11)
[2020-05-25] MEDS: CETIRIZINE HCL 10 MG TABLET. PO SCH (08:11)
[2020-05-25] MEDS: LACTOBACILLUS RHAMNOSUS GG 1 CAPSULE. PO SCH ×2 (08:11→20:31)
[2020-05-25] MEDS: GABAPENTIN 100 MG CAPSULE. PO SCH ×3 (08:11→20:31)
[2020-05-25] MEDS: TOPIRAMATE 100 MG TABLET. PO SCH ×2 (08:11→20:31)
[2020-05-25] MEDS: CHLORHEXIDINE 0.12% 15 ML MOUTHWASH. SWSP SCH (08:12)
[2020-05-25 08:17] LABS: FIO2 ABG 40/VENT
--- NOTE | 2020-05-25 08:27 | PDOC ---
SURGICAL PROGRESS NOTE DATE: 05/25/20 TIME: 08:24 Subjective Intubated and sedated Vital Signs Vital Signs Date Time Temp Pulse Resp B/P (MAP) Pulse Ox O2 Delivery O2 Flow Rate FiO2 05/25/20 08:00 98.7 105 16 84/51 (62) 97 Ventilator 98.7 05/24/20 08:16 1.0 I&O Intake and Output 05/25/20 07:00 Intake Total 3142 ml Output Total 1165 ml Balance 1977 ml IV Total 3142 ml Output Urine Total 1135 ml Estimated Blood Loss 30 ml # Voids 1 PATIENT HAS A DAVISON: Yes General: Other (sedated) HEENT: Other (NGT in place) Lungs: Clear to auscultation Heart: Regular rate Abdomen: Soft, Other (wounds c/d/i) Labs Laboratory Tests Test 05/24/20 05:20 05/24/20 12:00 05/25/20 04:40 05/25/20 07:30 White Blood Count 7.2 x10^3/uL (4.0-11.0) 18.9 x10^3/uL (4.0-11.0) Red Blood Count 4.79 x10^6/uL (3.50-5.40) 3.90 x10^6/uL (3.50-5.40) Hemoglobin 9.6 g/dL (12.0-15.5) 7.8 g/dL (12.0-15.5) Hematocrit 33.1 % (36.0-47.0) 26.2 % (36.0-47.0) Mean Corpuscular Volume 69 fL (79-100) 67 fL (79-100) Mean Corpuscular Hemoglobin 20 pg (25-35) 20 pg (25-35) Mean Corpuscular Hemoglobin Concent 29 g/dL (31-37) 30 g/dL (31-37) Red Cell Distribution Width 30.0 % (11.5-14.5) 30.2 % (11.5-14.5) Platelet Count 245 x10^3/uL (140-400) 160 x10^3/uL (140-400) Neutrophils (%) (Auto) 45 % (31-73) 82 % (31-73) Lymphocytes (%) (Auto) 24 % (24-48) 6 % (24-48) Monocytes (%) (Auto) 24 % (0-9) 11 % (0-9) Eosinophils (%) (Auto) 6 % (0-3) 0 % (0-3) Basophils (%) (Auto) 1 % (0-3) 0 % (0-3) Neutrophils # (Auto) 3.2 x10^3/uL (1.8-7.7) 15.6 x10^3/uL (1.8-7.7) Lymphocytes # (Auto) 1.8 x10^3/uL (1.0-4.8) 1.1 x10^3/uL (1.0-4.8) Monocytes # (Auto) 1.8 x10^3/uL (0.0-1.1) 2.2 x10^3/uL (0.0-1.1) Eosinophils # (Auto) 0.4 x10^3/uL (0.0-0.7) 0.0 x10^3/uL (0.0-0.7) Basophils # (Auto) 0.1 x10^3/uL (0.0-0.2) 0.0 x10^3/uL (0.0-0.2) Sodium Level 145 mmol/L (136-145) 144 mmol/L (136-145) Potassium Level 3.0 mmol/L (3.5-5.1) 3.0 mmol/L (3.5-5.1) Chloride Level 113 mmol/L (98-107) 112 mmol/L (98-107) Carbon Dioxide Level 22 mmol/L (21-32) 22 mmol/L (21-32) Anion Gap 10 (6-14) 10 (6-14) Blood Urea Nitrogen 2 mg/dL (7-20) 5 mg/dL (7-20) Creatinine 0.4 mg/dL (0.6-1.0) 0.5 mg/dL (0.6-1.0) Estimated GFR (Cockcroft-Gault) 199.1 153.9 Glucose Level 98 mg/dL (70-99) 105 mg/dL (70-99) Calcium Level 8.7 mg/dL (8.5-10.1) 7.8 mg/dL (8.5-10.1) O2 Saturation 91 % (92-99) 93 % (92-99) Arterial Blood pH 7.32 (7.35-7.45) 7.43 (7.35-7.45) Arterial Blood pCO2 at Patient Temp 39 mmHg (35-46) 27 mmHg (35-46) Arterial Blood pO2 at Patient Temp 68 mmHg (75-108) 66 mmHg (75-108) Arterial Blood HCO3 20 mmol/L (21-28) 18 mmol/L (21-28) Arterial Blood Base Excess -6 mmol/L (-3-3) -6 mmol/L (-3-3) FiO2 100%+5 40/vent Laboratory Tests Test 05/24/20 12:00 05/25/20 04:40 05/25/20 07:30 O2 Saturation 91 % (92-99) 93 % (92-99) Arterial Blood pH 7.32 (7.35-7.45) 7.43 (7.35-7.45) Arterial Blood pCO2 at Patient Temp 39 mmHg (35-46) 27 mmHg (35-46) Arterial Blood pO2 at Patient Temp 68 mmHg (75-108) 66 mmHg (75-108) Arterial Blood HCO3 20 mmol/L (21-28) 18 mmol/L (21-28) Arterial Blood Base Excess -6 mmol/L (-3-3) -6 mmol/L (-3-3) FiO2 100%+5 40/vent White Blood Count 18.9 x10^3/uL (4.0-11.0) Red Blood Count 3.90 x10^6/uL (3.50-5.40) Hemoglobin 7.8 g/dL (12.0-15.5) Hematocrit 26.2 % (36.0-47.0) Mean Corpuscular Volume 67 fL (79-100) Mean Corpuscular Hemoglobin 20 pg (25-35) Mean Corpuscular Hemoglobin Concent 30 g/dL (31-37) Red Cell Distribution Width 30.2 % (11.5-14.5) Platelet Count 160 x10^3/uL (140-400) Neutrophils (%) (Auto) 82 % (31-73) Lymphocytes (%) (Auto) 6 % (24-48) Monocytes (%) (Auto) 11 % (0-9) Eosinophils (%) (Auto) 0 % (0-3) Basophils (%) (Auto) 0 % (0-3) Neutrophils # (Auto) 15.6 x10^3/uL (1.8-7.7) Lymphocytes # (Auto) 1.1 x10^3/uL (1.0-4.8) Monocytes # (Auto) 2.2 x10^3/uL (0.0-1.1) Eosinophils # (Auto) 0.0 x10^3/uL (0.0-0.7) Basophils # (Auto) 0.0 x10^3/uL (0.0-0.2) Sodium Level 144 mmol/L (136-145) Potassium Level 3.0 mmol/L (3.5-5.1) Chloride Level 112 mmol/L (98-107) Carbon Dioxide Level 22 mmol/L (21-32) Anion Gap 10 (6-14) Blood Urea Nitrogen 5 mg/dL (7-20) Creatinine 0.5 mg/dL (0.6-1.0) Estimated GFR (Cockcroft-Gault) 153.9 Glucose Level 105 mg/dL (70-99) Calcium Level 7.8 mg/dL (8.5-10.1) Problem List Problems Medical Problems: (1) Hypernatremia Status: Acute (2) Severe anemia Status: Acute (3) Severe sepsis Status: Acute (4) UTI (urinary tract infection) Status: Acute Assessment/Plan S/P right colon resection-awaiting return of bowel function vent management per pulmonary Justicifation of Admission Dx: Justifications for Admission: Justification of Admission Dx: Yes BENIGNO SHAH MD May 25, 2020 08:27
[2020-05-25] MEDS ORDERED: PANTOPRAZOLE IV PUSH 40 MG VIAL. IVP ONE (08:30)
[2020-05-25] MEDS: fentaNYL PF VIAL 100 MCG/2 ML VIAL IVP PRN ×4 (09:02→16:10)
--- NOTE | 2020-05-25 09:02 | PDOC ---
PULMONARY PROGRESS NOTES DATE: 05/25/20 TIME: 09:02 Subjective on vent sedated on propofol scant ett secretion fi02 increased to 50% Vitals Vital Signs Date Time Temp Pulse Resp B/P (MAP) Pulse Ox O2 Delivery O2 Flow Rate FiO2 05/25/20 08:00 98.7 105 16 84/51 (62) 97 Ventilator 98.7 05/24/20 08:16 1.0 Comments ros unable to obtain on vent sedated sedated on vent HEENT: Other (nc at perrl nose clear orally intubated neck no lad no thyromegaly) Lungs: Other (deminished bs) Cardiovascular: S1, S2 Abdomen: Soft, Non-tender, Other (no mass) Extremities: No Edema Skin: Warm, Dry, No Rashes Labs Laboratory Tests Test 05/24/20 05:20 05/24/20 12:00 05/25/20 04:40 05/25/20 07:30 White Blood Count 7.2 x10^3/uL (4.0-11.0) 18.9 x10^3/uL (4.0-11.0) Red Blood Count 4.79 x10^6/uL (3.50-5.40) 3.90 x10^6/uL (3.50-5.40) Hemoglobin 9.6 g/dL (12.0-15.5) 7.8 g/dL (12.0-15.5) Hematocrit 33.1 % (36.0-47.0) 26.2 % (36.0-47.0) Mean Corpuscular Volume 69 fL (79-100) 67 fL (79-100) Mean Corpuscular Hemoglobin 20 pg (25-35) 20 pg (25-35) Mean Corpuscular Hemoglobin Concent 29 g/dL (31-37) 30 g/dL (31-37) Red Cell Distribution Width 30.0 % (11.5-14.5) 30.2 % (11.5-14.5) Platelet Count 245 x10^3/uL (140-400) 160 x10^3/uL (140-400) Neutrophils (%) (Auto) 45 % (31-73) 82 % (31-73) Lymphocytes (%) (Auto) 24 % (24-48) 6 % (24-48) Monocytes (%) (Auto) 24 % (0-9) 11 % (0-9) Eosinophils (%) (Auto) 6 % (0-3) 0 % (0-3) Basophils (%) (Auto) 1 % (0-3) 0 % (0-3) Neutrophils # (Auto) 3.2 x10^3/uL (1.8-7.7) 15.6 x10^3/uL (1.8-7.7) Lymphocytes # (Auto) 1.8 x10^3/uL (1.0-4.8) 1.1 x10^3/uL (1.0-4.8) Monocytes # (Auto) 1.8 x10^3/uL (0.0-1.1) 2.2 x10^3/uL (0.0-1.1) Eosinophils # (Auto) 0.4 x10^3/uL (0.0-0.7) 0.0 x10^3/uL (0.0-0.7) Basophils # (Auto) 0.1 x10^3/uL (0.0-0.2) 0.0 x10^3/uL (0.0-0.2) Sodium Level 145 mmol/L (136-145) 144 mmol/L (136-145) Potassium Level 3.0 mmol/L (3.5-5.1) 3.0 mmol/L (3.5-5.1) Chloride Level 113 mmol/L (98-107) 112 mmol/L (98-107) Carbon Dioxide Level 22 mmol/L (21-32) 22 mmol/L (21-32) Anion Gap 10 (6-14) 10 (6-14) Blood Urea Nitrogen 2 mg/dL (7-20) 5 mg/dL (7-20) Creatinine 0.4 mg/dL (0.6-1.0) 0.5 mg/dL (0.6-1.0) Estimated GFR (Cockcroft-Gault) 199.1 153.9 Glucose Level 98 mg/dL (70-99) 105 mg/dL (70-99) Calcium Level 8.7 mg/dL (8.5-10.1) 7.8 mg/dL (8.5-10.1) O2 Saturation 91 % (92-99) 93 % (92-99) Arterial Blood pH 7.32 (7.35-7.45) 7.43 (7.35-7.45) Arterial Blood pCO2 at Patient Temp 39 mmHg (35-46) 27 mmHg (35-46) Arterial Blood pO2 at Patient Temp 68 mmHg (75-108) 66 mmHg (75-108) Arterial Blood HCO3 20 mmol/L (21-28) 18 mmol/L (21-28) Arterial Blood Base Excess -6 mmol/L (-3-3) -6 mmol/L (-3-3) FiO2 100%+5 40/vent Laboratory Tests Test 05/24/20 12:00 05/25/20 04:40 05/25/20 07:30 O2 Saturation 91 % (92-99) 93 % (92-99) Arterial Blood pH 7.32 (7.35-7.45) 7.43 (7.35-7.45) Arterial Blood pCO2 at Patient Temp 39 mmHg (35-46) 27 mmHg (35-46) Arterial Blood pO2 at Patient Temp 68 mmHg (75-108) 66 mmHg (75-108) Arterial Blood HCO3 20 mmol/L (21-28) 18 mmol/L (21-28) Arterial Blood Base Excess -6 mmol/L (-3-3) -6 mmol/L (-3-3) FiO2 100%+5 40/vent White Blood Count 18.9 x10^3/uL (4.0-11.0) Red Blood Count 3.90 x10^6/uL (3.50-5.40) Hemoglobin 7.8 g/dL (12.0-15.5) Hematocrit 26.2 % (36.0-47.0) Mean Corpuscular Volume 67 fL (79-100) Mean Corpuscular Hemoglobin 20 pg (25-35) Mean Corpuscular Hemoglobin Concent 30 g/dL (31-37) Red Cell Distribution Width 30.2 % (11.5-14.5) Platelet Count 160 x10^3/uL (140-400) Neutrophils (%) (Auto) 82 % (31-73) Lymphocytes (%) (Auto) 6 % (24-48) Monocytes (%) (Auto) 11 % (0-9) Eosinophils (%) (Auto) 0 % (0-3) Basophils (%) (Auto) 0 % (0-3) Neutrophils # (Auto) 15.6 x10^3/uL (1.8-7.7) Lymphocytes # (Auto) 1.1 x10^3/uL (1.0-4.8) Monocytes # (Auto) 2.2 x10^3/uL (0.0-1.1) Eosinophils # (Auto) 0.0 x10^3/uL (0.0-0.7) Basophils # (Auto) 0.0 x10^3/uL (0.0-0.2) Sodium Level 144 mmol/L (136-145) Potassium Level 3.0 mmol/L (3.5-5.1) Chloride Level 112 mmol/L (98-107) Carbon Dioxide Level 22 mmol/L (21-32) Anion Gap 10 (6-14) Blood Urea Nitrogen 5 mg/dL (7-20) Creatinine 0.5 mg/dL (0.6-1.0) Estimated GFR (Cockcroft-Gault) 153.9 Glucose Level 105 mg/dL (70-99) Calcium Level 7.8 mg/dL (8.5-10.1) Medications Active Scripts Medications Dose Route/Sig Max Daily Dose Days Date Category Imodium A-D (Loperamide HCl) 2 Mg Capsule 2 Mg PO PRN Q8HRS PRN 05/16/20 Reported Glycopyrrolate 2 Mg Tablet 1 Mg PO PRN Q8HRS PRN 05/16/20 Reported Gabapentin (Gabapentin) 100 Mg Capsule 200 Mg PO TID 05/16/20 Reported Chlorhexidine Gluconate 118 Ml Liquid 1 Gerald PO BID 05/16/20 Reported Acetaminophen Supp (Acetaminophen) 650 Mg Supp.rect 650 Mg MO PRN Q6HRS PRN 10 06/15/19 Rx Topamax (Topiramate) 200 Mg Tablet 200 Mg PO BID 06/12/19 Reported Polyethylene Glycol 3350 17 Gm Powd.pack 17 Gm PO PRN DAILY PRN 06/12/19 Reported Oxycodone Hcl 5 Mg Capsule 5 Mg PO PRN Q4HRS PRN 06/12/19 Reported Melatonin 3 Mg Tablet 3 Mg PO PRN QHS PRN 06/12/19 Reported Fleet Enema (Na Phos,M-B/Na Phos,Di-Ba) 133 Ml Enema 133 Ml RC PRN Q8HRS PRN 06/12/19 Reported Famotidine 20 Mg Tablet 20 Mg PO HS 06/12/19 Reported Bisacodyl 10 Mg Supp.rect 10 Mg RC PRN DAILY PRN 06/12/19 Reported Docusate Sodium 100 Mg Capsule 200 Mg PO HS 06/12/19 Reported Divalproex Sodium Er (Divalproex Sodium) 500 Mg Tab.er.24h 500 Mg PO BID 06/12/19 Reported Eliquis (Apixaban) 5 Mg Tablet 5 Mg PO BID 06/12/19 Reported Divalproex Sodium Er (Divalproex Sodium) 500 Mg Tab.er.24h 250 Mg PO DAILY 06/12/19 Reported Zyrtec (Cetirizine Hcl) 10 Mg Tablet 1 Tab PO DAILY 01/09/18 Reported Onfi (Clobazam) 10 Mg Tablet 5 Mg PO [id number] 01/09/18 Reported Comments cxr reviewed ett ok b lat basilar atelectasis Impression . IMPRESSION: 1. Respiratory failure, post exploratory laparotomy. expected, Likely effect of sedative resulting in encephalopathy 2. Hypotension resolved 3. The patient with developmental delay and underlying dementia. She is a [facility] with total care. 4. Right colon mass, status post exploratory laparotomy with right colon resection and primary anastomosis. The preliminary pathology consistent with colon cancer. 5. History of seizure disorder. 6. abnl cxr atelectasis Plan . RECOMMENDATIONS: 1. We will continue with present assist control mode. ABGs reviewed. fio2 increased to 50% , will increase peep to 7, cont fio2 titration, not ready for sbt 2. chest x-ray reviewed atelectasis. 3. am cxr 4. Prognosis overall gained from malignancy standpoint. Quality of life was poor prior to surgery. 5. Follow Oncology recommendations. 6. Follow surgery recommendations. 7. DVT prophylaxis and stress ulcer prophylaxis. 8. Discussed with RN and rt and we will follow along with you. REBEL NOLAN MD May 25, 2020 09:02
[2020-05-25] MEDS: cefOXitin SODIUM IV Push 1 GM VIAL. IVP SCH (09:03)
--- NOTE | 2020-05-25 11:09 | PDOC ---
[employer] PROGRESS NOTE Date of Service DOS: DATE: 05/25/20 TIME: 11:07 Chief Complaint Chief Complaint Severe sepsis Respiratory failure requiring intubation Seizure disorder Cognitive deficit Low Hemoglobin ,it D Deficient,DYSPHAGIA,SIRS Hysterectomy [facility] resident History of Present Illness History of Present Illness 05/25/2022 Patient seen and examined in the ICU She is intubated Assist-control/02/02 100/50% with 7 of PEEP Discussed with RN I called the pharmacy to see about IV Depakote Chart reviewed She remains critically Vitals/I&O Vitals/I&O: Vital Signs Date Time Temp Pulse Resp B/P (MAP) Pulse Ox O2 Delivery O2 Flow Rate FiO2 05/25/20 11:00 103 16 117/63 (81) 97 Ventilator 05/25/20 08:00 98.7 98.7 05/24/20 08:16 1.0 I & O 05/24/20 05/24/20 05/25/20 15:00 23:00 07:00 Intake Total 1850 ml 373 ml 919 ml Output Total 435 ml 555 ml 175 ml Balance 1415 ml -182 ml 744 ml Physical Exam Physical Exam: General: Other (sedated) Heart: Regular rate Lungs: Other (deminished bs) Abdomen: Soft, Other (wounds c/d/i) Extremities: No clubbing, No cyanosis Skin: No rashes, No breakdown Labs Labs: Laboratory Tests Test 05/24/20 12:00 05/25/20 04:40 05/25/20 07:30 O2 Saturation 91 % (92-99) 93 % (92-99) Arterial Blood pH 7.32 (7.35-7.45) 7.43 (7.35-7.45) Arterial Blood pCO2 at Patient Temp 39 mmHg (35-46) 27 mmHg (35-46) Arterial Blood pO2 at Patient Temp 68 mmHg (75-108) 66 mmHg (75-108) Arterial Blood HCO3 20 mmol/L (21-28) 18 mmol/L (21-28) Arterial Blood Base Excess -6 mmol/L (-3-3) -6 mmol/L (-3-3) FiO2 100%+5 40/vent White Blood Count 18.9 x10^3/uL (4.0-11.0) Red Blood Count 3.90 x10^6/uL (3.50-5.40) Hemoglobin 7.8 g/dL (12.0-15.5) Hematocrit 26.2 % (36.0-47.0) Mean Corpuscular Volume 67 fL (79-100) Mean Corpuscular Hemoglobin 20 pg (25-35) Mean Corpuscular Hemoglobin Concent 30 g/dL (31-37) Red Cell Distribution Width 30.2 % (11.5-14.5) Platelet Count 160 x10^3/uL (140-400) Neutrophils (%) (Auto) 82 % (31-73) Lymphocytes (%) (Auto) 6 % (24-48) Monocytes (%) (Auto) 11 % (0-9) Eosinophils (%) (Auto) 0 % (0-3) Basophils (%) (Auto) 0 % (0-3) Neutrophils # (Auto) 15.6 x10^3/uL (1.8-7.7) Lymphocytes # (Auto) 1.1 x10^3/uL (1.0-4.8) Monocytes # (Auto) 2.2 x10^3/uL (0.0-1.1) Eosinophils # (Auto) 0.0 x10^3/uL (0.0-0.7) Basophils # (Auto) 0.0 x10^3/uL (0.0-0.2) Sodium Level 144 mmol/L (136-145) Potassium Level 3.0 mmol/L (3.5-5.1) Chloride Level 112 mmol/L (98-107) Carbon Dioxide Level 22 mmol/L (21-32) Anion Gap 10 (6-14) Blood Urea Nitrogen 5 mg/dL (7-20) Creatinine 0.5 mg/dL (0.6-1.0) Estimated GFR (Cockcroft-Gault) 153.9 Glucose Level 105 mg/dL (70-99) Calcium Level 7.8 mg/dL (8.5-10.1) Assessment and Plan Assessmemt and Plan Problems Medical Problems: (1) Hypernatremia Status: Acute (2) Severe anemia Status: Acute (3) Severe sepsis Status: Acute (4) UTI (urinary tract infection) Status: Acute Severe sepsis Respiratory failure requiring intubation Seizure disorder Cognitive deficit Low Hemoglobin Vit D Deficient,DYSPHAGIA,SIRS Hysterectomy [facility] resident Plan ICU monitoring Vent weaning IV antibiotics We are starting IV valproic acid Trend labs We will try to resume other home meds when possible DVT prophylaxis She is DNR Appreciate subspecialist input She is critically ill CC time 32 minutes Comment Review of Relevant I have reviewed the following items len (where applicable) has been applied. Medications: Current Medications Medications (Trade) Dose Ordered Sig/Ruthie Route PRN Reason Start Time Stop Time Status Last Admin Dose Admin Cefoxitin Sodium (Mefoxin) 1 gm Q8H IVP 05/24/20 15:30 05/25/20 07:31 DC 05/25/20 09:03 Ketorolac Tromethamine (Toradol 15mg Vial) 15 mg Q6HRS IV 05/24/20 12:00 05/26/20 11:59 05/25/20 05:52 Albumin Human 500 ml @ 125 mls/hr 1X ONCE IV 05/24/20 12:00 05/24/20 15:59 DC 05/24/20 11:54 Fentanyl Citrate (Fentanyl 2ml Vial) 25 mcg PRN Q2HR PRN IVP PAIN 05/24/20 13:30 05/25/20 10:56 Propofol 100 ml @ 0.873 mls/ hr CONT PRN IV SEE I/O RECORD 05/24/20 18:15 05/25/20 03:02 Pantoprazole Sodium (PROTONIX VIAL for IV PUSH) 40 mg 1X ONCE IVP 05/25/20 08:30 05/25/20 08:31 DC 05/25/20 09:03 Justifications for Admission Other Justification OSMIN DIA III DO May 25, 2020 11:09
--- NOTE | 2020-05-25 12:37 | RAD ---
PORTABLE CHEST 1V History: Reason: Central line placement / Spl. Instructions: / History: Comparison: May 24, 2020 chest x-ray and KUB Findings: Interval placement right IJ central line with tip projecting over the right atrium. Low lung volumes. Left basilar consolidation, unchanged. Patchy right basilar opacity, unchanged. Small bilateral pleural effusions, left greater than right, unchanged. Stable endotracheal tube. Unchanged enteric tube. Stable left basal nerve stimulator. Impression: 1. Interval placement right IJ central line with tip projecting over the right atrium. Recommend correlation for desired positioning. No pneumothorax. Electronically signed by: Jose Calvillo DO (05/25/2020 12:34 PM) [facility]
[2020-05-25 12:41] LABS: % BANDS 19 % (0-9); % LYMPHS 4 % (24-48); % MONOS 10 % (0-10); % SEGS 67 % (35-66); ANISOCYTOSIS MARKED; HYPOCHROMIA PRESENT; MICROCYTOSIS PRESENT; OVALOCYTES FEW; PLT ESTIMATE ADEQUATE (ADEQUATE); POLYCHROMASIA PRESENT; TEAR DROP CELLS FEW
[2020-05-25] MEDS: VALPROIC ACID (AS SODIUM SALT) 500 MG in IV DEXTROSE 5% 50 ML IV SCH ×3 (12:41→22:10)
[2020-05-25 12:42] LABS: SCHISTOCYTES OCC
[2020-05-25] MEDS: POTASSIUM CHLORIDE 20MEQ 100 ML IV PRN ×2 (15:03→17:09)
[2020-05-25 18:46] LABS: HEMATOCRIT 22.9 % (36.0-47.0); RED BLOOD COUNT 3.41 x10^6/uL (3.50-5.40); RED CELL DISTRIBUTION WIDTH 30.5 % (11.5-14.5); WHITE BLOOD COUNT 12.9 x10^3/uL (4.0-11.0)
[2020-05-25 18:51] LABS: HEMOGLOBIN 6.8 g/dL (12.0-15.5)
[2020-05-25] MEDS ORDERED: NOREPINEPHRINE VIAL 8 MG in IV DEXTROSE 5% 250 ML IV PRN (20:30)
[2020-05-25] MEDS: FAMOTIDINE 20 MG TABLET. PO SCH (20:31)
[2020-05-25] MEDS: DOCUSATE SODIUM 100 MG CAPSULE. PO SCH (20:31)
[2020-05-26] VITALS (26 sets, daily range): BP systolic 69–136; BP diastolic 41–87
[2020-05-26] MEDS: PROPOFOL 100 ML IV PRN ×2 (03:29→17:46)
[2020-05-26] MEDS: KETOROLAC 15 MG/ML VIAL. IV SCH (06:20)
[2020-05-26] MEDS: VALPROIC ACID (AS SODIUM SALT) 500 MG in IV DEXTROSE 5% 50 ML IV SCH ×3 (06:21→21:08)
[2020-05-26] MEDS: IV DEXTROSE 5%-LACT RINGERS 1,000 ML IV SCH (06:21)
[2020-05-26 06:23] LABS: BASO # 0.1 x10^3/uL (0.0-0.2); BASO % 1 % (0-3); EOS # 0.1 x10^3/uL (0.0-0.7); EOS % 1 % (0-3); HEMATOCRIT 29.7 % (36.0-47.0); HEMOGLOBIN 9.1 g/dL (12.0-15.5); LYMPH # 1.3 x10^3/uL (1.0-4.8); LYMPH % 10 % (24-48); MEAN CORPUSCULAR HEMOGLOBIN 22 pg (25-35); MEAN CORPUSCULAR HGB CONC 31 g/dL (31-37); MEAN CORPUSCULAR VOLUME 71 fL (79-100); MONO # 1.8 x10^3/uL (0.0-1.1); MONO % 13 % (0-9); NEUT # 10.5 x10^3/uL (1.8-7.7); NEUT % 76 % (31-73); PLATELET COUNT 140 x10^3/uL (140-400); RED BLOOD COUNT 4.17 x10^6/uL (3.50-5.40); RED CELL DISTRIBUTION WIDTH 29.2 % (11.5-14.5); WHITE BLOOD COUNT 13.7 x10^3/uL (4.0-11.0)
[2020-05-26 06:31] LABS: CALCIUM 7.9 mg/dL (8.5-10.1); CREATININE 0.5 mg/dL (0.6-1.0); GFR 153.9; POTASSIUM 3.2 mmol/L (3.5-5.1)
--- NOTE | 2020-05-26 07:59 | RAD ---
AP chest x-ray HISTORY: Mechanical ventilation for respiratory failure. COMPARISON: Chest x-ray May 25, 2020. FINDINGS: Endotracheal tube tip 4 cm above the red. Nasogastric tube extends into the abdomen. Right jugular central venous catheter tip lower aspect of the right hard general radiographic region of the lower right atrium. Left vagal nerve stimulator. Heart size stable. No pneumothorax. Bibasilar opacities with left lower lobe consolidation obscuring the left diaphragm is stable, small pleural effusions blunting the angles along the lateral diaphragms not excluded. Bones are unremarkable. IMPRESSION: Lines and tubes as described above. No pneumothorax. Bibasilar airspace disease is stable as described above. Electronically signed by: Levy Buckner MD (05/26/2020 7:56 AM) [id number]
[2020-05-26] MEDS: PANTOPRAZOLE IV PUSH 40 MG VIAL. IVP SCH (08:38)
--- NOTE | 2020-05-26 08:39 | PDOC ---
SURGICAL PROGRESS NOTE DATE: 05/26/20 TIME: 08:37 Subjective Patient appeared to be more alert and awake still intubated Vital Signs Vital Signs Date Time Temp Pulse Resp B/P (MAP) Pulse Ox O2 Delivery O2 Flow Rate FiO2 05/26/20 07:27 98 Ventilator 05/26/20 06:00 101 16 86/55 (65) 05/26/20 04:00 98.4 98.4 I&O Intake and Output 05/26/20 07:00 Intake Total 4798.6 ml Output Total 950 ml Balance 3848.6 ml IV Total 4748.6 ml Blood Product IV Normal Saline Flush 50 ml Output Urine Total 950 ml PATIENT HAS A DAVISON: Yes Abdomen: Soft, Other (Mild incisional tenderness wounds clean dry and intact) Labs Laboratory Tests Test 05/24/20 12:00 05/25/20 04:40 05/25/20 07:30 05/25/20 18:40 O2 Saturation 91 % (92-99) 93 % (92-99) Arterial Blood pH 7.32 (7.35-7.45) 7.43 (7.35-7.45) Arterial Blood pCO2 at Patient Temp 39 mmHg (35-46) 27 mmHg (35-46) Arterial Blood pO2 at Patient Temp 68 mmHg (75-108) 66 mmHg (75-108) Arterial Blood HCO3 20 mmol/L (21-28) 18 mmol/L (21-28) Arterial Blood Base Excess -6 mmol/L (-3-3) -6 mmol/L (-3-3) FiO2 100%+5 40/vent White Blood Count 18.9 x10^3/uL (4.0-11.0) 12.9 x10^3/uL (4.0-11.0) Red Blood Count 3.90 x10^6/uL (3.50-5.40) 3.41 x10^6/uL (3.50-5.40) Hemoglobin 7.8 g/dL (12.0-15.5) 6.8 g/dL (12.0-15.5) Hematocrit 26.2 % (36.0-47.0) 22.9 % (36.0-47.0) Mean Corpuscular Volume 67 fL (79-100) 67 fL (79-100) Mean Corpuscular Hemoglobin 20 pg (25-35) 20 pg (25-35) Mean Corpuscular Hemoglobin Concent 30 g/dL (31-37) 30 g/dL (31-37) Red Cell Distribution Width 30.2 % (11.5-14.5) 30.5 % (11.5-14.5) Platelet Count 160 x10^3/uL (140-400) 139 x10^3/uL (140-400) Neutrophils (%) (Auto) 82 % (31-73) Lymphocytes (%) (Auto) 6 % (24-48) Monocytes (%) (Auto) 11 % (0-9) Eosinophils (%) (Auto) 0 % (0-3) Basophils (%) (Auto) 0 % (0-3) Neutrophils # (Auto) 15.6 x10^3/uL (1.8-7.7) Lymphocytes # (Auto) 1.1 x10^3/uL (1.0-4.8) Monocytes # (Auto) 2.2 x10^3/uL (0.0-1.1) Eosinophils # (Auto) 0.0 x10^3/uL (0.0-0.7) Basophils # (Auto) 0.0 x10^3/uL (0.0-0.2) Segmented Neutrophils % 67 % (35-66) Band Neutrophils % 19 % (0-9) Lymphocytes % 4 % (24-48) Monocytes % 10 % (0-10) Platelet Estimate Adequate (ADEQUATE) Large Platelets Occ Polychromasia Present Hypochromasia Present Anisocytosis Marked Microcytosis Present Tear Drop Cells Few Ovalocytes Few Schistocytes Occ Sodium Level 144 mmol/L (136-145) Potassium Level 3.0 mmol/L (3.5-5.1) Chloride Level 112 mmol/L (98-107) Carbon Dioxide Level 22 mmol/L (21-32) Anion Gap 10 (6-14) Blood Urea Nitrogen 5 mg/dL (7-20) Creatinine 0.5 mg/dL (0.6-1.0) Estimated GFR (Cockcroft-Gault) 153.9 Glucose Level 105 mg/dL (70-99) Calcium Level 7.8 mg/dL (8.5-10.1) Test 05/26/20 06:10 White Blood Count 13.7 x10^3/uL (4.0-11.0) Red Blood Count 4.17 x10^6/uL (3.50-5.40) Hemoglobin 9.1 g/dL (12.0-15.5) Hematocrit 29.7 % (36.0-47.0) Mean Corpuscular Volume 71 fL (79-100) Mean Corpuscular Hemoglobin 22 pg (25-35) Mean Corpuscular Hemoglobin Concent 31 g/dL (31-37) Red Cell Distribution Width 29.2 % (11.5-14.5) Platelet Count 140 x10^3/uL (140-400) Neutrophils (%) (Auto) 76 % (31-73) Lymphocytes (%) (Auto) 10 % (24-48) Monocytes (%) (Auto) 13 % (0-9) Eosinophils (%) (Auto) 1 % (0-3) Basophils (%) (Auto) 1 % (0-3) Neutrophils # (Auto) 10.5 x10^3/uL (1.8-7.7) Lymphocytes # (Auto) 1.3 x10^3/uL (1.0-4.8) Monocytes # (Auto) 1.8 x10^3/uL (0.0-1.1) Eosinophils # (Auto) 0.1 x10^3/uL (0.0-0.7) Basophils # (Auto) 0.1 x10^3/uL (0.0-0.2) Sodium Level 149 mmol/L (136-145) Potassium Level 3.2 mmol/L (3.5-5.1) Chloride Level 117 mmol/L (98-107) Carbon Dioxide Level 20 mmol/L (21-32) Anion Gap 12 (6-14) Blood Urea Nitrogen 7 mg/dL (7-20) Creatinine 0.5 mg/dL (0.6-1.0) Estimated GFR (Cockcroft-Gault) 153.9 Glucose Level 131 mg/dL (70-99) Calcium Level 7.9 mg/dL (8.5-10.1) Laboratory Tests Test 05/25/20 18:40 05/26/20 06:10 White Blood Count 12.9 x10^3/uL (4.0-11.0) 13.7 x10^3/uL (4.0-11.0) Red Blood Count 3.41 x10^6/uL (3.50-5.40) 4.17 x10^6/uL (3.50-5.40) Hemoglobin 6.8 g/dL (12.0-15.5) 9.1 g/dL (12.0-15.5) Hematocrit 22.9 % (36.0-47.0) 29.7 % (36.0-47.0) Mean Corpuscular Volume 67 fL (79-100) 71 fL (79-100) Mean Corpuscular Hemoglobin 20 pg (25-35) 22 pg (25-35) Mean Corpuscular Hemoglobin Concent 30 g/dL (31-37) 31 g/dL (31-37) Red Cell Distribution Width 30.5 % (11.5-14.5) 29.2 % (11.5-14.5) Platelet Count 139 x10^3/uL (140-400) 140 x10^3/uL (140-400) Neutrophils (%) (Auto) 76 % (31-73) Lymphocytes (%) (Auto) 10 % (24-48) Monocytes (%) (Auto) 13 % (0-9) Eosinophils (%) (Auto) 1 % (0-3) Basophils (%) (Auto) 1 % (0-3) Neutrophils # (Auto) 10.5 x10^3/uL (1.8-7.7) Lymphocytes # (Auto) 1.3 x10^3/uL (1.0-4.8) Monocytes # (Auto) 1.8 x10^3/uL (0.0-1.1) Eosinophils # (Auto) 0.1 x10^3/uL (0.0-0.7) Basophils # (Auto) 0.1 x10^3/uL (0.0-0.2) Sodium Level 149 mmol/L (136-145) Potassium Level 3.2 mmol/L (3.5-5.1) Chloride Level 117 mmol/L (98-107) Carbon Dioxide Level 20 mmol/L (21-32) Anion Gap 12 (6-14) Blood Urea Nitrogen 7 mg/dL (7-20) Creatinine 0.5 mg/dL (0.6-1.0) Estimated GFR (Cockcroft-Gault) 153.9 Glucose Level 131 mg/dL (70-99) Calcium Level 7.9 mg/dL (8.5-10.1) Problem List Problems Medical Problems: (1) Hypernatremia Status: Acute (2) Severe anemia Status: Acute (3) Severe sepsis Status: Acute (4) UTI (urinary tract infection) Status: Acute Assessment/Plan Status post right colon resection Waiting return of bowel function Ventilator management per pulmonary Justicifation of Admission Dx: Justifications for Admission: Justification of Admission Dx: Yes BENIGNO SHAH MD May 26, 2020 08:39
[2020-05-26] MEDS: LACTOBACILLUS RHAMNOSUS GG 1 CAPSULE. PO SCH ×2 (08:57→21:00)
[2020-05-26] MEDS: GABAPENTIN 100 MG CAPSULE. PO SCH ×3 (08:57→21:00)
[2020-05-26] MEDS: TOPIRAMATE 100 MG TABLET. PO SCH ×2 (08:58→21:00)
[2020-05-26] MEDS: CETIRIZINE HCL 10 MG TABLET. PO SCH (08:58)
[2020-05-26 09:16] LABS: BASE EXCESS ABG -7 mmol/L (-3-3); HCO3 ABG 17 mmol/L (21-28); PCO2 ABG 26 mmHg (35-46); PO2 ABG 78 mmHg (75-108); SAT O2 ABG 95 % (92-99)
[2020-05-26] MEDS ORDERED: IV NORMAL SALINE 1000ML BAG 1,000 ML IV ONE (09:45)
--- NOTE | 2020-05-26 10:25 | PDOC ---
[facility] PROGRESS NOTE Date of Service DOS: DATE: 05/26/20 TIME: 10:25 Chief Complaint Chief Complaint Postop day 2 Exploratory laparotomy with right colon resection and primary anastomosis Severe sepsis Respiratory failure requiring intubation Seizure disorder Cognitive deficit Low Hemoglobin Vit D Deficient,DYSPHAGIA,SIRS Hysterectomy care home resident History of Present Illness History of Present Illness 05/26/2020 Patient seen and examined in the ICU She is still on the ventilator Assist-control/ with 40% FiO2 and 7 of PEEP Discussed with RN Chart reviewed She has clean dry intact ventricle incision She is sedated with propofol and fentanyl Also on a Levophed drip Has SCDs Has heel protectors Gomez to bedside drainage Appears critically ill 05/25/2022 Patient seen and examined in the ICU She is intubated Assist-control/02/02 100/50% with 7 of PEEP Discussed with RN I called the pharmacy to see about IV Depakote Chart reviewed She remains critically Vitals/I&O Vitals/I&O: Vital Signs Date Time Temp Pulse Resp B/P (MAP) Pulse Ox O2 Delivery O2 Flow Rate FiO2 05/26/20 10:16 22 100 Ventilator 05/26/20 10:00 87 102/67 (79) 05/26/20 08:00 97.3 97.3 I & O 05/25/20 05/25/20 05/26/20 15:00 23:00 07:00 Intake Total 55 ml 1660 ml 3083.6 ml Output Total 240 ml 335 ml 375 ml Balance -185 ml 1325 ml 2708.6 ml Physical Exam Physical Exam: General: Other (sedated) Heart: Regular rate Lungs: Other (deminished bs) Abdomen: Soft, Other (Mild incisional tenderness wounds clean dry and intact) Extremities: No clubbing, No cyanosis Skin: No rashes, No breakdown Labs Labs: Laboratory Tests Test 05/25/20 18:40 05/26/20 06:10 05/26/20 08:00 White Blood Count 12.9 x10^3/uL (4.0-11.0) 13.7 x10^3/uL (4.0-11.0) Red Blood Count 3.41 x10^6/uL (3.50-5.40) 4.17 x10^6/uL (3.50-5.40) Hemoglobin 6.8 g/dL (12.0-15.5) 9.1 g/dL (12.0-15.5) Hematocrit 22.9 % (36.0-47.0) 29.7 % (36.0-47.0) Mean Corpuscular Volume 67 fL (79-100) 71 fL (79-100) Mean Corpuscular Hemoglobin 20 pg (25-35) 22 pg (25-35) Mean Corpuscular Hemoglobin Concent 30 g/dL (31-37) 31 g/dL (31-37) Red Cell Distribution Width 30.5 % (11.5-14.5) 29.2 % (11.5-14.5) Platelet Count 139 x10^3/uL (140-400) 140 x10^3/uL (140-400) Neutrophils (%) (Auto) 76 % (31-73) Lymphocytes (%) (Auto) 10 % (24-48) Monocytes (%) (Auto) 13 % (0-9) Eosinophils (%) (Auto) 1 % (0-3) Basophils (%) (Auto) 1 % (0-3) Neutrophils # (Auto) 10.5 x10^3/uL (1.8-7.7) Lymphocytes # (Auto) 1.3 x10^3/uL (1.0-4.8) Monocytes # (Auto) 1.8 x10^3/uL (0.0-1.1) Eosinophils # (Auto) 0.1 x10^3/uL (0.0-0.7) Basophils # (Auto) 0.1 x10^3/uL (0.0-0.2) Sodium Level 149 mmol/L (136-145) Potassium Level 3.2 mmol/L (3.5-5.1) Chloride Level 117 mmol/L (98-107) Carbon Dioxide Level 20 mmol/L (21-32) Anion Gap 12 (6-14) Blood Urea Nitrogen 7 mg/dL (7-20) Creatinine 0.5 mg/dL (0.6-1.0) Estimated GFR (Cockcroft-Gault) 153.9 Glucose Level 131 mg/dL (70-99) Calcium Level 7.9 mg/dL (8.5-10.1) O2 Saturation 95 % (92-99) Arterial Blood pH 7.43 (7.35-7.45) Arterial Blood pCO2 at Patient Temp 26 mmHg (35-46) Arterial Blood pO2 at Patient Temp 78 mmHg (75-108) Arterial Blood HCO3 17 mmol/L (21-28) Arterial Blood Base Excess -7 mmol/L (-3-3) FiO2 40/vent Assessment and Plan Assessmemt and Plan Problems Medical Problems: (1) Hypernatremia Status: Acute (2) Severe anemia Status: Acute (3) Severe sepsis Status: Acute (4) UTI (urinary tract infection) Status: Acut Postop day 2 Exploratory laparotomy with right colon resection and primary anastomosis Severe sepsis Respiratory failure requiring intubation Seizure disorder Cognitive deficit Low Hemoglobin Vit D Deficient,DYSPHAGIA,SIRS Hysterectomy care home resident Plan ICU monitoring IV fentanyl for pain and to assist with sedation Vent weaning IV antibiotics Trend labs IV Depakote We will try to resume other home meds when possible DVT prophylaxis She is DNR Appreciate subspecialist input She is critically ill CC time 31 minutes Comment Review of Relevant I have reviewed the following items len (where applicable) has been applied. Medications: Current Medications Medications (Trade) Dose Ordered Sig/Ruthie Route PRN Reason Start Time Stop Time Status Last Admin Dose Admin Pantoprazole Sodium (PROTONIX VIAL for IV PUSH) 40 mg DAILYAC IVP 05/26/20 07:30 05/26/20 08:38 Valproic Acid 500 mg/Dextrose 55 ml @ 55 mls/hr Q8HRS IV 05/25/20 11:00 05/26/20 06:21 Potassium Chloride/Water 100 ml @ 100 mls/hr PRN Q1HR PRN IV HYPOKALEMIA 05/25/20 15:00 05/25/20 17:09 DC 05/25/20 17:09 Norepinephrine Bitartrate 8 mg/ Dextrose 258 ml @ 12.887 mls/ hr CONT PRN IV PER PROTOCOL 05/25/20 20:30 05/26/20 03:14 Fentanyl Citrate 30 ml @ 0 mls/hr CONT PRN IV SEE PROTOCOL 05/26/20 09:15 05/26/20 09:41 Sodium Chloride 1,000 ml @ 125 mls/hr 1X ONCE IV 05/26/20 09:45 05/26/20 17:44 05/26/20 09:54 Justifications for Admission Other Justification OSMIN DIA III DO May 26, 2020 10:25
--- NOTE | 2020-05-26 10:56 | PDOC ---
PULMONARY PROGRESS NOTES DATE: 05/26/20 TIME: 10:56 Subjective on vent sedated on propofol fentanyl small ett secretion on peep 7 fi02 40% Vitals Vital Signs Date Time Temp Pulse Resp B/P (MAP) Pulse Ox O2 Delivery O2 Flow Rate FiO2 05/26/20 10:16 22 100 Ventilator 05/26/20 10:00 87 102/67 (79) 05/26/20 08:00 97.3 97.3 Comments ros unable to obtain on vent sedated sedated on vent HEENT: Other (nc at perrl nose clear orally intubated neck no lad no thyromegaly) Lungs: Other (deminished bs) Cardiovascular: S1, S2 Abdomen: Soft, Non-tender, Other (no mass) Extremities: No Edema Skin: Warm, Dry, No Rashes Labs Laboratory Tests Test 05/24/20 12:00 05/25/20 04:40 05/25/20 07:30 05/25/20 18:40 O2 Saturation 91 % (92-99) 93 % (92-99) Arterial Blood pH 7.32 (7.35-7.45) 7.43 (7.35-7.45) Arterial Blood pCO2 at Patient Temp 39 mmHg (35-46) 27 mmHg (35-46) Arterial Blood pO2 at Patient Temp 68 mmHg (75-108) 66 mmHg (75-108) Arterial Blood HCO3 20 mmol/L (21-28) 18 mmol/L (21-28) Arterial Blood Base Excess -6 mmol/L (-3-3) -6 mmol/L (-3-3) FiO2 100%+5 40/vent White Blood Count 18.9 x10^3/uL (4.0-11.0) 12.9 x10^3/uL (4.0-11.0) Red Blood Count 3.90 x10^6/uL (3.50-5.40) 3.41 x10^6/uL (3.50-5.40) Hemoglobin 7.8 g/dL (12.0-15.5) 6.8 g/dL (12.0-15.5) Hematocrit 26.2 % (36.0-47.0) 22.9 % (36.0-47.0) Mean Corpuscular Volume 67 fL (79-100) 67 fL (79-100) Mean Corpuscular Hemoglobin 20 pg (25-35) 20 pg (25-35) Mean Corpuscular Hemoglobin Concent 30 g/dL (31-37) 30 g/dL (31-37) Red Cell Distribution Width 30.2 % (11.5-14.5) 30.5 % (11.5-14.5) Platelet Count 160 x10^3/uL (140-400) 139 x10^3/uL (140-400) Neutrophils (%) (Auto) 82 % (31-73) Lymphocytes (%) (Auto) 6 % (24-48) Monocytes (%) (Auto) 11 % (0-9) Eosinophils (%) (Auto) 0 % (0-3) Basophils (%) (Auto) 0 % (0-3) Neutrophils # (Auto) 15.6 x10^3/uL (1.8-7.7) Lymphocytes # (Auto) 1.1 x10^3/uL (1.0-4.8) Monocytes # (Auto) 2.2 x10^3/uL (0.0-1.1) Eosinophils # (Auto) 0.0 x10^3/uL (0.0-0.7) Basophils # (Auto) 0.0 x10^3/uL (0.0-0.2) Segmented Neutrophils % 67 % (35-66) Band Neutrophils % 19 % (0-9) Lymphocytes % 4 % (24-48) Monocytes % 10 % (0-10) Platelet Estimate Adequate (ADEQUATE) Large Platelets Occ Polychromasia Present Hypochromasia Present Anisocytosis Marked Microcytosis Present Tear Drop Cells Few Ovalocytes Few Schistocytes Occ Sodium Level 144 mmol/L (136-145) Potassium Level 3.0 mmol/L (3.5-5.1) Chloride Level 112 mmol/L (98-107) Carbon Dioxide Level 22 mmol/L (21-32) Anion Gap 10 (6-14) Blood Urea Nitrogen 5 mg/dL (7-20) Creatinine 0.5 mg/dL (0.6-1.0) Estimated GFR (Cockcroft-Gault) 153.9 Glucose Level 105 mg/dL (70-99) Calcium Level 7.8 mg/dL (8.5-10.1) Test 05/26/20 06:10 05/26/20 08:00 White Blood Count 13.7 x10^3/uL (4.0-11.0) Red Blood Count 4.17 x10^6/uL (3.50-5.40) Hemoglobin 9.1 g/dL (12.0-15.5) Hematocrit 29.7 % (36.0-47.0) Mean Corpuscular Volume 71 fL (79-100) Mean Corpuscular Hemoglobin 22 pg (25-35) Mean Corpuscular Hemoglobin Concent 31 g/dL (31-37) Red Cell Distribution Width 29.2 % (11.5-14.5) Platelet Count 140 x10^3/uL (140-400) Neutrophils (%) (Auto) 76 % (31-73) Lymphocytes (%) (Auto) 10 % (24-48) Monocytes (%) (Auto) 13 % (0-9) Eosinophils (%) (Auto) 1 % (0-3) Basophils (%) (Auto) 1 % (0-3) Neutrophils # (Auto) 10.5 x10^3/uL (1.8-7.7) Lymphocytes # (Auto) 1.3 x10^3/uL (1.0-4.8) Monocytes # (Auto) 1.8 x10^3/uL (0.0-1.1) Eosinophils # (Auto) 0.1 x10^3/uL (0.0-0.7) Basophils # (Auto) 0.1 x10^3/uL (0.0-0.2) Sodium Level 149 mmol/L (136-145) Potassium Level 3.2 mmol/L (3.5-5.1) Chloride Level 117 mmol/L (98-107) Carbon Dioxide Level 20 mmol/L (21-32) Anion Gap 12 (6-14) Blood Urea Nitrogen 7 mg/dL (7-20) Creatinine 0.5 mg/dL (0.6-1.0) Estimated GFR (Cockcroft-Gault) 153.9 Glucose Level 131 mg/dL (70-99) Calcium Level 7.9 mg/dL (8.5-10.1) O2 Saturation 95 % (92-99) Arterial Blood pH 7.43 (7.35-7.45) Arterial Blood pCO2 at Patient Temp 26 mmHg (35-46) Arterial Blood pO2 at Patient Temp 78 mmHg (75-108) Arterial Blood HCO3 17 mmol/L (21-28) Arterial Blood Base Excess -7 mmol/L (-3-3) FiO2 40/vent Laboratory Tests Test 05/25/20 18:40 05/26/20 06:10 05/26/20 08:00 White Blood Count 12.9 x10^3/uL (4.0-11.0) 13.7 x10^3/uL (4.0-11.0) Red Blood Count 3.41 x10^6/uL (3.50-5.40) 4.17 x10^6/uL (3.50-5.40) Hemoglobin 6.8 g/dL (12.0-15.5) 9.1 g/dL (12.0-15.5) Hematocrit 22.9 % (36.0-47.0) 29.7 % (36.0-47.0) Mean Corpuscular Volume 67 fL (79-100) 71 fL (79-100) Mean Corpuscular Hemoglobin 20 pg (25-35) 22 pg (25-35) Mean Corpuscular Hemoglobin Concent 30 g/dL (31-37) 31 g/dL (31-37) Red Cell Distribution Width 30.5 % (11.5-14.5) 29.2 % (11.5-14.5) Platelet Count 139 x10^3/uL (140-400) 140 x10^3/uL (140-400) Neutrophils (%) (Auto) 76 % (31-73) Lymphocytes (%) (Auto) 10 % (24-48) Monocytes (%) (Auto) 13 % (0-9) Eosinophils (%) (Auto) 1 % (0-3) Basophils (%) (Auto) 1 % (0-3) Neutrophils # (Auto) 10.5 x10^3/uL (1.8-7.7) Lymphocytes # (Auto) 1.3 x10^3/uL (1.0-4.8) Monocytes # (Auto) 1.8 x10^3/uL (0.0-1.1) Eosinophils # (Auto) 0.1 x10^3/uL (0.0-0.7) Basophils # (Auto) 0.1 x10^3/uL (0.0-0.2) Sodium Level 149 mmol/L (136-145) Potassium Level 3.2 mmol/L (3.5-5.1) Chloride Level 117 mmol/L (98-107) Carbon Dioxide Level 20 mmol/L (21-32) Anion Gap 12 (6-14) Blood Urea Nitrogen 7 mg/dL (7-20) Creatinine 0.5 mg/dL (0.6-1.0) Estimated GFR (Cockcroft-Gault) 153.9 Glucose Level 131 mg/dL (70-99) Calcium Level 7.9 mg/dL (8.5-10.1) O2 Saturation 95 % (92-99) Arterial Blood pH 7.43 (7.35-7.45) Arterial Blood pCO2 at Patient Temp 26 mmHg (35-46) Arterial Blood pO2 at Patient Temp 78 mmHg (75-108) Arterial Blood HCO3 17 mmol/L (21-28) Arterial Blood Base Excess -7 mmol/L (-3-3) FiO2 40/vent Medications Active Scripts Medications Dose Route/Sig Max Daily Dose Days Date Category Imodium A-D (Loperamide HCl) 2 Mg Capsule 2 Mg PO PRN Q8HRS PRN 05/16/20 Reported Glycopyrrolate 2 Mg Tablet 1 Mg PO PRN Q8HRS PRN 05/16/20 Reported Gabapentin (Gabapentin) 100 Mg Capsule 200 Mg PO TID 05/16/20 Reported Chlorhexidine Gluconate 118 Ml Liquid 1 Gerald PO BID 05/16/20 Reported Acetaminophen Supp (Acetaminophen) 650 Mg Supp.rect 650 Mg NV PRN Q6HRS PRN 10 06/15/19 Rx Topamax (Topiramate) 200 Mg Tablet 200 Mg PO BID 06/12/19 Reported Polyethylene Glycol 3350 17 Gm Powd.pack 17 Gm PO PRN DAILY PRN 06/12/19 Reported Oxycodone Hcl 5 Mg Capsule 5 Mg PO PRN Q4HRS PRN 06/12/19 Reported Melatonin 3 Mg Tablet 3 Mg PO PRN QHS PRN 06/12/19 Reported Fleet Enema (Na Phos,M-B/Na Phos,Di-Ba) 133 Ml Enema 133 Ml RC PRN Q8HRS PRN 06/12/19 Reported Famotidine 20 Mg Tablet 20 Mg PO HS 06/12/19 Reported Bisacodyl 10 Mg Supp.rect 10 Mg RC PRN DAILY PRN 06/12/19 Reported Docusate Sodium 100 Mg Capsule 200 Mg PO HS 06/12/19 Reported Divalproex Sodium Er (Divalproex Sodium) 500 Mg Tab.er.24h 500 Mg PO BID 06/12/19 Reported Eliquis (Apixaban) 5 Mg Tablet 5 Mg PO BID 06/12/19 Reported Divalproex Sodium Er (Divalproex Sodium) 500 Mg Tab.er.24h 250 Mg PO DAILY 06/12/19 Reported Zyrtec (Cetirizine Hcl) 10 Mg Tablet 1 Tab PO DAILY 01/09/18 Reported Onfi (Clobazam) 10 Mg Tablet 5 Mg PO [id number] 01/09/18 Reported Comments cxr reviewed ett ok b lat basilar atelectasis, slightly better Impression . IMPRESSION: 1. Respiratory failure, post exploratory laparotomy. expected, Likely effect of sedative resulting in encephalopathy 2. Hypotension resolved 3. The patient with developmental delay and underlying dementia. She is a retirement with total care. 4. Right colon mass, status post exploratory laparotomy with right colon resection and primary anastomosis. The preliminary pathology consistent with colon cancer. 5. History of seizure disorder. 6. abnl cxr atelectasis Plan . RECOMMENDATIONS: 1. We will continue with present assist control mode. ABGs reviewed. personally decreased peep to 5, cont fio2 titration, will decrease sedation will do sbt observed pt during sbt paradoxical abd motion not ready for extubation will try in am 2. chest x-ray reviewed atelectasis improved. 3. elevate hob 4. Prognosis overall gained from malignancy standpoint. Quality of life was poor prior to surgery. 5. Follow Oncology recommendations. 6. Follow surgery recommendations. 7. DVT prophylaxis and stress ulcer prophylaxis. 8. Discussed with RN and rt and we will follow along with you. REBEL NOLAN MD May 26, 2020 10:56
[2020-05-26] MEDS: POTASSIUM CHLORIDE 20MEQ 100 ML IV PRN ×2 (12:57→15:03)
[2020-05-26] MEDS: ENOXAPARIN 40 MG/0.4 ML SYRINGE. SQ SCH (17:02)
[2020-05-26] MEDS: IV NORMAL SALINE 1000ML BAG 1,000 ML IV SCH (17:50)
[2020-05-26] MEDS: DOCUSATE SODIUM 100 MG CAPSULE. PO SCH (21:00)
[2020-05-26] MEDS: FAMOTIDINE 20 MG TABLET. PO SCH (21:00)
[2020-05-27] VITALS (24 sets, daily range): BP systolic 80–182; BP diastolic 52–101
[2020-05-27] MEDS: PROPOFOL 100 ML IV PRN (01:24)
[2020-05-27] MEDS: IV NORMAL SALINE 1000ML BAG 1,000 ML IV SCH ×3 (01:24→18:06)
[2020-05-27] MEDS: VALPROIC ACID (AS SODIUM SALT) 500 MG in IV DEXTROSE 5% 50 ML IV SCH ×3 (05:55→21:43)
[2020-05-27 06:21] LABS: BASO % 1 % (0-3); EOS # 0.5 x10^3/uL (0.0-0.7); EOS % 5 % (0-3); HEMATOCRIT 28.6 % (36.0-47.0); HEMOGLOBIN 8.6 g/dL (12.0-15.5); LYMPH # 1.6 x10^3/uL (1.0-4.8); LYMPH % 17 % (24-48); MEAN CORPUSCULAR HEMOGLOBIN 22 pg (25-35); MEAN CORPUSCULAR HGB CONC 30 g/dL (31-37); MEAN CORPUSCULAR VOLUME 71 fL (79-100); MONO # 1.2 x10^3/uL (0.0-1.1); MONO % 12 % (0-9); NEUT # 6.4 x10^3/uL (1.8-7.7); NEUT % 66 % (31-73); PLATELET COUNT 126 x10^3/uL (140-400); RED BLOOD COUNT 4.01 x10^6/uL (3.50-5.40); RED CELL DISTRIBUTION WIDTH 28.7 % (11.5-14.5); WHITE BLOOD COUNT 9.7 x10^3/uL (4.0-11.0)
[2020-05-27] MEDS: PANTOPRAZOLE IV PUSH 40 MG VIAL. IVP SCH (08:05)
[2020-05-27] MEDS: ENOXAPARIN 40 MG/0.4 ML SYRINGE. SQ SCH (08:05)
--- NOTE | 2020-05-27 08:23 | PDOC ---
Infectious Disease Note Subjective Subjective Intubated but arousable some ROS ROS Unable to obtain Vital Sign Vital Signs Vital Signs Date Time Temp Pulse Resp B/P (MAP) Pulse Ox O2 Delivery O2 Flow Rate FiO2 05/27/20 07:34 97 Ventilator 05/27/20 07:00 75 16 91/58 (69) 05/27/20 04:00 98.3 98.3 Physical Exam PHYSICAL EXAM GENERAL: Intubated and sedated some. not in distress. HEENT: Anicteric ETT/OGT NECK: Supple. LUNGS: Clear. HEART: S1, S2 regular. ABDOMEN: Distended some. Decrease but + BS. - Incision dressed : - wilder in place EXTREMITIES: No edema, no cyanosis. SKIN: Unremarkable. NEUROLOGIC: Sedated some RIJ -clean 05/25 Labs Lab Laboratory Tests Test 05/27/20 06:00 White Blood Count 9.7 x10^3/uL (4.0-11.0) Red Blood Count 4.01 x10^6/uL (3.50-5.40) Hemoglobin 8.6 g/dL (12.0-15.5) Hematocrit 28.6 % (36.0-47.0) Mean Corpuscular Volume 71 fL (79-100) Mean Corpuscular Hemoglobin 22 pg (25-35) Mean Corpuscular Hemoglobin Concent 30 g/dL (31-37) Red Cell Distribution Width 28.7 % (11.5-14.5) Platelet Count 126 x10^3/uL (140-400) Neutrophils (%) (Auto) 66 % (31-73) Lymphocytes (%) (Auto) 17 % (24-48) Monocytes (%) (Auto) 12 % (0-9) Eosinophils (%) (Auto) 5 % (0-3) Basophils (%) (Auto) 1 % (0-3) Neutrophils # (Auto) 6.4 x10^3/uL (1.8-7.7) Lymphocytes # (Auto) 1.6 x10^3/uL (1.0-4.8) Monocytes # (Auto) 1.2 x10^3/uL (0.0-1.1) Eosinophils # (Auto) 0.5 x10^3/uL (0.0-0.7) Basophils # (Auto) 0.0 x10^3/uL (0.0-0.2) Micro Microbiology 05/16/20 Urine Culture - Final, Complete 05/16/20 Antimicrobic Susceptibility - Final, Complete Objective Assessment 1. Anemia. 2. Mesenteric lymphadenopathy. 3. ? Uterine mass. 4. Urine culture positive with E. coli 05/16. It is a contamination probably as it is unclear how the urine was obtained. The patient is not able to provide any symptomatology. 5. Developmental delay. 6. S/p Exploratory laparotomy with right colon resection and primary anastomosis 05/24 7. ascending colon mass on colonoscopy 05/22 Plan Plan of Care AF/WBC improved. Tapering off Pressors Off antibiotic Need for FINAL FINISHER FORGING DIES per primary ID to sign off ASHISH MCKEON MD May 27, 2020 08:23
--- NOTE | 2020-05-27 08:33 | PDOC ---
SURGICAL PROGRESS NOTE DATE: 05/27/20 TIME: 08:32 Subjective Patient appears to be more alert she is noncommunicative Vital Signs Vital Signs Date Time Temp Pulse Resp B/P (MAP) Pulse Ox O2 Delivery O2 Flow Rate FiO2 05/27/20 07:34 97 Ventilator 05/27/20 07:00 75 16 91/58 (69) 05/27/20 04:00 98.3 98.3 I&O Intake and Output 05/27/20 07:00 Intake Total 3687.64 ml Output Total 1685 ml Balance 2002.64 ml IV Total 3687.64 ml Output Urine Total 1685 ml # Bowel Movements 1 PATIENT HAS A DAVISON: Yes General: mild distress HEENT: Other (Endotracheal tube in place as well as NG tube minimal NG output) Abdomen: Soft, Other (Mildly distended) Labs Laboratory Tests Test 05/25/20 18:40 05/26/20 06:10 05/26/20 08:00 05/27/20 06:00 White Blood Count 12.9 x10^3/uL (4.0-11.0) 13.7 x10^3/uL (4.0-11.0) 9.7 x10^3/uL (4.0-11.0) Red Blood Count 3.41 x10^6/uL (3.50-5.40) 4.17 x10^6/uL (3.50-5.40) 4.01 x10^6/uL (3.50-5.40) Hemoglobin 6.8 g/dL (12.0-15.5) 9.1 g/dL (12.0-15.5) 8.6 g/dL (12.0-15.5) Hematocrit 22.9 % (36.0-47.0) 29.7 % (36.0-47.0) 28.6 % (36.0-47.0) Mean Corpuscular Volume 67 fL (79-100) 71 fL (79-100) 71 fL (79-100) Mean Corpuscular Hemoglobin 20 pg (25-35) 22 pg (25-35) 22 pg (25-35) Mean Corpuscular Hemoglobin Concent 30 g/dL (31-37) 31 g/dL (31-37) 30 g/dL (31-37) Red Cell Distribution Width 30.5 % (11.5-14.5) 29.2 % (11.5-14.5) 28.7 % (11.5-14.5) Platelet Count 139 x10^3/uL (140-400) 140 x10^3/uL (140-400) 126 x10^3/uL (140-400) Neutrophils (%) (Auto) 76 % (31-73) 66 % (31-73) Lymphocytes (%) (Auto) 10 % (24-48) 17 % (24-48) Monocytes (%) (Auto) 13 % (0-9) 12 % (0-9) Eosinophils (%) (Auto) 1 % (0-3) 5 % (0-3) Basophils (%) (Auto) 1 % (0-3) 1 % (0-3) Neutrophils # (Auto) 10.5 x10^3/uL (1.8-7.7) 6.4 x10^3/uL (1.8-7.7) Lymphocytes # (Auto) 1.3 x10^3/uL (1.0-4.8) 1.6 x10^3/uL (1.0-4.8) Monocytes # (Auto) 1.8 x10^3/uL (0.0-1.1) 1.2 x10^3/uL (0.0-1.1) Eosinophils # (Auto) 0.1 x10^3/uL (0.0-0.7) 0.5 x10^3/uL (0.0-0.7) Basophils # (Auto) 0.1 x10^3/uL (0.0-0.2) 0.0 x10^3/uL (0.0-0.2) Sodium Level 149 mmol/L (136-145) Potassium Level 3.2 mmol/L (3.5-5.1) Chloride Level 117 mmol/L (98-107) Carbon Dioxide Level 20 mmol/L (21-32) Anion Gap 12 (6-14) Blood Urea Nitrogen 7 mg/dL (7-20) Creatinine 0.5 mg/dL (0.6-1.0) Estimated GFR (Cockcroft-Gault) 153.9 Glucose Level 131 mg/dL (70-99) Calcium Level 7.9 mg/dL (8.5-10.1) O2 Saturation 95 % (92-99) Arterial Blood pH 7.43 (7.35-7.45) Arterial Blood pCO2 at Patient Temp 26 mmHg (35-46) Arterial Blood pO2 at Patient Temp 78 mmHg (75-108) Arterial Blood HCO3 17 mmol/L (21-28) Arterial Blood Base Excess -7 mmol/L (-3-3) FiO2 40/vent Laboratory Tests Test 05/27/20 06:00 White Blood Count 9.7 x10^3/uL (4.0-11.0) Red Blood Count 4.01 x10^6/uL (3.50-5.40) Hemoglobin 8.6 g/dL (12.0-15.5) Hematocrit 28.6 % (36.0-47.0) Mean Corpuscular Volume 71 fL (79-100) Mean Corpuscular Hemoglobin 22 pg (25-35) Mean Corpuscular Hemoglobin Concent 30 g/dL (31-37) Red Cell Distribution Width 28.7 % (11.5-14.5) Platelet Count 126 x10^3/uL (140-400) Neutrophils (%) (Auto) 66 % (31-73) Lymphocytes (%) (Auto) 17 % (24-48) Monocytes (%) (Auto) 12 % (0-9) Eosinophils (%) (Auto) 5 % (0-3) Basophils (%) (Auto) 1 % (0-3) Neutrophils # (Auto) 6.4 x10^3/uL (1.8-7.7) Lymphocytes # (Auto) 1.6 x10^3/uL (1.0-4.8) Monocytes # (Auto) 1.2 x10^3/uL (0.0-1.1) Eosinophils # (Auto) 0.5 x10^3/uL (0.0-0.7) Basophils # (Auto) 0.0 x10^3/uL (0.0-0.2) Problem List Problems Medical Problems: (1) Hypernatremia Status: Acute (2) Severe anemia Status: Acute (3) Severe sepsis Status: Acute (4) UTI (urinary tract infection) Status: Acute Assessment/Plan Status post right colon resection, awaiting return of bowel function Ventilator management per pulmonology Justicifation of Admission Dx: Justifications for Admission: Justification of Admission Dx: Yes BENIGNO SHAH MD May 27, 2020 08:33
--- NOTE | 2020-05-27 08:37 | PDOC ---
PROGRESS NOTES Date of Service: DATE: 05/27/20 TIME: 08:26 Chief Complaint Chief Complaint Postop day 3 Exploratory laparotomy with right colon resection and primary anastomosis Severe sepsis Respiratory failure requiring intubation Seizure disorder Cognitive deficit Low Hemoglobin Vit D Deficient,DYSPHAGIA,SIRS Hysterectomy halfway resident Plan: will consult with cardiovascular surgical tech regarding restarting home meds via oral route will wait for pulm residential solar consultant for weaning trial ID residential solar consultant recommendations greatly appreciated. may need diuresis moving forward given the amount of edema noted and increase in weight. History of Present Illness History of Present Illness 05/27/2020 Still on ventilatory support We will wait for pulmonology evaluation Patient still on Levophed Patient has increased weight of about 10 Kg, she needs diuresis but difficult at this time given soft BP 05/26/2020 Patient seen and examined in the ICU She is still on the ventilator Assist-control/ with 40% FiO2 and 7 of PEEP Discussed with RN Chart reviewed She has clean dry intact ventricle incision She is sedated with propofol and fentanyl Also on a Levophed drip Has SCDs Has heel protectors Wilder to bedside drainage Appears critically ill 05/25/2022 Patient seen and examined in the ICU She is intubated Assist-control 100/50% with 7 of PEEP Discussed with RN I called the pharmacy to see about IV Depakote Chart reviewed She remains critically Vitals Vitals Vital Signs Date Time Temp Pulse Resp B/P (MAP) Pulse Ox O2 Delivery O2 Flow Rate FiO2 05/27/20 07:34 97 Ventilator 05/27/20 07:00 75 16 91/58 (69) 05/27/20 04:00 98.3 98.3 Physical Exam Physical Exam GENERAL: Intubated and sedated some. not in distress. HEENT: Anicteric ETT/OGT NECK: Supple. LUNGS: Clear. HEART: S1, S2 regular. ABDOMEN: Distended some. Decrease but + BS. - Incision dressed : - wilder in place EXTREMITIES: No edema, no cyanosis. SKIN: Unremarkable. NEUROLOGIC: Sedated some RIJ -clean 05/25 General: Other (sedated) Heart: Regular rate Lungs: Other (deminished bs) Abdomen: Soft, Other (Mild incisional tenderness wounds clean dry and intact) Extremities: No clubbing, No cyanosis Skin: No rashes, No breakdown Labs LABS Laboratory Tests Test 05/27/20 06:00 White Blood Count 9.7 x10^3/uL (4.0-11.0) Red Blood Count 4.01 x10^6/uL (3.50-5.40) Hemoglobin 8.6 g/dL (12.0-15.5) Hematocrit 28.6 % (36.0-47.0) Mean Corpuscular Volume 71 fL (79-100) Mean Corpuscular Hemoglobin 22 pg (25-35) Mean Corpuscular Hemoglobin Concent 30 g/dL (31-37) Red Cell Distribution Width 28.7 % (11.5-14.5) Platelet Count 126 x10^3/uL (140-400) Neutrophils (%) (Auto) 66 % (31-73) Lymphocytes (%) (Auto) 17 % (24-48) Monocytes (%) (Auto) 12 % (0-9) Eosinophils (%) (Auto) 5 % (0-3) Basophils (%) (Auto) 1 % (0-3) Neutrophils # (Auto) 6.4 x10^3/uL (1.8-7.7) Lymphocytes # (Auto) 1.6 x10^3/uL (1.0-4.8) Monocytes # (Auto) 1.2 x10^3/uL (0.0-1.1) Eosinophils # (Auto) 0.5 x10^3/uL (0.0-0.7) Basophils # (Auto) 0.0 x10^3/uL (0.0-0.2) Review of Systems Review of Systems patient intubated and sedated Assessment and Plan Assessmemt and Plan Problems Medical Problems: (1) Hypernatremia Status: Acute (2) Severe anemia Status: Acute (3) Severe sepsis Status: Acute (4) UTI (urinary tract infection) Status: Acute Comment Review of Relevant I have reviewed the following items len (where applicable) has been applied. Labs Laboratory Tests Test 05/25/20 18:40 05/26/20 06:10 05/26/20 08:00 05/27/20 06:00 White Blood Count 12.9 x10^3/uL (4.0-11.0) 13.7 x10^3/uL (4.0-11.0) 9.7 x10^3/uL (4.0-11.0) Red Blood Count 3.41 x10^6/uL (3.50-5.40) 4.17 x10^6/uL (3.50-5.40) 4.01 x10^6/uL (3.50-5.40) Hemoglobin 6.8 g/dL (12.0-15.5) 9.1 g/dL (12.0-15.5) 8.6 g/dL (12.0-15.5) Hematocrit 22.9 % (36.0-47.0) 29.7 % (36.0-47.0) 28.6 % (36.0-47.0) Mean Corpuscular Volume 67 fL (79-100) 71 fL (79-100) 71 fL (79-100) Mean Corpuscular Hemoglobin 20 pg (25-35) 22 pg (25-35) 22 pg (25-35) Mean Corpuscular Hemoglobin Concent 30 g/dL (31-37) 31 g/dL (31-37) 30 g/dL (31-37) Red Cell Distribution Width 30.5 % (11.5-14.5) 29.2 % (11.5-14.5) 28.7 % (11.5-14.5) Platelet Count 139 x10^3/uL (140-400) 140 x10^3/uL (140-400) 126 x10^3/uL (140-400) Neutrophils (%) (Auto) 76 % (31-73) 66 % (31-73) Lymphocytes (%) (Auto) 10 % (24-48) 17 % (24-48) Monocytes (%) (Auto) 13 % (0-9) 12 % (0-9) Eosinophils (%) (Auto) 1 % (0-3) 5 % (0-3) Basophils (%) (Auto) 1 % (0-3) 1 % (0-3) Neutrophils # (Auto) 10.5 x10^3/uL (1.8-7.7) 6.4 x10^3/uL (1.8-7.7) Lymphocytes # (Auto) 1.3 x10^3/uL (1.0-4.8) 1.6 x10^3/uL (1.0-4.8) Monocytes # (Auto) 1.8 x10^3/uL (0.0-1.1) 1.2 x10^3/uL (0.0-1.1) Eosinophils # (Auto) 0.1 x10^3/uL (0.0-0.7) 0.5 x10^3/uL (0.0-0.7) Basophils # (Auto) 0.1 x10^3/uL (0.0-0.2) 0.0 x10^3/uL (0.0-0.2) Sodium Level 149 mmol/L (136-145) Potassium Level 3.2 mmol/L (3.5-5.1) Chloride Level 117 mmol/L (98-107) Carbon Dioxide Level 20 mmol/L (21-32) Anion Gap 12 (6-14) Blood Urea Nitrogen 7 mg/dL (7-20) Creatinine 0.5 mg/dL (0.6-1.0) Estimated GFR (Cockcroft-Gault) 153.9 Glucose Level 131 mg/dL (70-99) Calcium Level 7.9 mg/dL (8.5-10.1) O2 Saturation 95 % (92-99) Arterial Blood pH 7.43 (7.35-7.45) Arterial Blood pCO2 at Patient Temp 26 mmHg (35-46) Arterial Blood pO2 at Patient Temp 78 mmHg (75-108) Arterial Blood HCO3 17 mmol/L (21-28) Arterial Blood Base Excess -7 mmol/L (-3-3) FiO2 40/vent Laboratory Tests Test 05/27/20 06:00 White Blood Count 9.7 x10^3/uL (4.0-11.0) Red Blood Count 4.01 x10^6/uL (3.50-5.40) Hemoglobin 8.6 g/dL (12.0-15.5) Hematocrit 28.6 % (36.0-47.0) Mean Corpuscular Volume 71 fL (79-100) Mean Corpuscular Hemoglobin 22 pg (25-35) Mean Corpuscular Hemoglobin Concent 30 g/dL (31-37) Red Cell Distribution Width 28.7 % (11.5-14.5) Platelet Count 126 x10^3/uL (140-400) Neutrophils (%) (Auto) 66 % (31-73) Lymphocytes (%) (Auto) 17 % (24-48) Monocytes (%) (Auto) 12 % (0-9) Eosinophils (%) (Auto) 5 % (0-3) Basophils (%) (Auto) 1 % (0-3) Neutrophils # (Auto) 6.4 x10^3/uL (1.8-7.7) Lymphocytes # (Auto) 1.6 x10^3/uL (1.0-4.8) Monocytes # (Auto) 1.2 x10^3/uL (0.0-1.1) Eosinophils # (Auto) 0.5 x10^3/uL (0.0-0.7) Basophils # (Auto) 0.0 x10^3/uL (0.0-0.2) Microbiology 05/16/20 Urine Culture - Final, Complete 05/16/20 Antimicrobic Susceptibility - Final, Complete Medications Current Medications Sodium Chloride 1,000 ml @ 1,000 mls/hr 1X ONCE IV Last administered on 05/16/20at 16:38; Start 05/16/20 at 16:30; Stop 05/16/20 at 17:29; Status DC Erythromycin (Romycin) 0.25 inch 1X ONCE OU Last administered on 05/16/20at 16:44; Start 05/16/20 at 16:45; Stop 05/16/20 at 16:46; Status DC Iohexol (Omnipaque 300 Mg/ml) 75 ml 1X ONCE IV Last administered on 05/16/20at 17:47; Start 05/16/20 at 18:00; Stop 05/16/20 at 18:01; Status DC Sodium Chloride 1,000 ml @ 1,000 mls/hr 1X ONCE IV Last administered on 05/16/20at 19:12; Start 05/16/20 at 18:30; Stop 05/16/20 at 19:29; Status DC Piperacillin Sod/ Tazobactam Sod 3.375 gm/Sodium Chloride 50 ml @ 100 mls/hr 1X ONCE IV Last administered on 05/16/20at 19:25; Start 05/16/20 at 19:00; Stop 05/16/20 at 19:29; Status DC Levofloxacin/ Dextrose 150 ml @ 100 mls/hr 1X ONCE IV Last administered on 05/16/20at 19:57; Start 05/16/20 at 19:30; Stop 05/16/20 at 20:59; Status DC Ondansetron HCl (Zofran) 4 mg PRN Q8HRS PRN IV NAUSEA/VOMITING; Start 05/16/20 at 18:30; Stop 05/17/20 at 18:29; Status DC Sodium Chloride 1,000 ml @ 75 mls/hr 1X ONCE IV ; Start 05/16/20 at 18:30; Stop 05/17/20 at 07:49; Status DC Pantoprazole Sodium (PROTONIX VIAL for IV PUSH) 40 mg DAILYAC IVP Last administered on 05/19/20at 08:31; Start 05/17/20 at 07:30; Stop 05/19/20 at 16:30; Status DC Potassium Chloride (Klor-Con) 40 meq 1X PRN PRN PO PER PROTOCOL; Start 05/16/20 at 21:45 Potassium Chloride/Water 100 ml @ 100 mls/hr PRN Q1HR PRN IV HYPOKALEMIA; Start 05/16/20 at 21:45; Stop 05/25/20 at 14:58; Status DC Potassium Phos/ Sodium Phos (Phos-Nak) 1 pkt PRN BID PRN PO PHOSPHOROUS 2-2.4; Start 05/17/20 at 09:00 Potassium Bicarbonate (Potassium Effervescent Tablet) 40 meq PRN Q4HRS PRN PO PER PROTOCOL Last administered on 05/19/20at 11:35; Start 05/16/20 at 21:45 Potassium Chloride/Water 100 ml @ 100 mls/hr PRN Q1HR PRN IV PER PROTOCOL; Start 05/16/20 at 21:45; Stop 05/26/20 at 12:44; Status DC Acetaminophen (Tylenol Supp) 650 mg PRN Q6HRS PRN OR FEVER > 100.3'F; Start 05/17/20 at 12:30 Bisacodyl (Dulcolax Supp) 10 mg PRN DAILY PRN RC CONSTIPATION, 1st Choice Last administered on 05/21/20at 17:51; Start 05/17/20 at 12:30 Cetirizine HCl (ZyrTEC) 10 mg DAILY PO Last administered on 05/23/20at 09:03; Start 05/17/20 at 13:30 Divalproex Sodium (Depakote) 250 mg DAILY@1400 PO Last administered on 05/23/20 14:47; Start 05/17/20 at 14:00; Stop 05/25/20 at 10:30; Status DC Divalproex Sodium (Depakote) 500 mg BID PO Last administered on 05/23/20 21:00; Start 05/17/20 at 21:00; Stop 05/25/20 at 10:30; Status DC Docusate Sodium (Colace) 200 mg HS PO Last administered on 05/23/20 20:59; Start 05/17/20 at 21:00 Famotidine (Pepcid) 20 mg HS PO Last administered on 05/23/20 21:00; Start 05/17/20 at 21:00 Gabapentin (Neurontin) 200 mg TID PO Last administered on 05/23/20 21:00; Start 05/17/20 at 14:00 Loperamide HCl (Imodium) 2 mg PRN Q8HRS PRN PO DIARRHEA; Start 05/17/20 at 12:30 Sodium Monofluorophosphate (Fleet Adult) 133 ml PRN Q8HRS PRN RC CONSTIPATION, 2nd Choice; Start 05/17/20 at 12:30 Polyethylene Glycol (miraLAX PACKET) 17 gm PRN DAILY PRN PO CONSTIPATION Last administered on 05/18/20at 08:33; Start 05/17/20 at 12:30 Chlorhexidine Gluconate (Peridex) 15 ml BID SWSP Last administered on 05/23/20at 21:00; Start 05/17/20 at 21:00; Stop 05/25/20 at 10:33; Status DC Non-Formulary Medication (Clobazam (Onfi)) 5 mg [id number] PO Last administered on 05/23/20 14:47; Start 05/17/20 at 14:00 Glycopyrrolate (Robinul) 1 mg PRN Q8HRS PRN PO SECRETIONS; Start 05/18/20 at 09:00 Non-Formulary Medication (Melatonin ) 3 mg PRN QHS PRN PO INSOMNIA; Start 05/17/20 at 12:30; Status UNV Oxycodone HCl (Roxicodone) 5 mg PRN Q4HRS PRN PO PAIN Last administered on 05/23/20at 20:59; Start 05/17/20 at 13:00 Topiramate (Topamax) 200 mg BID PO Last administered on 05/23/20at 21:00; Start 05/17/20 at 13:30 Piperacillin Sod/ Tazobactam Sod 3.375 gm/Sodium Chloride 50 ml @ 100 mls/hr Q6HRS IV Last administered on 05/20/20at 05:01; Start 05/17/20 at 13:30; Stop 05/20/20 at 09:53; Status DC Dextrose/Sodium Chloride 1,000 ml @ 75 mls/hr [id number] IV Last administered on 05/23/20at 21:03; Start 05/17/20 at 15:30; Stop 05/24/20 at 15:06; Status DC Lactobacillus Rhamnosus (Culturelle) 1 cap BID PO Last administered on 05/23/20at 21:00; Start 05/18/20 at 21:00 Pantoprazole Sodium (Protonix) 40 mg DAILYAC PO Last administered on 05/23/20at 09:03; Start 05/20/20 at 07:30; Stop 05/25/20 at 08:18; Status DC Polyethylene Glycol (miraLAX Powder BULK BOTTLE) 238 gm 1X ONCE PO Last administered on 05/21/20at 09:00; Start 05/21/20 at 09:00; Stop 05/21/20 at 09:01; Status DC Bisacodyl (Dulcolax Tab) 10 mg 1X ONCE PO Last administered on 05/20/20at 10:45; Start 05/20/20 at 10:45; Stop 05/20/20 at 10:48; Status DC Ringer's Solution 1,000 ml @ 50 mls/hr Q20H IV ; Start 05/22/20 at 07:00; Stop 05/22/20 at 18:59; Status DC Ringer's Solution 1,000 ml @ 75 mls/hr 1X ONCE IV ; Start 05/22/20 at 07:00; Stop 05/22/20 at 20:19; Status DC Propofol (Diprivan) 200 mg STK-MED ONCE IV ; Start 05/22/20 at 08:07; Stop 05/22/20 at 08:07; Status DC Morphine Sulfate (Morphine Sulfate) 2 mg PRN Q2HR PRN IV PAIN 2ND CHOICE Last administered on 05/24/20at 03:50; Start 05/22/20 at 16:45 Ondansetron HCl (Zofran) 4 mg PRN Q6HRS PRN IV NAUSEA/VOMITING; Start 05/24/20 at 07:00; Stop 05/24/20 at 11:06; Status DC Fentanyl Citrate (Fentanyl 2ml Vial) 25 mcg PRN Q5MIN PRN IV MILD PAIN 1-3 Last administered on 05/24/20at 13:59; Start 05/24/20 at 07:00; Stop 05/25/20 at 06:59; Status DC Fentanyl Citrate (Fentanyl 2ml Vial) 50 mcg PRN Q5MIN PRN IV MODERATE TO SEVERE PAIN; Start 05/24/20 at 07:00; Stop 05/25/20 at 06:59; Status DC Morphine Sulfate (Morphine Sulfate) 1 mg PRN Q10MIN PRN IV SEVERE PAIN 7-10; Start 05/24/20 at 07:00; Stop 05/25/20 at 06:59; Status DC Ringer's Solution 1,000 ml @ 30 mls/hr Q24H IV Last administered on 05/24/20at 08:20; Start 05/24/20 at 07:00; Stop 05/24/20 at 18:59; Status DC Hydromorphone HCl (Dilaudid) 0.5 mg PRN Q10MIN PRN IV SEV PAIN, Second choice; Start 05/24/20 at 07:00; Stop 05/25/20 at 06:59; Status DC Prochlorperazine Edisylate (Compazine) 5 mg PACU PRN PRN IV NAUSEA, MRX1; Start 05/24/20 at 07:00; Stop 05/25/20 at 06:59; Status DC Cefazolin Sodium/ Dextrose 50 ml @ 100 mls/hr 1X ONCE IV Last administered on 05/24/20at 09:39; Start 05/24/20 at 07:30; Stop 05/24/20 at 07:59; Status DC Propofol (Diprivan) 200 mg STK-MED ONCE IV ; Start 05/24/20 at 08:02; Stop 05/24/20 at 08:03; Status DC Lidocaine HCl (Lidocaine Pf 2% Vial) 5 ml STK-MED ONCE .ROUTE ; Start 05/24/20 at 08:02; Stop 05/24/20 at 08:03; Status DC Succinylcholine Chloride (Anectine) 200 mg STK-MED ONCE .ROUTE ; Start 05/24/20 at 08:03; Stop 05/24/20 at 08:03; Status DC Rocuronium [place] (Zemuron) 50 mg STK-MED ONCE .ROUTE ; Start 05/24/20 at 08:03; Stop 05/24/20 at 08:04; Status DC Fentanyl Citrate (Fentanyl 2ml Vial) 100 mcg STK-MED ONCE .ROUTE ; Start 05/24/20 at 08:04; Stop 05/24/20 at 08:04; Status DC Albumin Human 500 ml @ As Directed STK-MED ONCE IV ; Start 05/24/20 at 09:38; Stop 05/24/20 at 09:39; Status DC Desflurane (Suprane) 60 ml STK-MED ONCE IH ; Start 05/24/20 at 09:38; Stop 05/24/20 at 09:39; Status DC Dexamethasone Sodium Phosphate (Decadron) 4 mg STK-MED ONCE .ROUTE ; Start 05/24/20 at 09:38; Stop 05/24/20 at 09:39; Status DC Phenylephrine HCl (PHENYLEPHRINE in 0.9% NACL PF) 1 mg STK-MED ONCE IV ; Start 05/24/20 at 09:47; Stop 05/24/20 at 09:47; Status DC Ondansetron HCl (Zofran) 4 mg STK-MED ONCE .ROUTE ; Start 05/24/20 at 10:13; Stop 05/24/20 at 10:14; Status DC Neostigmine [place] (Neostigmine Methylsulfate) 5 mg STK-MED ONCE .ROUTE ; Start 05/24/20 at 10:14; Stop 05/24/20 at 10:14; Status DC Glycopyrrolate (Robinul) 1 mg STK-MED ONCE .ROUTE ; Start 05/24/20 at 10:14; Stop 05/24/20 at 10:14; Status DC Fentanyl Citrate (Fentanyl 2ml Vial) 100 mcg STK-MED ONCE .ROUTE ; Start 05/24/20 at 10:56; Stop 05/24/20 at 10:57; Status DC Cefoxitin Sodium (Mefoxin) 1 gm Q8H IVP Last administered on 05/25/20at 09:03; Start 05/24/20 at 15:30; Stop 05/25/20 at 07:31; Status DC Sodium Chloride (Normal Saline Flush) 3 ml QSHIFT PRN IV AFTER MEDS AND BLOOD DRAWS; Start 05/24/20 at 11:15 Morphine Sulfate (Morphine Sulfate) 2 mg PRN Q3HRS PRN IV PAIN; Start 05/24/20 at 11:15; Stop 05/25/20 at 14:37; Status DC Oxycodone/ Acetaminophen (Percocet 5/325) 1 tab PRN Q4HRS PRN PO MILD PAIN, 1ST CHOICE; Start 05/24/20 at 11:15 Oxycodone/ Acetaminophen (Percocet 5/325) 2 tab PRN Q4HRS PRN PO MODERATE PAIN, SEVERE PAIN; Start 05/24/20 at 11:15 Ketorolac Tromethamine (Toradol 15mg Vial) 15 mg Q6HRS IV Last administered on 05/26/20at 06:20; Start 05/24/20 at 12:00; Stop 05/26/20 at 11:59; Status DC Ondansetron HCl (Zofran) 4 mg PRN Q6HRS PRN IV NAUSEA, 1ST CHOICE; Start 05/24/20 at 11:15 Dextrose/Lactated Ringer's 1,000 ml @ 125 mls/hr Q8H IV Last administered on 05/26/20at 06:21; Start 05/24/20 at 11:02; Stop 05/26/20 at 09:45; Status DC Albumin Human 500 ml @ As Directed STK-MED ONCE IV ; Start 05/24/20 at 11:42; Stop 05/24/20 at 11:42; Status DC Albumin Human 500 ml @ 125 mls/hr 1X ONCE IV Last administered on 05/24/20at 1 1:54; Start 05/24/20 at 12:00; Stop 05/24/20 at 15:59; Status DC Fentanyl Citrate (Fentanyl 2ml Vial) 25 mcg PRN Q2HR PRN IVP PAIN 1ST CHOICE Last administered on 05/25/20at 16:10; Start 05/24/20 at 13:30 Propofol 100 ml @ As Directed STK-MED ONCE IV ; Start 05/24/20 at 18:01; Stop 05/24/20 at 18:02; Status DC Propofol 100 ml @ 0.873 mls/ hr CONT PRN IV SEE I/O RECORD Last administered on 05/27/20at 01:24; Start 05/24/20 at 18:15 Pantoprazole Sodium (PROTONIX VIAL for IV PUSH) 40 mg DAILYAC IVP Last administered on 05/27/20at 08:05; Start 05/26/20 at 07:30 Pantoprazole Sodium (PROTONIX VIAL for IV PUSH) 40 mg 1X ONCE IVP Last administered on 05/25/20at 09:03; Start 05/25/20 at 08:30; Stop 05/25/20 at 08:31; Status DC Valproic Acid 500 mg/Dextrose 55 ml @ 55 mls/hr Q8HRS IV Last administered on 05/27/20at 05:55; Start 05/25/20 at 11:00 Potassium Chloride/Water 100 ml @ 100 mls/hr PRN Q1HR PRN IV HYPOKALEMIA Last administered on 05/25/20at 17:09; Start 05/25/20 at 15:00; Stop 05/25/20 at 17:09; Status DC Norepinephrine Bitartrate 8 mg/ Dextrose 258 ml @ 12.887 mls/ hr CONT PRN IV PER PROTOCOL Last administered on 05/26/20at 03:14; Start 05/25/20 at 20:30 Fentanyl Citrate 30 ml @ 0 mls/hr CONT PRN IV SEE PROTOCOL Last administered on 05/27/20at 04:05; Start 05/26/20 at 09:15 Sodium Chloride 1,000 ml @ 125 mls/hr 1X ONCE IV Last administered on 05/26/20at 09:54; Start 05/26/20 at 09:45; Stop 05/26/20 at 17:44; Status DC Potassium Chloride/Water 100 ml @ 100 mls/hr PRN Q1HR PRN IV PER PROTOCOL Last administered on 05/26/20at 15:03; Start 05/26/20 at 12:45 Enoxaparin Sodium (Lovenox 40mg Syringe) 40 mg DAILY SQ Last administered on 05/27/20at 08:05; Start 05/26/20 at 16:30 Sodium Chloride 1,000 ml @ 125 mls/hr Q8H IV Last administered on 05/27/20at 01:24; Start 05/26/20 at 18:00 Active Scripts Active Acetaminophen Supp (Acetaminophen) 650 Mg Supp.rect 650 Mg OR PRN Q6HRS PRN 10 Days Reported Imodium A-D (Loperamide HCl) 2 Mg Capsule 2 Mg PO PRN Q8HRS PRN Glycopyrrolate 2 Mg Tablet 1 Mg PO PRN Q8HRS PRN Gabapentin (Gabapentin) 100 Mg Capsule 200 Mg PO TID Chlorhexidine Gluconate 118 Ml Liquid 1 Gerald PO BID Topamax (Topiramate) 200 Mg Tablet 200 Mg PO BID Polyethylene Glycol 3350 17 Gm Powd.pack 17 Gm PO PRN DAILY PRN Oxycodone Hcl 5 Mg Capsule 5 Mg PO PRN Q4HRS PRN Melatonin 3 Mg Tablet 3 Mg PO PRN QHS PRN Fleet Enema (Na Phos,M-B/Na Phos,Di-Ba) 133 Ml Enema 133 Ml RC PRN Q8HRS PRN Famotidine 20 Mg Tablet 20 Mg PO HS Bisacodyl 10 Mg Supp.rect 10 Mg RC PRN DAILY PRN Docusate Sodium 100 Mg Capsule 200 Mg PO HS Divalproex Sodium Er (Divalproex Sodium) 500 Mg Tab.er.24h 500 Mg PO BID Eliquis (Apixaban) 5 Mg Tablet 5 Mg PO BID Divalproex Sodium Er (Divalproex Sodium) 500 Mg Tab.er.24h 250 Mg PO DAILY Zyrtec (Cetirizine Hcl) 10 Mg Tablet 1 Tab PO DAILY Onfi (Clobazam) 10 Mg Tablet 5 Mg PO [id number] Vitals/I & O Vital Sign - Last 24 Hours 05/26/20 05/26/20 05/26/20 05/26/20 09:00 09:29 09:41 10:00 Pulse 87 87 Resp 16 16 16 B/P (MAP) 116/74 (88) 102/67 (79) Pulse Ox 98 100 100 97 O2 Delivery Ventilator Ventilator Ventilator Ventilator 05/26/20 05/26/20 05/26/20 05/26/20 10:16 11:00 11:34 12:00 Pulse 95 Resp 22 16 B/P (MAP) 97/58 (71) Pulse Ox 100 100 100 O2 Delivery Ventilator Ventilator Ventilator Mechanical Ventilator 05/26/20 05/26/20 05/26/20 05/26/20 12:00 12:15 13:00 14:00 Temp 98.1 98.1 Pulse 101 96 80 Resp 16 16 15 B/P (MAP) 127/87 (100) 121/85 (97) 106/71 (83) Pulse Ox 98 99 99 99 O2 Delivery Ventilator Ventilator Ventilator Ventilator 05/26/20 05/26/20 05/26/20 05/26/20 15:00 15:21 16:00 16:00 Temp 98.5 98.5 Pulse 84 107 Resp 16 16 B/P (MAP) 94/62 (73) 96/69 (78) Pulse Ox 99 100 100 O2 Delivery Ventilator Ventilator Ventilator Mechanical Ventilator 05/26/20 05/26/20 05/26/20 05/26/20 17:00 17:50 18:00 18:38 Pulse 109 93 Resp 15 15 B/P (MAP) 111/77 (88) 101/61 (74) Pulse Ox 98 98 99 99 O2 Delivery Ventilator Ventilator Ventilator Ventilator 05/26/20 05/26/20 05/26/20 05/26/20 19:00 19:54 20:00 20:00 Temp 98.4 98.4 Pulse 89 86 Resp 16 16 B/P (MAP) 110/63 (79) 70/52 (58) Pulse Ox 99 98 97 O2 Delivery Ventilator Ventilator Mechanical Ventilator Ventilator 05/26/20 05/26/20 05/26/20 05/26/20 20:41 21:00 22:00 23:00 Pulse 84 94 98 Resp 20 16 16 16 B/P (MAP) 97/66 (76) 124/81 (95) 80/49 (59) Pulse Ox 98 98 99 98 O2 Delivery Ventilator Ventilator Ventilator Ventilator 05/26/20 05/27/20 05/27/20 05/27/20 23:45 00:00 00:00 01:00 Temp 98.6 98.6 Pulse 99 79 Resp 16 16 B/P (MAP) 104/74 (84) 128/77 (94) Pulse Ox 99 99 98 O2 Delivery Ventilator Mechanical Ventilator Ventilator Ventilator 05/27/20 05/27/20 05/27/20 05/27/20 02:00 03:00 03:36 04:00 Pulse 76 90 Resp 16 16 B/P (MAP) 137/75 (95) 135/78 (97) Pulse Ox 98 97 96 O2 Delivery Ventilator Ventilator Ventilator Mechanical Ventilator 05/27/20 05/27/20 05/27/20 05/27/20 04:00 04:05 05:00 05:55 Temp 98.3 98.3 Pulse 96 74 Resp 16 16 16 16 B/P (MAP) 120/82 (95) 83/52 (62) Pulse Ox 97 100 97 O2 Delivery Ventilator Ventilator Ventilator Ventilator 05/27/20 05/27/20 05/27/20 06:00 07:00 07:34 Pulse 72 75 Resp 16 16 B/P (MAP) 91/58 (69) 91/58 (69) Pulse Ox 97 97 97 O2 Delivery Ventilator Ventilator Ventilator Intake and Output 05/26/20 05/26/20 05/27/20 15:00 23:00 07:00 Intake Total 531.2 ml 1448.84 ml 1707.6 ml Output Total 1075 ml 355 ml 255 ml Balance -543.8 ml 1093.84 ml 1452.6 ml Justicifation of Admission Dx: Justifications for Admission: Justification of Admission Dx: Yes HUGO MEYER MD May 27, 2020 08:36
[2020-05-27 08:49] LABS: BASE EXCESS ABG -8 mmol/L (-3-3); FIO2 ABG 40%+5; HCO3 ABG 15 mmol/L (21-28); PCO2 ABG 22 mmHg (35-46); PO2 ABG 70 mmHg (75-108); SAT O2 ABG 94 % (92-99)
[2020-05-27] MEDS: GABAPENTIN 100 MG CAPSULE. PO SCH ×3 (09:00→21:43)
[2020-05-27] MEDS: CETIRIZINE HCL 10 MG TABLET. PO SCH (09:00)
[2020-05-27] MEDS: LACTOBACILLUS RHAMNOSUS GG 1 CAPSULE. PO SCH ×2 (09:00→21:42)
[2020-05-27] MEDS: TOPIRAMATE 100 MG TABLET. PO SCH ×2 (09:00→21:43)
--- NOTE | 2020-05-27 10:05 | PDOC ---
PULMONARY PROGRESS NOTES DATE: 05/27/20 TIME: 10:04 Subjective on vent sedated on propofol fentanyl small ett secretion on peep 5 fi02 40% Vitals Vital Signs Date Time Temp Pulse Resp B/P (MAP) Pulse Ox O2 Delivery O2 Flow Rate FiO2 05/27/20 09:00 102 16 110/65 (80) 99 Ventilator 05/27/20 08:00 97.6 97.6 Comments ros unable to obtain on vent sedated sedated on vent HEENT: Other (nc at perrl nose clear orally intubated neck no lad no thyromegaly) Lungs: Other (deminished bs) Cardiovascular: S1, S2 Abdomen: Soft, Non-tender, Other (no mass) Extremities: No Edema Skin: Warm, Dry, No Rashes Labs Laboratory Tests Test 05/25/20 18:40 05/26/20 06:10 05/26/20 08:00 05/27/20 06:00 White Blood Count 12.9 x10^3/uL (4.0-11.0) 13.7 x10^3/uL (4.0-11.0) 9.7 x10^3/uL (4.0-11.0) Red Blood Count 3.41 x10^6/uL (3.50-5.40) 4.17 x10^6/uL (3.50-5.40) 4.01 x10^6/uL (3.50-5.40) Hemoglobin 6.8 g/dL (12.0-15.5) 9.1 g/dL (12.0-15.5) 8.6 g/dL (12.0-15.5) Hematocrit 22.9 % (36.0-47.0) 29.7 % (36.0-47.0) 28.6 % (36.0-47.0) Mean Corpuscular Volume 67 fL (79-100) 71 fL (79-100) 71 fL (79-100) Mean Corpuscular Hemoglobin 20 pg (25-35) 22 pg (25-35) 22 pg (25-35) Mean Corpuscular Hemoglobin Concent 30 g/dL (31-37) 31 g/dL (31-37) 30 g/dL (31-37) Red Cell Distribution Width 30.5 % (11.5-14.5) 29.2 % (11.5-14.5) 28.7 % (11.5-14.5) Platelet Count 139 x10^3/uL (140-400) 140 x10^3/uL (140-400) 126 x10^3/uL (140-400) Neutrophils (%) (Auto) 76 % (31-73) 66 % (31-73) Lymphocytes (%) (Auto) 10 % (24-48) 17 % (24-48) Monocytes (%) (Auto) 13 % (0-9) 12 % (0-9) Eosinophils (%) (Auto) 1 % (0-3) 5 % (0-3) Basophils (%) (Auto) 1 % (0-3) 1 % (0-3) Neutrophils # (Auto) 10.5 x10^3/uL (1.8-7.7) 6.4 x10^3/uL (1.8-7.7) Lymphocytes # (Auto) 1.3 x10^3/uL (1.0-4.8) 1.6 x10^3/uL (1.0-4.8) Monocytes # (Auto) 1.8 x10^3/uL (0.0-1.1) 1.2 x10^3/uL (0.0-1.1) Eosinophils # (Auto) 0.1 x10^3/uL (0.0-0.7) 0.5 x10^3/uL (0.0-0.7) Basophils # (Auto) 0.1 x10^3/uL (0.0-0.2) 0.0 x10^3/uL (0.0-0.2) Sodium Level 149 mmol/L (136-145) Potassium Level 3.2 mmol/L (3.5-5.1) Chloride Level 117 mmol/L (98-107) Carbon Dioxide Level 20 mmol/L (21-32) Anion Gap 12 (6-14) Blood Urea Nitrogen 7 mg/dL (7-20) Creatinine 0.5 mg/dL (0.6-1.0) Estimated GFR (Cockcroft-Gault) 153.9 Glucose Level 131 mg/dL (70-99) Calcium Level 7.9 mg/dL (8.5-10.1) O2 Saturation 95 % (92-99) Arterial Blood pH 7.43 (7.35-7.45) Arterial Blood pCO2 at Patient Temp 26 mmHg (35-46) Arterial Blood pO2 at Patient Temp 78 mmHg (75-108) Arterial Blood HCO3 17 mmol/L (21-28) Arterial Blood Base Excess -7 mmol/L (-3-3) FiO2 40/vent Test 05/27/20 08:00 O2 Saturation 94 % (92-99) Arterial Blood pH 7.44 (7.35-7.45) Arterial Blood pCO2 at Patient Temp 22 mmHg (35-46) Arterial Blood pO2 at Patient Temp 70 mmHg (75-108) Arterial Blood HCO3 15 mmol/L (21-28) Arterial Blood Base Excess -8 mmol/L (-3-3) FiO2 40%+5 Laboratory Tests Test 05/27/20 06:00 05/27/20 08:00 White Blood Count 9.7 x10^3/uL (4.0-11.0) Red Blood Count 4.01 x10^6/uL (3.50-5.40) Hemoglobin 8.6 g/dL (12.0-15.5) Hematocrit 28.6 % (36.0-47.0) Mean Corpuscular Volume 71 fL (79-100) Mean Corpuscular Hemoglobin 22 pg (25-35) Mean Corpuscular Hemoglobin Concent 30 g/dL (31-37) Red Cell Distribution Width 28.7 % (11.5-14.5) Platelet Count 126 x10^3/uL (140-400) Neutrophils (%) (Auto) 66 % (31-73) Lymphocytes (%) (Auto) 17 % (24-48) Monocytes (%) (Auto) 12 % (0-9) Eosinophils (%) (Auto) 5 % (0-3) Basophils (%) (Auto) 1 % (0-3) Neutrophils # (Auto) 6.4 x10^3/uL (1.8-7.7) Lymphocytes # (Auto) 1.6 x10^3/uL (1.0-4.8) Monocytes # (Auto) 1.2 x10^3/uL (0.0-1.1) Eosinophils # (Auto) 0.5 x10^3/uL (0.0-0.7) Basophils # (Auto) 0.0 x10^3/uL (0.0-0.2) O2 Saturation 94 % (92-99) Arterial Blood pH 7.44 (7.35-7.45) Arterial Blood pCO2 at Patient Temp 22 mmHg (35-46) Arterial Blood pO2 at Patient Temp 70 mmHg (75-108) Arterial Blood HCO3 15 mmol/L (21-28) Arterial Blood Base Excess -8 mmol/L (-3-3) FiO2 40%+5 Medications Active Scripts Medications Dose Route/Sig Max Daily Dose Days Date Category Imodium A-D (Loperamide HCl) 2 Mg Capsule 2 Mg PO PRN Q8HRS PRN 05/16/20 Reported Glycopyrrolate 2 Mg Tablet 1 Mg PO PRN Q8HRS PRN 05/16/20 Reported Gabapentin (Gabapentin) 100 Mg Capsule 200 Mg PO TID 05/16/20 Reported Chlorhexidine Gluconate 118 Ml Liquid 1 Gerald PO BID 05/16/20 Reported Acetaminophen Supp (Acetaminophen) 650 Mg Supp.rect 650 Mg NM PRN Q6HRS PRN 10 06/15/19 Rx Topamax (Topiramate) 200 Mg Tablet 200 Mg PO BID 06/12/19 Reported Polyethylene Glycol 3350 17 Gm Powd.pack 17 Gm PO PRN DAILY PRN 06/12/19 Reported Oxycodone Hcl 5 Mg Capsule 5 Mg PO PRN Q4HRS PRN 06/12/19 Reported Melatonin 3 Mg Tablet 3 Mg PO PRN QHS PRN 06/12/19 Reported Fleet Enema (Na Phos,M-B/Na Phos,Di-Ba) 133 Ml Enema 133 Ml RC PRN Q8HRS PRN 06/12/19 Reported Famotidine 20 Mg Tablet 20 Mg PO HS 06/12/19 Reported Bisacodyl 10 Mg Supp.rect 10 Mg RC PRN DAILY PRN 06/12/19 Reported Docusate Sodium 100 Mg Capsule 200 Mg PO HS 06/12/19 Reported Divalproex Sodium Er (Divalproex Sodium) 500 Mg Tab.er.24h 500 Mg PO BID 06/12/19 Reported Eliquis (Apixaban) 5 Mg Tablet 5 Mg PO BID 06/12/19 Reported Divalproex Sodium Er (Divalproex Sodium) 500 Mg Tab.er.24h 250 Mg PO DAILY 06/12/19 Reported Zyrtec (Cetirizine Hcl) 10 Mg Tablet 1 Tab PO DAILY 01/09/18 Reported Onfi (Clobazam) 10 Mg Tablet 5 Mg PO [id number] 01/09/18 Reported Comments cxr reviewed ett ok b lat basilar atelectasis, slightly better Impression . IMPRESSION: 1. Respiratory failure, post exploratory laparotomy. expected, Likely effect of sedative resulting in encephalopathy 2. Hypotension resolved 3. The patient with developmental delay and underlying dementia. She is a fdc with total care. 4. Right colon mass, status post exploratory laparotomy with right colon resection and primary anastomosis. The preliminary pathology consistent with colon cancer. 5. History of seizure disorder. 6. abnl cxr atelectasis Plan . RECOMMENDATIONS: 1. We will continue with present assist control mode. ABGs reviewed. dc sedation will do sbt , possible extubation today 2. chest x-ray reviewed atelectasis improved. 3. elevate hob 4. Prognosis overall gained from malignancy standpoint. Quality of life was poor prior to surgery. 5. Follow Oncology recommendations. 6. Follow surgery recommendations. 7. DVT prophylaxis and stress ulcer prophylaxis. 8. Discussed with RN and rt and we will follow along with you. cct 30 min DEBORAH NORTON MD May 27, 2020 10:05
[2020-05-27 11:07] LABS: BASE EXCESS ABG -7 mmol/L (-3-3); HCO3 ABG 17 mmol/L (21-28); PCO2 ABG 27 mmHg (35-46); PO2 ABG 58 mmHg (75-108); SAT O2 ABG 89 % (92-99)
[2020-05-27] MEDS ORDERED: FUROSEMIDE 20 MG/2 ML VIAL. IVP ONE (11:30)
[2020-05-27] MEDS ORDERED: SODIUM BICARB ADULT 8.4% 50 MEQ/50 ML DISP.SYRIN. IV ONE (11:45)
--- NOTE | 2020-05-27 11:53 | NUR ---
Pt placed on cpap trial @ 10:24am with PS 10. Repeat blood gas drawn at 1100. Results called to Dr. Mcmullen who ordered pt to be extubated and placed on Venti Mask 50%. Pt was extubated @ 1120 and immediately had upper airway stridor/wheezing upon expiration. Dr Mcmullen was paged and ordered for 1amp sodium bicarb, 20mg Lasix, Racemic Epinephrine, and to place pt on Bipap. Pt was placed on Bipap @ 1135 16/4 R16 60%. Pt's current O2 Saturation 91%.
[2020-05-27] MEDS ORDERED: RACEPINEPHRINE 2.25% 0.5 ML NEBU. NEB ONE (12:15)
[2020-05-27] MEDS: fentaNYL PF VIAL 100 MCG/2 ML VIAL IVP PRN ×2 (14:30→21:44)
[2020-05-27] MEDS: oxyCODONE IR 5 MG TABLET PO PRN (15:07)
[2020-05-27] MEDS: DOCUSATE SODIUM 100 MG CAPSULE. PO SCH (21:42)
[2020-05-27] MEDS: FAMOTIDINE 20 MG TABLET. PO SCH (21:43)
[2020-05-28] VITALS (25 sets, daily range): BP systolic 111–190; BP diastolic 59–89
[2020-05-28] MEDS: IV NORMAL SALINE 1000ML BAG 1,000 ML IV SCH (02:35)
[2020-05-28] MEDS: VALPROIC ACID (AS SODIUM SALT) 500 MG in IV DEXTROSE 5% 50 ML IV SCH ×3 (05:27→21:07)
[2020-05-28 06:13] LABS: BASO % 0 % (0-3); EOS % 0 % (0-3); HEMATOCRIT 33.1 % (36.0-47.0); HEMOGLOBIN 9.9 g/dL (12.0-15.5); LYMPH # 0.7 x10^3/uL (1.0-4.8); LYMPH % 4 % (24-48); MEAN CORPUSCULAR HEMOGLOBIN 22 pg (25-35); MEAN CORPUSCULAR HGB CONC 30 g/dL (31-37); MEAN CORPUSCULAR VOLUME 72 fL (79-100); MONO # 3.5 x10^3/uL (0.0-1.1); MONO % 21 % (0-9); NEUT # 12.3 x10^3/uL (1.8-7.7); NEUT % 74 % (31-73); PLATELET COUNT 131 x10^3/uL (140-400); RED BLOOD COUNT 4.61 x10^6/uL (3.50-5.40); RED CELL DISTRIBUTION WIDTH 28.8 % (11.5-14.5); WHITE BLOOD COUNT 16.7 x10^3/uL (4.0-11.0)
[2020-05-28 07:55] LABS: BASE EXCESS ABG -5 mmol/L (-3-3); HCO3 ABG 20 mmol/L (21-28); PCO2 ABG 35 mmHg (35-46); PO2 ABG 61 mmHg (75-108); SAT O2 ABG 91 % (92-99)
[2020-05-28] MEDS: PANTOPRAZOLE IV PUSH 40 MG VIAL. IVP SCH (08:01)
[2020-05-28] MEDS: TOPIRAMATE 100 MG TABLET. PO SCH ×2 (08:01→21:06)
[2020-05-28] MEDS: LACTOBACILLUS RHAMNOSUS GG 1 CAPSULE. PO SCH ×2 (08:01→21:06)
[2020-05-28] MEDS: CETIRIZINE HCL 10 MG TABLET. PO SCH (08:01)
[2020-05-28] MEDS: GABAPENTIN 100 MG CAPSULE. PO SCH ×3 (08:01→21:05)
[2020-05-28] MEDS: ENOXAPARIN 40 MG/0.4 ML SYRINGE. SQ SCH (08:02)
[2020-05-28 08:03] LABS: FIO2 ABG 60
--- NOTE | 2020-05-28 08:08 | PDOC ---
PROGRESS NOTES Date of Service: DATE: 05/28/20 TIME: 08:04 Chief Complaint Chief Complaint Postop day 4 Exploratory laparotomy with right colon resection and primary anastomosis Severe sepsis Respiratory failure requiring intubation, succesfully extubated on 05/27/2020 Seizure disorder Cognitive deficit Low Hemoglobin Vit D Deficient,DYSPHAGIA,SIRS Hysterectomy care home resident Plan: start procalamine may need more free water will repeat bmp to assess electrolytes replace electrolytes as per protocol ID legal consultant recommendations greatly appreciated. may need diuresis moving forward given the amount of edema noted and increase in weight. History of Present Illness History of Present Illness 05/28/2020 patient on bipap quite edematous will continue with Lasix Off Levophed 05/27/2020 Still on ventilatory support We will wait for pulmonology evaluation Patient still on Levophed Patient has increased weight of about 10 Kg, she needs diuresis but difficult at this time given soft BP 05/26/2020 Patient seen and examined in the ICU She is still on the ventilator Assist-control//500 with 40% FiO2 and 7 of PEEP Discussed with RN Chart reviewed She has clean dry intact ventricle incision She is sedated with propofol and fentanyl Also on a Levophed drip Has SCDs Has heel protectors Wilder to bedside drainage Appears critically ill 05/25/2022 Patient seen and examined in the ICU She is intubated Assist-control/02/02 100/50% with 7 of PEEP Discussed with RN I called the pharmacy to see about IV Depakote Chart reviewed She remains critically Vitals Vitals Vital Signs Date Time Temp Pulse Resp B/P (MAP) Pulse Ox O2 Delivery O2 Flow Rate FiO2 05/28/20 07:00 129 29 144/78 (100) 96 BiPAP/CPAP 05/28/20 00:00 99.7 99.7 Physical Exam Physical Exam GENERAL: Intubated and sedated some. not in distress. HEENT: Anicteric ETT/OGT NECK: Supple. LUNGS: Clear. HEART: S1, S2 regular. ABDOMEN: Distended some. Decrease but + BS. - Incision dressed : - wilder in place EXTREMITIES: No edema, no cyanosis. SKIN: Unremarkable. NEUROLOGIC: Sedated some RIJ -clean 05/25 General: mild distress Heart: Regular rate Lungs: Other (deminished bs) Abdomen: Soft, Other (Mildly distended) Extremities: No clubbing, No cyanosis Skin: No rashes, No breakdown Labs LABS Laboratory Tests Test 05/27/20 11:00 05/28/20 05:30 05/28/20 07:35 O2 Saturation 89 % (92-99) 91 % (92-99) Arterial Blood pH 7.41 (7.35-7.45) 7.38 (7.35-7.45) Arterial Blood pCO2 at Patient Temp 27 mmHg (35-46) 35 mmHg (35-46) Arterial Blood pO2 at Patient Temp 58 mmHg (75-108) 61 mmHg (75-108) Arterial Blood HCO3 17 mmol/L (21-28) 20 mmol/L (21-28) Arterial Blood Base Excess -7 mmol/L (-3-3) -5 mmol/L (-3-3) FiO2 40% 10/5 60 White Blood Count 16.7 x10^3/uL (4.0-11.0) Red Blood Count 4.61 x10^6/uL (3.50-5.40) Hemoglobin 9.9 g/dL (12.0-15.5) Hematocrit 33.1 % (36.0-47.0) Mean Corpuscular Volume 72 fL (79-100) Mean Corpuscular Hemoglobin 22 pg (25-35) Mean Corpuscular Hemoglobin Concent 30 g/dL (31-37) Red Cell Distribution Width 28.8 % (11.5-14.5) Platelet Count 131 x10^3/uL (140-400) Neutrophils (%) (Auto) 74 % (31-73) Lymphocytes (%) (Auto) 4 % (24-48) Monocytes (%) (Auto) 21 % (0-9) Eosinophils (%) (Auto) 0 % (0-3) Basophils (%) (Auto) 0 % (0-3) Neutrophils # (Auto) 12.3 x10^3/uL (1.8-7.7) Lymphocytes # (Auto) 0.7 x10^3/uL (1.0-4.8) Monocytes # (Auto) 3.5 x10^3/uL (0.0-1.1) Eosinophils # (Auto) 0.0 x10^3/uL (0.0-0.7) Basophils # (Auto) 0.0 x10^3/uL (0.0-0.2) Assessment and Plan Assessmemt and Plan Problems Medical Problems: (1) Hypernatremia Status: Acute (2) Severe anemia Status: Acute (3) Severe sepsis Status: Acute (4) UTI (urinary tract infection) Status: Acute Comment Review of Relevant I have reviewed the following items len (where applicable) has been applied. Labs Laboratory Tests Test 05/27/20 06:00 05/27/20 08:00 05/27/20 11:00 05/28/20 05:30 White Blood Count 9.7 x10^3/uL (4.0-11.0) 16.7 x10^3/uL (4.0-11.0) Red Blood Count 4.01 x10^6/uL (3.50-5.40) 4.61 x10^6/uL (3.50-5.40) Hemoglobin 8.6 g/dL (12.0-15.5) 9.9 g/dL (12.0-15.5) Hematocrit 28.6 % (36.0-47.0) 33.1 % (36.0-47.0) Mean Corpuscular Volume 71 fL (79-100) 72 fL (79-100) Mean Corpuscular Hemoglobin 22 pg (25-35) 22 pg (25-35) Mean Corpuscular Hemoglobin Concent 30 g/dL (31-37) 30 g/dL (31-37) Red Cell Distribution Width 28.7 % (11.5-14.5) 28.8 % (11.5-14.5) Platelet Count 126 x10^3/uL (140-400) 131 x10^3/uL (140-400) Neutrophils (%) (Auto) 66 % (31-73) 74 % (31-73) Lymphocytes (%) (Auto) 17 % (24-48) 4 % (24-48) Monocytes (%) (Auto) 12 % (0-9) 21 % (0-9) Eosinophils (%) (Auto) 5 % (0-3) 0 % (0-3) Basophils (%) (Auto) 1 % (0-3) 0 % (0-3) Neutrophils # (Auto) 6.4 x10^3/uL (1.8-7.7) 12.3 x10^3/uL (1.8-7.7) Lymphocytes # (Auto) 1.6 x10^3/uL (1.0-4.8) 0.7 x10^3/uL (1.0-4.8) Monocytes # (Auto) 1.2 x10^3/uL (0.0-1.1) 3.5 x10^3/uL (0.0-1.1) Eosinophils # (Auto) 0.5 x10^3/uL (0.0-0.7) 0.0 x10^3/uL (0.0-0.7) Basophils # (Auto) 0.0 x10^3/uL (0.0-0.2) 0.0 x10^3/uL (0.0-0.2) O2 Saturation 94 % (92-99) 89 % (92-99) Arterial Blood pH 7.44 (7.35-7.45) 7.41 (7.35-7.45) Arterial Blood pCO2 at Patient Temp 22 mmHg (35-46) 27 mmHg (35-46) Arterial Blood pO2 at Patient Temp 70 mmHg (75-108) 58 mmHg (75-108) Arterial Blood HCO3 15 mmol/L (21-28) 17 mmol/L (21-28) Arterial Blood Base Excess -8 mmol/L (-3-3) -7 mmol/L (-3-3) FiO2 40%+5 40% 06/24 Test 05/28/20 07:35 O2 Saturation 91 % (92-99) Arterial Blood pH 7.38 (7.35-7.45) Arterial Blood pCO2 at Patient Temp 35 mmHg (35-46) Arterial Blood pO2 at Patient Temp 61 mmHg (75-108) Arterial Blood HCO3 20 mmol/L (21-28) Arterial Blood Base Excess -5 mmol/L (-3-3) FiO2 60 Laboratory Tests Test 05/27/20 11:00 05/28/20 05:30 05/28/20 07:35 O2 Saturation 89 % (92-99) 91 % (92-99) Arterial Blood pH 7.41 (7.35-7.45) 7.38 (7.35-7.45) Arterial Blood pCO2 at Patient Temp 27 mmHg (35-46) 35 mmHg (35-46) Arterial Blood pO2 at Patient Temp 58 mmHg (75-108) 61 mmHg (75-108) Arterial Blood HCO3 17 mmol/L (21-28) 20 mmol/L (21-28) Arterial Blood Base Excess -7 mmol/L (-3-3) -5 mmol/L (-3-3) FiO2 40% 10/5 60 White Blood Count 16.7 x10^3/uL (4.0-11.0) Red Blood Count 4.61 x10^6/uL (3.50-5.40) Hemoglobin 9.9 g/dL (12.0-15.5) Hematocrit 33.1 % (36.0-47.0) Mean Corpuscular Volume 72 fL (79-100) Mean Corpuscular Hemoglobin 22 pg (25-35) Mean Corpuscular Hemoglobin Concent 30 g/dL (31-37) Red Cell Distribution Width 28.8 % (11.5-14.5) Platelet Count 131 x10^3/uL (140-400) Neutrophils (%) (Auto) 74 % (31-73) Lymphocytes (%) (Auto) 4 % (24-48) Monocytes (%) (Auto) 21 % (0-9) Eosinophils (%) (Auto) 0 % (0-3) Basophils (%) (Auto) 0 % (0-3) Neutrophils # (Auto) 12.3 x10^3/uL (1.8-7.7) Lymphocytes # (Auto) 0.7 x10^3/uL (1.0-4.8) Monocytes # (Auto) 3.5 x10^3/uL (0.0-1.1) Eosinophils # (Auto) 0.0 x10^3/uL (0.0-0.7) Basophils # (Auto) 0.0 x10^3/uL (0.0-0.2) Microbiology 05/16/20 Urine Culture - Final, Complete 05/16/20 Antimicrobic Susceptibility - Final, Complete Medications Current Medications Sodium Chloride 1,000 ml @ 1,000 mls/hr 1X ONCE IV Last administered on 05/16/20at 16:38; Start 05/16/20 at 16:30; Stop 05/16/20 at 17:29; Status DC Erythromycin (Romycin) 0.25 inch 1X ONCE OU Last administered on 05/16/20at 16:44; Start 05/16/20 at 16:45; Stop 05/16/20 at 16:46; Status DC Iohexol (Omnipaque 300 Mg/ml) 75 ml 1X ONCE IV Last administered on 05/16/20at 17:47; Start 05/16/20 at 18:00; Stop 05/16/20 at 18:01; Status DC Sodium Chloride 1,000 ml @ 1,000 mls/hr 1X ONCE IV Last administered on 05/16/20at 19:12; Start 05/16/20 at 18:30; Stop 05/16/20 at 19:29; Status DC Piperacillin Sod/ Tazobactam Sod 3.375 gm/Sodium Chloride 50 ml @ 100 mls/hr 1X ONCE IV Last administered on 05/16/20at 19:25; Start 05/16/20 at 19:00; Stop 05/16/20 at 19:29; Status DC Levofloxacin/ Dextrose 150 ml @ 100 mls/hr 1X ONCE IV Last administered on 05/16/20at 19:57; Start 05/16/20 at 19:30; Stop 05/16/20 at 20:59; Status DC Ondansetron HCl (Zofran) 4 mg PRN Q8HRS PRN IV NAUSEA/VOMITING; Start 05/16/20 at 18:30; Stop 05/17/20 at 18:29; Status DC Sodium Chloride 1,000 ml @ 75 mls/hr 1X ONCE IV ; Start 05/16/20 at 18:30; Stop 05/17/20 at 07:49; Status DC Pantoprazole Sodium (PROTONIX VIAL for IV PUSH) 40 mg DAILYAC IVP Last administered on 05/19/20at 08:31; Start 05/17/20 at 07:30; Stop 05/19/20 at 16:30; Status DC Potassium Chloride (Klor-Con) 40 meq 1X PRN PRN PO PER PROTOCOL; Start 05/16/20 at 21:45 Potassium Chloride/Water 100 ml @ 100 mls/hr PRN Q1HR PRN IV HYPOKALEMIA; Start 05/16/20 at 21:45; Stop 05/25/20 at 14:58; Status DC Potassium Phos/ Sodium Phos (Phos-Nak) 1 pkt PRN BID PRN PO PHOSPHOROUS 2-2.4; Start 05/17/20 at 09:00 Potassium Bicarbonate (Potassium Effervescent Tablet) 40 meq PRN Q4HRS PRN PO PER PROTOCOL Last administered on 05/19/20at 11:35; Start 05/16/20 at 21:45 Potassium Chloride/Water 100 ml @ 100 mls/hr PRN Q1HR PRN IV PER PROTOCOL; Start 05/16/20 at 21:45; Stop 05/26/20 at 12:44; Status DC Acetaminophen (Tylenol Supp) 650 mg PRN Q6HRS PRN DE FEVER > 100.3'F; Start 05/17/20 at 12:30 Bisacodyl (Dulcolax Supp) 10 mg PRN DAILY PRN RC CONSTIPATION, 1st Choice Last administered on 05/21/20at 17:51; Start 05/17/20 at 12:30 Cetirizine HCl (ZyrTEC) 10 mg DAILY PO Last administered on 05/23/20at 09:03; Start 05/17/20 at 13:30 Divalproex Sodium (Depakote) 250 mg DAILY@1400 PO Last administered on 05/23/20at 14:47; Start 05/17/20 at 14:00; Stop 05/25/20 at 10:30; Status DC Divalproex Sodium (Depakote) 500 mg BID PO Last administered on 05/23/20at 21:00; Start 05/17/20 at 21:00; Stop 05/25/20 at 10:30; Status DC Docusate Sodium (Colace) 200 mg HS PO Last administered on 05/27/20at 21:42; Start 05/17/20 at 21:00 Famotidine (Pepcid) 20 mg HS PO Last administered on 05/27/20at 21:43; Start 05/17/20 at 21:00 Gabapentin (Neurontin) 200 mg TID PO Last administered on 05/27/20at 21:43; Start 05/17/20 at 14:00 Loperamide HCl (Imodium) 2 mg PRN Q8HRS PRN PO DIARRHEA; Start 05/17/20 at 12:30 Sodium Monofluorophosphate (Fleet Adult) 133 ml PRN Q8HRS PRN RC CONSTIPATION, 2nd Choice; Start 05/17/20 at 12:30 Polyethylene Glycol (miraLAX PACKET) 17 gm PRN DAILY PRN PO CONSTIPATION Last administered on 05/18/20at 08:33; Start 05/17/20 at 12:30 Chlorhexidine Gluconate (Peridex) 15 ml BID SWSP Last administered on 05/23/20 21:00; Start 05/17/20 at 21:00; Stop 05/25/20 at 10:33; Status DC Non-Formulary Medication (Clobazam (Onfi)) 5 mg [id number] PO Last administered on 05/27/20at 14:00; Start 05/17/20 at 14:00 Glycopyrrolate (Robinul) 1 mg PRN Q8HRS PRN PO SECRETIONS; Start 05/18/20 at 09:00 Non-Formulary Medication (Melatonin ) 3 mg PRN QHS PRN PO INSOMNIA; Start 05/17/20 at 12:30; Status UNV Oxycodone HCl (Roxicodone) 5 mg PRN Q4HRS PRN PO MILD PAIN 1-3 Last admini stered on 05/27/20at 15:07; Start 05/17/20 at 13:00 Topiramate (Topamax) 200 mg BID PO Last administered on 05/27/20at 21:43; Start 05/17/20 at 13:30 Piperacillin Sod/ Tazobactam Sod 3.375 gm/Sodium Chloride 50 ml @ 100 mls/hr Q6HRS IV Last administered on 05/20/20at 05:01; Start 05/17/20 at 13:30; Stop 05/20/20 at 09:53; Status DC Dextrose/Sodium Chloride 1,000 ml @ 75 mls/hr [id number] IV Last administered on 05/23/20 21:03; Start 05/17/20 at 15:30; Stop 05/24/20 at 15:06; Status DC Lactobacillus Rhamnosus (Culturelle) 1 cap BID PO Last administered on 05/27/20at 21:42; Start 05/18/20 at 21:00 Pantoprazole Sodium (Protonix) 40 mg DAILYAC PO Last administered on 05/23/20 09:03; Start 05/20/20 at 07:30; Stop 9/5/20 at 08:18; Status DC Polyethylene Glycol (miraLAX Powder BULK BOTTLE) 238 gm 1X ONCE PO Last administered on 05/21/20at 09:00; Start 05/21/20 at 09:00; Stop 05/21/20 at 09:01; Status DC Bisacodyl (Dulcolax Tab) 10 mg 1X ONCE PO Last administered on 05/20/20at 10:45; Start 05/20/20 at 10:45; Stop 05/20/20 at 10:48; Status DC Ringer's Solution 1,000 ml @ 50 mls/hr Q20H IV ; Start 05/22/20 at 07:00; Stop 05/22/20 at 18:59; Status DC Ringer's Solution 1,000 ml @ 75 mls/hr 1X ONCE IV ; Start 05/22/20 at 07:00; Stop 05/22/20 at 20:19; Status DC Propofol (Diprivan) 200 mg STK-MED ONCE IV ; Start 05/22/20 at 08:07; Stop 05/22/20 at 08:07; Status DC Morphine Sulfate (Morphine Sulfate) 2 mg PRN Q2HR PRN IV PAIN 2ND CHOICE Last administered on 05/24/20at 03:50; Start 05/22/20 at 16:45 Ondansetron HCl (Zofran) 4 mg PRN Q6HRS PRN IV NAUSEA/VOMITING; Start 05/24/20 at 07:00; Stop 05/24/20 at 11:06; Status DC Fentanyl Citrate (Fentanyl 2ml Vial) 25 mcg PRN Q5MIN PRN IV MILD PAIN 1-3 Last administered on 05/24/20at 13:59; Start 05/24/20 at 07:00; Stop 05/25/20 at 06:59; Status DC Fentanyl Citrate (Fentanyl 2ml Vial) 50 mcg PRN Q5MIN PRN IV MODERATE TO SEVERE PAIN; Start 05/24/20 at 07:00; Stop 05/25/20 at 06:59; Status DC Morphine Sulfate (Morphine Sulfate) 1 mg PRN Q10MIN PRN IV SEVERE PAIN 7-10; Start 05/24/20 at 07:00; Stop 05/25/20 at 06:59; Status DC Ringer's Solution 1,000 ml @ 30 mls/hr Q24H IV Last administered on 05/24/20at 08:20; Start 05/24/20 at 07:00; Stop 05/24/20 at 18:59; Status DC Hydromorphone HCl (Dilaudid) 0.5 mg PRN Q10MIN PRN IV SEV PAIN, Second choice; Start 05/24/20 at 07:00; Stop 05/25/20 at 06:59; Status DC Prochlorperazine Edisylate (Compazine) 5 mg PACU PRN PRN IV NAUSEA, MRX1; Start 05/24/20 at 07:00; Stop 05/25/20 at 06:59; Status DC Cefazolin Sodium/ Dextrose 50 ml @ 100 mls/hr 1X ONCE IV Last administered on 05/24/20at 09:39; Start 05/24/20 at 07:30; Stop 05/24/20 at 07:59; Status DC Propofol (Diprivan) 200 mg STK-MED ONCE IV ; Start 05/24/20 at 08:02; Stop 05/24/20 at 08:03; Status DC Lidocaine HCl (Lidocaine Pf 2% Vial) 5 ml STK-MED ONCE .ROUTE ; Start 05/24/20 at 08:02; Stop 05/24/20 at 08:03; Status DC Succinylcholine Chloride (Anectine) 200 mg STK-MED ONCE .ROUTE ; Start 05/24/20 at 08:03; Stop 05/24/20 at 08:03; Status DC Rocuronium [place] (Zemuron) 50 mg STK-MED ONCE .ROUTE ; Start 05/24/20 at 08:03; Stop 05/24/20 at 08:04; Status DC Fentanyl Citrate (Fentanyl 2ml Vial) 100 mcg STK-MED ONCE .ROUTE ; Start 05/24/20 at 08:04; Stop 05/24/20 at 08:04; Status DC Albumin Human 500 ml @ As Directed STK-MED ONCE IV ; Start 05/24/20 at 09:38; Stop 05/24/20 at 09:39; Status DC Desflurane (Suprane) 60 ml STK-MED ONCE IH ; Start 05/24/20 at 09:38; Stop 05/24/20 at 09:39; Status DC Dexamethasone Sodium Phosphate (Decadron) 4 mg STK-MED ONCE .ROUTE ; Start 05/24/20 at 09:38; Stop 05/24/20 at 09:39; Status DC Phenylephrine HCl (PHENYLEPHRINE in 0.9% NACL PF) 1 mg STK-MED ONCE IV ; Start 05/24/20 at 09:47; Stop 05/24/20 at 09:47; Status DC Ondansetron HCl (Zofran) 4 mg STK-MED ONCE .ROUTE ; Start 05/24/20 at 10:13; Stop 05/24/20 at 10:14; Status DC Neostigmine [place] (Neostigmine Methylsulfate) 5 mg STK-MED ONCE .ROUTE ; Start 05/24/20 at 10:14; Stop 05/24/20 at 10:14; Status DC Glycopyrrolate (Robinul) 1 mg STK-MED ONCE .ROUTE ; Start 05/24/20 at 10:14; Stop 05/24/20 at 10:14; Status DC Fentanyl Citrate (Fentanyl 2ml Vial) 100 mcg STK-MED ONCE .ROUTE ; Start 05/24/20 at 10:56; Stop 05/24/20 at 10:57; Status DC Cefoxitin Sodium (Mefoxin) 1 gm Q8H IVP Last administered on 05/25/20at 09:03; Start 05/24/20 at 15:30; Stop 05/25/20 at 07:31; Status DC Sodium Chloride (Normal Saline Flush) 3 ml QSHIFT PRN IV AFTER MEDS AND BLOOD DRAWS; Start 05/24/20 at 11:15 Morphine Sulfate (Morphine Sulfate) 2 mg PRN Q3HRS PRN IV PAIN; Start 05/24/20 at 11:15; Stop 05/25/20 at 14:37; Status DC Oxycodone/ Acetaminophen (Percocet 5/325) 1 tab PRN Q4HRS PRN PO MILD PAIN, 1ST CHOICE; Start 05/24/20 at 11:15 Oxycodone/ Acetaminophen (Percocet 5/325) 2 tab PRN Q4HRS PRN PO MODERATE PAIN, SEVERE PAIN; Start 05/24/20 at 11:15 Ketorolac Tromethamine (Toradol 15mg Vial) 15 mg Q6HRS IV Last administered on 05/26/20at 06:20; Start 05/24/20 at 12:00; Stop 05/26/20 at 11:59; Status DC Ondansetron HCl (Zofran) 4 mg PRN Q6HRS PRN IV NAUSEA, 1ST CHOICE; Start 05/24/20 at 11:15 Dextrose/Lactated Ringer's 1,000 ml @ 125 mls/hr Q8H IV Last administered on 05/26/20at 06:21; Start 05/24/20 at 11:02; Stop 05/26/20 at 09:45; Status DC Albumin Human 500 ml @ As Directed STK-MED ONCE IV ; Start 05/24/20 at 11:42; Stop 05/24/20 at 11:42; Status DC Albumin Human 500 ml @ 125 mls/hr 1X ONCE IV Last administered on 05/24/20at 11:54; Start 05/24/20 at 12:00; Stop 05/24/20 at 15:59; Status DC Fentanyl Citrate (Fentanyl 2ml Vial) 25 mcg PRN Q2HR PRN IVP PAIN 1ST CHOICE Last administered on 05/27/20at 21:44; Start 05/24/20 at 13:30 Propofol 100 ml @ As Directed STK-MED ONCE IV ; Start 05/24/20 at 18:01; Stop 05/24/20 at 18:02; Status DC Propofol 100 ml @ 0.873 mls/ hr CONT PRN IV SEE I/O RECORD Last administered on 05/27/20at 01:24; Start 05/24/20 at 18:15 Pantoprazole Sodium (PROTONIX VIAL for IV PUSH) 40 mg DAILYAC IVP Last administ ered on 05/27/20at 08:05; Start 05/26/20 at 07:30 Pantoprazole Sodium (PROTONIX VIAL for IV PUSH) 40 mg 1X ONCE IVP Last administered on 05/25/20at 09:03; Start 05/25/20 at 08:30; Stop 05/25/20 at 08:31; Status DC Valproic Acid 500 mg/Dextrose 55 ml @ 55 mls/hr Q8HRS IV Last administered on 05/28/20at 05:27; Start 05/25/20 at 11:00 Potassium Chloride/Water 100 ml @ 100 mls/hr PRN Q1HR PRN IV HYPOKALEMIA Last administered on 05/25/20at 17:09; Start 05/25/20 at 15:00; Stop 05/25/20 at 17:09; Status DC Norepinephrine Bitartrate 8 mg/ Dextrose 258 ml @ 12.887 mls/ hr CONT PRN IV PER PROTOCOL Last administered on 05/26/20at 03:14; Start 05/25/20 at 20:30 Fentanyl Citrate 30 ml @ 0 mls/hr CONT PRN IV SEE PROTOCOL Last administered on 05/27/20at 04:05; Start 05/26/20 at 09:15 Sodium Chloride 1,000 ml @ 125 mls/hr 1X ONCE IV Last administered on 05/26/20at 09:54; Start 05/26/20 at 09:45; Stop 05/26/20 at 17:44; Status DC Potassium Chloride/Water 100 ml @ 100 mls/hr PRN Q1HR PRN IV PER PROTOCOL Last administered on 05/26/20at 15:03; Start 05/26/20 at 12:45 Enoxaparin Sodium (Lovenox 40mg Syringe) 40 mg DAILY SQ Last administered on 05/27/20at 08:05; Start 05/26/20 at 16:30 Sodium Chloride 1,000 ml @ 125 mls/hr Q8H IV Last administered on 05/28/20at 02:35; Start 05/26/20 at 18:00 Sodium Bicarbonate (Sodium Bicarb Adult 8.4% Syr) 50 meq 1X ONCE IV Last administered on 05/27/20at 11:30; Start 05/27/20 at 11:45; Stop 05/27/20 at 11:46; Status DC Epinephrine (S2 Racepinephrine) 0.5 ml 1X ONCE NEB Last administered on 05/27/20at 11:34; Start 05/27/20 at 12:15; Stop 05/27/20 at 12:16; Status DC Furosemide (Lasix) 20 mg 1X ONCE IVP Last administered on 05/27/20at 11:34; Start 05/27/20 at 11:30; Stop 05/27/20 at 11:31; Status DC Active Scripts Active Acetaminophen Supp (Acetaminophen) 650 Mg Supp.rect 650 Mg DE PRN Q6HRS PRN 10 Days Reported Imodium A-D (Loperamide HCl) 2 Mg Capsule 2 Mg PO PRN Q8HRS PRN Glycopyrrolate 2 Mg Tablet 1 Mg PO PRN Q8HRS PRN Gabapentin (Gabapentin) 100 Mg Capsule 200 Mg PO TID Chlorhexidine Gluconate 118 Ml Liquid 1 Gerald PO BID Topamax (Topiramate) 200 Mg Tablet 200 Mg PO BID Polyethylene Glycol 3350 17 Gm Powd.pack 17 Gm PO PRN DAILY PRN Oxycodone Hcl 5 Mg Capsule 5 Mg PO PRN Q4HRS PRN Melatonin 3 Mg Tablet 3 Mg PO PRN QHS PRN Fleet Enema (Na Phos,M-B/Na Phos,Di-Ba) 133 Ml Enema 133 Ml RC PRN Q8HRS PRN Famotidine 20 Mg Tablet 20 Mg PO HS Bisacodyl 10 Mg Supp.rect 10 Mg RC PRN DAILY PRN Docusate Sodium 100 Mg Capsule 200 Mg PO HS Divalproex Sodium Er (Divalproex Sodium) 500 Mg Tab.er.24h 500 Mg PO BID Eliquis (Apixaban) 5 Mg Tablet 5 Mg PO BID Divalproex Sodium Er (Divalproex Sodium) 500 Mg Tab.er.24h 250 Mg PO DAILY Zyrtec (Cetirizine Hcl) 10 Mg Tablet 1 Tab PO DAILY Onfi (Clobazam) 10 Mg Tablet 5 Mg PO [id number] Vitals/I & O Vital Sign - Last 24 Hours 05/27/20 05/27/20 05/27/20 05/27/20 09:00 10:00 10:24 11:00 Pulse 102 106 114 Resp 16 20 27 B/P (MAP) 110/65 (80) 103/66 (78) 155/84 (107) Pulse Ox 99 98 95 94 O2 Delivery Ventilator Ventilator Ventilator BiPAP/CPAP 05/27/20 05/27/20 05/27/20 05/27/20 11:35 12:00 12:00 12:53 Temp 98.9 98.9 Pulse 127 Resp 31 B/P (MAP) 146/101 (116) Pulse Ox 95 93 95 O2 Delivery BiPAP/CPAP BiPAP/CPAP Bi-pap BiPAP/CPAP 05/27/20 05/27/20 05/27/20 05/27/20 13:00 14:00 14:30 15:00 Pulse 119 124 132 Resp 35 30 25 36 B/P (MAP) 173/83 (113) 151/81 (104) 171/86 (114) Pulse Ox 95 95 95 90 O2 Delivery BiPAP/CPAP BiPAP/CPAP BiPAP/CPAP BiPAP/CPAP 05/27/20 05/27/20 05/27/20 05/27/20 15:07 15:48 16:00 16:00 Temp 99.5 99.5 Pulse 139 Resp 38 23 B/P (MAP) 161/89 (113) Pulse Ox 92 91 90 O2 Delivery BiPAP/CPAP BiPAP/CPAP Bi-pap BiPAP/CPAP 05/27/20 05/27/20 05/27/20 05/27/20 16:07 17:00 18:00 19:00 Pulse 130 128 132 Resp 24 24 30 B/P (MAP) 142/71 (94) 138/70 (92) 153/70 (97) Pulse Ox 90 92 93 92 O2 Delivery BiPAP/CPAP BiPAP/CPAP BiPAP/CPAP BiPAP/CPAP 05/27/20 05/27/20 05/27/20 05/27/20 20:00 20:00 20:08 21:00 Temp 98.3 98.3 Pulse 130 127 Resp 28 18 B/P (MAP) 159/82 (107) 145/80 (101) Pulse Ox 92 92 93 O2 Delivery BiPAP/CPAP Bi-pap BiPAP/CPAP BiPAP/CPAP 05/27/20 05/27/20 05/27/20 05/27/20 21:44 22:00 22:20 23:00 Pulse 130 135 Resp 30 26 18 20 B/P (MAP) 182/90 (120) 166/91 (116) Pulse Ox 92 93 93 94 O2 Delivery BiPAP/CPAP BiPAP/CPAP BiPAP/CPAP BiPAP/CPAP 05/27/20 05/28/20 05/28/20 05/28/20 23:47 00:00 00:00 01:00 Temp 99.7 99.7 Pulse 130 128 Resp 28 25 B/P (MAP) 145/75 (98) 113/59 (77) Pulse Ox 93 93 93 O2 Delivery BiPAP/CPAP Bi-pap BiPAP/CPAP BiPAP/CPAP 05/28/20 05/28/20 05/28/20 05/28/20 02:00 03:00 03:57 04:00 Pulse 129 123 Resp 28 25 B/P (MAP) 190/81 (117) 136/69 (91) Pulse Ox 93 96 97 O2 Delivery BiPAP/CPAP BiPAP/CPAP BiPAP/CPAP Bi-pap 05/28/20 05/28/20 05/28/20 05/28/20 04:00 05:00 06:00 07:00 Pulse 123 128 132 129 Resp 33 29 33 29 B/P (MAP) 147/81 (103) 169/79 (109) 178/81 (113) 144/78 (100) Pulse Ox 97 98 97 96 O2 Delivery BiPAP/CPAP BiPAP/CPAP BiPAP/CPAP BiPAP/CPAP Intake and Output 05/27/20 05/27/20 05/28/20 14:59 22:59 06:59 Intake Total 94.47 ml 1424 ml 1410 ml Output Total 1725 ml 335 ml 400 ml Balance -1630.53 ml 1089 ml 1010 ml Justicifation of Admission Dx: Justifications for Admission: Justification of Admission Dx: Yes HUGO MEYER MD May 28, 2020 08:08
[2020-05-28] MEDS: AMINO AC 3%/ELECTROLYTE/GLYCER 1,000 ML IV SCH ×2 (08:16→18:22)
[2020-05-28] MEDS: FUROSEMIDE 40 MG/4 ML VIAL. IVP SCH (08:22)
[2020-05-28 08:30] LABS: CALCIUM 7.5 mg/dL (8.5-10.1); CREATININE 0.4 mg/dL (0.6-1.0); GFR 199.1; POTASSIUM 3.1 mmol/L (3.5-5.1)
--- NOTE | 2020-05-28 08:43 | PDOC ---
PULMONARY PROGRESS NOTES DATE: 05/28/20 TIME: 08:43 Subjective Patient currently on BiPAP extubated 05/27, 60% FiO2 Vitals Vital Signs Date Time Temp Pulse Resp B/P (MAP) Pulse Ox O2 Delivery O2 Flow Rate FiO2 05/28/20 07:35 95 BiPAP/CPAP 05/28/20 07:00 129 29 144/78 (100) 05/28/20 00:00 99.7 99.7 Comments Patient on BiPAP, unable to obtain review of systems HEENT: Other (nc at perrl nose clear orally intubated neck no lad no thyromegaly) Lungs: Other (deminished bs) Cardiovascular: S1, S2 Abdomen: Soft, Non-tender, Other (no mass) Extremities: No Edema Skin: Warm, Dry, No Rashes Labs Laboratory Tests Test 05/27/20 06:00 05/27/20 08:00 05/27/20 11:00 05/28/20 05:30 White Blood Count 9.7 x10^3/uL (4.0-11.0) 16.7 x10^3/uL (4.0-11.0) Red Blood Count 4.01 x10^6/uL (3.50-5.40) 4.61 x10^6/uL (3.50-5.40) Hemoglobin 8.6 g/dL (12.0-15.5) 9.9 g/dL (12.0-15.5) Hematocrit 28.6 % (36.0-47.0) 33.1 % (36.0-47.0) Mean Corpuscular Volume 71 fL (79-100) 72 fL (79-100) Mean Corpuscular Hemoglobin 22 pg (25-35) 22 pg (25-35) Mean Corpuscular Hemoglobin Concent 30 g/dL (31-37) 30 g/dL (31-37) Red Cell Distribution Width 28.7 % (11.5-14.5) 28.8 % (11.5-14.5) Platelet Count 126 x10^3/uL (140-400) 131 x10^3/uL (140-400) Neutrophils (%) (Auto) 66 % (31-73) 74 % (31-73) Lymphocytes (%) (Auto) 17 % (24-48) 4 % (24-48) Monocytes (%) (Auto) 12 % (0-9) 21 % (0-9) Eosinophils (%) (Auto) 5 % (0-3) 0 % (0-3) Basophils (%) (Auto) 1 % (0-3) 0 % (0-3) Neutrophils # (Auto) 6.4 x10^3/uL (1.8-7.7) 12.3 x10^3/uL (1.8-7.7) Lymphocytes # (Auto) 1.6 x10^3/uL (1.0-4.8) 0.7 x10^3/uL (1.0-4.8) Monocytes # (Auto) 1.2 x10^3/uL (0.0-1.1) 3.5 x10^3/uL (0.0-1.1) Eosinophils # (Auto) 0.5 x10^3/uL (0.0-0.7) 0.0 x10^3/uL (0.0-0.7) Basophils # (Auto) 0.0 x10^3/uL (0.0-0.2) 0.0 x10^3/uL (0.0-0.2) O2 Saturation 94 % (92-99) 89 % (92-99) Arterial Blood pH 7.44 (7.35-7.45) 7.41 (7.35-7.45) Arterial Blood pCO2 at Patient Temp 22 mmHg (35-46) 27 mmHg (35-46) Arterial Blood pO2 at Patient Temp 70 mmHg (75-108) 58 mmHg (75-108) Arterial Blood HCO3 15 mmol/L (21-28) 17 mmol/L (21-28) Arterial Blood Base Excess -8 mmol/L (-3-3) -7 mmol/L (-3-3) FiO2 40%+5 40% / Test 05/28/20 07:35 05/28/20 08:00 O2 Saturation 91 % (92-99) Arterial Blood pH 7.38 (7.35-7.45) Arterial Blood pCO2 at Patient Temp 35 mmHg (35-46) Arterial Blood pO2 at Patient Temp 61 mmHg (75-108) Arterial Blood HCO3 20 mmol/L (21-28) Arterial Blood Base Excess -5 mmol/L (-3-3) FiO2 60 Sodium Level 150 mmol/L (136-145) Potassium Level 3.1 mmol/L (3.5-5.1) Chloride Level 115 mmol/L (98-107) Carbon Dioxide Level 23 mmol/L (21-32) Anion Gap 12 (6-14) Blood Urea Nitrogen 6 mg/dL (7-20) Creatinine 0.4 mg/dL (0.6-1.0) Estimated GFR (Cockcroft-Gault) 199.1 Glucose Level 80 mg/dL (70-99) Calcium Level 7.5 mg/dL (8.5-10.1) Laboratory Tests Test 05/27/20 11:00 05/28/20 05:30 05/28/20 07:35 05/28/20 08:00 O2 Saturation 89 % (92-99) 91 % (92-99) Arterial Blood pH 7.41 (7.35-7.45) 7.38 (7.35-7.45) Arterial Blood pCO2 at Patient Temp 27 mmHg (35-46) 35 mmHg (35-46) Arterial Blood pO2 at Patient Temp 58 mmHg (75-108) 61 mmHg (75-108) Arterial Blood HCO3 17 mmol/L (21-28) 20 mmol/L (21-28) Arterial Blood Base Excess -7 mmol/L (-3-3) -5 mmol/L (-3-3) FiO2 40% 10/5 60 White Blood Count 16.7 x10^3/uL (4.0-11.0) Red Blood Count 4.61 x10^6/uL (3.50-5.40) Hemoglobin 9.9 g/dL (12.0-15.5) Hematocrit 33.1 % (36.0-47.0) Mean Corpuscular Volume 72 fL (79-100) Mean Corpuscular Hemoglobin 22 pg (25-35) Mean Corpuscular Hemoglobin Concent 30 g/dL (31-37) Red Cell Distribution Width 28.8 % (11.5-14.5) Platelet Count 131 x10^3/uL (140-400) Neutrophils (%) (Auto) 74 % (31-73) Lymphocytes (%) (Auto) 4 % (24-48) Monocytes (%) (Auto) 21 % (0-9) Eosinophils (%) (Auto) 0 % (0-3) Basophils (%) (Auto) 0 % (0-3) Neutrophils # (Auto) 12.3 x10^3/uL (1.8-7.7) Lymphocytes # (Auto) 0.7 x10^3/uL (1.0-4.8) Monocytes # (Auto) 3.5 x10^3/uL (0.0-1.1) Eosinophils # (Auto) 0.0 x10^3/uL (0.0-0.7) Basophils # (Auto) 0.0 x10^3/uL (0.0-0.2) Sodium Level 150 mmol/L (136-145) Potassium Level 3.1 mmol/L (3.5-5.1) Chloride Level 115 mmol/L (98-107) Carbon Dioxide Level 23 mmol/L (21-32) Anion Gap 12 (6-14) Blood Urea Nitrogen 6 mg/dL (7-20) Creatinine 0.4 mg/dL (0.6-1.0) Estimated GFR (Cockcroft-Gault) 199.1 Glucose Level 80 mg/dL (70-99) Calcium Level 7.5 mg/dL (8.5-10.1) Medications Active Scripts Medications Dose Route/Sig Max Daily Dose Days Date Category Imodium A-D (Loperamide HCl) 2 Mg Capsule 2 Mg PO PRN Q8HRS PRN 05/16/20 Reported Glycopyrrolate 2 Mg Tablet 1 Mg PO PRN Q8HRS PRN 05/16/20 Reported Gabapentin (Gabapentin) 100 Mg Capsule 200 Mg PO TID 05/16/20 Reported Chlorhexidine Gluconate 118 Ml Liquid 1 Gerald PO BID 05/16/20 Reported Acetaminophen Supp (Acetaminophen) 650 Mg Supp.rect 650 Mg WA PRN Q6HRS PRN 10 06/15/19 Rx Topamax (Topiramate) 200 Mg Tablet 200 Mg PO BID 06/12/19 Reported Polyethylene Glycol 3350 17 Gm Powd.pack 17 Gm PO PRN DAILY PRN 06/12/19 Reported Oxycodone Hcl 5 Mg Capsule 5 Mg PO PRN Q4HRS PRN 06/12/19 Reported Melatonin 3 Mg Tablet 3 Mg PO PRN QHS PRN 06/12/19 Reported Fleet Enema (Na Phos,M-B/Na Phos,Di-Ba) 133 Ml Enema 133 Ml RC PRN Q8HRS PRN 06/12/19 Reported Famotidine 20 Mg Tablet 20 Mg PO HS 06/12/19 Reported Bisacodyl 10 Mg Supp.rect 10 Mg RC PRN DAILY PRN 06/12/19 Reported Docusate Sodium 100 Mg Capsule 200 Mg PO HS 06/12/19 Reported Divalproex Sodium Er (Divalproex Sodium) 500 Mg Tab.er.24h 500 Mg PO BID 06/12/19 Reported Eliquis (Apixaban) 5 Mg Tablet 5 Mg PO BID 06/12/19 Reported Divalproex Sodium Er (Divalproex Sodium) 500 Mg Tab.er.24h 250 Mg PO DAILY 06/12/19 Reported Zyrtec (Cetirizine Hcl) 10 Mg Tablet 1 Tab PO DAILY 01/09/18 Reported Onfi (Clobazam) 10 Mg Tablet 5 Mg PO [id number] 01/09/18 Reported Comments No new chest x-ray today Impression . IMPRESSION: 1. Expected post surgical respiratory failure respiratory failure 2. HypotensioN 3. Dementia, metabolic toxic encephalopathy 4. Right colon mass, status post exploratory laparotomy with right colon resection and primary anastomosis. The preliminary pathology consistent with colon cancer. 5. History of seizure disorder. 6. abnl cxr atelectasis Plan . Continue BiPAP as needed, patient extubated 9 7 Repeat chest x-ray in the a.m. Follow-up on final path report Follow oncology recommendations/surgery recommendation DVT GI prophylaxis Case discussed with RT and RN, total cumulative critical care time of 30-minute KIKI CALVILLO MD May 28, 2020 08:43
[2020-05-28] MEDS: POTASSIUM CHLORIDE 20MEQ 100 ML IV SCH ×3 (10:37→13:02)
--- NOTE | 2020-05-28 10:40 | PDOC ---
OTTONIEL JOHNSON INVENTORY CONTROL ANALYST 05/28/20 1040: SURGICAL PROGRESS NOTE DATE: 05/28/20 TIME: 10:38 Subjective on bipap minimal responsiveness + stool today Vital Signs Vital Signs Date Time Temp Pulse Resp B/P (MAP) Pulse Ox O2 Delivery O2 Flow Rate FiO2 05/28/20 10:00 122 30 123/76 (92) 97 BiPAP/CPAP 05/28/20 08:00 99.9 99.9 I&O Intake and Output 05/28/20 07:00 Intake Total 2928.47 ml Output Total 2545 ml Balance 383.47 ml IV Total 2928.47 ml Output Urine Total 2545 ml General: No acute distress HEENT: Other (ng in place) Abdomen: Soft, Other (dressing dry) Labs Laboratory Tests Test 05/27/20 06:00 05/27/20 08:00 05/27/20 11:00 05/28/20 05:30 White Blood Count 9.7 x10^3/uL (4.0-11.0) 16.7 x10^3/uL (4.0-11.0) Red Blood Count 4.01 x10^6/uL (3.50-5.40) 4.61 x10^6/uL (3.50-5.40) Hemoglobin 8.6 g/dL (12.0-15.5) 9.9 g/dL (12.0-15.5) Hematocrit 28.6 % (36.0-47.0) 33.1 % (36.0-47.0) Mean Corpuscular Volume 71 fL (79-100) 72 fL (79-100) Mean Corpuscular Hemoglobin 22 pg (25-35) 22 pg (25-35) Mean Corpuscular Hemoglobin Concent 30 g/dL (31-37) 30 g/dL (31-37) Red Cell Distribution Width 28.7 % (11.5-14.5) 28.8 % (11.5-14.5) Platelet Count 126 x10^3/uL (140-400) 131 x10^3/uL (140-400) Neutrophils (%) (Auto) 66 % (31-73) 74 % (31-73) Lymphocytes (%) (Auto) 17 % (24-48) 4 % (24-48) Monocytes (%) (Auto) 12 % (0-9) 21 % (0-9) Eosinophils (%) (Auto) 5 % (0-3) 0 % (0-3) Basophils (%) (Auto) 1 % (0-3) 0 % (0-3) Neutrophils # (Auto) 6.4 x10^3/uL (1.8-7.7) 12.3 x10^3/uL (1.8-7.7) Lymphocytes # (Auto) 1.6 x10^3/uL (1.0-4.8) 0.7 x10^3/uL (1.0-4.8) Monocytes # (Auto) 1.2 x10^3/uL (0.0-1.1) 3.5 x10^3/uL (0.0-1.1) Eosinophils # (Auto) 0.5 x10^3/uL (0.0-0.7) 0.0 x10^3/uL (0.0-0.7) Basophils # (Auto) 0.0 x10^3/uL (0.0-0.2) 0.0 x10^3/uL (0.0-0.2) O2 Saturation 94 % (92-99) 89 % (92-99) Arterial Blood pH 7.44 (7.35-7.45) 7.41 (7.35-7.45) Arterial Blood pCO2 at Patient Temp 22 mmHg (35-46) 27 mmHg (35-46) Arterial Blood pO2 at Patient Temp 70 mmHg (75-108) 58 mmHg (75-108) Arterial Blood HCO3 15 mmol/L (21-28) 17 mmol/L (21-28) Arterial Blood Base Excess -8 mmol/L (-3-3) -7 mmol/L (-3-3) FiO2 40%+5 40% 10/5 Test 05/28/20 07:35 05/28/20 08:00 O2 Saturation 91 % (92-99) Arterial Blood pH 7.38 (7.35-7.45) Arterial Blood pCO2 at Patient Temp 35 mmHg (35-46) Arterial Blood pO2 at Patient Temp 61 mmHg (75-108) Arterial Blood HCO3 20 mmol/L (21-28) Arterial Blood Base Excess -5 mmol/L (-3-3) FiO2 60 Sodium Level 150 mmol/L (136-145) Potassium Level 3.1 mmol/L (3.5-5.1) Chloride Level 115 mmol/L (98-107) Carbon Dioxide Level 23 mmol/L (21-32) Anion Gap 12 (6-14) Blood Urea Nitrogen 6 mg/dL (7-20) Creatinine 0.4 mg/dL (0.6-1.0) Estimated GFR (Cockcroft-Gault) 199.1 Glucose Level 80 mg/dL (70-99) Calcium Level 7.5 mg/dL (8.5-10.1) Laboratory Tests Test 05/27/20 11:00 05/28/20 05:30 05/28/20 07:35 05/28/20 08:00 O2 Saturation 89 % (92-99) 91 % (92-99) Arterial Blood pH 7.41 (7.35-7.45) 7.38 (7.35-7.45) Arterial Blood pCO2 at Patient Temp 27 mmHg (35-46) 35 mmHg (35-46) Arterial Blood pO2 at Patient Temp 58 mmHg (75-108) 61 mmHg (75-108) Arterial Blood HCO3 17 mmol/L (21-28) 20 mmol/L (21-28) Arterial Blood Base Excess -7 mmol/L (-3-3) -5 mmol/L (-3-3) FiO2 40% 10/5 60 White Blood Count 16.7 x10^3/uL (4.0-11.0) Red Blood Count 4.61 x10^6/uL (3.50-5.40) Hemoglobin 9.9 g/dL (12.0-15.5) Hematocrit 33.1 % (36.0-47.0) Mean Corpuscular Volume 72 fL (79-100) Mean Corpuscular Hemoglobin 22 pg (25-35) Mean Corpuscular Hemoglobin Concent 30 g/dL (31-37) Red Cell Distribution Width 28.8 % (11.5-14.5) Platelet Count 131 x10^3/uL (140-400) Neutrophils (%) (Auto) 74 % (31-73) Lymphocytes (%) (Auto) 4 % (24-48) Monocytes (%) (Auto) 21 % (0-9) Eosinophils (%) (Auto) 0 % (0-3) Basophils (%) (Auto) 0 % (0-3) Neutrophils # (Auto) 12.3 x10^3/uL (1.8-7.7) Lymphocytes # (Auto) 0.7 x10^3/uL (1.0-4.8) Monocytes # (Auto) 3.5 x10^3/uL (0.0-1.1) Eosinophils # (Auto) 0.0 x10^3/uL (0.0-0.7) Basophils # (Auto) 0.0 x10^3/uL (0.0-0.2) Sodium Level 150 mmol/L (136-145) Potassium Level 3.1 mmol/L (3.5-5.1) Chloride Level 115 mmol/L (98-107) Carbon Dioxide Level 23 mmol/L (21-32) Anion Gap 12 (6-14) Blood Urea Nitrogen 6 mg/dL (7-20) Creatinine 0.4 mg/dL (0.6-1.0) Estimated GFR (Cockcroft-Gault) 199.1 Glucose Level 80 mg/dL (70-99) Calcium Level 7.5 mg/dL (8.5-10.1) Problem List Problems Medical Problems: (1) Hypernatremia Status: Acute (2) Severe anemia Status: Acute (3) Severe sepsis Status: Acute (4) UTI (urinary tract infection) Status: Acute Assessment/Plan will clamp NG today possible remove tomorrow, speech eval tomorrow Justicifation of Admission Dx: Justifications for Admission: Justification of Admission Dx: Yes BENIGNO SHAH MD 05/28/20 1207: SURGICAL PROGRESS NOTE Assessment/Plan Has had bowel movements, will d/c ngt replace with Dobhoff and begin tube feeds. Agree with Christen's assessment and plan OTTONIEL JOHNSON APRN May 28, 2020 10:40 BENIGNO SHAH MD May 28, 2020 12:07
--- NOTE | 2020-05-28 12:42 | PDOC ---
Date of Service: DATE: 05/28/20 TIME: 12:39 Objective: Objective: D/w nurse - has stooled, possibly to start feeds through Dobhoff. Vital Signs: Vital Signs Date Time Temp Pulse Resp B/P (MAP) Pulse Ox O2 Delivery O2 Flow Rate FiO2 05/28/20 12:02 97 BiPAP/CPAP 05/28/20 12:00 98.4 121 31 133/86 (102) 98.4 Labs: Laboratory Tests Test 05/28/20 05:30 05/28/20 07:35 05/28/20 08:00 White Blood Count 16.7 x10^3/uL Red Blood Count 4.61 x10^6/uL Hemoglobin 9.9 g/dL Hematocrit 33.1 % Mean Corpuscular Volume 72 fL Mean Corpuscular Hemoglobin 22 pg Mean Corpuscular Hemoglobin Concent 30 g/dL Red Cell Distribution Width 28.8 % Platelet Count 131 x10^3/uL Neutrophils (%) (Auto) 74 % Lymphocytes (%) (Auto) 4 % Monocytes (%) (Auto) 21 % Eosinophils (%) (Auto) 0 % Basophils (%) (Auto) 0 % Neutrophils # (Auto) 12.3 x10^3/uL Lymphocytes # (Auto) 0.7 x10^3/uL Monocytes # (Auto) 3.5 x10^3/uL Eosinophils # (Auto) 0.0 x10^3/uL Basophils # (Auto) 0.0 x10^3/uL O2 Saturation 91 % Arterial Blood pH 7.38 Arterial Blood pCO2 at Patient Temp 35 mmHg Arterial Blood pO2 at Patient Temp 61 mmHg Arterial Blood HCO3 20 mmol/L Arterial Blood Base Excess -5 mmol/L FiO2 60 Sodium Level 150 mmol/L Potassium Level 3.1 mmol/L Chloride Level 115 mmol/L Carbon Dioxide Level 23 mmol/L Anion Gap 12 Blood Urea Nitrogen 6 mg/dL Creatinine 0.4 mg/dL Estimated GFR (Cockcroft-Gault) 199.1 Glucose Level 80 mg/dL Calcium Level 7.5 mg/dL PE: GEN: chronically ill LUNGS: BiPAP HEART: tachycardic ABD: non-distended NEURO/PSYCH: lethargic A/P: Right colon mass s/p resection - path pending TRISTAN Dysphagia, mental disability, h/o seizures Resp failure - extubated 05/27 Hypernatremia -- Continue support. Justicifation of Admission Dx: Justifications for Admission: Justification of Admission Dx: Yes SARA RAZO May 28, 2020 12:42
[2020-05-28] MEDS ORDERED: PIP/TAZO PER PHARMACY MC PRN (13:45)
--- NOTE | 2020-05-28 13:50 | NUR ---
SS following up with discharge planning. SS reviewed pt chart and discussed with pt RN. Pt is LTC resident from [facility]. Pt on BIPAP at 60%. Pt on IV Zosyn. COVID19 negative. Per RN, tube feedings to start tonight. SS will continue to follow for discharge planning.
--- NOTE | 2020-05-28 14:15 | RAD ---
Single view abdomen INDICATION: Dobbhoff placement COMPARISON: Abdomen x-ray 05/24/2020 FINDINGS: The enteric tube has been replaced by a weighted tip feeding tube with the stylet still in place. The weighted tip projects over the distal aspect of the lumen of the tube and could be kinked in the AP projection. The weighted tip projects over the lateral aspect of the left upper abdomen, potentially in the proximal to mid gastric body. If placement within the duodenum is desired, additional advancement may be necessary. There is evidence of previous right upper quadrant abdominal surgery. This may be new since the last abdomen CT of 05/16/2020. Correlate with the surgical history to determine normal expected location of the weighted tip enteric feeding tube postoperatively. IMPRESSION: Weighted tip enteric feeding tube has been placed, replacing the enteric decompression tube evident previously. The tube may be kinked. Recommend repositioning and reimaging to confirm appropriate placement prior to use. A second, crosstable lateral view could be helpful if there persists uncertainty regarding the positioning of the tip of the weighted tip enteric tube following a repeat AP view Electronically signed by: Jorgito Ho MD (05/28/2020 2:12 PM) [id number]
--- NOTE | 2020-05-28 15:13 | RAD ---
KUB 05/28/2020 2:19 PM INDICATION: Dobbhoff COMPARISON: 05/28/2020 TECHNIQUE: Single supine view the abdomen is provided. FINDINGS/ IMPRESSION: Dobbhoff catheter is identified with the distal tip projecting over the gastric antrum. Suture material identified in the right upper quadrant from prior bowel anastomosis. Bowel gas pattern appears similar to prior examination. Electronically signed by: Bryanna Simon MD (05/28/2020 3:10 PM) [id number]
[2020-05-28] MEDS: PIPERACILLIN/TAZOBACTAM 3.375 GM in IV NORMAL SALINE 50ML 50 ML IV SCH ×2 (15:24→18:22)
[2020-05-28] MEDS: FAMOTIDINE 20 MG TABLET. PO SCH (21:05)
[2020-05-28] MEDS: DOCUSATE SODIUM 100 MG CAPSULE. PO SCH (21:06)
[2020-05-28] MEDS: fentaNYL PF VIAL 100 MCG/2 ML VIAL IVP PRN (21:07)
[2020-05-29] VITALS (24 sets, daily range): BP systolic 86–160; BP diastolic 47–73
[2020-05-29] MEDS: PIPERACILLIN/TAZOBACTAM 3.375 GM in IV NORMAL SALINE 50ML 50 ML IV SCH ×5 (00:05→23:33)
[2020-05-29] MEDS: VALPROIC ACID (AS SODIUM SALT) 500 MG in IV DEXTROSE 5% 50 ML IV SCH ×3 (05:32→21:11)
[2020-05-29 05:49] LABS: CALCIUM 7.8 mg/dL (8.5-10.1); CREATININE 0.5 mg/dL (0.6-1.0); GFR 153.9
[2020-05-29 06:10] LABS: BASO % 0 % (0-3); EOS # 0.1 x10^3/uL (0.0-0.7); EOS % 1 % (0-3); HEMATOCRIT 30.6 % (36.0-47.0); HEMOGLOBIN 9.3 g/dL (12.0-15.5); LYMPH # 0.6 x10^3/uL (1.0-4.8); LYMPH % 5 % (24-48); MEAN CORPUSCULAR HEMOGLOBIN 22 pg (25-35); MEAN CORPUSCULAR HGB CONC 31 g/dL (31-37); MEAN CORPUSCULAR VOLUME 72 fL (79-100); MONO # 1.8 x10^3/uL (0.0-1.1); MONO % 15 % (0-9); NEUT # 9.5 x10^3/uL (1.8-7.7); NEUT % 79 % (31-73); PLATELET COUNT 101 x10^3/uL (140-400); RED BLOOD COUNT 4.25 x10^6/uL (3.50-5.40); RED CELL DISTRIBUTION WIDTH 29.2 % (11.5-14.5)
--- NOTE | 2020-05-29 07:21 | PDOC ---
PROGRESS NOTES Date of Service: DATE: 05/29/20 TIME: 07:05 Chief Complaint Chief Complaint Postop day 4 Exploratory laparotomy with right colon resection and primary anastomosis Severe sepsis Respiratory failure requiring intubation, succesfully extubated on 05/27/2020 Seizure disorder Cognitive deficit Low Hemoglobin Vit D Deficient,DYSPHAGIA,SIRS Hysterectomy [facility] resident Plan: start procalamine may need more free water will repeat bmp to assess electrolytes replace electrolytes as per protocol ID client consultant recommendations greatly appreciated. may need diuresis moving forward given the amount of edema noted and increase in weight. History of Present Illness History of Present Illness 05/29/2020 patient on bipap quite edematous will continue with Lasix and replace electrolytes Off Levophed 05/28/2020 patient on bipap quite edematous will continue with Lasix Off Levophed 05/27/2020 Still on ventilatory support We will wait for pulmonology evaluation Patient still on Levophed Patient has increased weight of about 10 Kg, she needs diuresis but difficult at this time given soft BP 05/26/2020 Patient seen and examined in the ICU She is still on the ventilator Assist-control/ with 40% FiO2 and 7 of PEEP Discussed with RN Chart reviewed She has clean dry intact ventricle incision She is sedated with propofol and fentanyl Also on a Levophed drip Has SCDs Has heel protectors Wilder to bedside drainage Appears critically ill 05/25/2022 Patient seen and examined in the ICU She is intubated Assist-control/02/02 100/50% with 7 of PEEP Discussed with RN I called the pharmacy to see about IV Depakote Chart reviewed She remains critically Vitals Vitals Vital Signs Date Time Temp Pulse Resp B/P (MAP) Pulse Ox O2 Delivery O2 Flow Rate FiO2 05/29/20 06:00 114 35 122/69 (86) 97 BiPAP/CPAP 05/29/20 04:00 99.1 99.1 Physical Exam Physical Exam GENERAL: Intubated and sedated some. not in distress. HEENT: Anicteric ETT/OGT NECK: Supple. LUNGS: Clear. HEART: S1, S2 regular. ABDOMEN: Distended some. Decrease but + BS. - Incision dressed : - wilder in place EXTREMITIES: No edema, no cyanosis. SKIN: Unremarkable. NEUROLOGIC: Sedated some RIJ -clean 05/25 General: No acute distress Heart: Regular rate Lungs: Other (deminished bs) Abdomen: Soft, Other (dressing dry) Extremities: No clubbing, No cyanosis Skin: No rashes, No breakdown Labs LABS Laboratory Tests Test 05/28/20 07:35 05/28/20 08:00 05/29/20 05:38 O2 Saturation 91 % (92-99) Arterial Blood pH 7.38 (7.35-7.45) Arterial Blood pCO2 at Patient Temp 35 mmHg (35-46) Arterial Blood pO2 at Patient Temp 61 mmHg (75-108) Arterial Blood HCO3 20 mmol/L (21-28) Arterial Blood Base Excess -5 mmol/L (-3-3) FiO2 60 Sodium Level 150 mmol/L (136-145) 143 mmol/L (136-145) Potassium Level 3.1 mmol/L (3.5-5.1) 3.0 mmol/L (3.5-5.1) Chloride Level 115 mmol/L (98-107) 112 mmol/L (98-107) Carbon Dioxide Level 23 mmol/L (21-32) 23 mmol/L (21-32) Anion Gap 12 (6-14) 8 (6-14) Blood Urea Nitrogen 6 mg/dL (7-20) 9 mg/dL (7-20) Creatinine 0.4 mg/dL (0.6-1.0) 0.5 mg/dL (0.6-1.0) Estimated GFR (Cockcroft-Gault) 199.1 153.9 Glucose Level 80 mg/dL (70-99) 124 mg/dL (70-99) Calcium Level 7.5 mg/dL (8.5-10.1) 7.8 mg/dL (8.5-10.1) White Blood Count 12.0 x10^3/uL (4.0-11.0) Red Blood Count 4.25 x10^6/uL (3.50-5.40) Hemoglobin 9.3 g/dL (12.0-15.5) Hematocrit 30.6 % (36.0-47.0) Mean Corpuscular Volume 72 fL (79-100) Mean Corpuscular Hemoglobin 22 pg (25-35) Mean Corpuscular Hemoglobin Concent 31 g/dL (31-37) Red Cell Distribution Width 29.2 % (11.5-14.5) Platelet Count 101 x10^3/uL (140-400) Neutrophils (%) (Auto) 79 % (31-73) Lymphocytes (%) (Auto) 5 % (24-48) Monocytes (%) (Auto) 15 % (0-9) Eosinophils (%) (Auto) 1 % (0-3) Basophils (%) (Auto) 0 % (0-3) Neutrophils # (Auto) 9.5 x10^3/uL (1.8-7.7) Lymphocytes # (Auto) 0.6 x10^3/uL (1.0-4.8) Monocytes # (Auto) 1.8 x10^3/uL (0.0-1.1) Eosinophils # (Auto) 0.1 x10^3/uL (0.0-0.7) Basophils # (Auto) 0.0 x10^3/uL (0.0-0.2) Assessment and Plan Assessmemt and Plan Problems Medical Problems: (1) Hypernatremia Status: Acute (2) Severe anemia Status: Acute (3) Severe sepsis Status: Acute (4) UTI (urinary tract infection) Status: Acute Comment Review of Relevant I have reviewed the following items len (where applicable) has been applied. Labs Laboratory Tests Test 05/27/20 08:00 05/27/20 11:00 05/28/20 05:30 05/28/20 07:35 O2 Saturation 94 % (92-99) 89 % (92-99) 91 % (92-99) Arterial Blood pH 7.44 (7.35-7.45) 7.41 (7.35-7.45) 7.38 (7.35-7.45) Arterial Blood pCO2 at Patient Temp 22 mmHg (35-46) 27 mmHg (35-46) 35 mmHg (35-46) Arterial Blood pO2 at Patient Temp 70 mmHg (75-108) 58 mmHg (75-108) 61 mmHg (75-108) Arterial Blood HCO3 15 mmol/L (21-28) 17 mmol/L (21-28) 20 mmol/L (21-28) Arterial Blood Base Excess -8 mmol/L (-3-3) -7 mmol/L (-3-3) -5 mmol/L (-3-3) FiO2 40%+5 40% 10/5 60 White Blood Count 16.7 x10^3/uL (4.0-11.0) Red Blood Count 4.61 x10^6/uL (3.50-5.40) Hemoglobin 9.9 g/dL (12.0-15.5) Hematocrit 33.1 % (36.0-47.0) Mean Corpuscular Volume 72 fL (79-100) Mean Corpuscular Hemoglobin 22 pg (25-35) Mean Corpuscular Hemoglobin Concent 30 g/dL (31-37) Red Cell Distribution Width 28.8 % (11.5-14.5) Platelet Count 131 x10^3/uL (140-400) Neutrophils (%) (Auto) 74 % (31-73) Lymphocytes (%) (Auto) 4 % (24-48) Monocytes (%) (Auto) 21 % (0-9) Eosinophils (%) (Auto) 0 % (0-3) Basophils (%) (Auto) 0 % (0-3) Neutrophils # (Auto) 12.3 x10^3/uL (1.8-7.7) Lymphocytes # (Auto) 0.7 x10^3/uL (1.0-4.8) Monocytes # (Auto) 3.5 x10^3/uL (0.0-1.1) Eosinophils # (Auto) 0.0 x10^3/uL (0.0-0.7) Basophils # (Auto) 0.0 x10^3/uL (0.0-0.2) Test 05/28/20 08:00 05/29/20 05:38 Sodium Level 150 mmol/L (136-145) 143 mmol/L (136-145) Potassium Level 3.1 mmol/L (3.5-5.1) 3.0 mmol/L (3.5-5.1) Chloride Level 115 mmol/L (98-107) 112 mmol/L (98-107) Carbon Dioxide Level 23 mmol/L (21-32) 23 mmol/L (21-32) Anion Gap 12 (6-14) 8 (6-14) Blood Urea Nitrogen 6 mg/dL (7-20) 9 mg/dL (7-20) Creatinine 0.4 mg/dL (0.6-1.0) 0.5 mg/dL (0.6-1.0) Estimated GFR (Cockcroft-Gault) 199.1 153.9 Glucose Level 80 mg/dL (70-99) 124 mg/dL (70-99) Calcium Level 7.5 mg/dL (8.5-10.1) 7.8 mg/dL (8.5-10.1) White Blood Count 12.0 x10^3/uL (4.0-11.0) Red Blood Count 4.25 x10^6/uL (3.50-5.40) Hemoglobin 9.3 g/dL (12.0-15.5) Hematocrit 30.6 % (36.0-47.0) Mean Corpuscular Volume 72 fL (79-100) Mean Corpuscular Hemoglobin 22 pg (25-35) Mean Corpuscular Hemoglobin Concent 31 g/dL (31-37) Red Cell Distribution Width 29.2 % (11.5-14.5) Platelet Count 101 x10^3/uL (140-400) Neutrophils (%) (Auto) 79 % (31-73) Lymphocytes (%) (Auto) 5 % (24-48) Monocytes (%) (Auto) 15 % (0-9) Eosinophils (%) (Auto) 1 % (0-3) Basophils (%) (Auto) 0 % (0-3) Neutrophils # (Auto) 9.5 x10^3/uL (1.8-7.7) Lymphocytes # (Auto) 0.6 x10^3/uL (1.0-4.8) Monocytes # (Auto) 1.8 x10^3/uL (0.0-1.1) Eosinophils # (Auto) 0.1 x10^3/uL (0.0-0.7) Basophils # (Auto) 0.0 x10^3/uL (0.0-0.2) Laboratory Tests Test 05/28/20 07:35 05/28/20 08:00 05/29/20 05:38 O2 Saturation 91 % (92-99) Arterial Blood pH 7.38 (7.35-7.45) Arterial Blood pCO2 at Patient Temp 35 mmHg (35-46) Arterial Blood pO2 at Patient Temp 61 mmHg (75-108) Arterial Blood HCO3 20 mmol/L (21-28) Arterial Blood Base Excess -5 mmol/L (-3-3) FiO2 60 Sodium Level 150 mmol/L (136-145) 143 mmol/L (136-145) Potassium Level 3.1 mmol/L (3.5-5.1) 3.0 mmol/L (3.5-5.1) Chloride Level 115 mmol/L (98-107) 112 mmol/L (98-107) Carbon Dioxide Level 23 mmol/L (21-32) 23 mmol/L (21-32) Anion Gap 12 (6-14) 8 (6-14) Blood Urea Nitrogen 6 mg/dL (7-20) 9 mg/dL (7-20) Creatinine 0.4 mg/dL (0.6-1.0) 0.5 mg/dL (0.6-1.0) Estimated GFR (Cockcroft-Gault) 199.1 153.9 Glucose Level 80 mg/dL (70-99) 124 mg/dL (70-99) Calcium Level 7.5 mg/dL (8.5-10.1) 7.8 mg/dL (8.5-10.1) White Blood Count 12.0 x10^3/uL (4.0-11.0) Red Blood Count 4.25 x10^6/uL (3.50-5.40) Hemoglobin 9.3 g/dL (12.0-15.5) Hematocrit 30.6 % (36.0-47.0) Mean Corpuscular Volume 72 fL (79-100) Mean Corpuscular Hemoglobin 22 pg (25-35) Mean Corpuscular Hemoglobin Concent 31 g/dL (31-37) Red Cell Distribution Width 29.2 % (11.5-14.5) Platelet Count 101 x10^3/uL (140-400) Neutrophils (%) (Auto) 79 % (31-73) Lymphocytes (%) (Auto) 5 % (24-48) Monocytes (%) (Auto) 15 % (0-9) Eosinophils (%) (Auto) 1 % (0-3) Basophils (%) (Auto) 0 % (0-3) Neutrophils # (Auto) 9.5 x10^3/uL (1.8-7.7) Lymphocytes # (Auto) 0.6 x10^3/uL (1.0-4.8) Monocytes # (Auto) 1.8 x10^3/uL (0.0-1.1) Eosinophils # (Auto) 0.1 x10^3/uL (0.0-0.7) Basophils # (Auto) 0.0 x10^3/uL (0.0-0.2) Microbiology 05/16/20 Urine Culture - Final, Complete 05/16/20 Antimicrobic Susceptibility - Final, Complete Medications Current Medications Sodium Chloride 1,000 ml @ 1,000 mls/hr 1X ONCE IV Last administered on 05/16/20at 16:38; Start 05/16/20 at 16:30; Stop 05/16/20 at 17:29; Status DC Erythromycin (Romycin) 0.25 inch 1X ONCE OU Last administered on 05/16/20at 16:44; Start 05/16/20 at 16:45; Stop 05/16/20 at 16:46; Status DC Iohexol (Omnipaque 300 Mg/ml) 75 ml 1X ONCE IV Last administered on 05/16/20at 17:47; Start 05/16/20 at 18:00; Stop 05/16/20 at 18:01; Status DC Sodium Chloride 1,000 ml @ 1,000 mls/hr 1X ONCE IV Last administered on 05/16/20at 19:12; Start 05/16/20 at 18:30; Stop 05/16/20 at 19:29; Status DC Piperacillin Sod/ Tazobactam Sod 3.375 gm/Sodium Chloride 50 ml @ 100 mls/hr 1X ONCE IV Last administered on 05/16/20at 19:25; Start 05/16/20 at 19:00; Stop 05/16/20 at 19:29; Status DC Levofloxacin/ Dextrose 150 ml @ 100 mls/hr 1X ONCE IV Last administered on 05/16/20at 19:57; Start 05/16/20 at 19:30; Stop 05/16/20 at 20:59; Status DC Ondansetron HCl (Zofran) 4 mg PRN Q8HRS PRN IV NAUSEA/VOMITING; Start 05/16/20 at 18:30; Stop 05/17/20 at 18:29; Status DC Sodium Chloride 1,000 ml @ 75 mls/hr 1X ONCE IV ; Start 05/16/20 at 18:30; Stop 05/17/20 at 07:49; Status DC Pantoprazole Sodium (PROTONIX VIAL for IV PUSH) 40 mg DAILYAC IVP Last administered on 05/19/20at 08:31; Start 05/17/20 at 07:30; Stop 05/19/20 at 16:30; Status DC Potassium Chloride (Klor-Con) 40 meq 1X PRN PRN PO PER PROTOCOL; Start 05/16/20 at 21:45 Potassium Chloride/Water 100 ml @ 100 mls/hr PRN Q1HR PRN IV HYPOKALEMIA; Start 05/16/20 at 21:45; Stop 05/25/20 at 14:58; Status DC Potassium Phos/ Sodium Phos (Phos-Nak) 1 pkt PRN BID PRN PO PHOSPHOROUS 2-2.4; Start 05/17/20 at 09:00 Potassium Bicarbonate (Potassium Effervescent Tablet) 40 meq PRN Q4HRS PRN PO PER PROTOCOL Last administered on 05/19/20at 11:35; Start 05/16/20 at 21:45 Potassium Chloride/Water 100 ml @ 100 mls/hr PRN Q1HR PRN IV PER PROTOCOL; Start 05/16/20 at 21:45; Stop 05/26/20 at 12:44; Status DC Acetaminophen (Tylenol Supp) 650 mg PRN Q6HRS PRN [place] FEVER > 100.3'F; Start 05/17/20 at 12:30 Bisacodyl (Dulcolax Supp) 10 mg PRN DAILY PRN RC CONSTIPATION, 1st Choice Last administered on 05/21/20at 17:51; Start 05/17/20 at 12:30 Cetirizine HCl (ZyrTEC) 10 mg DAILY PO Last administered on 05/28/20at 08:01; Start 05/17/20 at 13:30 Divalproex Sodium (Depakote) 250 mg DAILY@1400 PO Last administered on 05/23/20at 14:47; Start 05/17/20 at 14:00; Stop 05/25/20 at 10:30; Status DC Divalproex Sodium (Depakote) 500 mg BID PO Last administered on 05/23/20at 21:00; Start 05/17/20 at 21:00; Stop 05/25/20 at 10:30; Status DC Docusate Sodium (Colace) 200 mg HS PO Last administered on 05/28/20 21:06; Start 05/17/20 at 21:00 Famotidine (Pepcid) 20 mg HS PO Last administered on 05/28/20at 21:05; Start 05/17/20 at 21:00 Gabapentin (Neurontin) 200 mg TID PO Last administered on 05/28/20 21:05; Start 05/17/20 at 14:00 Loperamide HCl (Imodium) 2 mg PRN Q8HRS PRN PO DIARRHEA; Start 05/17/20 at 12:30 Sodium Monofluorophosphate (Fleet Adult) 133 ml PRN Q8HRS PRN RC CONSTIPATION, 2nd Choice; Start 05/17/20 at 12:30; Stop 05/28/20 at 08:09; Status DC Polyethylene Glycol (miraLAX PACKET) 17 gm PRN DAILY PRN PO CONSTIPATION Last administered on 05/18/20at 08:33; Start 05/17/20 at 12:30 Chlorhexidine Gluconate (Peridex) 15 ml BID SWSP Last administered on 05/23/20 21:00; Start 05/17/20 at 21:00; Stop 05/25/20 at 10:33; Status DC Non-Formulary Medication (Clobazam (Onfi)) 5 mg [id number] PO Last administered on 05/28/20 14:01; Start 05/17/20 at 14:00 Glycopyrrolate (Robinul) 1 mg PRN Q8HRS PRN PO SECRETIONS; Start 05/18/20 at 09:00 Non-Formulary Medication (Melatonin ) 3 mg PRN QHS PRN PO INSOMNIA; Start 05/17/20 at 12:30; Status UNV Oxycodone HCl (Roxicodone) 5 mg PRN Q4HRS PRN PO MILD PAIN 1-3 Last administered on 05/27/20at 15:07; Start 05/17/20 at 13:00 Topiramate (Topamax) 200 mg BID PO Last administered on 05/28/20 21:06; Start 05/17/20 at 13:30 Piperacillin Sod/ Tazobactam Sod 3.375 gm/Sodium Chloride 50 ml @ 100 mls/hr Q6HRS IV Last administered on 05/20/20at 05:01; Start 05/17/20 at 13:30; Stop 05/20/20 at 09:53; Status DC Dextrose/Sodium Chloride 1,000 ml @ 75 mls/hr [id number] IV Last administered on 05/23/20at 21:03; Start 05/17/20 at 15:30; Stop 05/24/20 at 15:06; Status DC Lactobacillus Rhamnosus (Culturelle) 1 cap BID PO Last administered on 05/28/20at 21:06; Start 05/18/20 at 21:00 Pantoprazole Sodium (Protonix) 40 mg DAILYAC PO Last administered on 05/23/20at 09:03; Start 05/20/20 at 07:30; Stop 05/25/20 at 08:18; Status DC Polyethylene Glycol (miraLAX Powder BULK BOTTLE) 238 gm 1X ONCE PO Last administered on 05/21/20at 09:00; Start 05/21/20 at 09:00; Stop 05/21/20 at 09:01; Status DC Bisacodyl (Dulcolax Tab) 10 mg 1X ONCE PO Last administered on 05/20/20at 10:45; Start 05/20/20 at 10:45; Stop 05/20/20 at 10:48; Status DC Ringer's Solution 1,000 ml @ 50 mls/hr Q20H IV ; Start 05/22/20 at 07:00; Stop 05/22/20 at 18:59; Status DC Ringer's Solution 1,000 ml @ 75 mls/hr 1X ONCE IV ; Start 05/22/20 at 07:00; Stop 05/22/20 at 20:19; Status DC Propofol (Diprivan) 200 mg STK-MED ONCE IV ; Start 05/22/20 at 08:07; Stop 05/22/20 at 08:07; Status DC Morphine Sulfate (Morphine Sulfate) 2 mg PRN Q2HR PRN IV PAIN 2ND CHOICE Last administered on 05/24/20at 03:50; Start 05/22/20 at 16:45 Ondansetron HCl (Zofran) 4 mg PRN Q6HRS PRN IV NAUSEA/VOMITING; Start 05/24/20 at 07:00; Stop 05/24/20 at 11:06; Status DC Fentanyl Citrate (Fentanyl 2ml Vial) 25 mcg PRN Q5MIN PRN IV MILD PAIN 1-3 Last administered on 05/24/20at 13:59; Start 05/24/20 at 07:00; Stop 05/25/20 at 06:59; Status DC Fentanyl Citrate (Fentanyl 2ml Vial) 50 mcg PRN Q5MIN PRN IV MODERATE TO SEVERE PAIN; Start 05/24/20 at 07:00; Stop 05/25/20 at 06:59; Status DC Morphine Sulfate (Morphine Sulfate) 1 mg PRN Q10MIN PRN IV SEVERE PAIN 7-10; Start 05/24/20 at 07:00; Stop 05/25/20 at 06:59; Status DC Ringer's Solution 1,000 ml @ 30 mls/hr Q24H IV Last administered on 05/24/20at 08:20; Start 05/24/20 at 07:00; Stop 05/24/20 at 18:59; Status DC Hydromorphone HCl (Dilaudid) 0.5 mg PRN Q10MIN PRN IV SEV PAIN, Second choice; Start 05/24/20 at 07:00; Stop 05/25/20 at 06:59; Status DC Prochlorperazine Edisylate (Compazine) 5 mg PACU PRN PRN IV NAUSEA, MRX1; Start 05/24/20 at 07:00; Stop 05/25/20 at 06:59; Status DC Cefazolin Sodium/ Dextrose 50 ml @ 100 mls/hr 1X ONCE IV Last administered on 05/24/20at 09:39; Start 05/24/20 at 07:30; Stop 05/24/20 at 07:59; Status DC Propofol (Diprivan) 200 mg STK-MED ONCE IV ; Start 05/24/20 at 08:02; Stop 05/24/20 at 08:03; Status DC Lidocaine HCl (Lidocaine Pf 2% Vial) 5 ml STK-MED ONCE .ROUTE ; Start 05/24/20 at 08:02; Stop 05/24/20 at 08:03; Status DC Succinylcholine Chloride (Anectine) 200 mg STK-MED ONCE .ROUTE ; Start 05/24/20 at 08:03; Stop 05/24/20 at 08:03; Status DC Rocuronium Wilbraham (Zemuron) 50 mg STK-MED ONCE .ROUTE ; Start 05/24/20 at 08:03; Stop 05/24/20 at 08:04; Status DC Fentanyl Citrate (Fentanyl 2ml Vial) 100 mcg STK-MED ONCE .ROUTE ; Start 05/24/20 at 08:04; Stop 05/24/20 at 08:04; Status DC Albumin Human 500 ml @ As Directed STK-MED ONCE IV ; Start 05/24/20 at 09:38; Stop 05/24/20 at 09:39; Status DC Desflurane (Suprane) 60 ml STK-MED ONCE IH ; Start 05/24/20 at 09:38; Stop 05/24/20 at 09:39; Status DC Dexamethasone Sodium Phosphate (Decadron) 4 mg STK-MED ONCE .ROUTE ; Start 05/24/20 at 09:38; Stop 05/24/20 at 09:39; Status DC Phenylephrine HCl (PHENYLEPHRINE in 0.9% NACL PF) 1 mg STK-MED ONCE IV ; Start 05/24/20 at 09:47; Stop 05/24/20 at 09:47; Status DC Ondansetron HCl (Zofran) 4 mg STK-MED ONCE .ROUTE ; Start 05/24/20 at 10:13; Stop 05/24/20 at 10:14; Status DC Neostigmine Wilbraham (Neostigmine Methylsulfate) 5 mg STK-MED ONCE .ROUTE ; Start 05/24/20 at 10:14; Stop 05/24/20 at 10:14; Status DC Glycopyrrolate (Robinul) 1 mg STK-MED ONCE .ROUTE ; Start 05/24/20 at 10:14; Stop 05/24/20 at 10:14; Status DC Fentanyl Citrate (Fentanyl 2ml Vial) 100 mcg STK-MED ONCE .ROUTE ; Start 05/24/20 at 10:56; Stop 05/24/20 at 10:57; Status DC Cefoxitin Sodium (Mefoxin) 1 gm Q8H IVP Last administered on 05/25/20at 09:03; Start 05/24/20 at 15:30; Stop 05/25/20 at 07:31; Status DC Sodium Chloride (Normal Saline Flush) 3 ml QSHIFT PRN IV AFTER MEDS AND BLOOD DRAWS; Start 05/24/20 at 11:15 Morphine Sulfate (Morphine Sulfate) 2 mg PRN Q3HRS PRN IV PAIN; Start 05/24/20 at 11:15; Stop 05/25/20 at 14:37; Status DC Oxycodone/ Acetaminophen (Percocet 5/325) 1 tab PRN Q4HRS PRN PO MILD PAIN, 1ST CHOICE; Start 05/24/20 at 11:15 Oxycodone/ Acetaminophen (Percocet 5/325) 2 tab PRN Q4HRS PRN PO MODERATE PAIN, SEVERE PAIN; Start 05/24/20 at 11:15 Ketorolac Tromethamine (Toradol 15mg Vial) 15 mg Q6HRS IV Last administered on 05/26/20at 06:20; Start 05/24/20 at 12:00; Stop 05/26/20 at 11:59; Status DC Ondansetron HCl (Zofran) 4 mg PRN Q6HRS PRN IV NAUSEA, 1ST CHOICE; Start 05/24/20 at 11:15 Dextrose/Lactated Ringer's 1,000 ml @ 125 mls/hr Q8H IV Last administered on 05/26/20at 06:21; Start 05/24/20 at 11:02; Stop 05/26/20 at 09:45; Status DC Albumin Human 500 ml @ As Directed STK-MED ONCE IV ; Start 05/24/20 at 11:42; Stop 05/24/20 at 11:42; Status DC Albumin Human 500 ml @ 125 mls/hr 1X ONCE IV Last administered on 05/24/20at 11:54; Start 05/24/20 at 12:00; Stop 05/24/20 at 15:59; Status DC Fentanyl Citrate (Fentanyl 2ml Vial) 25 mcg PRN Q2HR PRN IVP PAIN 1ST CHOICE Last administered on 05/28/20at 21:07; Start 05/24/20 at 13:30 Propofol 100 ml @ As Directed STK-MED ONCE IV ; Start 05/24/20 at 18:01; Stop 05/24/20 at 18:02; Status DC Propofol 100 ml @ 0.873 mls/ hr CONT PRN IV SEE I/O RECORD Last administered on 05/27/20at 01:24; Start 05/24/20 at 18:15 Pantoprazole Sodium (PROTONIX VIAL for IV PUSH) 40 mg DAILYAC IVP Last administered on 05/28/20 08:01; Start 05/26/20 at 07:30 Pantoprazole Sodium (PROTONIX VIAL for IV PUSH) 40 mg 1X ONCE IVP Last administered on 05/25/20 09:03; Start 05/25/20 at 08:30; Stop 05/25/20 at 08:31; Status DC Valproic Acid 500 mg/Dextrose 55 ml @ 55 mls/hr Q8HRS IV Last administered on 05/29/20at 05:32; Start 05/25/20 at 11:00 Potassium Chloride/Water 100 ml @ 100 mls/hr PRN Q1HR PRN IV HYPOKALEMIA Last administered on 05/25/20at 17:09; Start 05/25/20 at 15:00; Stop 05/25/20 at 17:09; Status DC Norepinephrine Bitartrate 8 mg/ Dextrose 258 ml @ 12.887 mls/ hr CONT PRN IV PER PROTOCOL Last administered on 05/26/20at 03:14; Start 05/25/20 at 20:30 Fentanyl Citrate 30 ml @ 0 mls/hr CONT PRN IV SEE PROTOCOL Last administered on 05/27/20at 04:05; Start 05/26/20 at 09:15 Sodium Chloride 1,000 ml @ 125 mls/hr 1X ONCE IV Last administered on 05/26/20at 09:54; Start 05/26/20 at 09:45; Stop 05/26/20 at 17:44; Status DC Potassium Chloride/Water 100 ml @ 100 mls/hr PRN Q1HR PRN IV PER PROTOCOL Last administered on 05/26/20at 15:03; Start 05/26/20 at 12:45 Enoxaparin Sodium (Lovenox 40mg Syringe) 40 mg DAILY SQ Last administered on 05/28/20 08:02; Start 05/26/20 at 16:30 Sodium Chloride 1,000 ml @ 125 mls/hr Q8H IV Last administered on 05/28/20at 02:35; Start 05/26/20 at 18:00; Stop 05/28/20 at 08:01; Status DC Sodium Bicarbonate (Sodium Bicarb Adult 8.4% Syr) 50 meq 1X ONCE IV Last administered on 05/27/20at 11:30; Start 05/27/20 at 11:45; Stop 05/27/20 at 11:46; Status DC Epinephrine (S2 Racepinephrine) 0.5 ml 1X ONCE NEB Last administered on 05/27/20at 11:34; Start 05/27/20 at 12:15; Stop 05/27/20 at 12:16; Status DC Furosemide (Lasix) 20 mg 1X ONCE IVP Last administered on 05/27/20at 11:34; Start 05/27/20 at 11:30; Stop 05/27/20 at 11:31; Status DC Amino Acids/ Glycerin/ Electrolytes 1,000 ml @ 80 mls/hr [id number] IV Last administered on 05/28/20at 18:22; Start 05/28/20 at 08:00 Furosemide (Lasix) 40 mg DAILY IVP Last administered on 05/28/20at 08:22; Start 05/28/20 at 09:00 Potassium Chloride/Water 100 ml @ 100 mls/hr Q1H IV Last administered on 05/28/20at 13:02; Start 05/28/20 at 11:00; Stop 05/28/20 at 13:59; Status DC Piperacillin Sod/ Tazobactam Sod (Zosyn Per Pharmacy) 1 each PRN DAILY PRN MC SEE COMMENTS; Start 05/28/20 at 13:45 Piperacillin Sod/ Tazobactam Sod 3.375 gm/Sodium Chloride 50 ml @ 100 mls/hr Q6HRS IV Last administered on 05/29/20at 05:31; Start 05/28/20 at 14:00 Active Scripts Active Acetaminophen Supp (Acetaminophen) 650 Mg Supp.rect 650 Mg WV PRN Q6HRS PRN 10 Days Reported Imodium A-D (Loperamide HCl) 2 Mg Capsule 2 Mg PO PRN Q8HRS PRN Glycopyrrolate 2 Mg Tablet 1 Mg PO PRN Q8HRS PRN Gabapentin (Gabapentin) 100 Mg Capsule 200 Mg PO TID Chlorhexidine Gluconate 118 Ml Liquid 1 Gerald PO BID Topamax (Topiramate) 200 Mg Tablet 200 Mg PO BID Polyethylene Glycol 3350 17 Gm Powd.pack 17 Gm PO PRN DAILY PRN Oxycodone Hcl 5 Mg Capsule 5 Mg PO PRN Q4HRS PRN Melatonin 3 Mg Tablet 3 Mg PO PRN QHS PRN Fleet Enema (Na Phos,M-B/Na Phos,Di-Ba) 133 Ml Enema 133 Ml RC PRN Q8HRS PRN Famotidine 20 Mg Tablet 20 Mg PO HS Bisacodyl 10 Mg Supp.rect 10 Mg RC PRN DAILY PRN Docusate Sodium 100 Mg Capsule 200 Mg PO HS Divalproex Sodium Er (Divalproex Sodium) 500 Mg Tab.er.24h 500 Mg PO BID Eliquis (Apixaban) 5 Mg Tablet 5 Mg PO BID Divalproex Sodium Er (Divalproex Sodium) 500 Mg Tab.er.24h 250 Mg PO DAILY Zyrtec (Cetirizine Hcl) 10 Mg Tablet 1 Tab PO DAILY Onfi (Clobazam) 10 Mg Tablet 5 Mg PO [id number] Vitals/I & O Vital Sign - Last 24 Hours 05/28/20 05/28/20 05/28/20 05/28/20 07:35 08:00 08:00 09:00 Temp 99.9 99.9 Pulse 132 121 Resp 30 34 B/P (MAP) 163/89 (113) 113/69 (84) Pulse Ox 95 96 94 O2 Delivery BiPAP/CPAP BiPAP/CPAP Bi-pap BiPAP/CPAP 05/28/20 05/28/20 05/28/20 05/28/20 10:00 11:00 12:00 12:00 Temp 98.4 98.4 Pulse 122 111 121 Resp 30 30 31 B/P (MAP) 123/76 (92) 128/78 (95) 133/86 (102) Pulse Ox 97 98 97 O2 Delivery BiPAP/CPAP BiPAP/CPAP BiPAP/CPAP Bi-pap 05/28/20 05/28/20 05/28/20 05/28/20 12:02 13:00 14:00 15:00 Pulse 124 123 122 Resp 36 36 36 B/P (MAP) 162/70 (100) 133/74 (93) 133/62 (85) Pulse Ox 97 97 98 97 O2 Delivery BiPAP/CPAP BiPAP/CPAP BiPAP/CPAP BiPAP/CPAP 05/28/20 05/28/20 05/28/20 05/28/20 15:23 16:00 16:00 17:00 Temp 99.2 99.2 Pulse 117 116 Resp 34 32 B/P (MAP) 152/71 (98) 133/82 (99) Pulse Ox 99 97 97 O2 Delivery BiPAP/CPAP Bi-pap BiPAP/CPAP BiPAP/CPAP 05/28/20 05/28/20 05/28/20 05/28/20 17:36 18:31 19:00 19:58 Pulse 120 123 120 Resp 36 30 33 B/P (MAP) 152/75 (100) 170/76 (107) 171/86 (114) Pulse Ox 98 97 96 95 O2 Delivery BiPAP/CPAP BiPAP/CPAP BiPAP/CPAP BiPAP/CPAP 05/28/20 05/28/20 05/28/20 05/28/20 20:00 20:00 21:00 21:07 Temp 99.0 99.0 Pulse 118 122 Resp 27 33 26 B/P (MAP) 161/80 (107) 149/67 (94) Pulse Ox 96 97 96 O2 Delivery Bi-pap BiPAP/CPAP BiPAP/CPAP BiPAP/CPAP 05/28/20 05/28/20 05/28/20 05/28/20 21:40 22:00 23:00 23:45 Pulse 114 116 Resp 33 28 28 B/P (MAP) 131/63 (85) 111/66 (81) Pulse Ox 96 96 99 97 O2 Delivery BiPAP/CPAP BiPAP/CPAP BiPAP/CPAP BiPAP/CPAP 05/29/20 05/29/20 05/29/20 05/29/20 00:00 00:00 01:00 02:00 Temp 99.9 99.9 Pulse 122 126 126 Resp 26 30 28 B/P (MAP) 139/73 (95) 143/62 (89) 136/69 (91) Pulse Ox 99 98 98 O2 Delivery Bi-pap BiPAP/CPAP BiPAP/CPAP BiPAP/CPAP 05/29/20 05/29/20 05/29/20 05/29/20 03:00 03:50 04:00 04:00 Temp 99.1 99.1 Pulse 116 117 Resp 32 34 B/P (MAP) 160/68 (98) 143/69 (93) Pulse Ox 99 100 99 O2 Delivery BiPAP/CPAP BiPAP/CPAP Bi-pap BiPAP/CPAP 05/29/20 05/29/20 05:00 06:00 Pulse 116 114 Resp 28 35 B/P (MAP) 129/65 (86) 122/69 (86) Pulse Ox 99 97 O2 Delivery BiPAP/CPAP BiPAP/CPAP Intake and Output 05/28/20 05/28/20 05/29/20 15:00 23:00 07:00 Intake Total 488 ml 790 ml 1548 ml Output Total 1720 ml 875 ml 560 ml Balance -1232 ml -85 ml 988 ml Justicifation of Admission Dx: Justifications for Admission: Justification of Admission Dx: Yes HUGO MEYER MD May 29, 2020 07:21
[2020-05-29] MEDS: AMINO AC 3%/ELECTROLYTE/GLYCER 1,000 ML IV SCH (08:11)
[2020-05-29] MEDS: POTASSIUM CHLORIDE 20MEQ 100 ML IV SCH ×3 (08:12→10:19)
[2020-05-29] MEDS: GABAPENTIN 100 MG CAPSULE. PO SCH ×3 (08:12→21:11)
[2020-05-29] MEDS: PANTOPRAZOLE IV PUSH 40 MG VIAL. IVP SCH (08:12)
[2020-05-29] MEDS: FUROSEMIDE 40 MG/4 ML VIAL. IVP SCH (08:12)
[2020-05-29] MEDS: TOPIRAMATE 100 MG TABLET. PO SCH ×2 (08:13→21:11)
[2020-05-29] MEDS: LACTOBACILLUS RHAMNOSUS GG 1 CAPSULE. PO SCH (08:13)
[2020-05-29] MEDS: CETIRIZINE HCL 10 MG TABLET. PO SCH (08:13)
[2020-05-29] MEDS: ENOXAPARIN 40 MG/0.4 ML SYRINGE. SQ SCH (08:13)
--- NOTE | 2020-05-29 08:37 | PDOC ---
PULMONARY PROGRESS NOTES DATE: 05/29/20 TIME: 08:37 Subjective Patient currently on BiPAP extubated, 05/27 Currently on Venturi mask Vitals Vital Signs Date Time Temp Pulse Resp B/P (MAP) Pulse Ox O2 Delivery O2 Flow Rate FiO2 05/29/20 07:46 99 BiPAP/CPAP 05/29/20 06:00 114 35 122/69 (86) 05/29/20 04:00 99.1 99.1 Comments Patient on BiPAP, unable to obtain review of systems HEENT: Other (nc at perrl nose clear orally intubated neck no lad no thyromegaly) Lungs: Other (deminished bs) Cardiovascular: S1, S2 Abdomen: Soft, Non-tender, Other (no mass) Extremities: No Edema Skin: Warm, Dry, No Rashes Labs Laboratory Tests Test 05/27/20 11:00 05/28/20 05:30 05/28/20 07:35 05/28/20 08:00 O2 Saturation 89 % (92-99) 91 % (92-99) Arterial Blood pH 7.41 (7.35-7.45) 7.38 (7.35-7.45) Arterial Blood pCO2 at Patient Temp 27 mmHg (35-46) 35 mmHg (35-46) Arterial Blood pO2 at Patient Temp 58 mmHg (75-108) 61 mmHg (75-108) Arterial Blood HCO3 17 mmol/L (21-28) 20 mmol/L (21-28) Arterial Blood Base Excess -7 mmol/L (-3-3) -5 mmol/L (-3-3) FiO2 40% 10/5 60 White Blood Count 16.7 x10^3/uL (4.0-11.0) Red Blood Count 4.61 x10^6/uL (3.50-5.40) Hemoglobin 9.9 g/dL (12.0-15.5) Hematocrit 33.1 % (36.0-47.0) Mean Corpuscular Volume 72 fL (79-100) Mean Corpuscular Hemoglobin 22 pg (25-35) Mean Corpuscular Hemoglobin Concent 30 g/dL (31-37) Red Cell Distribution Width 28.8 % (11.5-14.5) Platelet Count 131 x10^3/uL (140-400) Neutrophils (%) (Auto) 74 % (31-73) Lymphocytes (%) (Auto) 4 % (24-48) Monocytes (%) (Auto) 21 % (0-9) Eosinophils (%) (Auto) 0 % (0-3) Basophils (%) (Auto) 0 % (0-3) Neutrophils # (Auto) 12.3 x10^3/uL (1.8-7.7) Lymphocytes # (Auto) 0.7 x10^3/uL (1.0-4.8) Monocytes # (Auto) 3.5 x10^3/uL (0.0-1.1) Eosinophils # (Auto) 0.0 x10^3/uL (0.0-0.7) Basophils # (Auto) 0.0 x10^3/uL (0.0-0.2) Sodium Level 150 mmol/L (136-145) Potassium Level 3.1 mmol/L (3.5-5.1) Chloride Level 115 mmol/L (98-107) Carbon Dioxide Level 23 mmol/L (21-32) Anion Gap 12 (6-14) Blood Urea Nitrogen 6 mg/dL (7-20) Creatinine 0.4 mg/dL (0.6-1.0) Estimated GFR (Cockcroft-Gault) 199.1 Glucose Level 80 mg/dL (70-99) Calcium Level 7.5 mg/dL (8.5-10.1) Test 05/29/20 05:38 White Blood Count 12.0 x10^3/uL (4.0-11.0) Red Blood Count 4.25 x10^6/uL (3.50-5.40) Hemoglobin 9.3 g/dL (12.0-15.5) Hematocrit 30.6 % (36.0-47.0) Mean Corpuscular Volume 72 fL (79-100) Mean Corpuscular Hemoglobin 22 pg (25-35) Mean Corpuscular Hemoglobin Concent 31 g/dL (31-37) Red Cell Distribution Width 29.2 % (11.5-14.5) Platelet Count 101 x10^3/uL (140-400) Neutrophils (%) (Auto) 79 % (31-73) Lymphocytes (%) (Auto) 5 % (24-48) Monocytes (%) (Auto) 15 % (0-9) Eosinophils (%) (Auto) 1 % (0-3) Basophils (%) (Auto) 0 % (0-3) Neutrophils # (Auto) 9.5 x10^3/uL (1.8-7.7) Lymphocytes # (Auto) 0.6 x10^3/uL (1.0-4.8) Monocytes # (Auto) 1.8 x10^3/uL (0.0-1.1) Eosinophils # (Auto) 0.1 x10^3/uL (0.0-0.7) Basophils # (Auto) 0.0 x10^3/uL (0.0-0.2) Sodium Level 143 mmol/L (136-145) Potassium Level 3.0 mmol/L (3.5-5.1) Chloride Level 112 mmol/L (98-107) Carbon Dioxide Level 23 mmol/L (21-32) Anion Gap 8 (6-14) Blood Urea Nitrogen 9 mg/dL (7-20) Creatinine 0.5 mg/dL (0.6-1.0) Estimated GFR (Cockcroft-Gault) 153.9 Glucose Level 124 mg/dL (70-99) Calcium Level 7.8 mg/dL (8.5-10.1) Magnesium Level 1.5 mg/dL (1.8-2.4) Laboratory Tests Test 05/29/20 05:38 White Blood Count 12.0 x10^3/uL (4.0-11.0) Red Blood Count 4.25 x10^6/uL (3.50-5.40) Hemoglobin 9.3 g/dL (12.0-15.5) Hematocrit 30.6 % (36.0-47.0) Mean Corpuscular Volume 72 fL (79-100) Mean Corpuscular Hemoglobin 22 pg (25-35) Mean Corpuscular Hemoglobin Concent 31 g/dL (31-37) Red Cell Distribution Width 29.2 % (11.5-14.5) Platelet Count 101 x10^3/uL (140-400) Neutrophils (%) (Auto) 79 % (31-73) Lymphocytes (%) (Auto) 5 % (24-48) Monocytes (%) (Auto) 15 % (0-9) Eosinophils (%) (Auto) 1 % (0-3) Basophils (%) (Auto) 0 % (0-3) Neutrophils # (Auto) 9.5 x10^3/uL (1.8-7.7) Lymphocytes # (Auto) 0.6 x10^3/uL (1.0-4.8) Monocytes # (Auto) 1.8 x10^3/uL (0.0-1.1) Eosinophils # (Auto) 0.1 x10^3/uL (0.0-0.7) Basophils # (Auto) 0.0 x10^3/uL (0.0-0.2) Sodium Level 143 mmol/L (136-145) Potassium Level 3.0 mmol/L (3.5-5.1) Chloride Level 112 mmol/L (98-107) Carbon Dioxide Level 23 mmol/L (21-32) Anion Gap 8 (6-14) Blood Urea Nitrogen 9 mg/dL (7-20) Creatinine 0.5 mg/dL (0.6-1.0) Estimated GFR (Cockcroft-Gault) 153.9 Glucose Level 124 mg/dL (70-99) Calcium Level 7.8 mg/dL (8.5-10.1) Magnesium Level 1.5 mg/dL (1.8-2.4) Medications Active Scripts Medications Dose Route/Sig Max Daily Dose Days Date Category Imodium A-D (Loperamide HCl) 2 Mg Capsule 2 Mg PO PRN Q8HRS PRN 05/16/20 Reported Glycopyrrolate 2 Mg Tablet 1 Mg PO PRN Q8HRS PRN 05/16/20 Reported Gabapentin (Gabapentin) 100 Mg Capsule 200 Mg PO TID 05/16/20 Reported Chlorhexidine Gluconate 118 Ml Liquid 1 Gerald PO BID 05/16/20 Reported Acetaminophen Supp (Acetaminophen) 650 Mg Supp.rect 650 Mg CO PRN Q6HRS PRN 10 06/15/19 Rx Topamax (Topiramate) 200 Mg Tablet 200 Mg PO BID 06/12/19 Reported Polyethylene Glycol 3350 17 Gm Powd.pack 17 Gm PO PRN DAILY PRN 06/12/19 Reported Oxycodone Hcl 5 Mg Capsule 5 Mg PO PRN Q4HRS PRN 06/12/19 Reported Melatonin 3 Mg Tablet 3 Mg PO PRN QHS PRN 06/12/19 Reported Fleet Enema (Na Phos,M-B/Na Phos,Di-Ba) 133 Ml Enema 133 Ml RC PRN Q8HRS PRN 06/12/19 Reported Famotidine 20 Mg Tablet 20 Mg PO HS 06/12/19 Reported Bisacodyl 10 Mg Supp.rect 10 Mg RC PRN DAILY PRN 06/12/19 Reported Docusate Sodium 100 Mg Capsule 200 Mg PO HS 06/12/19 Reported Divalproex Sodium Er (Divalproex Sodium) 500 Mg Tab.er.24h 500 Mg PO BID 06/12/19 Reported Eliquis (Apixaban) 5 Mg Tablet 5 Mg PO BID 06/12/19 Reported Divalproex Sodium Er (Divalproex Sodium) 500 Mg Tab.er.24h 250 Mg PO DAILY 06/12/19 Reported Zyrtec (Cetirizine Hcl) 10 Mg Tablet 1 Tab PO DAILY 01/09/18 Reported Onfi (Clobazam) 10 Mg Tablet 5 Mg PO [id number] 01/09/18 Reported Comments No new chest x-ray today Impression . IMPRESSION: 1. Expected post surgical respiratory failure respiratory failure 2. HypotensioN 3. Dementia, metabolic toxic encephalopathy 4. Right colon mass, status post exploratory laparotomy with right colon resection and primary anastomosis. See path report 5. History of seizure disorder. 6. abnl cxr atelectasis [facility] Accession Number: [id number] . 01 Material submitted: . colon - ASCENDING COLON MASS. Modifiers: ascending . 01 Clinical history: . ANEMIA . 02 Diagnosis: Large bowel "ascending colon mass", endoscopic biopsy: - Tubulovillous adenoma; negative for malignancy. (GAURANG/kamille; 05/28/2020) LBQ 05/28/2020 1821 Local Chest x-ray 05/29 Increase in linear atelectasis of the right lower lung zone. Stable small right-sided pleural effusion. Plan . Obtain ABG Continue BiPAP as needed, patient extubated 05 27 Chest x-ray reviewed Follow-up on final path report, see report Follow oncology recommendations/surgery recommendation DVT GI prophylaxis Case discussed with RT and RN, total cumulative critical care time of 30-minute KIKI CALVILLO MD May 29, 2020 08:37
[2020-05-29] MEDS ORDERED: MAGNESIUM SULFATE 4GM 100 ML IV ONE (10:00)
--- NOTE | 2020-05-29 10:48 | PDOC ---
OTTONIEL JOHNSON YARN HAULER 05/29/20 1048: SURGICAL PROGRESS NOTE DATE: 05/29/20 TIME: 10:47 Subjective multiple stools tolerating TF Vital Signs Vital Signs Date Time Temp Pulse Resp B/P (MAP) Pulse Ox O2 Delivery O2 Flow Rate FiO2 05/29/20 10:00 108 28 97/54 (68) 98 Venturi Mask 15.0 05/29/20 08:00 98.1 98.1 I&O Intake and Output 05/29/20 07:00 Intake Total 2826 ml Output Total 3305 ml Balance -479 ml IV Total 2435 ml Tube Feeding 241 ml Other 150 ml Output Urine Total 3305 ml Gastric Drainage Total 0 ml # Bowel Movements 6 PATIENT HAS A DAVISON: Yes General: Cooperative, No acute distress Abdomen: Soft, Other (dressing dry, ttp on exam ) Labs Laboratory Tests Test 05/27/20 11:00 05/28/20 05:30 05/28/20 07:35 05/28/20 08:00 O2 Saturation 89 % (92-99) 91 % (92-99) Arterial Blood pH 7.41 (7.35-7.45) 7.38 (7.35-7.45) Arterial Blood pCO2 at Patient Temp 27 mmHg (35-46) 35 mmHg (35-46) Arterial Blood pO2 at Patient Temp 58 mmHg (75-108) 61 mmHg (75-108) Arterial Blood HCO3 17 mmol/L (21-28) 20 mmol/L (21-28) Arterial Blood Base Excess -7 mmol/L (-3-3) -5 mmol/L (-3-3) FiO2 40% 10/5 60 White Blood Count 16.7 x10^3/uL (4.0-11.0) Red Blood Count 4.61 x10^6/uL (3.50-5.40) Hemoglobin 9.9 g/dL (12.0-15.5) Hematocrit 33.1 % (36.0-47.0) Mean Corpuscular Volume 72 fL (79-100) Mean Corpuscular Hemoglobin 22 pg (25-35) Mean Corpuscular Hemoglobin Concent 30 g/dL (31-37) Red Cell Distribution Width 28.8 % (11.5-14.5) Platelet Count 131 x10^3/uL (140-400) Neutrophils (%) (Auto) 74 % (31-73) Lymphocytes (%) (Auto) 4 % (24-48) Monocytes (%) (Auto) 21 % (0-9) Eosinophils (%) (Auto) 0 % (0-3) Basophils (%) (Auto) 0 % (0-3) Neutrophils # (Auto) 12.3 x10^3/uL (1.8-7.7) Lymphocytes # (Auto) 0.7 x10^3/uL (1.0-4.8) Monocytes # (Auto) 3.5 x10^3/uL (0.0-1.1) Eosinophils # (Auto) 0.0 x10^3/uL (0.0-0.7) Basophils # (Auto) 0.0 x10^3/uL (0.0-0.2) Sodium Level 150 mmol/L (136-145) Potassium Level 3.1 mmol/L (3.5-5.1) Chloride Level 115 mmol/L (98-107) Carbon Dioxide Level 23 mmol/L (21-32) Anion Gap 12 (6-14) Blood Urea Nitrogen 6 mg/dL (7-20) Creatinine 0.4 mg/dL (0.6-1.0) Estimated GFR (Cockcroft-Gault) 199.1 Glucose Level 80 mg/dL (70-99) Calcium Level 7.5 mg/dL (8.5-10.1) Test 05/29/20 05:38 White Blood Count 12.0 x10^3/uL (4.0-11.0) Red Blood Count 4.25 x10^6/uL (3.50-5.40) Hemoglobin 9.3 g/dL (12.0-15.5) Hematocrit 30.6 % (36.0-47.0) Mean Corpuscular Volume 72 fL (79-100) Mean Corpuscular Hemoglobin 22 pg (25-35) Mean Corpuscular Hemoglobin Concent 31 g/dL (31-37) Red Cell Distribution Width 29.2 % (11.5-14.5) Platelet Count 101 x10^3/uL (140-400) Neutrophils (%) (Auto) 79 % (31-73) Lymphocytes (%) (Auto) 5 % (24-48) Monocytes (%) (Auto) 15 % (0-9) Eosinophils (%) (Auto) 1 % (0-3) Basophils (%) (Auto) 0 % (0-3) Neutrophils # (Auto) 9.5 x10^3/uL (1.8-7.7) Lymphocytes # (Auto) 0.6 x10^3/uL (1.0-4.8) Monocytes # (Auto) 1.8 x10^3/uL (0.0-1.1) Eosinophils # (Auto) 0.1 x10^3/uL (0.0-0.7) Basophils # (Auto) 0.0 x10^3/uL (0.0-0.2) Sodium Level 143 mmol/L (136-145) Potassium Level 3.0 mmol/L (3.5-5.1) Chloride Level 112 mmol/L (98-107) Carbon Dioxide Level 23 mmol/L (21-32) Anion Gap 8 (6-14) Blood Urea Nitrogen 9 mg/dL (7-20) Creatinine 0.5 mg/dL (0.6-1.0) Estimated GFR (Cockcroft-Gault) 153.9 Glucose Level 124 mg/dL (70-99) Calcium Level 7.8 mg/dL (8.5-10.1) Magnesium Level 1.5 mg/dL (1.8-2.4) Laboratory Tests Test 05/29/20 05:38 White Blood Count 12.0 x10^3/uL (4.0-11.0) Red Blood Count 4.25 x10^6/uL (3.50-5.40) Hemoglobin 9.3 g/dL (12.0-15.5) Hematocrit 30.6 % (36.0-47.0) Mean Corpuscular Volume 72 fL (79-100) Mean Corpuscular Hemoglobin 22 pg (25-35) Mean Corpuscular Hemoglobin Concent 31 g/dL (31-37) Red Cell Distribution Width 29.2 % (11.5-14.5) Platelet Count 101 x10^3/uL (140-400) Neutrophils (%) (Auto) 79 % (31-73) Lymphocytes (%) (Auto) 5 % (24-48) Monocytes (%) (Auto) 15 % (0-9) Eosinophils (%) (Auto) 1 % (0-3) Basophils (%) (Auto) 0 % (0-3) Neutrophils # (Auto) 9.5 x10^3/uL (1.8-7.7) Lymphocytes # (Auto) 0.6 x10^3/uL (1.0-4.8) Monocytes # (Auto) 1.8 x10^3/uL (0.0-1.1) Eosinophils # (Auto) 0.1 x10^3/uL (0.0-0.7) Basophils # (Auto) 0.0 x10^3/uL (0.0-0.2) Sodium Level 143 mmol/L (136-145) Potassium Level 3.0 mmol/L (3.5-5.1) Chloride Level 112 mmol/L (98-107) Carbon Dioxide Level 23 mmol/L (21-32) Anion Gap 8 (6-14) Blood Urea Nitrogen 9 mg/dL (7-20) Creatinine 0.5 mg/dL (0.6-1.0) Estimated GFR (Cockcroft-Gault) 153.9 Glucose Level 124 mg/dL (70-99) Calcium Level 7.8 mg/dL (8.5-10.1) Magnesium Level 1.5 mg/dL (1.8-2.4) Problem List Problems Medical Problems: (1) Hypernatremia Status: Acute (2) Severe anemia Status: Acute (3) Severe sepsis Status: Acute (4) UTI (urinary tract infection) Status: Acute Assessment/Plan supportive care Justicifation of Admission Dx: Justifications for Admission: Justification of Admission Dx: Yes BENIGNO SHAH MD 05/29/20 1106: SURGICAL PROGRESS NOTE Assessment/Plan Bowel function is returned tolerating tube feeds. Supportive care agree with Dominique assessment and plan OTTONIEL JOHNSON APRN May 29, 2020 10:48 BENIGNO SHAH MD May 29, 2020 11:06
--- NOTE | 2020-05-29 11:19 | PDOC ---
Date of Service: DATE: 05/29/20 TIME: 11:15 Objective: Objective: Stools charted. Vital Signs: Vital Signs Date Time Temp Pulse Resp B/P (MAP) Pulse Ox O2 Delivery O2 Flow Rate FiO2 05/29/20 11:00 115 36 90/54 (66) 98 Venturi Mask 15.0 05/29/20 08:00 98.1 98.1 Labs: Laboratory Tests Test 05/29/20 05:38 White Blood Count 12.0 x10^3/uL Red Blood Count 4.25 x10^6/uL Hemoglobin 9.3 g/dL Hematocrit 30.6 % Mean Corpuscular Volume 72 fL Mean Corpuscular Hemoglobin 22 pg Mean Corpuscular Hemoglobin Concent 31 g/dL Red Cell Distribution Width 29.2 % Platelet Count 101 x10^3/uL Neutrophils (%) (Auto) 79 % Lymphocytes (%) (Auto) 5 % Monocytes (%) (Auto) 15 % Eosinophils (%) (Auto) 1 % Basophils (%) (Auto) 0 % Neutrophils # (Auto) 9.5 x10^3/uL Lymphocytes # (Auto) 0.6 x10^3/uL Monocytes # (Auto) 1.8 x10^3/uL Eosinophils # (Auto) 0.1 x10^3/uL Basophils # (Auto) 0.0 x10^3/uL Sodium Level 143 mmol/L Potassium Level 3.0 mmol/L Chloride Level 112 mmol/L Carbon Dioxide Level 23 mmol/L Anion Gap 8 Blood Urea Nitrogen 9 mg/dL Creatinine 0.5 mg/dL Estimated GFR (Cockcroft-Gault) 153.9 Glucose Level 124 mg/dL Calcium Level 7.8 mg/dL Magnesium Level 1.5 mg/dL PE: GEN: chronically ill LUNGS: diminished, Venturi mask HEART: tachycardic ABD: moans when abdomen palpated, Dobhoff w/ feeds running NEURO/PSYCH: lethargic A/P: Right colon mass s/p resection - path still pending? Resp failure TRISTAN - stable Dysphagia, mental disability, h/o seizures -- Continue support per GI. Justicifation of Admission Dx: Justifications for Admission: Justification of Admission Dx: Yes SARA RAZO May 29, 2020 11:19
--- NOTE | 2020-05-29 11:34 | RAD ---
PORTABLE CHEST 1V Clinical indications: Respiratory failure. Follow-up study. COMPARISON: May 26, 2020. Findings: Persistent consolidative left lung base infiltrate with a small left-sided pleural effusion is unchanged. There is an increase in linear atelectasis of the right lung base. Small right-sided pleural effusion is unchanged. No pneumothorax is seen. The heart size, pulmonary vasculature, mediastinum and both gagan are are stable. ET tube has been removed. Dobbhoff tube is now apparent and the tip is seen within the distal antrum of the stomach. Right IJ central line tip remains within the right atrium. Impression: Unchanged left lung base consolidative infiltrate with a small left-sided pleural effusion. Increase in linear atelectasis of the right lower lung zone. Stable small right-sided pleural effusion. Electronically signed by: Massimo Valiente MD (05/29/2020 11:31 AM) [id number]
--- NOTE | 2020-05-29 11:45 | NUR ---
SS following up with discharge planning. SS reviewed pt chart and discussed with pt RN. COVID19 negative. Pt off BIPAP now. Pt on Venti Mask at 15 liters. Pt on tube feeds and now on IV Zosyn. SS will continue to follow for discharge planning.
--- NOTE | 2020-05-29 12:07 | PATHOLOGY ---
[facility] Accession Number: [id number] . 01 Material submitted: . colon - ASCENDING COLON MASS. Modifiers: ascending . 01 Clinical history: . ANEMIA . 02 Diagnosis: Large bowel "ascending colon mass", endoscopic biopsy: - Tubulovillous adenoma; negative for malignancy. (MLK/db; 05/28/2020) LBQ 05/28/2020 1821 Local . 02 Electronically signed: . Emelia Collier MD, Pathologist NPI- [id number] . 01 Gross description: . The specimen is received in formalin, labeled "Emmy Casas, ascending colon mass". Received are five segments of pale hernandez soft tissue ranging in size from 0.2 to 0.4 cm in maximum dimensions. The specimen is submitted entirely in cassette A1. (CAA; 05/22/2020) QAC/QAC 05/22/2020 1814 Local . 02 Pathologist provided ICD-10: D12.2 . 02 CPT . 777850 Specimen Comment: A courtesy copy of this report has been sent to [phone] Specimen Comment: [id number], Specimen Comment: Report sent to ,DR GARCIA / DR MICHAEL Performed at: 01 [facility] [address], [place], [place] [id number] MD Fahad Sheehan MD Phone: [phone] Performed at: 02 [facility] [address] [place], [place] [id number] MD Philippe Bello MD Phone: [phone]
[2020-05-29 13:16] LABS: BASE EXCESS ABG -3 mmol/L (-3-3); HCO3 ABG 22 mmol/L (21-28); PCO2 ABG 40 mmHg (35-46); PO2 ABG 57 mmHg (75-108); SAT O2 ABG 88 % (92-99)
[2020-05-29 13:17] LABS: FIO2 ABG 50
--- NOTE | 2020-05-29 15:17 | NUR ---
Wound/Ostomy Care Wound Type/Assessment: Patient seen per wound care follow up for DTIs to the right heel, right medial foot, and left 5th toe. The left heel is now resolved. Wounds cleansed, assessed, and measured. Treatment Recommendations/Plan: Recommendations to apply skin prep and cover with foam dressings to all DTI's. Education provided: N/A Offloading surface/device: Patient on an ICU bed at this time. Recommended Referrals/Tests: N/A Discharge Recommendations for dressings: Continue current treatment until wounds are resolved. Turn Q2, P-500 bed if patient transfers off ICU unit. RN at bedside with patient. Will follow patient regarding wound care.
--- NOTE | 2020-05-29 15:37 | NUR ---
SS following up with discharge planning. SS discussed discharge planning with pt's RN and pt's sister, Naomy Conway. Pt's sister not wanting pt to go back to [facility] at this time as she feels that they cannot provide pt with the medical care that she needs. SS discussed LTACH placement with pt's sister. Pt's sister was agreeable to LTACH placement and requested referral be phoned and faxed to [facility], ; fax [phone]. SS phoned and faxed referral to [facility]. SS will continue to follow for discharge planning.
[2020-05-29] MEDS: DOCUSATE SODIUM 100 MG CAPSULE. PO SCH (21:00)
[2020-05-29] MEDS: FAMOTIDINE 20 MG TABLET. PO SCH (21:11)
[2020-05-30] VITALS (24 sets, daily range): BP systolic 87–133; BP diastolic 52–72
[2020-05-30 05:25] LABS: BASO % 0 % (0-3); EOS # 0.3 x10^3/uL (0.0-0.7); EOS % 4 % (0-3); HEMOGLOBIN 9.2 g/dL (12.0-15.5); LYMPH # 0.9 x10^3/uL (1.0-4.8); LYMPH % 10 % (24-48); MEAN CORPUSCULAR HEMOGLOBIN 22 pg (25-35); MEAN CORPUSCULAR HGB CONC 31 g/dL (31-37); MEAN CORPUSCULAR VOLUME 73 fL (79-100); MONO # 1.3 x10^3/uL (0.0-1.1); MONO % 15 % (0-9); NEUT # 6.1 x10^3/uL (1.8-7.7); NEUT % 71 % (31-73); PLATELET COUNT 106 x10^3/uL (140-400); RED BLOOD COUNT 4.11 x10^6/uL (3.50-5.40); RED CELL DISTRIBUTION WIDTH 29.3 % (11.5-14.5); WHITE BLOOD COUNT 8.6 x10^3/uL (4.0-11.0)
[2020-05-30] MEDS: PIPERACILLIN/TAZOBACTAM 3.375 GM in IV NORMAL SALINE 50ML 50 ML IV SCH ×4 (05:26→23:43)
[2020-05-30] MEDS: VALPROIC ACID (AS SODIUM SALT) 500 MG in IV DEXTROSE 5% 50 ML IV SCH ×3 (05:27→21:30)
[2020-05-30 05:58] LABS: CALCIUM 8.5 mg/dL (8.5-10.1); CREATININE 0.5 mg/dL (0.6-1.0); GFR 153.9; POTASSIUM 4.2 mmol/L (3.5-5.1)
--- NOTE | 2020-05-30 08:14 | PDOC ---
PULMONARY PROGRESS NOTES DATE: 05/30/20 TIME: 08:14 Subjective Patient currently on BiPAP extubated, 05/27 Minimally responsive Vitals Vital Signs Date Time Temp Pulse Resp B/P (MAP) Pulse Ox O2 Delivery O2 Flow Rate FiO2 05/30/20 08:00 96 22 87/58 (68) 100 BiPAP/CPAP 05/30/20 04:00 98.7 98.7 05/29/20 23:00 15.0 Comments Patient on BiPAP, unable to obtain review of systems HEENT: Other (nc at perrl nose clear orally intubated neck no lad no thyromegaly) Lungs: Other (deminished bs) Cardiovascular: S1, S2 Abdomen: Soft, Non-tender, Other (no mass) Extremities: No Edema Skin: Warm, Dry, No Rashes Labs Laboratory Tests Test 05/29/20 05:38 05/29/20 13:10 05/30/20 05:00 White Blood Count 12.0 x10^3/uL (4.0-11.0) 8.6 x10^3/uL (4.0-11.0) Red Blood Count 4.25 x10^6/uL (3.50-5.40) 4.11 x10^6/uL (3.50-5.40) Hemoglobin 9.3 g/dL (12.0-15.5) 9.2 g/dL (12.0-15.5) Hematocrit 30.6 % (36.0-47.0) 30.0 % (36.0-47.0) Mean Corpuscular Volume 72 fL (79-100) 73 fL (79-100) Mean Corpuscular Hemoglobin 22 pg (25-35) 22 pg (25-35) Mean Corpuscular Hemoglobin Concent 31 g/dL (31-37) 31 g/dL (31-37) Red Cell Distribution Width 29.2 % (11.5-14.5) 29.3 % (11.5-14.5) Platelet Count 101 x10^3/uL (140-400) 106 x10^3/uL (140-400) Neutrophils (%) (Auto) 79 % (31-73) 71 % (31-73) Lymphocytes (%) (Auto) 5 % (24-48) 10 % (24-48) Monocytes (%) (Auto) 15 % (0-9) 15 % (0-9) Eosinophils (%) (Auto) 1 % (0-3) 4 % (0-3) Basophils (%) (Auto) 0 % (0-3) 0 % (0-3) Neutrophils # (Auto) 9.5 x10^3/uL (1.8-7.7) 6.1 x10^3/uL (1.8-7.7) Lymphocytes # (Auto) 0.6 x10^3/uL (1.0-4.8) 0.9 x10^3/uL (1.0-4.8) Monocytes # (Auto) 1.8 x10^3/uL (0.0-1.1) 1.3 x10^3/uL (0.0-1.1) Eosinophils # (Auto) 0.1 x10^3/uL (0.0-0.7) 0.3 x10^3/uL (0.0-0.7) Basophils # (Auto) 0.0 x10^3/uL (0.0-0.2) 0.0 x10^3/uL (0.0-0.2) Sodium Level 143 mmol/L (136-145) 145 mmol/L (136-145) Potassium Level 3.0 mmol/L (3.5-5.1) 4.2 mmol/L (3.5-5.1) Chloride Level 112 mmol/L (98-107) 114 mmol/L (98-107) Carbon Dioxide Level 23 mmol/L (21-32) 25 mmol/L (21-32) Anion Gap 8 (6-14) 6 (6-14) Blood Urea Nitrogen 9 mg/dL (7-20) 11 mg/dL (7-20) Creatinine 0.5 mg/dL (0.6-1.0) 0.5 mg/dL (0.6-1.0) Estimated GFR (Cockcroft-Gault) 153.9 153.9 Glucose Level 124 mg/dL (70-99) 141 mg/dL (70-99) Calcium Level 7.8 mg/dL (8.5-10.1) 8.5 mg/dL (8.5-10.1) Magnesium Level 1.5 mg/dL (1.8-2.4) O2 Saturation 88 % (92-99) Arterial Blood pH 7.37 (7.35-7.45) Arterial Blood pCO2 at Patient Temp 40 mmHg (35-46) Arterial Blood pO2 at Patient Temp 57 mmHg (75-108) Arterial Blood HCO3 22 mmol/L (21-28) Arterial Blood Base Excess -3 mmol/L (-3-3) FiO2 50 Lactic Acid Level 1.3 mmol/L (0.4-2.0) Laboratory Tests Test 05/29/20 13:10 05/30/20 05:00 O2 Saturation 88 % (92-99) Arterial Blood pH 7.37 (7.35-7.45) Arterial Blood pCO2 at Patient Temp 40 mmHg (35-46) Arterial Blood pO2 at Patient Temp 57 mmHg (75-108) Arterial Blood HCO3 22 mmol/L (21-28) Arterial Blood Base Excess -3 mmol/L (-3-3) FiO2 50 White Blood Count 8.6 x10^3/uL (4.0-11.0) Red Blood Count 4.11 x10^6/uL (3.50-5.40) Hemoglobin 9.2 g/dL (12.0-15.5) Hematocrit 30.0 % (36.0-47.0) Mean Corpuscular Volume 73 fL (79-100) Mean Corpuscular Hemoglobin 22 pg (25-35) Mean Corpuscular Hemoglobin Concent 31 g/dL (31-37) Red Cell Distribution Width 29.3 % (11.5-14.5) Platelet Count 106 x10^3/uL (140-400) Neutrophils (%) (Auto) 71 % (31-73) Lymphocytes (%) (Auto) 10 % (24-48) Monocytes (%) (Auto) 15 % (0-9) Eosinophils (%) (Auto) 4 % (0-3) Basophils (%) (Auto) 0 % (0-3) Neutrophils # (Auto) 6.1 x10^3/uL (1.8-7.7) Lymphocytes # (Auto) 0.9 x10^3/uL (1.0-4.8) Monocytes # (Auto) 1.3 x10^3/uL (0.0-1.1) Eosinophils # (Auto) 0.3 x10^3/uL (0.0-0.7) Basophils # (Auto) 0.0 x10^3/uL (0.0-0.2) Sodium Level 145 mmol/L (136-145) Potassium Level 4.2 mmol/L (3.5-5.1) Chloride Level 114 mmol/L (98-107) Carbon Dioxide Level 25 mmol/L (21-32) Anion Gap 6 (6-14) Blood Urea Nitrogen 11 mg/dL (7-20) Creatinine 0.5 mg/dL (0.6-1.0) Estimated GFR (Cockcroft-Gault) 153.9 Glucose Level 141 mg/dL (70-99) Lactic Acid Level 1.3 mmol/L (0.4-2.0) Calcium Level 8.5 mg/dL (8.5-10.1) Medications Active Scripts Medications Dose Route/Sig Max Daily Dose Days Date Category Imodium A-D (Loperamide HCl) 2 Mg Capsule 2 Mg PO PRN Q8HRS PRN 05/16/20 Reported Glycopyrrolate 2 Mg Tablet 1 Mg PO PRN Q8HRS PRN 05/16/20 Reported Gabapentin (Gabapentin) 100 Mg Capsule 200 Mg PO TID 05/16/20 Reported Chlorhexidine Gluconate 118 Ml Liquid 1 Gerald PO BID 05/16/20 Reported Acetaminophen Supp (Acetaminophen) 650 Mg Supp.rect 650 Mg OK PRN Q6HRS PRN 10 06/15/19 Rx Topamax (Topiramate) 200 Mg Tablet 200 Mg PO BID 06/12/19 Reported Polyethylene Glycol 3350 17 Gm Powd.pack 17 Gm PO PRN DAILY PRN 06/12/19 Reported Oxycodone Hcl 5 Mg Capsule 5 Mg PO PRN Q4HRS PRN 06/12/19 Reported Melatonin 3 Mg Tablet 3 Mg PO PRN QHS PRN 06/12/19 Reported Fleet Enema (Na Phos,M-B/Na Phos,Di-Ba) 133 Ml Enema 133 Ml RC PRN Q8HRS PRN 06/12/19 Reported Famotidine 20 Mg Tablet 20 Mg PO HS 06/12/19 Reported Bisacodyl 10 Mg Supp.rect 10 Mg RC PRN DAILY PRN 06/12/19 Reported Docusate Sodium 100 Mg Capsule 200 Mg PO HS 06/12/19 Reported Divalproex Sodium Er (Divalproex Sodium) 500 Mg Tab.er.24h 500 Mg PO BID 06/12/19 Reported Eliquis (Apixaban) 5 Mg Tablet 5 Mg PO BID 06/12/19 Reported Divalproex Sodium Er (Divalproex Sodium) 500 Mg Tab.er.24h 250 Mg PO DAILY 06/12/19 Reported Zyrtec (Cetirizine Hcl) 10 Mg Tablet 1 Tab PO DAILY 01/09/18 Reported Onfi (Clobazam) 10 Mg Tablet 5 Mg PO BID92 01/09/18 Reported Comments No new chest x-ray today Impression . IMPRESSION: 1. Expected post surgical respiratory failure respiratory failure 2. Hypertensive 3. Dementia 4. Right colon mass, status post exploratory laparotomy with right colon resection and primary anastomosis. See path report 5. History of seizure disorder. 6. abnl cxr atelectasis 7, metabolic toxic encephalopathy [facility] Accession Number: [id number] . 01 Material submitted: . colon - ASCENDING COLON MASS. Modifiers: ascending . 01 Clinical history: . ANEMIA . 02 Diagnosis: Large bowel "ascending colon mass", endoscopic biopsy: - Tubulovillous adenoma; negative for malignancy. (GAURANG/kamille; 05/28/2020) LBQ 05/28/2020 1821 [facility] Chest x-ray 05/29 Increase in linear atelectasis of the right lower lung zone. Stable small right-sided pleural effusion. Plan . We will continue current support awaiting bowel function, and mental status improved Continue BiPAP as needed, patient extubated 9 Chest x-ray reviewed Follow-up on final path report, see report Follow oncology recommendations/surgery recommendation DVT GI prophylaxis Case discussed with RT and RN, total cumulative critical care time of 30-minute KIKI CALVILLO MD May 30, 2020 08:14
[2020-05-30] MEDS: GABAPENTIN 100 MG CAPSULE. PO SCH ×3 (09:00→20:33)
[2020-05-30] MEDS: FUROSEMIDE 40 MG/4 ML VIAL. IVP SCH (09:00)
[2020-05-30] MEDS: TOPIRAMATE 100 MG TABLET. PO SCH ×2 (09:00→20:33)
[2020-05-30] MEDS: ENOXAPARIN 40 MG/0.4 ML SYRINGE. SQ SCH (09:01)
[2020-05-30] MEDS: CETIRIZINE HCL 10 MG TABLET. PO SCH (09:01)
--- NOTE | 2020-05-30 10:42 | NUR ---
Patient switched to venti mask at 40% FIO2. Speech eval postponed to this afternoon d/t patient being on mask. Surgery team asked to keep patient until tomorrow and then ok to tx to [facility].
--- NOTE | 2020-05-30 10:53 | PDOC ---
OTTONIEL JOHNSON 3D SPECIALIST 05/30/20 1053: SURGICAL PROGRESS NOTE DATE: 05/30/20 TIME: 10:52 Subjective d/w nursing speech eval pending --off mask continued loose stool--c diff pending tolerating TF per dobhoff Vital Signs Vital Signs Date Time Temp Pulse Resp B/P (MAP) Pulse Ox O2 Delivery O2 Flow Rate FiO2 05/30/20 10:00 103 28 101/59 (73) 99 BiPAP/CPAP 05/30/20 08:00 98.3 98.3 05/29/20 23:00 15.0 I&O Intake and Output 05/30/20 07:00 Intake Total 3284 ml Output Total 3220 ml Balance 64 ml IV Total 1614 ml Tube Feeding 1295 ml Other 375 ml Output Urine Total 3120 ml Stool Total 100 ml Gastric Drainage Total 0 ml # Bowel Movements 1 General: No acute distress Abdomen: Soft Labs Laboratory Tests Test 05/29/20 05:38 05/29/20 13:10 05/30/20 05:00 White Blood Count 12.0 x10^3/uL (4.0-11.0) 8.6 x10^3/uL (4.0-11.0) Red Blood Count 4.25 x10^6/uL (3.50-5.40) 4.11 x10^6/uL (3.50-5.40) Hemoglobin 9.3 g/dL (12.0-15.5) 9.2 g/dL (12.0-15.5) Hematocrit 30.6 % (36.0-47.0) 30.0 % (36.0-47.0) Mean Corpuscular Volume 72 fL (79-100) 73 fL (79-100) Mean Corpuscular Hemoglobin 22 pg (25-35) 22 pg (25-35) Mean Corpuscular Hemoglobin Concent 31 g/dL (31-37) 31 g/dL (31-37) Red Cell Distribution Width 29.2 % (11.5-14.5) 29.3 % (11.5-14.5) Platelet Count 101 x10^3/uL (140-400) 106 x10^3/uL (140-400) Neutrophils (%) (Auto) 79 % (31-73) 71 % (31-73) Lymphocytes (%) (Auto) 5 % (24-48) 10 % (24-48) Monocytes (%) (Auto) 15 % (0-9) 15 % (0-9) Eosinophils (%) (Auto) 1 % (0-3) 4 % (0-3) Basophils (%) (Auto) 0 % (0-3) 0 % (0-3) Neutrophils # (Auto) 9.5 x10^3/uL (1.8-7.7) 6.1 x10^3/uL (1.8-7.7) Lymphocytes # (Auto) 0.6 x10^3/uL (1.0-4.8) 0.9 x10^3/uL (1.0-4.8) Monocytes # (Auto) 1.8 x10^3/uL (0.0-1.1) 1.3 x10^3/uL (0.0-1.1) Eosinophils # (Auto) 0.1 x10^3/uL (0.0-0.7) 0.3 x10^3/uL (0.0-0.7) Basophils # (Auto) 0.0 x10^3/uL (0.0-0.2) 0.0 x10^3/uL (0.0-0.2) Sodium Level 143 mmol/L (136-145) 145 mmol/L (136-145) Potassium Level 3.0 mmol/L (3.5-5.1) 4.2 mmol/L (3.5-5.1) Chloride Level 112 mmol/L (98-107) 114 mmol/L (98-107) Carbon Dioxide Level 23 mmol/L (21-32) 25 mmol/L (21-32) Anion Gap 8 (6-14) 6 (6-14) Blood Urea Nitrogen 9 mg/dL (7-20) 11 mg/dL (7-20) Creatinine 0.5 mg/dL (0.6-1.0) 0.5 mg/dL (0.6-1.0) Estimated GFR (Cockcroft-Gault) 153.9 153.9 Glucose Level 124 mg/dL (70-99) 141 mg/dL (70-99) Calcium Level 7.8 mg/dL (8.5-10.1) 8.5 mg/dL (8.5-10.1) Magnesium Level 1.5 mg/dL (1.8-2.4) O2 Saturation 88 % (92-99) Arterial Blood pH 7.37 (7.35-7.45) Arterial Blood pCO2 at Patient Temp 40 mmHg (35-46) Arterial Blood pO2 at Patient Temp 57 mmHg (75-108) Arterial Blood HCO3 22 mmol/L (21-28) Arterial Blood Base Excess -3 mmol/L (-3-3) FiO2 50 Lactic Acid Level 1.3 mmol/L (0.4-2.0) Laboratory Tests Test 05/29/20 13:10 05/30/20 05:00 O2 Saturation 88 % (92-99) Arterial Blood pH 7.37 (7.35-7.45) Arterial Blood pCO2 at Patient Temp 40 mmHg (35-46) Arterial Blood pO2 at Patient Temp 57 mmHg (75-108) Arterial Blood HCO3 22 mmol/L (21-28) Arterial Blood Base Excess -3 mmol/L (-3-3) FiO2 50 White Blood Count 8.6 x10^3/uL (4.0-11.0) Red Blood Count 4.11 x10^6/uL (3.50-5.40) Hemoglobin 9.2 g/dL (12.0-15.5) Hematocrit 30.0 % (36.0-47.0) Mean Corpuscular Volume 73 fL (79-100) Mean Corpuscular Hemoglobin 22 pg (25-35) Mean Corpuscular Hemoglobin Concent 31 g/dL (31-37) Red Cell Distribution Width 29.3 % (11.5-14.5) Platelet Count 106 x10^3/uL (140-400) Neutrophils (%) (Auto) 71 % (31-73) Lymphocytes (%) (Auto) 10 % (24-48) Monocytes (%) (Auto) 15 % (0-9) Eosinophils (%) (Auto) 4 % (0-3) Basophils (%) (Auto) 0 % (0-3) Neutrophils # (Auto) 6.1 x10^3/uL (1.8-7.7) Lymphocytes # (Auto) 0.9 x10^3/uL (1.0-4.8) Monocytes # (Auto) 1.3 x10^3/uL (0.0-1.1) Eosinophils # (Auto) 0.3 x10^3/uL (0.0-0.7) Basophils # (Auto) 0.0 x10^3/uL (0.0-0.2) Sodium Level 145 mmol/L (136-145) Potassium Level 4.2 mmol/L (3.5-5.1) Chloride Level 114 mmol/L (98-107) Carbon Dioxide Level 25 mmol/L (21-32) Anion Gap 6 (6-14) Blood Urea Nitrogen 11 mg/dL (7-20) Creatinine 0.5 mg/dL (0.6-1.0) Estimated GFR (Cockcroft-Gault) 153.9 Glucose Level 141 mg/dL (70-99) Lactic Acid Level 1.3 mmol/L (0.4-2.0) Calcium Level 8.5 mg/dL (8.5-10.1) Problem List Problems Medical Problems: (1) Hypernatremia Status: Acute (2) Severe anemia Status: Acute (3) Severe sepsis Status: Acute (4) UTI (urinary tract infection) Status: Acute Assessment/Plan c diff pending possible to [facility] tomorrow Justicifation of Admission Dx: Justifications for Admission: Justification of Admission Dx: Yes BENIGNO SHAH MD 05/30/20 1127: SURGICAL PROGRESS NOTE Assessment/Plan From surgical standpoint she can go to [facility]. Agree with Dominique assessment and plan OTTONIEL JOHNSON APRN May 30, 2020 10:53 BENIGNO SHAH MD May 30, 2020 11:27
--- NOTE | 2020-05-30 12:25 | PDOC ---
Date of Service: DATE: 05/30/20 TIME: 12:22 Objective: Objective: D/w nurse - C Diff pending, has rectal tube, tolerating Dobhoff - possible Dc to [facility] tomorrow. Vital Signs: Vital Signs Date Time Temp Pulse Resp B/P (MAP) Pulse Ox O2 Delivery O2 Flow Rate FiO2 05/30/20 12:00 108 27 104/66 (79) 96 Venturi Mask 15.0 05/30/20 08:00 98.3 98.3 Labs: Laboratory Tests Test 05/29/20 13:10 05/30/20 05:00 O2 Saturation 88 % Arterial Blood pH 7.37 Arterial Blood pCO2 at Patient Temp 40 mmHg Arterial Blood pO2 at Patient Temp 57 mmHg Arterial Blood HCO3 22 mmol/L Arterial Blood Base Excess -3 mmol/L FiO2 50 White Blood Count 8.6 x10^3/uL Red Blood Count 4.11 x10^6/uL Hemoglobin 9.2 g/dL Hematocrit 30.0 % Mean Corpuscular Volume 73 fL Mean Corpuscular Hemoglobin 22 pg Mean Corpuscular Hemoglobin Concent 31 g/dL Red Cell Distribution Width 29.3 % Platelet Count 106 x10^3/uL Neutrophils (%) (Auto) 71 % Lymphocytes (%) (Auto) 10 % Monocytes (%) (Auto) 15 % Eosinophils (%) (Auto) 4 % Basophils (%) (Auto) 0 % Neutrophils # (Auto) 6.1 x10^3/uL Lymphocytes # (Auto) 0.9 x10^3/uL Monocytes # (Auto) 1.3 x10^3/uL Eosinophils # (Auto) 0.3 x10^3/uL Basophils # (Auto) 0.0 x10^3/uL Sodium Level 145 mmol/L Potassium Level 4.2 mmol/L Chloride Level 114 mmol/L Carbon Dioxide Level 25 mmol/L Anion Gap 6 Blood Urea Nitrogen 11 mg/dL Creatinine 0.5 mg/dL Estimated GFR (Cockcroft-Gault) 153.9 Glucose Level 141 mg/dL Lactic Acid Level 1.3 mmol/L Calcium Level 8.5 mg/dL Material submitted: . colon - ASCENDING COLON MASS. Modifiers: ascending . 01 Clinical history: . ANEMIA . 02 Diagnosis: Large bowel "ascending colon mass", endoscopic biopsy: - Tubulovillous adenoma; negative for malignancy. (MLK/db; 05/28/2020) LBQ 05/28/2020 1821 Local Imaging: CXR 05/29 Impression: Unchanged left lung base consolidative infiltrate with a small left- sided pleural effusion. Increase in linear atelectasis of the right lower lung zone. Stable small right- sided pleural effusion. PE: GEN: chronically ill LUNGS: breaching mask HEART: tachycardic ABD: soft NEURO/PSYCH: doesn't rouse much A/P: Right colon mass s/p resection - path as above negative for malignancy Resp failure TRISTAN - stable Diarrhea Dysphagia, mental disability, h/o seizures -- Continue support per GI. Justicifation of Admission Dx: Justifications for Admission: Justification of Admission Dx: Yes SARA RAZO May 30, 2020 12:25
[2020-05-30] MEDS: MULTIVITAMINS,THERAPEUTIC 5 ML ORAL LIQUID. PEG SCH (12:27)
--- NOTE | 2020-05-30 14:08 | NUR ---
SS following up with discharge planning. SS reviewed pt chart and discussed with pt RN. Pt accepted at [facility], ; fax [phone]. COVID19 negative. Pt on venti mask at this time. Pt on tube feeds and IV Zosyn. Possible discharge to [facility] tomorrow. SS will continue to follow for discharge planning.
--- NOTE | 2020-05-30 16:43 | PDOC ---
PROGRESS NOTES Date of Service: DATE: 05/30/20 TIME: 16:42 Chief Complaint Chief Complaint Postop day 5 Exploratory laparotomy with right colon resection and primary anastomosis Severe sepsis Respiratory failure requiring intubation, succesfully extubated on 05/27/2020 Seizure disorder Cognitive deficit Low Hemoglobin Vit D Deficient,DYSPHAGIA,SIRS Hysterectomy [facility] resident Plan: diet as per surgical processor will hopefully transition to [facility] in the am replace electrolytes as per protocol ID medical device sales consultant recommendations greatly appreciated. may need diuresis moving forward given the amount of edema noted and increase in weight. History of Present Illness History of Present Illness 05/29/2020 patient on bipap quite edematous will continue with Lasix and replace electrolytes Off Levophed 05/28/2020 patient on bipap quite edematous will continue with Lasix Off Levophed 05/27/2020 Still on ventilatory support We will wait for pulmonology evaluation Patient still on Levophed Patient has increased weight of about 10 Kg, she needs diuresis but difficult at this time given soft BP 05/26/2020 Patient seen and examined in the ICU She is still on the ventilator Assist-control/ with 40% FiO2 and 7 of PEEP Discussed with RN Chart reviewed She has clean dry intact ventricle incision She is sedated with propofol and fentanyl Also on a Levophed drip Has SCDs Has heel protectors Wilder to bedside drainage Appears critically ill 05/25/2022 Patient seen and examined in the ICU She is intubated Assist-control/02/02 100/50% with 7 of PEEP Discussed with RN I called the pharmacy to see about IV Depakote Chart reviewed She remains critically Vitals Vitals Vital Signs Date Time Temp Pulse Resp B/P (MAP) Pulse Ox O2 Delivery O2 Flow Rate FiO2 05/30/20 16:00 Nasal Cannula 3.0 05/30/20 16:00 98.4 111 27 121/70 (87) 96 98.4 Physical Exam Physical Exam GENERAL: Intubated and sedated some. not in distress. HEENT: Anicteric ETT/OGT NECK: Supple. LUNGS: Clear. HEART: S1, S2 regular. ABDOMEN: Distended some. Decrease but + BS. - Incision dressed : - wilder in place EXTREMITIES: No edema, no cyanosis. SKIN: Unremarkable. NEUROLOGIC: Sedated some RIJ -clean 05/25 General: No acute distress Heart: Regular rate Lungs: Other (deminished bs) Abdomen: Soft Extremities: No clubbing, No cyanosis Skin: No rashes, No breakdown Labs LABS Laboratory Tests Test 05/29/20 17:00 05/30/20 05:00 Clostridium difficile Toxin (PCR) Negative (NEGATIVE) White Blood Count 8.6 x10^3/uL (4.0-11.0) Red Blood Count 4.11 x10^6/uL (3.50-5.40) Hemoglobin 9.2 g/dL (12.0-15.5) Hematocrit 30.0 % (36.0-47.0) Mean Corpuscular Volume 73 fL (79-100) Mean Corpuscular Hemoglobin 22 pg (25-35) Mean Corpuscular Hemoglobin Concent 31 g/dL (31-37) Red Cell Distribution Width 29.3 % (11.5-14.5) Platelet Count 106 x10^3/uL (140-400) Neutrophils (%) (Auto) 71 % (31-73) Lymphocytes (%) (Auto) 10 % (24-48) Monocytes (%) (Auto) 15 % (0-9) Eosinophils (%) (Auto) 4 % (0-3) Basophils (%) (Auto) 0 % (0-3) Neutrophils # (Auto) 6.1 x10^3/uL (1.8-7.7) Lymphocytes # (Auto) 0.9 x10^3/uL (1.0-4.8) Monocytes # (Auto) 1.3 x10^3/uL (0.0-1.1) Eosinophils # (Auto) 0.3 x10^3/uL (0.0-0.7) Basophils # (Auto) 0.0 x10^3/uL (0.0-0.2) Sodium Level 145 mmol/L (136-145) Potassium Level 4.2 mmol/L (3.5-5.1) Chloride Level 114 mmol/L (98-107) Carbon Dioxide Level 25 mmol/L (21-32) Anion Gap 6 (6-14) Blood Urea Nitrogen 11 mg/dL (7-20) Creatinine 0.5 mg/dL (0.6-1.0) Estimated GFR (Cockcroft-Gault) 153.9 Glucose Level 141 mg/dL (70-99) Lactic Acid Level 1.3 mmol/L (0.4-2.0) Calcium Level 8.5 mg/dL (8.5-10.1) Assessment and Plan Assessmemt and Plan Problems Medical Problems: (1) Hypernatremia Status: Acute (2) Severe anemia Status: Acute (3) Severe sepsis Status: Acute (4) UTI (urinary tract infection) Status: Acute Comment Review of Relevant I have reviewed the following items len (where applicable) has been applied. Labs Laboratory Tests Test 05/29/20 05:38 05/29/20 13:10 05/29/20 17:00 05/30/20 05:00 White Blood Count 12.0 x10^3/uL (4.0-11.0) 8.6 x10^3/uL (4.0-11.0) Red Blood Count 4.25 x10^6/uL (3.50-5.40) 4.11 x10^6/uL (3.50-5.40) Hemoglobin 9.3 g/dL (12.0-15.5) 9.2 g/dL (12.0-15.5) Hematocrit 30.6 % (36.0-47.0) 30.0 % (36.0-47.0) Mean Corpuscular Volume 72 fL (79-100) 73 fL (79-100) Mean Corpuscular Hemoglobin 22 pg (25-35) 22 pg (25-35) Mean Corpuscular Hemoglobin Concent 31 g/dL (31-37) 31 g/dL (31-37) Red Cell Distribution Width 29.2 % (11.5-14.5) 29.3 % (11.5-14.5) Platelet Count 101 x10^3/uL (140-400) 106 x10^3/uL (140-400) Neutrophils (%) (Auto) 79 % (31-73) 71 % (31-73) Lymphocytes (%) (Auto) 5 % (24-48) 10 % (24-48) Monocytes (%) (Auto) 15 % (0-9) 15 % (0-9) Eosinophils (%) (Auto) 1 % (0-3) 4 % (0-3) Basophils (%) (Auto) 0 % (0-3) 0 % (0-3) Neutrophils # (Auto) 9.5 x10^3/uL (1.8-7.7) 6.1 x10^3/uL (1.8-7.7) Lymphocytes # (Auto) 0.6 x10^3/uL (1.0-4.8) 0.9 x10^3/uL (1.0-4.8) Monocytes # (Auto) 1.8 x10^3/uL (0.0-1.1) 1.3 x10^3/uL (0.0-1.1) Eosinophils # (Auto) 0.1 x10^3/uL (0.0-0.7) 0.3 x10^3/uL (0.0-0.7) Basophils # (Auto) 0.0 x10^3/uL (0.0-0.2) 0.0 x10^3/uL (0.0-0.2) Sodium Level 143 mmol/L (136-145) 145 mmol/L (136-145) Potassium Level 3.0 mmol/L (3.5-5.1) 4.2 mmol/L (3.5-5.1) Chloride Level 112 mmol/L (98-107) 114 mmol/L (98-107) Carbon Dioxide Level 23 mmol/L (21-32) 25 mmol/L (21-32) Anion Gap 8 (6-14) 6 (6-14) Blood Urea Nitrogen 9 mg/dL (7-20) 11 mg/dL (7-20) Creatinine 0.5 mg/dL (0.6-1.0) 0.5 mg/dL (0.6-1.0) Estimated GFR (Cockcroft-Gault) 153.9 153.9 Glucose Level 124 mg/dL (70-99) 141 mg/dL (70-99) Calcium Level 7.8 mg/dL (8.5-10.1) 8.5 mg/dL (8.5-10.1) Magnesium Level 1.5 mg/dL (1.8-2.4) O2 Saturation 88 % (92-99) Arterial Blood pH 7.37 (7.35-7.45) Arterial Blood pCO2 at Patient Temp 40 mmHg (35-46) Arterial Blood pO2 at Patient Temp 57 mmHg (75-108) Arterial Blood HCO3 22 mmol/L (21-28) Arterial Blood Base Excess -3 mmol/L (-3-3) FiO2 50 Clostridium difficile Toxin (PCR) Negative (NEGATIVE) Lactic Acid Level 1.3 mmol/L (0.4-2.0) Laboratory Tests Test 05/29/20 17:00 05/30/20 05:00 Clostridium difficile Toxin (PCR) Negative (NEGATIVE) White Blood Count 8.6 x10^3/uL (4.0-11.0) Red Blood Count 4.11 x10^6/uL (3.50-5.40) Hemoglobin 9.2 g/dL (12.0-15.5) Hematocrit 30.0 % (36.0-47.0) Mean Corpuscular Volume 73 fL (79-100) Mean Corpuscular Hemoglobin 22 pg (25-35) Mean Corpuscular Hemoglobin Concent 31 g/dL (31-37) Red Cell Distribution Width 29.3 % (11.5-14.5) Platelet Count 106 x10^3/uL (140-400) Neutrophils (%) (Auto) 71 % (31-73) Lymphocytes (%) (Auto) 10 % (24-48) Monocytes (%) (Auto) 15 % (0-9) Eosinophils (%) (Auto) 4 % (0-3) Basophils (%) (Auto) 0 % (0-3) Neutrophils # (Auto) 6.1 x10^3/uL (1.8-7.7) Lymphocytes # (Auto) 0.9 x10^3/uL (1.0-4.8) Monocytes # (Auto) 1.3 x10^3/uL (0.0-1.1) Eosinophils # (Auto) 0.3 x10^3/uL (0.0-0.7) Basophils # (Auto) 0.0 x10^3/uL (0.0-0.2) Sodium Level 145 mmol/L (136-145) Potassium Level 4.2 mmol/L (3.5-5.1) Chloride Level 114 mmol/L (98-107) Carbon Dioxide Level 25 mmol/L (21-32) Anion Gap 6 (6-14) Blood Urea Nitrogen 11 mg/dL (7-20) Creatinine 0.5 mg/dL (0.6-1.0) Estimated GFR (Cockcroft-Gault) 153.9 Glucose Level 141 mg/dL (70-99) Lactic Acid Level 1.3 mmol/L (0.4-2.0) Calcium Level 8.5 mg/dL (8.5-10.1) Microbiology 05/16/20 Urine Culture - Final, Complete 05/16/20 Antimicrobic Susceptibility - Final, Complete Medications Current Medications Sodium Chloride 1,000 ml @ 1,000 mls/hr 1X ONCE IV Last administered on 05/16/20at 16:38; Start 05/16/20 at 16:30; Stop 05/16/20 at 17:29; Status DC Erythromycin (Romycin) 0.25 inch 1X ONCE OU Last administered on 05/16/20at 16:44; Start 05/16/20 at 16:45; Stop 05/16/20 at 16:46; Status DC Iohexol (Omnipaque 300 Mg/ml) 75 ml 1X ONCE IV Last administered on 05/16/20at 17:47; Start 05/16/20 at 18:00; Stop 05/16/20 at 18:01; Status DC Sodium Chloride 1,000 ml @ 1,000 mls/hr 1X ONCE IV Last administered on 05/16/20at 19:12; Start 05/16/20 at 18:30; Stop 05/16/20 at 19:29; Status DC Piperacillin Sod/ Tazobactam Sod 3.375 gm/Sodium Chloride 50 ml @ 100 mls/hr 1X ONCE IV Last administered on 05/16/20at 19:25; Start 05/16/20 at 19:00; Stop 05/16/20 at 19:29; Status DC Levofloxacin/ Dextrose 150 ml @ 100 mls/hr 1X ONCE IV Last administered on 05/16/20at 19:57; Start 05/16/20 at 19:30; Stop 05/16/20 at 20:59; Status DC Ondansetron HCl (Zofran) 4 mg PRN Q8HRS PRN IV NAUSEA/VOMITING; Start 05/16/20 at 18:30; Stop 05/17/20 at 18:29; Status DC Sodium Chloride 1,000 ml @ 75 mls/hr 1X ONCE IV ; Start 05/16/20 at 18:30; Stop 05/17/20 at 07:49; Status DC Pantoprazole Sodium (PROTONIX VIAL for IV PUSH) 40 mg DAILYAC IVP Last administered on 05/19/20at 08:31; Start 05/17/20 at 07:30; Stop 05/19/20 at 16:30; Status DC Potassium Chloride (Klor-Con) 40 meq 1X PRN PRN PO PER PROTOCOL; Start 05/16/20 at 21:45 Potassium Chloride/Water 100 ml @ 100 mls/hr PRN Q1HR PRN IV HYPOKALEMIA; Start 05/16/20 at 21:45; Stop 05/25/20 at 14:58; Status DC Potassium Phos/ Sodium Phos (Phos-Nak) 1 pkt PRN BID PRN PO PHOSPHOROUS 2-2.4; Start 05/17/20 at 09:00 Potassium Bicarbonate (Potassium Effervescent Tablet) 40 meq PRN Q4HRS PRN PO PER PROTOCOL Last administered on 05/19/20at 11:35; Start 05/16/20 at 21:45 Potassium Chloride/Water 100 ml @ 100 mls/hr PRN Q1HR PRN IV PER PROTOCOL; Start 05/16/20 at 21:45; Stop 05/26/20 at 12:44; Status DC Acetaminophen (Tylenol Supp) 650 mg PRN Q6HRS PRN [place] FEVER > 100.3'F; Start 05/17/20 at 12:30 Bisacodyl (Dulcolax Supp) 10 mg PRN DAILY PRN RC CONSTIPATION, 1st Choice Last administered on 05/21/20at 17:51; Start 05/17/20 at 12:30 Cetirizine HCl (ZyrTEC) 10 mg DAILY PO Last administered on 05/30/20at 09:01; Start 05/17/20 at 13:30 Divalproex Sodium (Depakote) 250 mg DAILY@1400 PO Last administered on 05/23/20at 14:47; Start 05/17/20 at 14:00; Stop 05/25/20 at 10:30; Status DC Divalproex Sodium (Depakote) 500 mg BID PO Last administered on 05/23/20at 21:00; Start 05/17/20 at 21:00; Stop 05/25/20 at 10:30; Status DC Docusate Sodium (Colace) 200 mg HS PO Last administered on 05/28/20at 21:06; Start 05/17/20 at 21:00 Famotidine (Pepcid) 20 mg HS PO Last administered on 05/29/20at 21:11; Start 05/17/20 at 21:00 Gabapentin (Neurontin) 200 mg TID PO Last administered on 05/30/20at 15:05; Start 05/17/20 at 14:00 Loperamide HCl (Imodium) 2 mg PRN Q8HRS PRN PO DIARRHEA; Start 05/17/20 at 12:30 Sodium Monofluorophosphate (Fleet Adult) 133 ml PRN Q8HRS PRN RC CONSTIPATION, 2nd Choice; Start 05/17/20 at 12:30; Stop 05/28/20 at 08:09; Status DC Polyethylene Glycol (miraLAX PACKET) 17 gm PRN DAILY PRN PO CONSTIPATION Last administered on 05/18/20at 08:33; Start 05/17/20 at 12:30 Chlorhexidine Gluconate (Peridex) 15 ml BID SWSP Last administered on 05/23/20at 21:00; Start 05/17/20 at 21:00; Stop 05/25/20 at 10:33; Status DC Non-Formulary Medication (Clobazam (Onfi)) 5 mg [id number] PO Last administered on 05/29/20at 14:00; Start 05/17/20 at 14:00; Stop 05/30/20 at 10:00; Status DC Glycopyrrolate (Robinul) 1 mg PRN Q8HRS PRN PO SECRETIONS; Start 05/18/20 at 09:00 Non-Formulary Medication (Melatonin ) 3 mg PRN QHS PRN PO INSOMNIA; Start 05/17/20 at 12:30; Status UNV Oxycodone HCl (Roxicodone) 5 mg PRN Q4HRS PRN PO MILD PAIN 1-3 Last administered on 05/27/20at 15:07; Start 05/17/20 at 13:00 Topiramate (Topamax) 200 mg BID PO Last administered on 05/30/20at 09:00; Start 05/17/20 at 13:30 Piperacillin Sod/ Tazobactam Sod 3.375 gm/Sodium Chloride 50 ml @ 100 mls/hr Q6HRS IV Last administered on 05/20/20at 05:01; Start 05/17/20 at 13:30; Stop 05/20/20 at 09:53; Status DC Dextrose/Sodium Chloride 1,000 ml @ 75 mls/hr [id number] IV Last administered on 05/23/20at 21:03; Start 05/17/20 at 15:30; Stop 05/24/20 at 15:06; Status DC Lactobacillus Rhamnosus (Culturelle) 1 cap BID PO Last administered on 05/29/20at 08:13; Start 05/18/20 at 21:00; Stop 05/29/20 at 10:21; Status DC Pantoprazole Sodium (Protonix) 40 mg DAILYAC PO Last administered on 05/23/20at 09:03; Start 05/20/20 at 07:30; Stop 05/25/20 at 08:18; Status DC Polyethylene Glycol (miraLAX Powder BULK BOTTLE) 238 gm 1X ONCE PO Last administered on 05/21/20at 09:00; Start 05/21/20 at 09:00; Stop 05/21/20 at 09:01; Status DC Bisacodyl (Dulcolax Tab) 10 mg 1X ONCE PO Last administered on 05/20/20at 10:45; Start 05/20/20 at 10:45; Stop 05/20/20 at 10:48; Status DC Ringer's Solution 1,000 ml @ 50 mls/hr Q20H IV ; Start 05/22/20 at 07:00; Stop 05/22/20 at 18:59; Status DC Ringer's Solution 1,000 ml @ 75 mls/hr 1X ONCE IV ; Start 05/22/20 at 07:00; Stop 05/22/20 at 20:19; Status DC Propofol (Diprivan) 200 mg STK-MED ONCE IV ; Start 05/22/20 at 08:07; Stop 05/22/20 at 08:07; Status DC Morphine Sulfate (Morphine Sulfate) 2 mg PRN Q2HR PRN IV PAIN 2ND CHOICE Last administered on 05/24/20at 03:50; Start 05/22/20 at 16:45 Ondansetron HCl (Zofran) 4 mg PRN Q6HRS PRN IV NAUSEA/VOMITING; Start 05/24/20 at 07:00; Stop 05/24/20 at 11:06; Status DC Fentanyl Citrate (Fentanyl 2ml Vial) 25 mcg PRN Q5MIN PRN IV MILD PAIN 1-3 Last administered on 05/24/20at 13:59; Start 05/24/20 at 07:00; Stop 05/25/20 at 06:59; Status DC Fentanyl Citrate (Fentanyl 2ml Vial) 50 mcg PRN Q5MIN PRN IV MODERATE TO SEVERE PAIN; Start 05/24/20 at 07:00; Stop 05/25/20 at 06:59; Status DC Morphine Sulfate (Morphine Sulfate) 1 mg PRN Q10MIN PRN IV SEVERE PAIN 7-10; Start 05/24/20 at 07:00; Stop 05/25/20 at 06:59; Status DC Ringer's Solution 1,000 ml @ 30 mls/hr Q24H IV Last administered on 05/24/20at 08:20; Start 05/24/20 at 07:00; Stop 05/24/20 at 18:59; Status DC Hydromorphone HCl (Dilaudid) 0.5 mg PRN Q10MIN PRN IV SEV PAIN, Second choice; Start 05/24/20 at 07:00; Stop 05/25/20 at 06:59; Status DC Prochlorperazine Edisylate (Compazine) 5 mg PACU PRN PRN IV NAUSEA, MRX1; Start 05/24/20 at 07:00; Stop 05/25/20 at 06:59; Status DC Cefazolin Sodium/ Dextrose 50 ml @ 100 mls/hr 1X ONCE IV Last administered on 05/24/20at 09:39; Start 05/24/20 at 07:30; Stop 05/24/20 at 07:59; Status DC Propofol (Diprivan) 200 mg STK-MED ONCE IV ; Start 05/24/20 at 08:02; Stop 05/24/20 at 08:03; Status DC Lidocaine HCl (Lidocaine Pf 2% Vial) 5 ml STK-MED ONCE .ROUTE ; Start 05/24/20 at 08:02; Stop 05/24/20 at 08:03; Status DC Succinylcholine Chloride (Anectine) 200 mg STK-MED ONCE .ROUTE ; Start 9/4/20 at 08:03; Stop 05/24/20 at 08:03; Status DC Rocuronium [place] (Zemuron) 50 mg STK-MED ONCE .ROUTE ; Start 05/24/20 at 08:03; Stop 05/24/20 at 08:04; Status DC Fentanyl Citrate (Fentanyl 2ml Vial) 100 mcg STK-MED ONCE .ROUTE ; Start 05/24/20 at 08:04; Stop 05/24/20 at 08:04; Status DC Albumin Human 500 ml @ As Directed STK-MED ONCE IV ; Start 05/24/20 at 09:38; Stop 05/24/20 at 09:39; Status DC Desflurane (Suprane) 60 ml STK-MED ONCE IH ; Start 05/24/20 at 09:38; Stop 05/24/20 at 09:39; Status DC Dexamethasone Sodium Phosphate (Decadron) 4 mg STK-MED ONCE .ROUTE ; Start 05/24/20 at 09:38; Stop 05/24/20 at 09:39; Status DC Phenylephrine HCl (PHENYLEPHRINE in 0.9% NACL PF) 1 mg STK-MED ONCE IV ; Start 05/24/20 at 09:47; Stop 05/24/20 at 09:47; Status DC Ondansetron HCl (Zofran) 4 mg STK-MED ONCE .ROUTE ; Start 05/24/20 at 10:13; Stop 05/24/20 at 10:14; Status DC Neostigmine [place] (Neostigmine Methylsulfate) 5 mg STK-MED ONCE .ROUTE ; Start 05/24/20 at 10:14; Stop 05/24/20 at 10:14; Status DC Glycopyrrolate (Robinul) 1 mg STK-MED ONCE .ROUTE ; Start 05/24/20 at 10:14; Stop 05/24/20 at 10:14; Status DC Fentanyl Citrate (Fentanyl 2ml Vial) 100 mcg STK-MED ONCE .ROUTE ; Start 05/24/20 at 10:56; Stop 05/24/20 at 10:57; Status DC Cefoxitin Sodium (Mefoxin) 1 gm Q8H IVP Last administered on 05/25/20at 09:03; Start 05/24/20 at 15:30; Stop 05/25/20 at 07:31; Status DC Sodium Chloride (Normal Saline Flush) 3 ml QSHIFT PRN IV AFTER MEDS AND BLOOD DRAWS; Start 05/24/20 at 11:15 Morphine Sulfate (Morphine Sulfate) 2 mg PRN Q3HRS PRN IV PAIN; Start 05/24/20 at 11:15; Stop 05/25/20 at 14:37; Status DC Oxycodone/ Acetaminophen (Percocet 5/325) 1 tab PRN Q4HRS PRN PO MILD PAIN, 1ST CHOICE; Start 05/24/20 at 11:15 Oxycodone/ Acetaminophen (Percocet 5/325) 2 tab PRN Q4HRS PRN PO MODERATE PAIN, SEVERE PAIN; Start 05/24/20 at 11:15 Ketorolac Tromethamine (Toradol 15mg Vial) 15 mg Q6HRS IV Last administered on 05/26/20at 06:20; Start 05/24/20 at 12:00; Stop 05/26/20 at 11:59; Status DC Ondansetron HCl (Zofran) 4 mg PRN Q6HRS PRN IV NAUSEA, 1ST CHOICE; Start 05/24/20 at 11:15 Dextrose/Lactated Ringer's 1,000 ml @ 125 mls/hr Q8H IV Last administered on 05/26/20at 06:21; Start 05/24/20 at 11:02; Stop 05/26/20 at 09:45; Status DC Albumin Human 500 ml @ As Directed STK-MED ONCE IV ; Start 05/24/20 at 11:42; Stop 05/24/20 at 11:42; Status DC Albumin Human 500 ml @ 125 mls/hr 1X ONCE IV Last administered on 05/24/20at 11:54; Start 05/24/20 at 12:00; Stop 05/24/20 at 15:59; Status DC Fentanyl Citrate (Fentanyl 2ml Vial) 25 mcg PRN Q2HR PRN IVP PAIN 1ST CHOICE Last administered on 05/28/20at 21:07; Start 05/24/20 at 13:30 Propofol 100 ml @ As Directed STK-MED ONCE IV ; Start 05/24/20 at 18:01; Stop 05/24/20 at 18:02; Status DC Propofol 100 ml @ 0.873 mls/ hr CONT PRN IV SEE I/O RECORD Last administered on 05/27/20at 01:24; Start 05/24/20 at 18:15 Pantoprazole Sodium (PROTONIX VIAL for IV PUSH) 40 mg DAILYAC IVP Last administered on 05/29/20at 08:12; Start 05/26/20 at 07:30; Stop 05/29/20 at 11:19; Status DC Pantoprazole Sodium (PROTONIX VIAL for IV PUSH) 40 mg 1X ONCE IVP Last administered on 05/25/20at 09:03; Start 05/25/20 at 08:30; Stop 05/25/20 at 08:31; Status DC Valproic Acid 500 mg/Dextrose 55 ml @ 55 mls/hr Q8HRS IV Last administered on 05/30/20at 15:07; Start 05/25/20 at 11:00 Potassium Chloride/Water 100 ml @ 100 mls/hr PRN Q1HR PRN IV HYPOKALEMIA Last administered on 05/25/20at 17:09; Start 05/25/20 at 15:00; Stop 05/25/20 at 17:09; Status DC Norepinephrine Bitartrate 8 mg/ Dextrose 258 ml @ 12.887 mls/ hr CONT PRN IV PER PROTOCOL Last administered on 05/26/20at 03:14; Start 05/25/20 at 20:30 Fentanyl Citrate 30 ml @ 0 mls/hr CONT PRN IV SEE PROTOCOL Last administered on 05/27/20at 04:05; Start 05/26/20 at 09:15 Sodium Chloride 1,000 ml @ 125 mls/hr 1X ONCE IV Last administered on 05/26/20at 09:54; Start 05/26/20 at 09:45; Stop 05/26/20 at 17:44; Status DC Potassium Chloride/Water 100 ml @ 100 mls/hr PRN Q1HR PRN IV PER PROTOCOL Last administered on 05/26/20at 15:03; Start 05/26/20 at 12:45 Enoxaparin Sodium (Lovenox 40mg Syringe) 40 mg DAILY SQ Last administered on 05/30/20at 09:01; Start 05/26/20 at 16:30 Sodium Chloride 1,000 ml @ 125 mls/hr Q8H IV Last administered on 05/28/20at 02:35; Start 05/26/20 at 18:00; Stop 05/28/20 at 08:01; Status DC Sodium Bicarbonate (Sodium Bicarb Adult 8.4% Syr) 50 meq 1X ONCE IV Last administered on 05/27/20at 11:30; Start 05/27/20 at 11:45; Stop 05/27/20 at 11:46; Status DC Epinephrine (S2 Racepinephrine) 0.5 ml 1X ONCE NEB Last administered on 05/27/20at 11:34; Start 05/27/20 at 12:15; Stop 05/27/20 at 12:16; Status DC Furosemide (Lasix) 20 mg 1X ONCE IVP Last administered on 05/27/20at 11:34; Start 05/27/20 at 11:30; Stop 05/27/20 at 11:31; Status DC Amino Acids/ Glycerin/ Electrolytes 1,000 ml @ 80 mls/hr [id number] IV Last administered on 05/29/20at 08:11; Start 05/28/20 at 08:00; Stop 05/29/20 at 18:02; Status DC Furosemide (Lasix) 40 mg DAILY IVP Last administered on 05/29/20at 08:12; Start 05/28/20 at 09:00 Potassium Chloride/Water 100 ml @ 100 mls/hr Q1H IV Last administered on 05/28/20at 13:02; Start 05/28/20 at 11:00; Stop 05/28/20 at 13:59; Status DC Piperacillin Sod/ Tazobactam Sod (Zosyn Per Pharmacy) 1 each PRN DAILY PRN MC SEE COMMENTS; Start 05/28/20 at 13:45 Piperacillin Sod/ Tazobactam Sod 3.375 gm/Sodium Chloride 50 ml @ 100 mls/hr Q6HRS IV Last administered on 05/30/20at 12:28; Start 05/28/20 at 14:00 Potassium Chloride/Water 100 ml @ 50 mls/hr Q2H IV Last administered on 05/29/20at 10:19; Start 05/29/20 at 08:00; Stop 05/29/20 at 13:59; Status DC Magnesium Sulfate 100 ml @ 25 mls/hr 1X ONCE IV Last administered on 05/29/20at 10:56; Start 05/29/20 at 10:00; Stop 05/29/20 at 13:59; Status DC Non-Formulary Medication (Clobazam (Onfi)) 10 mg [id number] PO Last administered on 05/30/20at 14:00; Start 05/30/20 at 14:00 Multivitamins/ Minerals Therapeutic (Centrum Multivit-Mineral Liq) 5 ml DAILY PEG Last administered on 05/30/20at 12:27; Start 05/30/20 at 10:15 Active Scripts Active Acetaminophen Supp (Acetaminophen) 650 Mg Supp.rect 650 Mg [place] PRN Q6HRS PRN 10 Days Reported Imodium A-D (Loperamide HCl) 2 Mg Capsule 2 Mg PO PRN Q8HRS PRN Glycopyrrolate 2 Mg Tablet 1 Mg PO PRN Q8HRS PRN Gabapentin (Gabapentin) 100 Mg Capsule 200 Mg PO TID Chlorhexidine Gluconate 118 Ml Liquid 1 Gerald PO BID Topamax (Topiramate) 200 Mg Tablet 200 Mg PO BID Polyethylene Glycol 3350 17 Gm Powd.pack 17 Gm PO PRN DAILY PRN Oxycodone Hcl 5 Mg Capsule 5 Mg PO PRN Q4HRS PRN Melatonin 3 Mg Tablet 3 Mg PO PRN QHS PRN Fleet Enema (Na Phos,M-B/Na Phos,Di-Ba) 133 Ml Enema 133 Ml RC PRN Q8HRS PRN Famotidine 20 Mg Tablet 20 Mg PO HS Bisacodyl 10 Mg Supp.rect 10 Mg RC PRN DAILY PRN Docusate Sodium 100 Mg Capsule 200 Mg PO HS Divalproex Sodium Er (Divalproex Sodium) 500 Mg Tab.er.24h 500 Mg PO BID Eliquis (Apixaban) 5 Mg Tablet 5 Mg PO BID Divalproex Sodium Er (Divalproex Sodium) 500 Mg Tab.er.24h 250 Mg PO DAILY Zyrtec (Cetirizine Hcl) 10 Mg Tablet 1 Tab PO DAILY Onfi (Clobazam) 10 Mg Tablet 5 Mg PO [id number] Vitals/I & O Vital Sign - Last 24 Hours 05/29/20 05/29/20 05/29/20 05/29/20 17:00 18:00 19:00 20:00 Temp 97.8 97.8 Pulse 108 105 103 104 Resp 32 29 32 28 B/P (MAP) 100/58 (72) 106/58 (74) 95/61 (72) 105/62 (76) Pulse Ox 95 95 98 95 O2 Delivery Venturi Mask Venturi Mask Venturi Mask Venturi Mask O2 Flow Rate 15.0 15.0 15.0 15.0 05/29/20 05/29/20 05/29/20 05/29/20 20:00 21:00 22:00 23:00 Pulse 103 106 108 Resp 28 32 35 B/P (MAP) 101/66 (78) 114/65 (81) 102/65 (77) Pulse Ox 95 96 96 O2 Delivery Venturi Mask Venturi Mask Venturi Mask Venturi Mask O2 Flow Rate 15.0 15.0 15.0 15.0 05/30/20 05/30/20 05/30/20 05/30/20 00:00 00:00 00:11 01:00 Temp 98.3 98.3 Pulse 108 110 Resp 28 28 B/P (MAP) 112/64 (80) 99/52 (68) Pulse Ox 97 92 96 O2 Delivery Bi-pap BiPAP/CPAP BiPAP/CPAP BiPAP/CPAP 05/30/20 05/30/20 05/30/20 05/30/20 02:00 03:00 04:00 04:00 Temp 98.7 98.7 Pulse 109 104 101 Resp 31 25 35 B/P (MAP) 101/62 (75) 120/66 (84) 104/69 (81) Pulse Ox 96 99 99 O2 Delivery BiPAP/CPAP BiPAP/CPAP BiPAP/CPAP Bi-pap 05/30/20 05/30/20 05/30/20 05/30/20 05:00 05:01 06:00 07:00 Pulse 100 104 98 Resp 27 26 23 B/P (MAP) 116/70 (85) 108/66 (80) 109/60 (76) Pulse Ox 99 99 99 100 O2 Delivery BiPAP/CPAP BiPAP/CPAP BiPAP/CPAP BiPAP/CPAP 05/30/20 05/30/20 05/30/20 05/30/20 07:12 08:00 08:00 08:50 Temp 98.3 98.3 Pulse 96 Resp 22 B/P (MAP) 87/58 (68) Pulse Ox 99 100 100 O2 Delivery BiPAP/CPAP BiPAP/CPAP Bi-pap BiPAP/CPAP 05/30/20 05/30/20 05/30/20 05/30/20 09:00 10:00 11:00 11:48 Pulse 97 103 105 Resp 28 28 25 B/P (MAP) 94/60 (71) 101/59 (73) 106/71 (83) Pulse Ox 100 99 95 O2 Delivery BiPAP/CPAP BiPAP/CPAP Venturi Mask Venturi Mask O2 Flow Rate 15.0 05/30/20 05/30/20 05/30/20 05/30/20 12:00 13:00 14:00 15:00 Temp 98.5 98.5 Pulse 108 112 109 111 Resp 27 30 28 32 B/P (MAP) 104/66 (79) 117/67 (84) 117/72 (87) 119/72 (88) Pulse Ox 96 95 95 96 O2 Delivery Venturi Mask Nasal Cannula Nasal Cannula Nasal Cannula O2 Flow Rate 5.0 4.0 3.0 05/30/20 05/30/20 16:00 16:00 Temp 98.4 98.4 Pulse 111 Resp 27 B/P (MAP) 121/70 (87) Pulse Ox 96 O2 Delivery Nasal Cannula Nasal Cannula O2 Flow Rate 3.0 3.0 Intake and Output 05/29/20 05/29/20 05/30/20 15:00 23:00 07:00 Intake Total 600 ml 1786 ml 898 ml Output Total 2035 ml 790 ml 395 ml Balance -1435 ml 996 ml 503 ml Justicifation of Admission Dx: Justifications for Admission: Justification of Admission Dx: Yes HUGO MEYER MD May 30, 2020 16:43
[2020-05-30] MEDS: DOCUSATE SODIUM 100 MG CAPSULE. PO SCH (20:33)
[2020-05-30] MEDS: FAMOTIDINE 20 MG TABLET. PO SCH (20:33)
[2020-05-31] VITALS (16 sets, daily range): BP systolic 100–138; BP diastolic 47–77
[2020-05-31] MEDS: PIPERACILLIN/TAZOBACTAM 3.375 GM in IV NORMAL SALINE 50ML 50 ML IV SCH ×2 (05:32→11:53)
[2020-05-31 05:58] LABS: BASO # 0.1 x10^3/uL (0.0-0.2); BASO % 1 % (0-3); EOS # 0.2 x10^3/uL (0.0-0.7); EOS % 2 % (0-3); HEMATOCRIT 29.2 % (36.0-47.0); HEMOGLOBIN 8.8 g/dL (12.0-15.5); LYMPH # 1.1 x10^3/uL (1.0-4.8); LYMPH % 11 % (24-48); MEAN CORPUSCULAR HEMOGLOBIN 22 pg (25-35); MEAN CORPUSCULAR HGB CONC 30 g/dL (31-37); MEAN CORPUSCULAR VOLUME 73 fL (79-100); MONO # 1.3 x10^3/uL (0.0-1.1); MONO % 13 % (0-9); NEUT # 7.2 x10^3/uL (1.8-7.7); NEUT % 73 % (31-73); PLATELET COUNT 100 x10^3/uL (140-400); RED BLOOD COUNT 3.97 x10^6/uL (3.50-5.40); RED CELL DISTRIBUTION WIDTH 29.5 % (11.5-14.5); WHITE BLOOD COUNT 9.9 x10^3/uL (4.0-11.0)
[2020-05-31 06:02] LABS: CALCIUM 8.3 mg/dL (8.5-10.1); CREATININE 0.4 mg/dL (0.6-1.0); GFR 199.1; POTASSIUM 4.3 mmol/L (3.5-5.1)
[2020-05-31] MEDS: VALPROIC ACID (AS SODIUM SALT) 500 MG in IV DEXTROSE 5% 50 ML IV SCH ×2 (06:37→13:10)
--- NOTE | 2020-05-31 08:31 | PDOC ---
PULMONARY PROGRESS NOTES DATE: 05/31/20 TIME: 08:30 Subjective Patient currently on oxygen per nasal cannula Minimally responsive Vitals Vital Signs Date Time Temp Pulse Resp B/P (MAP) Pulse Ox O2 Delivery O2 Flow Rate FiO2 05/31/20 08:00 98.3 108 32 119/63 (81) 96 BiPAP/CPAP 98.3 05/30/20 18:00 3.0 Comments Unable to obtain secondary to patient's condition HEENT: Other (nc at perrl nose clear orally intubated neck no lad no thyromegaly) Lungs: Other (deminished bs) Cardiovascular: S1, S2 Abdomen: Soft, Non-tender, Other (no mass) Extremities: No Edema Skin: Warm, Dry, No Rashes Labs Laboratory Tests Test 05/29/20 13:10 05/29/20 17:00 05/30/20 05:00 05/31/20 05:30 O2 Saturation 88 % (92-99) Arterial Blood pH 7.37 (7.35-7.45) Arterial Blood pCO2 at Patient Temp 40 mmHg (35-46) Arterial Blood pO2 at Patient Temp 57 mmHg (75-108) Arterial Blood HCO3 22 mmol/L (21-28) Arterial Blood Base Excess -3 mmol/L (-3-3) FiO2 50 Clostridium difficile Toxin (PCR) Negative (NEGATIVE) White Blood Count 8.6 x10^3/uL (4.0-11.0) 9.9 x10^3/uL (4.0-11.0) Red Blood Count 4.11 x10^6/uL (3.50-5.40) 3.97 x10^6/uL (3.50-5.40) Hemoglobin 9.2 g/dL (12.0-15.5) 8.8 g/dL (12.0-15.5) Hematocrit 30.0 % (36.0-47.0) 29.2 % (36.0-47.0) Mean Corpuscular Volume 73 fL (79-100) 73 fL (79-100) Mean Corpuscular Hemoglobin 22 pg (25-35) 22 pg (25-35) Mean Corpuscular Hemoglobin Concent 31 g/dL (31-37) 30 g/dL (31-37) Red Cell Distribution Width 29.3 % (11.5-14.5) 29.5 % (11.5-14.5) Platelet Count 106 x10^3/uL (140-400) 100 x10^3/uL (140-400) Neutrophils (%) (Auto) 71 % (31-73) 73 % (31-73) Lymphocytes (%) (Auto) 10 % (24-48) 11 % (24-48) Monocytes (%) (Auto) 15 % (0-9) 13 % (0-9) Eosinophils (%) (Auto) 4 % (0-3) 2 % (0-3) Basophils (%) (Auto) 0 % (0-3) 1 % (0-3) Neutrophils # (Auto) 6.1 x10^3/uL (1.8-7.7) 7.2 x10^3/uL (1.8-7.7) Lymphocytes # (Auto) 0.9 x10^3/uL (1.0-4.8) 1.1 x10^3/uL (1.0-4.8) Monocytes # (Auto) 1.3 x10^3/uL (0.0-1.1) 1.3 x10^3/uL (0.0-1.1) Eosinophils # (Auto) 0.3 x10^3/uL (0.0-0.7) 0.2 x10^3/uL (0.0-0.7) Basophils # (Auto) 0.0 x10^3/uL (0.0-0.2) 0.1 x10^3/uL (0.0-0.2) Sodium Level 145 mmol/L (136-145) 143 mmol/L (136-145) Potassium Level 4.2 mmol/L (3.5-5.1) 4.3 mmol/L (3.5-5.1) Chloride Level 114 mmol/L (98-107) 114 mmol/L (98-107) Carbon Dioxide Level 25 mmol/L (21-32) 22 mmol/L (21-32) Anion Gap 6 (6-14) 7 (6-14) Blood Urea Nitrogen 11 mg/dL (7-20) 9 mg/dL (7-20) Creatinine 0.5 mg/dL (0.6-1.0) 0.4 mg/dL (0.6-1.0) Estimated GFR (Cockcroft-Gault) 153.9 199.1 Glucose Level 141 mg/dL (70-99) 237 mg/dL (70-99) Lactic Acid Level 1.3 mmol/L (0.4-2.0) Calcium Level 8.5 mg/dL (8.5-10.1) 8.3 mg/dL (8.5-10.1) Laboratory Tests Test 05/31/20 05:30 White Blood Count 9.9 x10^3/uL (4.0-11.0) Red Blood Count 3.97 x10^6/uL (3.50-5.40) Hemoglobin 8.8 g/dL (12.0-15.5) Hematocrit 29.2 % (36.0-47.0) Mean Corpuscular Volume 73 fL (79-100) Mean Corpuscular Hemoglobin 22 pg (25-35) Mean Corpuscular Hemoglobin Concent 30 g/dL (31-37) Red Cell Distribution Width 29.5 % (11.5-14.5) Platelet Count 100 x10^3/uL (140-400) Neutrophils (%) (Auto) 73 % (31-73) Lymphocytes (%) (Auto) 11 % (24-48) Monocytes (%) (Auto) 13 % (0-9) Eosinophils (%) (Auto) 2 % (0-3) Basophils (%) (Auto) 1 % (0-3) Neutrophils # (Auto) 7.2 x10^3/uL (1.8-7.7) Lymphocytes # (Auto) 1.1 x10^3/uL (1.0-4.8) Monocytes # (Auto) 1.3 x10^3/uL (0.0-1.1) Eosinophils # (Auto) 0.2 x10^3/uL (0.0-0.7) Basophils # (Auto) 0.1 x10^3/uL (0.0-0.2) Sodium Level 143 mmol/L (136-145) Potassium Level 4.3 mmol/L (3.5-5.1) Chloride Level 114 mmol/L (98-107) Carbon Dioxide Level 22 mmol/L (21-32) Anion Gap 7 (6-14) Blood Urea Nitrogen 9 mg/dL (7-20) Creatinine 0.4 mg/dL (0.6-1.0) Estimated GFR (Cockcroft-Gault) 199.1 Glucose Level 237 mg/dL (70-99) Calcium Level 8.3 mg/dL (8.5-10.1) Medications Active Scripts Medications Dose Route/Sig Max Daily Dose Days Date Category Imodium A-D (Loperamide HCl) 2 Mg Capsule 2 Mg PO PRN Q8HRS PRN 05/16/20 Reported Glycopyrrolate 2 Mg Tablet 1 Mg PO PRN Q8HRS PRN 05/16/20 Reported Gabapentin (Gabapentin) 100 Mg Capsule 200 Mg PO TID 05/16/20 Reported Chlorhexidine Gluconate 118 Ml Liquid 1 Gerald PO BID 05/16/20 Reported Acetaminophen Supp (Acetaminophen) 650 Mg Supp.rect 650 Mg TN PRN Q6HRS PRN 10 06/15/19 Rx Topamax (Topiramate) 200 Mg Tablet 200 Mg PO BID 06/12/19 Reported Polyethylene Glycol 3350 17 Gm Powd.pack 17 Gm PO PRN DAILY PRN 06/12/19 Reported Oxycodone Hcl 5 Mg Capsule 5 Mg PO PRN Q4HRS PRN 06/12/19 Reported Melatonin 3 Mg Tablet 3 Mg PO PRN QHS PRN 06/12/19 Reported Fleet Enema (Na Phos,M-B/Na Phos,Di-Ba) 133 Ml Enema 133 Ml RC PRN Q8HRS PRN 06/12/19 Reported Famotidine 20 Mg Tablet 20 Mg PO HS 06/12/19 Reported Bisacodyl 10 Mg Supp.rect 10 Mg RC PRN DAILY PRN 06/12/19 Reported Docusate Sodium 100 Mg Capsule 200 Mg PO HS 06/12/19 Reported Divalproex Sodium Er (Divalproex Sodium) 500 Mg Tab.er.24h 500 Mg PO BID 06/12/19 Reported Eliquis (Apixaban) 5 Mg Tablet 5 Mg PO BID 06/12/19 Reported Divalproex Sodium Er (Divalproex Sodium) 500 Mg Tab.er.24h 250 Mg PO DAILY 06/12/19 Reported Zyrtec (Cetirizine Hcl) 10 Mg Tablet 1 Tab PO DAILY 01/09/18 Reported Onfi (Clobazam) 10 Mg Tablet 5 Mg PO [id number] 01/09/18 Reported Comments No new chest x-ray today Impression . IMPRESSION: 1. Expected post surgical respiratory failure respiratory failure 2. Hypertensive 3. Dementia 4. Right colon mass, status post exploratory laparotomy with right colon resection and primary anastomosis. See path report 5. History of seizure disorder. 6. abnl cxr atelectasis 7, metabolic toxic encephalopathy [facility] Accession Number: [id number] . 01 Material submitted: . colon - ASCENDING COLON MASS. Modifiers: ascending . 01 Clinical history: . ANEMIA . 02 Diagnosis: Large bowel "ascending colon mass", endoscopic biopsy: - Tubulovillous adenoma; negative for malignancy. (MLK/db; 05/28/2020) LBQ 05/28/2020 1821 Local Chest x-ray 05/29 Increase in linear atelectasis of the right lower lung zone. Stable small right-sided pleural effusion. Plan . Continue current support Mental status slowly improve Continue BiPAP as needed, and nightly, patient extubated 9 Chest x-ray reviewed Follow-up on final path report, see report Follow oncology recommendations/surgery recommendation DVT GI prophylaxis Case discussed with RT and RN, total cumulative critical care time of 30-minute KIKI CALVILLO MD May 31, 2020 08:30
[2020-05-31] MEDS: MULTIVITAMINS,THERAPEUTIC 5 ML ORAL LIQUID. PEG SCH (08:38)
[2020-05-31] MEDS: FUROSEMIDE 40 MG/4 ML VIAL. IVP SCH (08:38)
[2020-05-31] MEDS: TOPIRAMATE 100 MG TABLET. PO SCH (08:38)
[2020-05-31] MEDS: ENOXAPARIN 40 MG/0.4 ML SYRINGE. SQ SCH (08:38)
[2020-05-31] MEDS: GABAPENTIN 100 MG CAPSULE. PO SCH ×2 (08:38→13:10)
[2020-05-31] MEDS: CETIRIZINE HCL 10 MG TABLET. PO SCH (08:38)
--- NOTE | 2020-05-31 09:21 | PDOC ---
Date of Service: DATE: 05/31/20 TIME: 09:19 Objective: Objective: To [facility] today. Tolerating Dobhoff feeds, C Diff negative. Vital Signs: Vital Signs Date Time Temp Pulse Resp B/P (MAP) Pulse Ox O2 Delivery O2 Flow Rate FiO2 05/31/20 08:00 98.3 108 32 119/63 (81) 96 BiPAP/CPAP 98.3 05/30/20 18:00 3.0 Labs: Laboratory Tests Test 05/31/20 05:30 White Blood Count 9.9 x10^3/uL Red Blood Count 3.97 x10^6/uL Hemoglobin 8.8 g/dL Hematocrit 29.2 % Mean Corpuscular Volume 73 fL Mean Corpuscular Hemoglobin 22 pg Mean Corpuscular Hemoglobin Concent 30 g/dL Red Cell Distribution Width 29.5 % Platelet Count 100 x10^3/uL Neutrophils (%) (Auto) 73 % Lymphocytes (%) (Auto) 11 % Monocytes (%) (Auto) 13 % Eosinophils (%) (Auto) 2 % Basophils (%) (Auto) 1 % Neutrophils # (Auto) 7.2 x10^3/uL Lymphocytes # (Auto) 1.1 x10^3/uL Monocytes # (Auto) 1.3 x10^3/uL Eosinophils # (Auto) 0.2 x10^3/uL Basophils # (Auto) 0.1 x10^3/uL Sodium Level 143 mmol/L Potassium Level 4.3 mmol/L Chloride Level 114 mmol/L Carbon Dioxide Level 22 mmol/L Anion Gap 7 Blood Urea Nitrogen 9 mg/dL Creatinine 0.4 mg/dL Estimated GFR (Cockcroft-Gault) 199.1 Glucose Level 237 mg/dL Calcium Level 8.3 mg/dL PE: GEN: chronically ill LUNGS: BiPAP HEART: tachycardic ABD: non-distended NEURO/PSYCH: lethargic A/P: S/p right colon resection Resp failure TRISTAN, diarrhea H/o dysphagia, mental disability, h/o seizures -- Dc plans as above. Justicifation of Admission Dx: Justifications for Admission: Justification of Admission Dx: Yes SARA RAZO May 31, 2020 09:21
--- NOTE | 2020-05-31 10:14 | PDOC ---
SURGICAL PROGRESS NOTE DATE: 05/31/20 TIME: 10:13 Subjective Tolerating Dobbhoff tube feeds, noncommunicative Vital Signs Vital Signs Date Time Temp Pulse Resp B/P (MAP) Pulse Ox O2 Delivery O2 Flow Rate FiO2 05/31/20 10:00 108 36 107/62 (77) 97 Nasal Cannula 3.0 05/31/20 08:00 98.3 98.3 I&O Intake and Output 05/31/20 07:00 Intake Total 2220 ml Output Total 1785 ml Balance 435 ml IV Total 255 ml Tube Feeding 1740 ml Other 225 ml Output Urine Total 1785 ml Gastric Drainage Total 0 ml PATIENT HAS A DAVISON: Yes General: No acute distress Abdomen: Normal bowel sounds, Soft, Other (Wounds clean dry and intact) Labs Laboratory Tests Test 05/29/20 13:10 05/29/20 17:00 05/30/20 05:00 05/31/20 05:30 O2 Saturation 88 % (92-99) Arterial Blood pH 7.37 (7.35-7.45) Arterial Blood pCO2 at Patient Temp 40 mmHg (35-46) Arterial Blood pO2 at Patient Temp 57 mmHg (75-108) Arterial Blood HCO3 22 mmol/L (21-28) Arterial Blood Base Excess -3 mmol/L (-3-3) FiO2 50 Clostridium difficile Toxin (PCR) Negative (NEGATIVE) White Blood Count 8.6 x10^3/uL (4.0-11.0) 9.9 x10^3/uL (4.0-11.0) Red Blood Count 4.11 x10^6/uL (3.50-5.40) 3.97 x10^6/uL (3.50-5.40) Hemoglobin 9.2 g/dL (12.0-15.5) 8.8 g/dL (12.0-15.5) Hematocrit 30.0 % (36.0-47.0) 29.2 % (36.0-47.0) Mean Corpuscular Volume 73 fL (79-100) 73 fL (79-100) Mean Corpuscular Hemoglobin 22 pg (25-35) 22 pg (25-35) Mean Corpuscular Hemoglobin Concent 31 g/dL (31-37) 30 g/dL (31-37) Red Cell Distribution Width 29.3 % (11.5-14.5) 29.5 % (11.5-14.5) Platelet Count 106 x10^3/uL (140-400) 100 x10^3/uL (140-400) Neutrophils (%) (Auto) 71 % (31-73) 73 % (31-73) Lymphocytes (%) (Auto) 10 % (24-48) 11 % (24-48) Monocytes (%) (Auto) 15 % (0-9) 13 % (0-9) Eosinophils (%) (Auto) 4 % (0-3) 2 % (0-3) Basophils (%) (Auto) 0 % (0-3) 1 % (0-3) Neutrophils # (Auto) 6.1 x10^3/uL (1.8-7.7) 7.2 x10^3/uL (1.8-7.7) Lymphocytes # (Auto) 0.9 x10^3/uL (1.0-4.8) 1.1 x10^3/uL (1.0-4.8) Monocytes # (Auto) 1.3 x10^3/uL (0.0-1.1) 1.3 x10^3/uL (0.0-1.1) Eosinophils # (Auto) 0.3 x10^3/uL (0.0-0.7) 0.2 x10^3/uL (0.0-0.7) Basophils # (Auto) 0.0 x10^3/uL (0.0-0.2) 0.1 x10^3/uL (0.0-0.2) Sodium Level 145 mmol/L (136-145) 143 mmol/L (136-145) Potassium Level 4.2 mmol/L (3.5-5.1) 4.3 mmol/L (3.5-5.1) Chloride Level 114 mmol/L (98-107) 114 mmol/L (98-107) Carbon Dioxide Level 25 mmol/L (21-32) 22 mmol/L (21-32) Anion Gap 6 (6-14) 7 (6-14) Blood Urea Nitrogen 11 mg/dL (7-20) 9 mg/dL (7-20) Creatinine 0.5 mg/dL (0.6-1.0) 0.4 mg/dL (0.6-1.0) Estimated GFR (Cockcroft-Gault) 153.9 199.1 Glucose Level 141 mg/dL (70-99) 237 mg/dL (70-99) Lactic Acid Level 1.3 mmol/L (0.4-2.0) Calcium Level 8.5 mg/dL (8.5-10.1) 8.3 mg/dL (8.5-10.1) Laboratory Tests Test 05/31/20 05:30 White Blood Count 9.9 x10^3/uL (4.0-11.0) Red Blood Count 3.97 x10^6/uL (3.50-5.40) Hemoglobin 8.8 g/dL (12.0-15.5) Hematocrit 29.2 % (36.0-47.0) Mean Corpuscular Volume 73 fL (79-100) Mean Corpuscular Hemoglobin 22 pg (25-35) Mean Corpuscular Hemoglobin Concent 30 g/dL (31-37) Red Cell Distribution Width 29.5 % (11.5-14.5) Platelet Count 100 x10^3/uL (140-400) Neutrophils (%) (Auto) 73 % (31-73) Lymphocytes (%) (Auto) 11 % (24-48) Monocytes (%) (Auto) 13 % (0-9) Eosinophils (%) (Auto) 2 % (0-3) Basophils (%) (Auto) 1 % (0-3) Neutrophils # (Auto) 7.2 x10^3/uL (1.8-7.7) Lymphocytes # (Auto) 1.1 x10^3/uL (1.0-4.8) Monocytes # (Auto) 1.3 x10^3/uL (0.0-1.1) Eosinophils # (Auto) 0.2 x10^3/uL (0.0-0.7) Basophils # (Auto) 0.1 x10^3/uL (0.0-0.2) Sodium Level 143 mmol/L (136-145) Potassium Level 4.3 mmol/L (3.5-5.1) Chloride Level 114 mmol/L (98-107) Carbon Dioxide Level 22 mmol/L (21-32) Anion Gap 7 (6-14) Blood Urea Nitrogen 9 mg/dL (7-20) Creatinine 0.4 mg/dL (0.6-1.0) Estimated GFR (Cockcroft-Gault) 199.1 Glucose Level 237 mg/dL (70-99) Calcium Level 8.3 mg/dL (8.5-10.1) Problem List Problems Medical Problems: (1) Hypernatremia Status: Acute (2) Severe anemia Status: Acute (3) Severe sepsis Status: Acute (4) UTI (urinary tract infection) Status: Acute Assessment/Plan Status post right colon resection Tolerating tube feeds agree with transfer to [facility] Justicifation of Admission Dx: Justifications for Admission: Justification of Admission Dx: Yes BENIGNO SHAH MD May 31, 2020 10:14
[2020-05-31] MEDS: fentaNYL PF VIAL 100 MCG/2 ML VIAL IVP PRN (11:10)
--- NOTE | 2020-05-31 12:12 | NUR ---
SS following up with discharge planning. SS reviewed pt chart and discussed with pt RN. Discharge orders received for [facility] ; fax [phone]. SS phoned and faxed discharge orders to [facility]. Pt will discharge today and go to [facility] at 1500 via [facility] ambulance. Pt's sister and pt's RN notified. Packet and ambulance form placed on chart.
--- NOTE | 2020-05-31 13:57 | NUR ---
Report called to [facility] RN.
--- NOTE | 2020-05-31 14:40 | PDOC3 ---
Discharge Summary Visit Information Date of Admission: May 16, 2020 Date of Discharge: May 31, 2020 Admitting Diagnosis Comment: Acute anemia Acute electrolyte derangements Positive fecal occult blood of the stool Lactic acidemia Right first toe ecchymosis Severe malnutrition Bedridden status Frailty Debilitation Final Diagnosis Problems Medical Problems: (1) Hypernatremia Status: Acute (2) Severe anemia Status: Acute (3) Severe sepsis Status: Acute (4) UTI (urinary tract infection) Status: Acute Brief Hospital Course Allergies Allergies Coded Allergies Type Severity Reaction Last Updated Verified No Known Drug Allergies 05/22/20 No Vital Signs Vital Signs Date Time Temp Pulse Resp B/P (MAP) Pulse Ox O2 Delivery O2 Flow Rate FiO2 05/31/20 14:00 107 28 107/47 (67) 95 Nasal Cannula 3.0 05/31/20 12:00 99.9 99.9 Lab Results Laboratory Tests Test 05/29/20 17:00 05/30/20 05:00 05/31/20 05:30 Clostridium difficile Toxin (PCR) Negative (NEGATIVE) White Blood Count 8.6 x10^3/uL (4.0-11.0) 9.9 x10^3/uL (4.0-11.0) Red Blood Count 4.11 x10^6/uL (3.50-5.40) 3.97 x10^6/uL (3.50-5.40) Hemoglobin 9.2 g/dL (12.0-15.5) 8.8 g/dL (12.0-15.5) Hematocrit 30.0 % (36.0-47.0) 29.2 % (36.0-47.0) Mean Corpuscular Volume 73 fL (79-100) 73 fL (79-100) Mean Corpuscular Hemoglobin 22 pg (25-35) 22 pg (25-35) Mean Corpuscular Hemoglobin Concent 31 g/dL (31-37) 30 g/dL (31-37) Red Cell Distribution Width 29.3 % (11.5-14.5) 29.5 % (11.5-14.5) Platelet Count 106 x10^3/uL (140-400) 100 x10^3/uL (140-400) Neutrophils (%) (Auto) 71 % (31-73) 73 % (31-73) Lymphocytes (%) (Auto) 10 % (24-48) 11 % (24-48) Monocytes (%) (Auto) 15 % (0-9) 13 % (0-9) Eosinophils (%) (Auto) 4 % (0-3) 2 % (0-3) Basophils (%) (Auto) 0 % (0-3) 1 % (0-3) Neutrophils # (Auto) 6.1 x10^3/uL (1.8-7.7) 7.2 x10^3/uL (1.8-7.7) Lymphocytes # (Auto) 0.9 x10^3/uL (1.0-4.8) 1.1 x10^3/uL (1.0-4.8) Monocytes # (Auto) 1.3 x10^3/uL (0.0-1.1) 1.3 x10^3/uL (0.0-1.1) Eosinophils # (Auto) 0.3 x10^3/uL (0.0-0.7) 0.2 x10^3/uL (0.0-0.7) Basophils # (Auto) 0.0 x10^3/uL (0.0-0.2) 0.1 x10^3/uL (0.0-0.2) Sodium Level 145 mmol/L (136-145) 143 mmol/L (136-145) Potassium Level 4.2 mmol/L (3.5-5.1) 4.3 mmol/L (3.5-5.1) Chloride Level 114 mmol/L (98-107) 114 mmol/L (98-107) Carbon Dioxide Level 25 mmol/L (21-32) 22 mmol/L (21-32) Anion Gap 6 (6-14) 7 (6-14) Blood Urea Nitrogen 11 mg/dL (7-20) 9 mg/dL (7-20) Creatinine 0.5 mg/dL (0.6-1.0) 0.4 mg/dL (0.6-1.0) Estimated GFR (Cockcroft-Gault) 153.9 199.1 Glucose Level 141 mg/dL (70-99) 237 mg/dL (70-99) Lactic Acid Level 1.3 mmol/L (0.4-2.0) Calcium Level 8.5 mg/dL (8.5-10.1) 8.3 mg/dL (8.5-10.1) Laboratory Tests Test 05/31/20 05:30 White Blood Count 9.9 x10^3/uL (4.0-11.0) Red Blood Count 3.97 x10^6/uL (3.50-5.40) Hemoglobin 8.8 g/dL (12.0-15.5) Hematocrit 29.2 % (36.0-47.0) Mean Corpuscular Volume 73 fL (79-100) Mean Corpuscular Hemoglobin 22 pg (25-35) Mean Corpuscular Hemoglobin Concent 30 g/dL (31-37) Red Cell Distribution Width 29.5 % (11.5-14.5) Platelet Count 100 x10^3/uL (140-400) Neutrophils (%) (Auto) 73 % (31-73) Lymphocytes (%) (Auto) 11 % (24-48) Monocytes (%) (Auto) 13 % (0-9) Eosinophils (%) (Auto) 2 % (0-3) Basophils (%) (Auto) 1 % (0-3) Neutrophils # (Auto) 7.2 x10^3/uL (1.8-7.7) Lymphocytes # (Auto) 1.1 x10^3/uL (1.0-4.8) Monocytes # (Auto) 1.3 x10^3/uL (0.0-1.1) Eosinophils # (Auto) 0.2 x10^3/uL (0.0-0.7) Basophils # (Auto) 0.1 x10^3/uL (0.0-0.2) Sodium Level 143 mmol/L (136-145) Potassium Level 4.3 mmol/L (3.5-5.1) Chloride Level 114 mmol/L (98-107) Carbon Dioxide Level 22 mmol/L (21-32) Anion Gap 7 (6-14) Blood Urea Nitrogen 9 mg/dL (7-20) Creatinine 0.4 mg/dL (0.6-1.0) Estimated GFR (Cockcroft-Gault) 199.1 Glucose Level 237 mg/dL (70-99) Calcium Level 8.3 mg/dL (8.5-10.1) [facility] Hospital Course HPI: 55 y/o female sent to ER from [place] for low Hgb and FTT. WBC 13, lactic 2.3 (now normal), Hgb 5.6, MCV 59, BUN 28, Cr 0.5, Na 153, Hemoccult positive, +UTI. No obvious bleeding. CT w/ stable mass at uterus, possible fibroid. Also noted RLQ lymphadenopathy. Iron deficient in 2019, B12 normal in 2018. ?on Eliquis and famotidine. On dysphagia diet at [place]. Can say "no" and shake head yes/no. Denies pain, denies vomiting, denies bleeding. Patient was going to be discharged to half-way nevertheless due to her persistent anemia and patient was seen by GI in prep for a colonoscopy Dr. Garrett took patient to the endoscopy suite for colonoscopy on 05/22/2020 with the following results: Operative Note Colonoscopy with biopsies Meds propofol per anesthesia Pre-op dx Chroniic blood loss anemia/abnl Ct scan Post-op dx internal hemorrhoids sigmoid diverticulosis ascending colon mass s/p bx/tattoo Plan surgical consult for resection pending biopsy results CEA level Subsequently surgical consultation was requested with the following recommendations Assessment/Plan Patient seen and examined by me she is currently resting comfortably in bed is noncommunicative her abdomen is soft nondistended nontender colonoscopy results show mass in the ascending colon which would explain her anemia biopsies taken most likely malignant. Patient's D POA sister was in the room had long discussion with her plan for right colon resection on 05/24/2020. Maintain clear liquid diet until surgery does not need repeat bowel prep She underwent exploratory laparotomy with right colon resection and primary anastomosis on 05/24/2020 Operative Note Date: 05/24/2020 at 1057 Preoperative diagnosis: Right colon mass Postoperative diagnosis: Same Procedure: Exploratory laparotomy with right colon resection and primary anastomosis Surgeon: Darian Specimen: Right colon Dictation: Patient is a 55-year-old female was mated to the hospital with anemia on further work-up she had a colonoscopy was found to have a large mass in the mid a sending colon which was tattooed at the time biopsies were taken. The procedure of right colon resection was explained to the patient's sister who is her D POA all risk benefits were also discussed including bleeding infection nonhealing of anastomosis leading to further operations and possibly colostomy. Patient's sister seemed to understand and gave both verbal and written consent to have the procedure performed. Patient was taken to the operating room placed in the supine position general anesthesia was initiated once patient was sleeping intubated her abdomen was prepped and draped usual sterile fashion using ChloraPrep. A midline incision was made with a 10 blade scalpel this is carried down through the subcutaneous tissue using electrocautery right hemostasis down to the fascia fascia was further open electrocautery and the peritoneum was opened Metzenbaum scissors once entered the abdomen the full length of the incision was opened with electrocautery. Abdomen was inspected tattoo was noted to be mid a sending colon liver appeared to be normal there were some large nodes within the mesentery of the colon. The white line of Toldt along the right gutter was taken down electrocautery the colon was rolled to the midline very easily a window was made in the mesentery of the small bowel at the distal ileum a ZOFIA 75 stapler was used to staple and transect the small bowel the mesentery was then taken down with impact LigaSure to the proximal transverse colon the hepatic flexure was taken down electrocautery a ZOFIA 75 stapler was used to staple and transect the colon specimen was then removed from the operative field and sent for pathology. A [id number] anastomosis was completed with the small bowel to colon and a peristaltic fashion with a ZOFIA 75 stapler the enterotomy was then closed with a running interlocking 3-0 Vicryl and 3-0 Vicryl Lembert sutures over the top of the closed enterotomy. Mesentery was closed with 3-0 Vicryl abdominal contents returned to the abdomen the abdomen was irrigated and suctioned dry hemostasis deemed be appropriate and the fascia was then closed with a running oh looped PDS the deep subcutaneous layer was closed with a running 2-0 Vicryl and the skin was reapproximated for subcuticular Monocryl Mastisol Steri-Strips and island dressings were applied patient was awakened and extubated in the operating room taken to recovery in stable condition all sponge instrument needle counts listed as correct estimated blood loss 30 mL. She subsequently was transitioned to the ICU where she was seen in consultation by pulmonology sicne she was not able to be extubated after surgery, she spent the remainder of her days in the ICU prior to jose gu[facility]upe to [facility]. 05/25/2022 Patient seen and examined in the ICU She is intubated Assist-control/02/02 100/50% with 7 of PEEP Discussed with RN I called the pharmacy to see about IV Depakote Chart reviewed She remains critically 05/26/2020 Patient seen and examined in the ICU She is still on the ventilator Assist-control// with 40% FiO2 and 7 of PEEP Discussed with RN Chart reviewed She has clean dry intact ventricle incision She is sedated with propofol and fentanyl Also on a Levophed drip Has SCDs Has heel protectors Wilder to bedside drainage Appears critically ill 05/27/2020 Still on ventilatory support We will wait for pulmonology evaluation Patient still on Levophed Patient has increased weight of about 10 Kg, she needs diuresis but difficult at this time given soft BP 05/28/2020 patient on bipap quite edematous will continue with Lasix Off Levophed 05/29/2020 patient on bipap quite edematous will continue with Lasix and replace electrolytes Off Levophed 05/30 2020 Patient was ready to be discharged to [facility] with surgery decided to hold off for 1 more day. 05/31/2020 No acute events reported overnight the patient was in hemodynamically stable condition and ready to be transfer to [facility]. She will continue with Zosyn prior to discharge the patient presented a low-grade temp of 100.2 Fahrenheit. I have requested nursing staff to inform during report of this event and to encourage incentive spirometry. Currently the patient has broad-spectrum antibiotics with Zosyn which will be continued on she transferred to [facility] hospital. Greater than 35 minutes were spent in the discharge process the patient counseling coronation of care and arrangement for safe discharge Assessment Assessment Physical Exam GENERAL: Intubated and sedated some. not in distress. HEENT: Anicteric ETT/OGT NECK: Supple. LUNGS: Clear. HEART: S1, S2 regular. ABDOMEN: Distended some. Decrease but + BS. - Incision dressed : - wilder in place EXTREMITIES: No edema, no cyanosis. SKIN: Unremarkable. NEUROLOGIC: Sedated some RIJ -clean 05/25 General: No acute distress Heart: Regular rate Lungs: Other (deminished bs) Abdomen: Soft, Other (dressing dry) Extremities: No clubbing, No cyanosis Skin: No rashes, No breakdown Discharge Information Condition at Discharge: Improved Follow Up: Weeks Disposition/Orders: D/C to Another Facility Scheduled Apixaban (Eliquis) 5 Mg Tablet, 5 MG PO BID for thrombosis, (Reported) Entered as Reported by: LETHA VERMA on 06/12/19240 Last Action: Reviewed on 05/16/202220 by Matthew Patel Cetirizine Hcl (Zyrtec) 10 Mg Tablet, 1 TAB PO DAILY, #30 Ref 2 (Reported) Entered as Reported by: Barbara Salas on 01/09/18311 Last Action: Continued on 05/17/20 1235 by EDGARD JAIME Chlorhexidine Gluconate (Chlorhexidine Gluconate) 118 Ml Liquid, 1 DAMION PO BID for 10 ml for oral care , #237 Ref 0 (Reported) Entered as Reported by: Matthew Patel on 05/16/202220 Last Taken: UNKNOWN on Unknown Date & Time Last Action: Converted on 05/17/20 1235 by EDGARD JAIME Clobazam (Onfi) 10 Mg Tablet, 5 MG PO BID92, (Reported) Entered as Reported by: Barbara Salas on 01/09/18311 Last Action: Converted on 05/17/20 1235 by EDGARD JAIME Divalproex Sodium (Divalproex Sodium Er) 500 Mg Tab.er.24h, 250 MG PO DAILY for epilepsy, (Reported) Entered as Reported by: LETHA VERMA on 06/12/19240 Last Action: Continued on 05/17/20 1235 by EDGARD JAIME Divalproex Sodium (Divalproex Sodium Er) 500 Mg Tab.er.24h, 500 MG PO BID for epilepsy, (Reported) Entered as Reported by: LETHA VERMA on 06/12/19240 Last Action: Edited on 05/17/20 1320 by EDGARD JAIME Docusate Sodium (Docusate Sodium) 100 Mg Capsule, 200 MG PO HS for constipation, (Reported) Entered as Reported by: LETHA VERMA on 06/12/19240 Last Action: Continued on 05/17/20 1235 by EDGARD JAIME Famotidine (Famotidine) 20 Mg Tablet, 20 MG PO HS for heartburn, (Reported) Entered as Reported by: LETHA VERMA on 06/12/19240 Last Action: Continued on 05/17/20 123 by EDGARD JAIME Gabapentin (Gabapentin ) 100 Mg Capsule, 200 MG PO TID for NEUROGENIC PAIN, (Reported) Entered as Reported by: Matthew Patel on 05/16/202220 Last Taken: UNKNOWN on Unknown Date & Time Last Action: Continued on 05/17/20 123 by EDGARD JAIME Topiramate (Topamax) 200 Mg Tablet, 200 MG PO BID for epilepsy, (Reported) Entered as Reported by: LETHA VERMA on 06/12/19240 Last Action: Converted on 05/17/201234 by EDGARD JAIME Scheduled PRN Acetaminophen (Acetaminophen Supp) 650 Mg Supp.rect, 650 MG AZ PRN Q6HRS PRN for FEVER for 10 Days, #30 Prescribed by: BENIGNO ASCENCIO MD on 06/15/19 5752 Last Action: Continued on 05/17/201234 by EDGARD JAIME Bisacodyl (Bisacodyl) 10 Mg Supp.rect, 10 MG RC PRN DAILY PRN for CONSTIPATION, Ref 0 (Reported) Entered as Reported by: LETHA VERMA on 06/12/19240 Last Action: Continued on 05/17/201234 by EDGARD JAIME Glycopyrrolate (Glycopyrrolate) 2 Mg Tablet, 1 MG PO PRN Q8HRS PRN for secretions, (Reported) Entered as Reported by: Matthew Patel on 05/16/202220 Last Taken: UNKNOWN on Unknown Date & Time Last Action: Converted on 05/17/201234 by EDGARD JAIME Loperamide HCl (Imodium A-D) 2 Mg Capsule, 2 MG PO PRN Q8HRS PRN for DIARRHEA, (Reported) Entered as Reported by: Matthew Patel on 05/16/202220 Last Taken: UNKNOWN on Unknown Date & Time Last Action: Continued on 05/17/201234 by EDGARD JAIME Melatonin (Melatonin) 3 Mg Tablet, 3 MG PO PRN QHS PRN for INSOMNIA, (Reported) Entered as Reported by: LETHA VERMA on 06/12/19240 Last Action: Converted on 05/17/201234 by EDGARD JAIME Na Phos,M-B/Na Phos,Di-Ba (Fleet Enema) 133 Ml Enema, 133 ML RC PRN Q8HRS PRN for CONSTIPATION, (Reported) Entered as Reported by: LETHA VERMA on 06/12/19240 Last Action: Continued on 05/17/201234 by EDGARD JAIME Oxycodone Hcl (Oxycodone Hcl) 5 Mg Capsule, 5 MG PO PRN Q4HRS PRN for PAIN, Ref 0 (Reported) Entered as Reported by: LETHA VERMA on 06/12/19240 Last Action: Converted on 05/17/201234 by EDGARD JAIME Polyethylene Glycol 3350 (Polyethylene Glycol 3350) 17 Gm Powd.pack, 17 GM PO PRN DAILY PRN for CONSTIPATION, (Reported) Entered as Reported by: LETHA VERMA on 06/12/19240 Last Action: Continued on 05/17/201234 by EDGARD JAIME Justicifation of Admission Dx: Justifications for Admission: Justification of Admission Dx: Yes HUGO MEYER MD May 31, 2020 14:40
--- NOTE | 2020-05-31 15:30 | NUR ---
Pt transferred to [facility] with EMS staff. VSS. Patient had two bags with what appeared to be blankets in them. Room cleaned and no other belongings found. Naomy, sister has been notified of transfer.
--- NOTE | 2020-06-04 12:07 | PATHOLOGY ---
[facility] Accession Number: [id number] . 01 Material submitted: . colon - RIGHT COLON. Modifiers: right . 01 Clinical history: . RIGHT COLON CANCER RIGHT COLON RESECTION . 02 Diagnosis: Small and large bowel "right hemicolectomy": - ADENOCARCINOMA, MODERATELY DIFFERENTIATED (GRADE 2/4) - Forming a 5.3 X 4.5 X 2.0 cm cecal mass. - Tumor invades into the muscularis propria (pT2). - Lymphovascular invasion identified. - Small and large bowel margins negative. - Please see cancer case summary below. - Tubular adenoma. - Diverticulum. . Vermiform appendix, excision: - No significant pathologic alteration. . Lymph nodes (20), mesenteric, excision: - METASTATIC CARCINOMA INVOLVING 8 (OF 20) MESENTERIC LYMPH NODES . - pN2b. . CANCER CASE SUMMARY (PRIMARY COLORECTAL CARCINOMA) . Procedure - Right hemicolectomy . Tumor Site - Cecum . Tumor Size - 5.3 x 4.5 x 2.0 cm . Macroscopic Tumor Perforation - Not identified . Histologic Type - Adenocarcinoma . Histologic Grade - Moderately differentiated (grade 2/4) . Tumor Extension - Tumor invades into the muscularis propria . Margins - All margins negative . Tumor 7.2 cm from distal (colonic) margin . Tumor 8.3 cm from proximal (ileal) margin of resection . Treatment Effect - None . Lymphovascular Invasion - Present . Perineural Invasion - Not identified . Tumor Deposits - Not identified . Regional Lymph Nodes . - 8 lymph nodes involved with metastatic carcinoma. . - 20 lymph nodes examined . Pathologic Stage Classification (pTNM, AJCC 8th Edition) . Primary Tumor (pT) . pT2 - Tumor invades into muscularis propria . Regional Lymph Nodes (pN) . pN2b - Tumor involves 8 lymph nodes . Additional Pathologic Findings . - Tubular adenoma . - Colonic diverticulum (MLK/db; 06/03/2020) LBQ 06/04/2020 1119 Local . 02 Electronically signed: . Emelia Collier MD, Pathologist NPI- [id number] . 01 Gross description: . Received in formalin labeled "Emmy Casas, right colon" is a hemicolectomy specimen consisting of terminal ileum (8.2 x 2.7 cm), cecum (6.2 x 4.7 x 3.9 cm), appendix (4.8 x 0.9 cm), and ascending colon (6.0 x 2.8 cm). The proximal and distal margins are closed with staple lines. The serosa is pink-hernandez and smooth with a tattoo area on the distal cecum/proximal colon measuring 2.2 x 1.2 cm. The specimen is opened to reveal a pink-hernandez exophytic nodular mass within the cecum measuring 5.3 x 4.5 x 2.0 cm. The mass is located 8.3 cm to the small bowel margin, 7.2 cm to the distal margin, and 4.9 cm to the closest mesenteric/radial margin. The mass is located 1.5 cm from the ileocecal valve and 2.8 cm from the appendiceal orifice. Upon sectioning, the mass focally invades into the muscle wall and is located 1.2 from the closest serosa. The uninvolved mucosa is pink-hernandez with unremarkable folding with one sessile polyp within the cecum measuring 0.3 cm. One diverticulum is identified in the proximal colon measuring 0.3 cm in greatest dimension. The pericolonic fat is sectioned to reveal multiple lymph nodes ranging from 0.3-2.5 cm in greatest dimension, with multiple grossly positive lymph nodes identified. Ornamental [employer] Ere[employer] Apprentice sections of the specimen are submitted as follows: A1 - proximal margin A2 - distal margin A3 - perpendicular section of closest mesenteric/radial margin (true margin inked black) A4 - used equipment sales representative ileocecal valve with mass A5 - used equipment sales representative appendix and one half of the distal tip A6 - multiple lymph nodes A7 - two bisected lymph nodes A8 - two trisected lymph nodes A9 - one lymph node, serially sectioned A8 - one bisected lymph node A11 - one bisected lymph node A12 - one lymph node, serially sectioned A13 - used equipment sales representative sections of one grossly positive lymph node A14 - used equipment sales representative section of one grossly positive lymph node A15 - sessile polyp and diverticulum submitted entirely A16-A19 - used equipment sales representative sections of mass ([facility]; 05/24/2020) [facility] 06/04/2020 1119 Local . 02 Pathologist provided ICD-10: C18.0, D12.0, C77.2 . 02 CPT . 075524 Specimen Comment: A courtesy copy of this report has been sent to [phone] Specimen Comment: Report sent to Performed at: 01 [facility] [address] [id number] MD Fahad Sheehan MD Phone: [phone] Performed at: 02 [facility] [address] [id number] MD Zach Walker MD Phone: [phone]
== END 2020-05-31 15:30 | DRG 853 ==
LOC: ER 16:03 → 2 SOUTH 18:18 → 1 WEST ICU 05-24 11:45
PROVIDERS: ADMIT Internal Medicine; ATTEND Internal Medicine
PROC: 30233N1 Transfusion of Nonautologous Red Blood Cells into Peripheral Vein, Percutaneous Approach (ICD-10-PCS; 2020-05-16)
PROC: 5A09357 Assistance with Respiratory Ventilation, Less than 24 Consecutive Hours, Continuous Positive Airway Pressure (ICD-10-PCS; 2020-05-19)
PROC: 0DBK8ZX Excision of Ascending Colon, Via Natural or Artificial Opening Endoscopic, Diagnostic (ICD-10-PCS; 2020-05-22)
PROC: 5A1945Z Respiratory Ventilation, 24-96 Consecutive Hours (ICD-10-PCS; 2020-05-24)
PROC: 0DTF0ZZ Resection of Right Large Intestine, Open Approach (ICD-10-PCS; principal; 2020-05-24 09:00)
PROC: 5A09457 Assistance with Respiratory Ventilation, 24-96 Consecutive Hours, Continuous Positive Airway Pressure (ICD-10-PCS; 2020-05-27)
PROC: 5A09357 Assistance with Respiratory Ventilation, Less than 24 Consecutive Hours, Continuous Positive Airway Pressure (ICD-10-PCS; 2020-05-29)
PROC: 02H633Z Insertion of Infusion Device into Right Atrium, Percutaneous Approach (ICD-10-PCS; 2020-05-29)
PROC: 5A09357 Assistance with Respiratory Ventilation, Less than 24 Consecutive Hours, Continuous Positive Airway Pressure (ICD-10-PCS; 2020-05-30)
DX: A41.9 Sepsis, unspecified organism (principal); E43 Unspecified severe protein-calorie malnutrition; J96.90 Respiratory failure, unspecified, unspecified whether with hypoxia or hypercapnia; G92 Toxic encephalopathy; C18.9 Malignant neoplasm of colon, unspecified; N30.00 Acute cystitis without hematuria; E87.0 Hyperosmolality and hypernatremia; J98.11 Atelectasis; K56.7 Ileus, unspecified; Z66 Do not resuscitate; I95.89 Other hypotension; R29.6 Repeated falls; R65.20 Severe sepsis without septic shock; R13.10 Dysphagia, unspecified; K64.8 Other hemorrhoids; K59.00 Constipation, unspecified; F03.90 Unspecified dementia, unspecified severity, without behavioral disturbance, psychotic disturbance, mood disturbance, and anxiety; F41.9 Anxiety disorder, unspecified; G40.909 Epilepsy, unspecified, not intractable, without status epilepticus; K57.30 Diverticulosis of large intestine without perforation or abscess without bleeding; E55.9 Vitamin D deficiency, unspecified; D50.0 Iron deficiency anemia secondary to blood loss (chronic); B96.20 Unspecified Escherichia coli [E. coli] as the cause of diseases classified elsewhere; D25.9 Leiomyoma of uterus, unspecified; R62.50 Unspecified lack of expected normal physiological development in childhood; R59.0 Localized enlarged lymph nodes; Z20.828 Contact with and (suspected) exposure to other viral communicable diseases; Z90.710 Acquired absence of both cervix and uterus; Z79.899 Other long term (current) drug therapy; Z86.718 Personal history of other venous thrombosis and embolism; Z83.3 Family history of diabetes mellitus; Z82.49 Family history of ischemic heart disease and other diseases of the circulatory system; Z74.01 Bed confinement status; Z98.51 Tubal ligation status; Z87.440 Personal history of urinary (tract) infections; Z87.01 Personal history of pneumonia (recurrent); Z91.81 History of falling; Z96.82 Presence of neurostimulator; Z68.26 Body mass index [BMI] 26.0-26.9, adult
CPT/HCPCS: 36415; 36430; 36600; 45378; 71045; 74018; 74177; 80048; 80053; 80164; 81001; 82274; 82378; 82553; 82805; 83605; 83735; 84100; 84484; 85007; 85025; 85027; 85610; 85730; 86850; 86900; 86901; 86920; 87040; 87077; 87086; 87186; 87493; 88305; 88309; 93005; 94002; 94003; 94640; 94660; 96361; 96365; 96367; 96375; C1769; C9113; J0330; J0690; J0694; J1100; J1650; J1885; J1940; J1956; J2270; J2370; J2405; J2543; J2704; J2710; J3010; J3475; J3480; J3490; J7030; J7042; J7060; J7120; J7121; P9016; P9045; Q9967; 99291-25; G0378; U0003-CS